=== PATIENT | male | born 1970 | race Caucasian/White ===

== ENCOUNTER 2023-02-18 14:20 | Emergency (ER) | payer BC ==
--- OUTSIDE RECORDS SUMMARY | 2023-02-18 14:25 | XMS REPORT | Clinical Summary ---
:1970 Author Organization [facility] MD [facility] Center Address [address] [place] [address] Care Team Providers Name Role Phone Edward Méndze MD Unavailable Katiana Felton MD Primary Care Provider Allergies No known active allergies Medications Medication Sig Dispensed Refills Start End Date Status Date HYDROcodone-acetamino Take 1 tablet 30 tablet 0 Active phen ([place]) 5 mg-325 by mouth 3 mg per every 8 tabletIndications: (eight) hours Neoplasm related pain as needed for (acute) (chronic) moderate pain. omeprazole (PriLOSEC) Take 1 0 Active 20 mg capsule (20 capsuleIndications: mg) by mouth. gastroesophageal reflux disease HYDROcodone-acetamino Take 1 tablet 40 tablet 0 Active phen ([place]) 10 by mouth 3 mg-325 mg per every 6 (six) tabletIndications: hours as Neoplasm related pain needed for (acute) (chronic) moderate pain. HYDROcodone-acetamino Take 1 tablet 40 tablet 0 Active phen ([place]) 10 by mouth 3 mg-325 mg per every 6 (six) tabletIndications: hours as Neoplasm related pain needed for (acute) (chronic) moderate pain. oxyBUTYnin (Ditropan Take 1 tablet 30 tablet 0 Active XL) 5 mg 24 hr (5 mg) by 3 tabletIndications: mouth daily. Frequency of micturition HYDROcodone-acetamino Take 1 tablet 40 tablet 0 Active phen ([place]) 10 by mouth 3 mg-325 mg per every 6 (six) tabletIndications: hours as Neoplasm related pain needed for (acute) (chronic) moderate pain. HYDROcodone-acetamino Take 1 tablet 40 tablet 0 02/03 Discontinued phen ([place]) 10 by mouth 3 23 (Reo rder) mg-325 mg per every 6 (six) tabletIndications: hours as Neoplasm related pain needed for (acute) (chronic) moderate pain. Active Problems Not on file Encounters Date Type Specialty Care Team Description 02/18/2023 Refill Internal Nicol Hodges Neoplasm re latepatricio pain Medicine SUREKHA Velazquez (acute) (chroni c) 02/15/2023 Orders Only Internal IliesKatiana nuñez, Frequency o f Medicine MD micturition (Pr imary Dx) 02/11/2023 Telephone Internal Suki Cruz L, SOFTWARE TEST SPECIALIST 02/06/2023 Ancillary Procedure Radiology Katiana Felton MD 02/06/2023 Ancillary Procedure Radiology Katiana Felton, Kidn ey, NOS cancer MD <Unspecified> 02/05/2023 Orders Only Internal Iliescu, Katiana, Neoplasm re lated pain Medicine (acute) (chroni c) (Primary Dx) 02/05/2023 Refill Internal Nicol Hodges Neoplasm re latepatricio pain Medicine SUREKHA Velazquez (acute) (chroni c) 02/04/2023 Orders Only Internal Iliescu, Katiana, Neoplasm re lated pain Medicine (acute) (chroni c) (Primary Dx) 02/04/2023 Refill Internal Nicol Hodges Neoplasm re lated pain Medicine SUREKHA Velazquez (acute) (chroni c) 02/01/2023 Telephone Internal Katiana Felton, Medicine 02/01/2023 Orders Only Internal IliescuElaineKatiana, Kidney, NOS cancer Medicine <Unspecified> (Primary Dx) 2023 Hospital Encounter Radiology 2023 Travel 01/30/2023 Hospital Encounter Radiology Pneumotho rax 01/30/2023 Hospital Encounter Radiology 01/30/2023 Hospital Encounter Radiology 01/30/2023 Hospital Encounter Radiology IliesElaine nuñezria, Multi ple nodules of lung; MD Abnormal finding on diagnostic imaging o f other abdominal region including retroperitoneum Matthieu Lawrence MD 01/30/2023 Travel 01/29/2023 Hospital Encounter Radiology IliescuElaineKatiana, Lung nodule (Primary MD Dx) Maia Vieira PA 01/29/2023 Hospital Encounter Lab Jovan Nava Multip le nodules of lung; C, PA Abnormal findin g on diagnostic imaging of other abdominal region including retroperitoneum 01/29/2023 Travel 01/23/2023 Documentation Flora Jean 01/21/2023 Ancillary Procedure Radiology Iliescu, Katiana, Mult iple nodules of lung; Abnormal findin g on diagnostic imaging of other abdominal region including retroperitoneum 01/21/2023 Education Radiology Allyssa Nesbitt MA 01/21/2023 Travel 01/18/2023 Telemedicine Internal Iliescu, Katiana, Multiple no dules of lung (Primary Dx); Medicine MD Abnormal findin g on diagnostic imaging of other abdominal region including retroperitoneum; Smoker; Neoplasm relate d pain (acute) (chronic) 01/18/2023 Orders Only Radiology Jovan Nava PA 01/15/2023 Ancillary Procedure Radiology Iliesjoaquin, Katiana, Canc er 01/15/2023 NPR Patient Access Services 01/15/2023 Travel 01/15/2023 Telephone Patient Access [facility] S, RN 01/15/2023 Telephone Patient Access Gilson Canales S, RN after 02/18/2022 Medical History Medical History Date Comments Tooth disorder 2022 Need deep, scaling, and extraction Asbestosis 2010 At [employer] [facility] in [facility] Genital warts 2014 Genital herpes simplex 1993 not treated per p t. Alcohol abuse 1985 Used drugs since 6, including smoking marijuana, s moking, crystal meth, LSD, and ecsta sy and synthetic cannabinoids, I have had long periods of sobriety, I don t think I was addict ed because every time I wanted to tanika t I did quit Gastro-esophageal reflux disease 11/2022 without esophagitis Family History Medical History Relation Name Comments Stomach cancer Maternal Grandmother Teresa Breast cancer Mother Reema Breast cancer, m etastasized to her spine, brain ans bones Relation Name Status Comments Maternal Grandmother Teresa Mother Reema Social History Tobacco Use Types Packs/Day Years Used Date Smoking Tobacco: Every Day Cigarettes 1 37 S tarted: 01/04/1986 Smokeless Tobacco: Former Snuff Qu it: 04/19/2017 Tobacco Cessation: Ready to Quit: Not As ked; Counseling Given: Not Answered Comments: Started decreasing use 3 weeks ago, down to 1/4 pack per day Alcohol Use Standard Drinks/Week Comments Not Currently 0 (1 standard drink = 0.6 oz pure I drin k less than six alcoholic alcohol) beverages a year Sex Assigned at Date Recorded Not on file Job Start Date Occupation Industry Not on file Not on file Not on file Obstetrics History Last Filed Vital Signs Vital Sign Reading Time Taken Comments Blood Pressure 142/82 01/30/2023 2:07 PM CDT Pulse 91 01/30/2023 2:07 PM CDT Temperature 36.6 C (97.9 F) 01/30/2023 2:07 PM CDT Respiratory Rate 16 01/30/2023 2:07 PM CDT Oxygen Saturation 93% 01/30/2023 2:07 PM CDT Inhaled Oxygen Concentration - - Weight 97.6 kg (215 lb 3.2 oz) 01/29/2023 9:32 AM CDT Height 191 cm (6' 3.2") 01/21/2023 1:16 PM CDT Body Mass Index 26.76 01/21/2023 1:16 PM CDT Plan of Treatment Date Type Specialty Care Team Description 03/21/2023 Consult Genitourinary Oncology Glenis Bedoya MD [address], [place] [address] (Wo rk) Health Maintenance Due Date Last Done Comments COVID-19 Vaccination (#1) 1970 Procedures Procedure Name Priority Date/Time Associated Diagnosis Comme nts NM BONE SCAN WHOLE BODY Routine 02/06/2023 11:53 Kidney, NOS c ancer Results for AM CDT <Unspecified> this procedure are in the results section. IR CHEST XRAY 1 VIEW 30 Routine 2023 8:58 R esults for AM CDT this procedure are in the results section. IR CHEST XRAY 1 VIEW 30 STAT 01/30/2023 2:02 Pneumothorax R esults for PM CDT this procedure are in the results section. IR CHEST XRAY 1 VIEW 30 Routine 01/30/2023 1:00 R esults for PM CDT this procedure are in the results section. IR CHEST XRAY 1 VIEW 30 STAT 01/30/2023 9:53 R esults for AM CDT this procedure are in the results section. IR CT GUIDED BIOPSY Routine 01/30/2023 9:43 Multiple nodules o f Results for LUNG/MEDIASTINAL 60 AM CDT lung this procedure Abnormal finding on are in t he diagnostic imaging of result s other abdominal region secti on. including retroperitoneum CYTOLOGY IMAGE-GUIDED Routine 01/30/2023 9:21 Multiple nodules of Results for FNA INTERPRETATION AM CDT lung this procedure Abnormal finding on are in t he diagnostic imaging of result s other abdominal region secti on. including retroperitoneum PATHOLOGY BIOPSY Routine 01/30/2023 9:21 Multiple nodules of R esults for INTERPRETATION AM CDT lung this procedure Abnormal finding on are in t he diagnostic imaging of result s other abdominal region secti on. including retroperitoneum MANUAL DIFFERENTIAL Routine 01/29/2023 9:26 Multiple nodules o f Results for AM CDT lung this procedure Abnormal finding on are in t he diagnostic imaging of result s other abdominal region secti on. including retroperitoneum Results CBC Routine 01/29/2023 9:26 Multiple nodules of Resul ts for AM CDT lung this procedure Abnormal finding on are in t he diagnostic imaging of result s other abdominal region secti on. including retroperitoneum FRACTIONATED BILIRUBIN Routine 01/29/2023 9:26 Multiple nodule s of Results for AM CDT lung this procedure Abnormal finding on are in t he diagnostic imaging of result s other abdominal region secti on. including retroperitoneum TOTAL PROTEIN Routine 01/29/2023 9:26 Multiple nodules of Resu lts for AM CDT lung this procedure Abnormal finding on are in t he diagnostic imaging of result s other abdominal region secti on. including retroperitoneum ASPARTATE Routine 01/29/2023 9:26 Multiple nodules of Resul ts for AMINOTRANSFERASE AM CDT lung this procedure Abnormal finding on are in t he diagnostic imaging of result s other abdominal region secti on. including retroperitoneum ALANINE Routine 01/29/2023 9:26 Multiple nodules of Resul ts for AMINOTRANSFERASE AM CDT lung this procedure Abnormal finding on are in t he diagnostic imaging of result s other abdominal region secti on. including retroperitoneum ALKALINE PHOSPHATASE Routine 01/29/2023 9:26 Multiple nodules of Results for AM CDT lung this procedure Abnormal finding on are in t he diagnostic imaging of result s other abdominal region secti on. including retroperitoneum ALBUMIN LEVEL Routine 01/29/2023 9:26 Multiple nodules of Resu lts for AM CDT lung this procedure Abnormal finding on are in t he diagnostic imaging of result s other abdominal region secti on. including retroperitoneum CALCIUM LEVEL TOTAL Routine 01/29/2023 9:26 Multiple nodules o f Results for AM CDT lung this procedure Abnormal finding on are in t he diagnostic imaging of result s other abdominal region secti on. including retroperitoneum .GLOMERULAR FILTRATION Routine 01/29/2023 9:26 Multiple nodule s of Results for RATE AM CDT lung this procedure Abnormal finding on are in t he diagnostic imaging of result s other abdominal region secti on. including retroperitoneum SERUM CREATININE Routine 01/29/2023 9:26 Multiple nodules of R esults for AM CDT lung this procedure Abnormal finding on are in t he diagnostic imaging of result s other abdominal region secti on. including retroperitoneum ELECTROLYTE PANEL Routine 01/29/2023 9:26 Multiple nodules of Results for AM CDT lung this procedure Abnormal finding on are in t he diagnostic imaging of result s other abdominal region secti on. including retroperitoneum BLOOD UREA NITROGEN Routine 01/29/2023 9:26 Multiple nodules o f Results for AM CDT lung this procedure Abnormal finding on are in t he diagnostic imaging of result s other abdominal region secti on. including retroperitoneum GLUCOSE LEVEL Routine 01/29/2023 9:26 Multiple nodules of Resu lts for AM CDT lung this procedure Abnormal finding on are in t he diagnostic imaging of result s other abdominal region secti on. including retroperitoneum ALPHA FETOPROTEIN TUMOR Routine 01/29/2023 9:26 Multiple nodul es of Results for MARKER AM CDT lung this procedure Abnormal finding on are in t he diagnostic imaging of result s other abdominal region secti on. including retroperitoneum LACTATE DEHYDROGENASE Routine 01/29/2023 9:26 Multiple nodules of Results for AM CDT lung this procedure Abnormal finding on are in t he diagnostic imaging of result s other abdominal region secti on. including retroperitoneum CARCINOEMBRYONIC Routine 01/29/2023 9:26 Multiple nodules of R esults for ANTIGEN AM CDT lung this procedure Abnormal finding on are in t he diagnostic imaging of result s other abdominal region secti on. including retroperitoneum CANCER ANTIGEN 19-9 Routine 01/29/2023 9:26 Multiple nodules o f Results for AM CDT lung this procedure Abnormal finding on are in t he diagnostic imaging of result s other abdominal region secti on. including retroperitoneum APTT Routine 01/29/2023 9:26 Multiple nodules of Resul ts for AM CDT lung this procedure Abnormal finding on are in t he diagnostic imaging of result s other abdominal region secti on. including retroperitoneum PROTHROMBIN TIME Routine 01/29/2023 9:26 Multiple nodules of R esults for AM CDT lung this procedure Abnormal finding on are in t he diagnostic imaging of result s other abdominal region secti on. including retroperitoneum COMPLETE BLOOD COUNT W/ Routine 01/29/2023 9:26 Multiple nodul es of DIFFERENTIAL AM CDT lung Abnormal finding on diagnostic imaging of other abdominal region including retroperitoneum COMPREHENSIVE METABOLIC Routine 01/29/2023 9:26 Multiple nodul es of PANEL AM CDT lung Abnormal finding on diagnostic imaging of other abdominal region including retroperitoneum CT CHEST ABDOMEN PELVIS Routine 01/21/2023 2:49 Multiple nodul es of Results for W WO CONTRAST PM CDT lung this procedure Abnormal finding on are in t he diagnostic imaging of result s other abdominal region secti on. including retroperitoneum POC CREATININE Routine 01/21/2023 1:45 Results fo r PM CDT this procedure are in the results section. OSI CT CHEST Routine 01/01/2023 3:49 Cancer Results for PM CDT this procedure are in the results section. after 02/18/2022 Results NM Bone Scan Whole Body (02/06/2023 11:53 AM CDT) Anatomical Region Laterality Modality Whole Body Nuclear Medicine Specimen (Source) Anatomical Collection Method Collection Time Re ceived Time Location / / Volume Laterality 02/06/2023 1:44 PM CDT Impressions 02/06/2023 1:46 PM CDT No scintigraphic evidence of active osseous metastases ACTIONABLE ITEMS/RECOMMENDATIONS: None. Narrative 02/06/2023 1:46 PM CDT FULL RESULT: Examination: Whole-Body Bone Scan, 2022 11:53 AM Clinical History: 53-year-old male with recently diagnosed metastatic renal cell carcinoma Indication: Staging/evaluation for osseo us metastases Comparison: No prior bone scans are avai lable for comparison at time dictation Technique: Following the intravenous adm inistration of 20.3 mCi of technetium- 99m MDP, anterior and posterior delayed whole body planar images were acquired. Additional views of the upper head were obta ined in anterior posterior planes with a alex raised above Findings: No focal suspicious sites of a ctivity within osseous structures. Bilateral kidneys are visualized with activity in the bladder; there appears to be subtle disruption of normal right renal morp hology, compatible with mass seen on Jan CT. Procedure Note Brian Graham MD - 02/06/2023Format ting of this note might be different from the original. FULL RESULT: Examination: Whole-Body Bone Scan, 2022 11:53 AM Clinical History: 53-year-old male with recently diagnosed metastatic renal cell carcinoma Indication: Staging/evaluation for osseo us metastases Comparison: No prior bone scans are avai lable for comparison at time dictation Technique: Following the intravenous adm inistration of 20.3 mCi of technetium- 99m MDP, anterior and posterior delayed whole body planar images were acquired. Additional views of the upper head were obtained in anterior posterior planes with arms rais ed above Findings: No focal suspicious sites of a ctivity within osseous structures. Bilateral kidneys are visualized with activity in the bladder; there appears to be subtle disruption of normal right renal morphology, compatible with mass seen on January [address] IMPRESSION: No scintigraphic evidence of active osse ous metastases ACTIONABLE ITEMS/RECOMMENDATIONS: None. Katiana Felton MD IMG NM ORDERABLES IR CHEST XRAY 1 VIEW (2023 8:58 AM CDT)Only the most recent of4 results within the time period is included. Anatomical Region Laterality Modality Chest Digital Radiography Specimen (Source) Anatomical Location Collection Method / Collectio n Time Received Time / Laterality Volume Narrative 02/04/2023 1:32 PM CDT Date of Procedure: 01/31/23 Attending Physician: Donnell Us MD Supervisor Coal Handling: None Pre Procedure Diagnosis: Post Procedure Diagnosis: Unchanged Indication: Evaluate stability of post -biopsy pneumothorax. Title of Procedure: Follow-up Chest X-Ray. A single inspiratory chest radiograph wa s obtained and compared to the prior exam. It demonstrated decrease o f the previously noted right pneumothorax. The remainder of the sam st is stable. Disposition: Home Plan: No further follow-up with IR required. The patient was discharged home in stable condition. Impression: Marked improvement in right pneumothorax . Barbie MARIA IMG IR ORDERABLES IR CT GUIDED BIOPSY LUNG/MEDIASTINAL (01/30/2023 9:43 AM CDT) Anatomical Region Laterality Modality Chest Computed Tomography Specimen (Source) Anatomical Location Collection Method / Collectio n Time Received Time / Laterality Volume Narrative 2023 7:50 AM CDT Table formatting from the original result was not included. Date of Procedure: 01/30/23 Attending Physician: Meir Ramos Supervisor Coal Handling: None Pre Procedure Diagnosis: Multiple nodu les of lung; Abnormal finding on diagnostic imaging of other abdominal re gion including retroperitoneum Post Procedure Diagnosis: Unchanged Indication: Evaluate for metastasis Protocol Number: N/A Title of Procedure: Percutaneous CT-Guided Biopsy Operative Findings: 1. Percutaneous image-guided biopsy of 2 .6 cm right upper lobe lung lesion. 2. Pneumothorax noted on follow-up chest x-rays: Conservative management Consent: The procedure, risks, indicat ions and alternatives were explained. All questions were answered a nd informed consent was obtained. I have reviewed the history and physical dictated by the mid-level practitioner/fellow. Sedation/Anesthesia: Moderate sedation for pain control and anxiety was administered by a dedicated nurse under my supervision. There was continuous monitoring of oxygen saturati on, heart rate and intermittent monitoring of blood pressure during the procedure. Medication given was midazolam and fentanyl. I was present for the administration of the medications indicated above. Procedure Events Event Event Time Sedation Start 01/30/2023 9:07 AM Sedation End 01/30/2023 9:37 AM Procedure in Detail: A time out was performed prior to the st art of the procedure and the correct patient, procedure, presence of consent, site, and side were confirmed with all members of the team. With the patient in the supine position, the skin overlying the area of interest was prepped and draped in the u sual sterile fashion. Lidocaine 1% was used for local anesthesia. Using an anterior approach under CT imag e-guidance, a 19 gauge needle was advanced down to the lesion in the right lung. An image was obtained and placed into the medical record. Samples were obtained for evaluation. Sampling: Cytology: A 22 gauge needle was used t o obtain sample(s) for cytologic assessment. Total number of samples: 2 Core Biopsy: A 20 gauge needle used to obtain samples for surgical pathology evaluation. Total number of samples: 4 Biosentry: N/A Post-biopsy radiographs: The initial follow-up chest radiograph d emonstrates: No pneumothorax. A subsequent follow-up chest radiograph was obtained 3 hours after the initial and demonstrates: Small pneumo thorax which was stable on a repeat xray in 1 hour. Specimens Disposition: Diagnostic Biopsy: The biopsy samples were submitted to pathology. Additional Comments: None Estimated Blood Loss: Minimal Immediate Complications: Pneumothorax Disposition: PACU Plan: No follow-up with Interventional Radiolo gy required. Katiana Felton MD IMG IR ORDERABLES (ABNORMAL) Cytology Image-Guided FNA Interpretation (01/30/2023 9:21 AM CDT) Component Value Ref Test Analysis Performed Pathologis t Range Method Time At Signature Gross Specimens procured: 02/04/2023 [facility] Description 2 Diff Quik; 3 Pap Stain Slides 8:47 A M 10 ml, slightly cloudy bloody fluid in RPMI CDT 1 Cytospin Size: 2.6 cm Major MALIGNANT (A) 02/04/2023 [facility] Adrienne ctronically Classification 8:47 AM benita d by Katiana Solano MD on 02/04/2023 at 8:47 AM Diagnosis Lung, right upper lobe, fine needle aspiration: 02/04/2023 [facility] Electronically 8:47 AM signed by Katiana METASTATIC CARCINOMA, MORPHO LOGICALLY CONSISTENT WITH RENAL CELL CARCINOMA (see comment) CDT Mari Solano MD on 02/04/2023 at 8:47 AM Comment Aspirate smears 02/04/2023 [facility] and cytospin 8:47 AM preparation CDT demonstrate cohesive groups of tumor cells with high [id number] asmic ratios, occasional prominent nuclear inclusions, and vacuolated cytoplasm. Tumor cells are arranged along a prominent network of vasculature. Please see this patient's concurrently acquired core needle biopsy ([id number]) for further evaluation. Retained/Biomark SR: 6 S 02/04/2023 [facility] er Testing Biomarker Testin:47 AM [facility] Cell Block: N/A CDT MDL Pap: 1 S MDL DQ: 0 S FISH DQ: 0 S Informational Some tests 02/04/2023 [facility] Points reported here may 8:47 AM have been CDT developed and performance characteristics determined by [facility] Pathology and Laboratory Medicine. These tests have not been specifically cleared or approved by the U.S. Food and Drug Administration. Specimen Anatomical Collection Method Collection Time Receive d Time (Source) Location / / Volume Laterality Fine Needle Asp 01/30/2023 9:21 AM 2022 9:30 (Lung, Right CDT AM CDT Upper Lobe) Katiana Felton MD LAB CYTOLOGY ORDERABLES Performing Organization Address City/State/ZIP Code Phon e Number [facility] [place], [place] [id number] [address] [facility] Pathology Biopsy Interpretation (01/30/2023 9:21 AM CDT) Component Value Ref Test Analysis Performed Pathologis t Range Method Time At Signature Submitted Multiple nodules of lung [R91.8] 023 [facility] Clinical Abnormal finding on diagnost ic imaging of other abdominal region including retroperitoneum [R93.5] 9:36 AM History CDT Diagnosis 02/01/2023 [facility] Electro nically Lung, right upper lobe, biopsy: 9:36 AM signed by Carlos Calvo MD on METASTATIC RENAL CELL CARCINOMA, CLEAR CELL TYPE 02/01/2023 at See comment. 9:36 A M Comment Immunohistochemical 02/01/2023 [facility] stains show tumor 9:36 AM cells positive for CDT keratin and PAX8, while negative for S-100, HMB45, CD34, and chromogranin. Gross A: 02/01/2023 [facility] Description Lung, right upper lobe, : 5 cores of soft rosales tissue (0.1 x 0.1 cm to 0.6 x 0.1 cm), entirely submitted in A1. YS 9:36 AM CDT Biomarker A 02/01/2023 [facility] Block(s) 9:36 AM CDT Disclaimer "Some tests reported 02/01/2023 [facility] here may have been 9:36 AM developed and CDT performance characteristics determined by [facility] Pathology and Laboratory Medicine. These tests have not been specifically cleared or approved by the U.S. Food and Drug Administration. If applicable, controls were reviewed and showed appropriate reactivity." Specimen Anatomical Collection Method Collection Time Receive d Time (Source) Location / / Volume Laterality Tissue (Lung, 01/30/2023 9:21 AM 01/31/20 23 Right Upper CDT 11:11 AM CDT Lobe) Katiana Felton MD LAB PATHOLOGY ORDERABLES Performing Organization Address City/[facility]/ZIP Code Phon e Number [facility] [place] [address] [address] [place] .Serum Creatinine (01/29/2023 9:26 AM CDT) athologist Signature Creatinine 0.93 0.67 - 1.17 [facility] mg/dL Comment: Testing Performed at [facility], [address], [address], [place] [address] Specimen Anatomical Collection Method Collection Time Receive d Time (Source) Location / / Volume Laterality Blood 01/29/2023 9:26 AM 3 9:32 CDT AM CDT Katiana Felton MD LAB BLOOD ORDERABLES Performing Organization Address City/[facility]/ZIP Code Phon e Number [facility] [facility] [address] [facility] [place] [address] [address] (ABNORMAL) .CBC (01/29/2023 9:26 AM CDT) athologist Signature WBC 9.3 4.1 - 10.5 [facility] K/uL RBC 8.35 (H) 4.30 - 6.04 [facility] M/uL Hgb 20.7 (H) 13.3 - 17.4 [facility] gm/dL Comment: As part of CBC or as an individ ual orderable testing performed at [facility] [employer] [facility], [address] [facility] , [address], [place] [address] Hct 64.0 (H) 39.5 - 51.8 % [facility] Comment: As part of CBC or as an individ ual orderable testing performed at [facility] [employer] [facility], [address] [facility] , [address], [place] [address] MCV 77 (L) 82 - 99 fL [facility] MCH 24.8 (L) 26.6 - 33.2 pg [facility] MCHC 32.3 31.1 - 35.2 gm/dL [facility] RDW-SD 51.5 (H) 37.5 - 49.7 fL [facility] RDW-CV 18.5 (H) 11.6 - 15.5 % [facility] Platelet count 248 160 - 397 K/uL [facility] Comment: As part of CBC or as an individ ual orderable testing performed at [facility], [address] [place] [address] , [address], [place] [address] MPV 9.7 9.1 - 12.6 fL [facility] INRBC 0.0 0.0 - 0.1 /100 WBC [facility] Comment: The INRBC (instrument NRBC) value reflec ts the enumeration of nucleated red blood cells contained i n a 200uL sample of whole blood analyzed by the instrumen t. This value may differ from the NRBC value reported in a manual differential, which is based on a 100 cell differentia l. As part of CBC testing performed at [address], [address], [place] [address] Specimen Anatomical Collection Method Collection Time Receive d Time (Source) Location / / Volume Laterality Blood 01/29/2023 9:26 AM 9:28 CDT AM CDT Katiana Felton MD LAB BLOOD ORDERABLES Performing Organization Address City/State/ZIP Code Phon e Number [address] [place] [address] [address] Glomerular Filtration Rate (01/29/2023 9:26 AM CDT) athologist Signature eGFR 99 >=60 [facility] mL/min/1.73 sq. m Comment: The eGFRcr is calculated with the 2020 KD-EPI creatinine equation using creatinine, patient's age, and sex for adults 18 years of age and older. Other factors, especially muscle mass, may affect accuracy and need to be considered. According to the Kidney Disease: Improvi ng Global Outcomes (KDIGO) CKD Work Group 2012 Clinical Practice Guideline, chronic kidney disease (CKD) is defined as the abnormalities of kidney structure or function, present for more than 3 months, with implications for health. CKD should be c lassified by cause, GFR category, and albuminuria category. KDIGO guidelines provide the following GFR categories Stage Description GFR mL/min/1.73 m2 G1* Normal or high >= 90 G2* Mildly decreased 60-89 G3a Mildly to moderately decreased 45-59 G3b Moderately to severely decreased 30- 44 G4 Severely decreased 15-29 G5 Kidney failure <15 *In the absence of evidence of kidney da mage, neither G1 nor G2 fulfill criteria for CKD. Testing Performed at [facility] [employer] Bldg, [facility] [facility], [address], [place] [address] Specimen Anatomical Collection Method Collection Time Receive d Time (Source) Location / / Volume Laterality Blood 01/29/2023 9:26 AM 9:32 CDT AM CDT Katiana Felton MD LAB BLOOD ORDERABLES Performing Organization Address City/State/ZIP Code Phon e Number [address] [place] [address] [address] Fractionated Bilirubin (01/29/2023 9:26 AM CDT) athologist Signature Bili Total 0.5 <=1.2 mg/dL [facility] Comment: Indocyanine Green (ICG) may cause falsel y elevated bilirubin results. Total and direct bilirubin must not be measured from samples containing indocyanine green. False elevation of total bilirubin can b e seen in patients with IgG concentrations above 28 g/L. Testing Performed at [facility], [address] [place] [address], [address], [place] [address] Bili Direct <0.2 <=0.3 mg/dL [facility] Comment: Indocyanine Green (ICG) may cause falsel y elevated bilirubin results. Total and direct bilirubin must not be measured from samples containing indocyanine green. Testing Performed at [facility], [facility] [facility], [address], [place] [address] Bili Indirect See Note 0.0 - 0.9 mg/dL [facility] Comment: Unable to calculate Indirect Bilirubin r esult due to some parameters are outside reportable range Testing Performed at [facility], [facility] [facility], [address], [place] [address] Specimen Anatomical Collection Method Collection Time Receive d Time (Source) Location / / Volume Laterality Blood 01/29/2023 9:26 AM 3 9:32 CDT AM CDT Katiana Felton MD LAB BLOOD ORDERABLES Performing Organization Address [facility] [place] Number [address] [place] [address] [address] (ABNORMAL) aPTT (01/29/2023 9:26 AM CDT) athologist [facility] aPTT 40.3 (H) 24.1 - 35.5 [facility] second(s) Comment: Testing Performed at [facility] [employer] [address], [address] [place] [address] Specimen Anatomical Collection Method Collection Time Receive d Time (Source) Location / / Volume Laterality Blood 01/29/2023 9:26 AM 3 9:28 CDT AM CDT Narrative [facility] - 01/29/2023 10:15 AM CDT This lab cannot be scheduled at the [facility] locations due to collection/proccessing restrictions: [facility] and [facility]. Katiana Felton MD LAB BLOOD ORDERABLES Performing Organization Address [facility]/[address] [place] [address] [address] AFP (01/29/2023 9:26 AM CDT) [facility] AFP <2.7 <=8.3 ng/mL [facility] Comment: Results greater than 45,875.00 ng/mL may not be reliable due to matrix effect with extended dilution as it exceeds the food safety coordinator's recommended limit. Caution should be exercised when interpreting such values and done in conjunction with clinical context. This test is measured by electrochemilum inescence immunoassay on Joao Everardo immunoassay analyzers. Results obtained in different methods are not interchangeable. Testing Performed at [facility] [employer] [facility], [address] [place] [address], [address], [place] [address] Specimen Anatomical Collection Method Collection Time Receive d Time (Source) Location / / Volume Laterality Blood 01/29/2023 9:26 AM 3 9:32 CDT AM CDT Katiana Felton MD LAB BLOOD ORDERABLES Performing Organization Address [facility] e Number [facility] [address] [place] [address] [address] CA 19-9 (01/29/2023 9:26 AM CDT) athologist Signature CA 19-9 4.3 <=35.0 U/mL [facility] Comment: Results greater than 9500 U/mL may not b e reliable due to matrix effect with extended dilution as it exceeds the food safety coordinator's recommended limit. Caution should be exercised when interpreting such valu es and done in conjunction with clinical context. This test is measured by electrochemilum inescence immunoassay on Joao Everardo immunoassay analyzers. Results obtained in different methods are not interchangeable. Testing Performed at [facility], [address] [place] [address], [address], [place] [address] Specimen Anatomical Collection Method Collection Time Receive d Time (Source) Location / / Volume Laterality Blood 01/29/2023 9:26 AM 9:32 CDT AM CDT Katiana Felton MD LAB BLOOD ORDERABLES Performing Organization Address [facility] e Number [address] [place] [address] [address] (ABNORMAL) Differential (01/29/2023 9:26 AM CDT) athologist Signature Neutrophil % 60.8 43.2 - 72.7 [facility] % Comment: As part of Differential perform ed at [facility], [address] [place] [address], [address], [place] [address] Lymphocyte % 23.9 16.8 - 46.2 % [facility] Monocyte % 12.0 5.1 - 12.5 % [facility] Eosinophil % 1.7 0.4 - 6.3 % [facility] Basophil % 1.2 0.2 - 1.4 % [facility] IGRE % 0.4 0.1 - 1.5 % [facility] Comment: IGRE % count includes Metamyelocytes, My elocytes, and Promyelocytes. As part of Differential performed at [facility], [address] [place] [address], [address], [place] [address] Neutrophil Abs 5.68 1.95 - 7.25 K/uL [facility] Lymphocyte Abs 2.23 1.01 - 3.24 K/uL [facility] Monocyte Abs 1.12 (H) 0.24 - 0.85 K/uL [facility] Eosinophil Abs 0.16 0.02 - 0.50 K/uL [facility] Basophil Abs 0.11 (H) 0.02 - 0.09 K/uL [facility] IG Abs 0.04 0.01 - 0.12 K/uL [facility] Specimen Anatomical Collection Method Collection Time Receive d Time (Source) Location / / Volume Laterality Blood 01/29/2023 9:26 AM 3 9:28 CDT AM CDT Katiana Felton MD LAB BLOOD ORDERABLES Performing Organization Address City/[facility]/[address] [place] [address] [address] Prothrombin Time with INR (01/29/2023 9:26 AM CDT) athologist Signature PT 13.7 11.9 - 14.5 [facility] second(s) Comment: Testing Performed at [facility] Lab [employer] [facility] [address] [facility], [address] [place] [address] INR 1.09 0.87 - 1.12 [facility] Comment: Testing Performed at [facility] Lab [employer] [facility] [address] [facility], [address] [place] [address] Specimen Anatomical Collection Method Collection Time Receive d Time (Source) Location / / Volume Laterality Blood 01/29/2023 9:26 AM 3 9:28 CDT AM CDT Narrative [facility] - 01/29/2023 10:15 AM CDT This lab cannot be scheduled at the [facility] locations due to collection/proccessing restrictions: [facility] and [facility]. Katiana Felton MD LAB BLOOD ORDERABLES Performing Organization Address City/[facility]/[address] [place] [address] [address] BUN (01/29/2023 9:26 AM CDT) athologist Signature BUN 18 6 - 23 mg/dL [facility] Comment: Testing Performed at [facility], [address] [facility], [address], [place] [address] Specimen Anatomical Collection Method Collection Time Receive d Time (Source) Location / / Volume Laterality Blood 01/29/2023 9:26 AM 3 9:32 CDT AM CDT Katiana Felton MD LAB BLOOD ORDERABLES Performing Organization Address City/[facility]/ZIP [facility] Phon e Number [facility] [address] [facility] [place] [address] [address] ALT (01/29/2023 9:26 AM CDT) athologist Signature ALT 31 <=41 U/L [facility] Comment: Testing Performed at B Lab [facility], [address] [facility], [address], [place] [address] Specimen Anatomical Collection Method Collection Time Receive d Time (Source) Location / / Volume Laterality Blood 01/29/2023 9:26 AM 3 9:32 CDT AM CDT Katiana Felton MD LAB BLOOD ORDERABLES Performing Organization Address [facility] Phon e Number [facility] [address] [facility] [place] [address] [address] Aspartate Aminotransferase (01/29/2023 9:26 AM CDT) athologist Signature AST 22 <=40 U/L [facility] Comment: Testing Performed at [facility] Lab [facility], [address] [facility], [address], [place] [address] Specimen Anatomical Collection Method Collection Time Receive d Time (Source) Location / / Volume Laterality Blood 01/29/2023 9:26 AM 3 9:32 CDT AM CDT Katiana Felton MD LAB BLOOD ORDERABLES Performing Organization Address [facility] Phon e Number [facility] [address] [facility] [place] [address] [address] (ABNORMAL) Total Protein (01/29/2023 9:26 AM CDT) athologist Signature Total Protein 8.5 (H) 6.4 - 8.3 [facility] g/dL Comment: Testing Performed at B Lab [facility], [address] [facility], [address], [place] [address] Specimen Anatomical Collection Method Collection Time Receive d Time (Source) Location / / Volume Laterality Blood 01/29/2023 9:26 AM 3 9:32 CDT AM CDT Katiana Felton MD LAB BLOOD ORDERABLES Performing Organization Address City/State/ZIP Code Phon e Number [facility] [address] [facility] [place] [address] [address] (ABNORMAL) Alkaline Phosphatase (01/29/2023 9:26 AM CDT) P athologist Signature Alk Phos 219 (H) 40 - 129 [facility] U/L Comment: Testing Performed at [facility] Lab Am [facility], [address] [facility], [address], [place] [address] Specimen Anatomical Collection Method Collection Time Receive d Time (Source) Location / / Volume Laterality Blood 01/29/2023 9:26 AM 3 9:32 CDT AM CDT Katiana Felton MD LAB BLOOD ORDERABLES Performing Organization Address City/[facility]/ZIP Code Phon e Number [facility] [address] [facility] [place] [address] [address] LDH (01/29/2023 9:26 AM CDT) P athologist Signature LDH 199 135 - 225 [facility] U/L Comment: Results greater than 1651 U/L may not be reliable due to matrix effect with extended dilution as it exceeds the food safety coordinator s recommended limit. Caution should be exercised when interpreting such ronna ues and done in conjunction with clinica l context. Testing Performed at [facility] Lab [employer] [facility], [address] [facility], [address], [place] [address] Specimen Anatomical Collection Method Collection Time Receive d Time (Source) Location / / Volume Laterality Blood 01/29/2023 9:26 AM 3 9:34 CDT AM CDT Katiana Felton MD LAB BLOOD ORDERABLES Performing Organization Address City/[facility]/ZIP Code Phon e Number [facility] [address] [facility] [place] [address] [address] Glucose Level (01/29/2023 9:26 AM CDT) athologist Signature Glucose Level 90 70 - 99 [facility] mg/dL Comment: Effective 11/30/15, the glucose reference intervals have been updated based on [place] [employer] guidelines (Standards of Medical Care in Diabetes 2016. Diabetes Care 2016; 39: S13-S22). Fasting blood glucose: Normal: 70-99 mg/dL Impaired fasting glucose (increased risk for diabetes or pre-diabetes): 100- 125 mg/dL Diabetes mellitus: >/=126 mg/dL Random blood glucose: Normal: 70-199 mg/dL Note: Random glucose >100 mg/dL is assoc iated with increased risk for diabetes Testing Performed at [facility], [address] [place] [address], [address], [place] [address] Specimen Anatomical Collection Method Collection Time Receive d Time (Source) Location / / Volume Laterality Blood 01/29/2023 9:26 AM 3 9:32 CDT AM CDT Katiana Felton MD LAB BLOOD ORDERABLES Performing Organization Address City/[facility]/ZIP [facility] Phon e Number [address] [place] [address] [address] CEA (01/29/2023 9:26 AM CDT) athologist [facility] CEA 3.0 <=3.8 ng/mL [facility] Comment: Reference Ranges: Smoker: 0.0 - 5.5 Non-Smoker: 0.0 - 3.8 This test is measured by electrochemilum inescence immunoassay on Joao Everardo immunoassay analyzers. Results obtained in different methods are not interchangeable. Testing Performed at [facility], [address] [place] [address], [address], [place] [address] Specimen Anatomical Collection Method Collection Time Receive d Time (Source) Location / / Volume Laterality Blood 01/29/2023 9:26 AM 3 9:32 CDT AM CDT Katiana Felton MD LAB BLOOD ORDERABLES Performing Organization Address [facility]/ZIP [facility] Phon e Number [address] [place] [address] [address] (ABNORMAL) Calcium Level (01/29/2023 9:26 AM CDT) athologist Signature Calcium Lvl 10.5 (H) 8.4 - 10.2 [facility] mg/dL Comment: Testing Performed at [facility] Lab [facility], [address], [address], [place] [address] Specimen Anatomical Collection Method Collection Time Receive d Time (Source) Location / / Volume Laterality Blood 01/29/2023 9:26 AM 3 9:32 CDT AM CDT Katiana Felton MD LAB BLOOD ORDERABLES Performing Organization Address City/[facility]/ZIP [facility] Phon e Number [facility] [address] [facility] [place] [address] [address] Albumin Level (01/29/2023 9:26 AM CDT) athologist Signature Albumin Lvl 3.8 3.5 - 5.2 [facility] gm/dL Comment: Testing Performed at [facility] Lab [facility], [address], [address], [place] [address] Specimen Anatomical Collection Method Collection Time Receive d Time (Source) Location / / Volume Laterality Blood 01/29/2023 9:26 AM 3 9:32 CDT AM CDT Katiana Felton MD LAB BLOOD ORDERABLES Performing Organization Address [facility] e Number [facility] [address] [facility] [place] [address] [address] (ABNORMAL) Electrolyte Panel (01/29/2023 9:26 AM CDT) athologist Signature Sodium Lvl 138 136 - 145 [facility] mEq/L Comment: Testing Performed at [facility] Lab [facility], [address], [address], [place] [address] Potassium Lvl 5.3 (H) 3.5 - 5.1 mEq/L [facility] Comment: Testing Performed at [facility] Lab [facility], [address], [address], [place] [address] Chloride 100 98 - 107 mEq/L [facility] Comment: Testing Performed at [facility] Lab Am [facility] Care Bld[facility], [address], [address], [place] [address] CO2 31 (H) 22 - 29 mEq/L [facility] Comment: Testing Performed at [facility] dg, [address], [address], [place] [address] Anion Gap 7 4 - 14 mEq/L [facility] Comment: Testing Performed at [facility], [address], [address], [place] [address] Specimen Anatomical Collection Method Collection Time Receive d Time (Source) Location / / Volume Laterality Blood 01/29/2023 9:26 AM 9:32 CDT AM CDT Katiana Felton MD LAB BLOOD ORDERABLES Performing Organization Address City/State/ZIP Code Phon e Number [facility] [address] [place] [address] [address] Chest Abdomen Pelvis with and without Contrast (01/21/2023 2:49 PM CDT) Anatomical Region Laterality Modality Abdomen, Pelvis, Chest Computed Tomograp hy Specimen (Source) Anatomical Collection Method Collection Time Re ceived Time Location / / Volume Laterality 01/21/2023 3:10 PM CDT Impressions 01/22/2023 6:43 AM CDT 1. Right upper quadrant mass, presumably arising from the upper pole the right kidney, most suspicious for renal cell carcinoma. The mass abuts the liver and the right hemidiaphragm and invasion of thes e structures cannot be excluded. 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 2. Nonspecific minimally prominent enhan cing retroperitoneal nodes. There are also some nonspecific mediastinal and left supraclavicular nodes. 3. Numerous bilateral pulmonary nodules, most suspicious for metastasis. ACTIONABLE ITEMS/RECOMMENDATIONS: None. Narrative 01/22/2023 6:43 AM CDT Examination: CT CHEST ABDOMEN PELVIS W WO CONTRAST on 01/21/2023 2:49 PM. Clinical History: Multiple nodules of yuliet ng Abnormal finding on diagnostic imaging o f other abdominal region including retroperitoneum. Indication: RUQ mass, renal or hepatic o rigin per outside radiologist, bilateral lung nodules. Comparison: Outside chest CT dated 01/01 Technique: CT of the chest, abdomen and pelvis was performed without oral or intravenous contrast followed by scanning with both oral and intravenous contrast. CHEST FINDINGS: Lines and Tubes: None. Lungs and Pleura: No consolidations. How ever, there are numerous bilateral pulmonary nodules/metastasis. For example, in the right lower lobe (image 140, series 19), there is a 2.9 x 1.8 cm nodule. In t he right middle lobe (image 115, series 19), there is a 1.5 x 1.3 cm nodule/metastasis. In the right lower lobe (image 70, series 19), there is a 3.0 x 2.2 cm mass/metastasis. In the left upper lobe (im age 36, series 19), there is a 1.9 x 1.7 cm nodule/metastasis. Numerous additional pulmonary nodule/metastasis are seen bilaterally. No pleural effusion. Cardiomediastinum: The heart is normal i n size. No pericardial effusion. Lymph nodes: No axillary lymphadenopathy . There is a nonspecific right sided paratracheal node (image 49, series 18), measuring up to 0.9 cm in short axis diameter. There are some nonspecific prevascula r nodes including a 0.6 cm in short axis diameter prevascular node (image 31, series 18). There is a nonspecific 0.8 cm in short axis diameter left supraclavicular node (image 10, series 18). ABDOMEN AND PELVIS FINDINGS: Hepatobiliary: No suspicious hepatic les ions. No biliary dilatation. No cholecystitis. Spleen: No splenomegaly. Pancreas: No mass or ductal dilatation. Adrenal Glands: The left adrenal gland i s grossly unremarkable. The right adrenal gland is not visualized, possibly invaded/involved by the right renal mass. Kidneys, Ureters, Bladder: There is a la rge right upper quadrant mass, most likely arising from the right kidney (image 289, series 18), measuring up to 9.0 x 12.9 cm. This mass abuts the liver as well as the right hemidiaphragm and invasion of these structures cannot be excluded. The right adrenal gland is not visualized, likely involved by the right renal mass. There is also some suspected right gibran al vein tumor thrombus (image 73, series 13), measuring up to 4.2 cm. There is also an additional area of some likely tumor thrombus in the right renal vein (image 61, series 13), with extension into th e inferior vena cava (image 70, series 1 3 and image 70, series 25) There is a significant degree of neovascularity identified around the right renal mass/right kidney. There are some left renal subcenti meter too small to characterize hypodens ities. No renal masses. No bladder mass. Gastrointestinal Tract: Stomach and smal l bowel are unremarkable. Colonic diverticulosis. Appendix is unremarkable. Pelvic Organs: Prostate gland is enlarge d and heterogeneous. Seminal vesicles are unremarkable. Peritoneum/Retroperitoneum: No ascites. Lymph Nodes: No pelvic or abdominal lymp hadenopathy. There are some nonspecific enhancing small volume retroperitoneal nodes. This includes a 0.7 cm in short axis diameter aortocaval lymph node (image 3 31, series 18). An additional aortocaval node (image 309, series 18), measures up to 0.9 cm in short axis diameter. There is a nonspecific 1.2 cm in short axis diameter portacaval node (image 299, series 18). Lines and Tubes: None MUSCULOSKELETAL FINDINGS: No suspicious skeletal lesions. There is a gynecomastia. In the left paraspinal musculature (image 43, series 18), there is a 3.4 x 1.3 cm lipoma. Procedure Note Donn Dodson MD - 01/22/2023 Examination: CT CHEST ABDOMEN PELVIS W W O CONTRAST on 01/21/2023 2:49 PM. Clinical History: Multiple nodules of yuliet ng Abnormal finding on diagnostic imaging o f other abdominal region including retroperitoneum. Indication: RUQ mass, renal or hepatic o rigin per outside radiologist, bilateral lung nodules. Comparison: Outside chest CT dated 01/01 Technique: CT of the chest, abdomen and pelvis was performed without oral or intravenous contrast followed by scanning with both oral and intravenous contrast. CHEST FINDINGS: Lines and Tubes: None. Lungs and Pleura: No consolidations. How ever, there are numerous bilateral pulmonary nodules/metastasis. For example, in the right lower lobe (image 140, series 19), there is a 2.9 x 1.8 cm nodule. In the right middle lobe (image 115, series 19), there is a 1.5 x 1.3 cm nodule/metastasis. In the right lower lobe (image 70, series 19), there is a 3.0 x 2.2 cm mass/metastasis. In the left upper lobe (image 35, series 19), there is a 1.9 x 1.7 cm nodule/metastasis. Numerous additional pulmonary nodule/metastasis are seen bilaterally. No pleural effusion. Cardiomediastinum: The heart is normal i n size. No pericardial effusion. Lymph nodes: No axillary lymphadenopathy . There is a nonspecific right sided paratracheal node (image 49, series 18), measuring up to 0.9 cm in short axis diameter. There are some nonspecific prevascular nodes including a 0.6 cm in short axis diamete r prevascular node (image 31, series 18). There is a nonspecific 0.8 cm in short axis diameter left supraclavicular node (image 10, series 18). ABDOMEN AND PELVIS FINDINGS: Hepatobiliary: No suspicious hepatic les ions. No biliary dilatation. No cholecystitis. Spleen: No splenomegaly. Pancreas: No mass or ductal dilatation. Adrenal Glands: The left adrenal gland i s grossly unremarkable. The right adrenal gland is not visualized, possibly invaded/involved by the right renal mass. Kidneys, Ureters, Bladder: There is a la rge right upper quadrant mass, most likely arising from the right kidney (image 289, series 18), measuring up to 9.0 x 12.9 cm. This mass abuts the liver as well as the right hemidiaphragm and invasion of thes e structures cannot be excluded. The right adrenal gland is not visualized, likely involved by the right renal mass. 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 There is also an additional area of some likely tumor thrombus in the right renal vein (image 61, series 13), with extension into the inferior vena cava (image 70, series 13 and image 70, series 25) There is a s ignificant degree of neovascularity identified around the right renal mass/right kidney. There are some left renal subcentimeter too small to characterize hypodensities. No renal masses. No bladder mass. Gastrointestinal Tract: Stomach and smal l bowel are unremarkable. Colonic diverticulosis. Appendix is unremarkable. Pelvic Organs: Prostate gland is enlarge d and heterogeneous. Seminal vesicles are unremarkable. Peritoneum/Retroperitoneum: No ascites. Lymph Nodes: No pelvic or abdominal lymp hadenopathy. There are some nonspecific enhancing small volume retroperitoneal nodes. This includes a 0.7 cm in short axis diameter aortocaval lymph node (image 331, series 18). An additional aortocaval node (imag e 309, series 18), measures up to 0.9 cm in short axis diameter. There is a nonspecific 1.2 cm in short axis diameter portacaval node (image 299, series 18). Lines and Tubes: None MUSCULOSKELETAL FINDINGS: No suspicious skeletal lesions. There is a gynecomastia. In the left paraspinal musculature (image 43, series 18), there is a 3.4 x 1.3 cm lipoma. IMPRESSION: 1. Right upper quadrant mass, presumably arising from the upper pole the right kidney, most suspicious for renal cell carcinoma. The mass abuts the liver and the right hemidiaphragm and invasion of these structures cannot be excluded. 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 2. Nonspecific minimally prominent enhan cing retroperitoneal nodes. There are also some nonspecific mediastinal and left supraclavicular nodes. 3. Numerous bilateral pulmonary nodules, most suspicious for metastasis. ACTIONABLE ITEMS/RECOMMENDATIONS: None. Katiana Felton MD IMG CT ORDERABLES POC Creatinine (01/21/2023 1:45 PM CDT) P athologist Signature POC Crea 1.1 0.6 - 1.3 POC [facility] mg/dL Comment: Medications, especially hydroxyurea or s upplements, such as ascorbate, can interfere with test results causing a falsely and significantly higher result than expected. If a problem is suspected with a patient's result, a sample should be sent to the laboratory for confirmatory testing. Method description: The i-STAT is an radha lyzer used for in vitro quantification of various analytes in whole blood. The device uses a single disposable cartridge which contains microfabricated sensors, a calibration solution, fluidics system, and a waste chamber. Each test cartridge contains ch emically sensitive biosensors on a silicon chip that are configured to perform specific tests. The microfabricated sensors measure analyte concentration by an electrochemical assay. POC EGFR 81 >=60 mL/min/1.73 sq. m POC TEL [facility] Comment: The eGFRcr is calculated with the 2020 KD-EPI creatinine equation using creatinine, patient's age, and sex for adults 18 years of age and older. Other factors, especially muscle mass, may affect accuracy and need to be considered. According to the Kidney Disease: Improvi ng Global Outcomes (KDIGO) CKD Work Group 2012 Clinical Practice Guideline, chronic kidney disease (CKD) is defined as the abnormalities of kidney structure or function, present for more than 3 months, with implications for health. CKD should be c lassified by cause, GFR category, and albuminuria category. KDIGO guidelines provide the following GFR categories Stage Description GFR mL/min/1.73 m2 G1* Normal or high >= 90 G2* Mildly decreased 60-89 G3a Mildly to moderately decreased 45-59 G3b Moderately to severely decreased 30- 44 G4 Severely decreased 15-29 G5 Kidney failure <15 *In the absence of evidence of kidney da mage, neither G1 nor G2 fulfill criteria for CKD. POC Clean Dev Yes POC [facility] Performing Lab [facility] POC TELCO R Comment: [facility] loreto MD [facility] ,[address] [place] [id number], Traffic Survey Technician: Marcella Dias MD Specimen Anatomical Collection Method Collection Time Receive d Time (Source) Location / / Volume Laterality Blood 01/21/2023 1:45 PM 3 1:45 CDT PM CDT Katiana Felton MD POCT ORDERABLES - DEVICE Performing Organization Address City/State/ZIP Code Phon e Number POC TEL[facility] Unless otherwise noted, [place] [address] lab tests performed by: Division of Pathology and Laboratory Medicine [facility] OS CT Chest (01/01/2023 3:49 PM CDT) Specimen (Source) Anatomical Location Collection Method / Collectio n Time Received Time / Laterality Volume Narrative Systemgenerated, Documentation - 023 3:49 PM CDT Study acquired at another institution. For comparison only. No MD Gutierrez originated interpretation requested or a vailable. Katiana Felton MD IMG OUTSIDE IMAGE ORDERABLES after 02/18/2022 Insurance Payer Benefit Plan / Subscriber ID Effective Dates Phone Addre ss Type Group [employer] PPO POS [id number] 2021-Present [id number] [place] [address] Jamir Somers Personal/Family Self 1970 [address] [facility] (Home) [place] [address] Care Teams Paper Coater Relationship Specialty Start Date End Date Edward Méndez MD PCP - External Primary Family Practice 01/15/[address] [place] [address] Care Provider [place], [place] [phone] Katiana Felton MD PCP - General Internal Medicine 01/15/[address] [place] [id number]
--- OUTSIDE RECORDS SUMMARY | 2023-02-18 14:26 | XMS REPORT | Continuity of Care Document ---
:1970 Author Organization [facility] t Address [address] [place] [address] [place] [id number] Care Team Providers Name Role Phone [phone] Primary Care Physician Unavailable Nicol Hodges RN Attending Clinician Unavailable Katiana Coello MD Attending Clinician Suki Cruz APRN Attending Clinician KATIANA COELLO Attending Clinician Unavailable Howard KIM, Matthieu Nguyen Attending Clinician Maia Trujillo Attending Clinician JOVAN HILL Attending Clinician Unavailable Jovan Elliott Attending Clinician Flora Jean Attending Clinician Unavailable Allyssa Nesbitt MA Attending Clinician Gilson Canales RN Attending Clinician Unavailable RADIOLOGY Attending Clinician Unavailable Radiology Attending Clinician Unavailable Doctor Unassigned, [place] Attending Clinician Unavailable PATHOLOGY Attending Clinician Unavailable Pcp-Lab Attending Clinician Unavailable Edward Powell MD Attending Clinician EDWARD POWELL Attending Clinician Unavailable Haresh Jim MD Attending Clinician Rancho Garner DO Attending Clinician SHAWN, RANCHO Attending Clinician Unavailable Shyann Yeager MD Attending Clinician LAZARUS TRINH Admitting Clinician Unavailable Payers Payer Name Policy Type Policy Number Effective Date Expiration Date Cheyanne gongora [facility] [id number] 2021 00:00:00 Problems Condition Condition Condition Status Onset Resolution Last Treating Co mments Source Name Details Category Date Date Treatment Clinician Date Elevated Elevated Disease Active Unive rs hemoglobin hemoglobin 7-26 it y of 00:00: [address] Allergies, Adverse Reactions, Alerts Allergy Allergy Status Severity Reaction(s) Onset Inactive Treating Comm ents Source Name Type Date Date Clinician NO KNOWN Drug Active Univers ALLERGIE Class ity of [facility] Family History Family Member Diagnosis Comments Start Date Stop Date Source Maternal grandmother Stomach cancer [facility] Natural mother Breast cancer [facility] Social History Social Habit Start Date Stop Date Quantity Comments Source History of tobacco 1986-01-04 Smokes tobacco Un iversity of use 00:00:00 daily Eun blackwell [facility] Gender identity Universit y [facility] Sexual orientation [facility] Alcohol intake 2023-01-30 2023-01-30 Ex-drinker University of 00:00:00 00:00:00 (finding) Eun blackwell [facility] Cigarettes smoked 2023-01-18 2023-01-18 Univers ity of current (pack per 00:00:00 00:00:00 [place] Mally Ramos ) - Reported Cancer Ce nter Cigarette 2023-01-18 2023-01-18 University of pack-years 00:00:00 00:00:00 Eun blackwell [facility] Tobacco use and 2023-01-18 2023-01-18 Former smokeless Uni versity of exposure 00:00:00 00:00:00 tobacco user Eun Shipley [facility] Tobacco Comment 2023-01-18 2023-01-18 Started Universit y of 00:00:00 00:00:00 decreasing use 3 Eun Gutierrez weeks ago, down Cancer Ce nter to 1/4 pack per day Alcohol Comment 2023-01-18 2023-01-18 I drink less than Un iversity of 00:00:00 00:00:00 six alcoholic Eun Fuchs derson beverages a year Cancer C enter History of Social 2022-11-07 2022-11-07 Univers ity of function 00:00:00 00:00:00 [facility] Sex Ass[birth year] At [birth year] Universit y of 00:00:00 00:00:00 Eun KIM [facility] Smoking Status Start Date Stop Date Source Smokes tobacco daily 2023-01-18 00:00:00 Univers ity of [place] [facility] Medications Ordered Filled Start Stop Current Ordering Indication Dosage Frequency Signature Comments Components Source Medication Medication Date Date Medication? Clinician (SIG) Name Name HYDROcodone 2022-05 Yes Neoplasm 1{tbl} Take 1 Univers -acetaminop 0-16 related tablet by ity of hen ([place]) 00:00: pain mouth [place] 10 mg-325 00 (acute) every 6 MD mg per (chronic) (six) Anderso tablet hours as n needed for Cancer moderate Center pain. oxyBUTYnin 2022-05 Yes Frequency 5mg Take 1 Univers (Ditropan 0-13 of tablet (5 ity o f XL) 5 mg 24 00:00: micturition mg) by [place] hr tablet 00 mouth MD daily. [facility] HYDROcodone 2022-05 No Neoplasm 1{tbl} Take 1 Univers -acetaminop 0-03 10-16 related tablet by ity of hen ([place] 00:00[place] 00:[place]-325 [place] :00 (acute) every 6 MD mg per (chronic) (six) [place] tablet hours as n needed for [facility] pain. HYDROcodone 2022-05 Yes Neoplasm 1{tbl} Take 1 Univers -acetaminop 0-02 related tablet by ity of hen ([place]) 00:00: pain mouth [place] 10 mg-325 00 (acute) every 6 MD mg per (chronic) (six) Anderso tablet hours as n needed for [facility] pain. HYDROcodone Yes Neoplasm 1{tbl} Take 1 Univers -acetaminop 9-29 related tablet by ity of hen ([place]) 00:00: pain mouth [place] 10 mg-325 00 (acute) every 6 MD mg per (chronic) (six) Anderso tablet hours as n needed for [facility] pain. omeprazole 3-0 Yes gastroesoph 20mg Take 1 Univers (PriLOSEC) 9-27 ageal capsule ity o f 20 mg 11:39: reflux (20 mg) [place] capsule 21 disease mouth. MD [facility] HYDROcodone 3-0 Yes Neoplasm 1{tbl} Take 1 Univers -acetaminop 9-15 related tablet by ity of hen ([place]) 00:00: pain mouth [place] 5 mg-325 mg 00 (acute) every 8 MD per tablet (chronic) (eight) A nderso hours as n needed for [facility] moderate Center pain. tamsulosin 2023-0 Yes .4mg Take 1 Unive rs 0.4 mg 24 7-17 capsule by ity of hr capsule 00:00: mouth in [place] 00 the Medical morning. Branch tamsulosin 2023-0 Yes .4mg Take 1 Unive rs 0.4 mg 24 7-17 capsule by ity of hr capsule 00:00: mouth in [place] 00 the Medical morning. Branch tamsulosin 2023-0 Yes .4mg Take 1 Unive rs 0.4 mg 24 7-17 capsule by ity of hr capsule 00:00: mouth in [place] 00 the Medical morning. Branch tamsulosin 2023-0 Yes .4mg Take 1 Unive rs 0.4 mg 24 7-17 capsule by ity of hr capsule 00:00: mouth in [place] 00 the Medical morning. Branch tamsulosin 2023-0 Yes .4mg Take 1 Unive rs 0.4 mg 24 7-17 capsule by ity of hr capsule 00:00: mouth in [place] 00 the Medical morning. Branch tamsulosin 2023-0 Yes .4mg Take 1 Unive rs 0.4 mg 24 7-17 capsule by ity of hr capsule 00:00: mouth in [place] 00 the Medical morning. Branch tamsulosin 2023-0 Yes .4mg Take 1 Unive rs 0.4 mg 24 7-17 capsule by ity of hr capsule 00:00: mouth in [place] 00 the Medical morning. Branch tamsulosin 2023-0 Yes [id number] .4mg Take 1 U nivers (FLOMAX) 7-05 capsule by ity o f 0.4 mg 24 00:00: [place] capsule 00 the Medical morning. Branch tamsulosin 2023-0 Yes [id number] .4mg Take 1 U nivers (FLOMAX) 7-05 capsule by ity o f 0.4 mg 24 00:00: [place] capsule 00 the Medical morning. Branch tamsulosin 2023-0 Yes [id number] .4mg Take 1 U nivers (FLOMAX) 7-05 capsule by ity o f 0.4 mg 24 00:00: [place] capsule 00 the Medical morning. Branch tamsulosin 2023-0 Yes [id number] .4mg Take 1 U nivers (FLOMAX) 7-05 capsule by ity o f 0.4 mg 24 00:00: [place] capsule 00 the Medical morning. Branch tamsulosin 2023-0 Yes [id number] .4mg Take 1 U nivers (FLOMAX) 7-05 capsule by ity o f 0.4 mg 24 00:00: mouth [place] capsule 00 the Medical morning. Branch tamsulosin 2023-0 Yes [id number] .4mg Take 1 U nivers (FLOMAX) 7-05 capsule by ity o f 0.4 mg 24 00:00: mouth [place] capsule 00 the Medical morning. Branch tamsulosin 2023-0 Yes [id number] .4mg Take 1 U nivers (FLOMAX) 7-05 capsule by ity o f 0.4 mg 24 00:00: mouth [place] capsule 00 the Medical morning. Branch tamsulosin 2023-0 Yes [id number] .4mg Take 1 U nivers (FLOMAX) 7-05 capsule by ity o f 0.4 mg 24 00:00: mouth [place] capsule 00 the Medical morning. Branch tamsulosin 2023-0 Yes [id number] .4mg Take 1 U nivers (FLOMAX) 7-05 capsule by ity o f 0.4 mg 24 00:00: mouth [place] capsule 00 the Medical morning. Branch tamsulosin 2023-0 Yes [id number] .4mg Take 1 U nivers (FLOMAX) 7-05 capsule by ity o f 0.4 mg 24 00:00: mouth [place] capsule 00 the Medical morning. Branch tamsulosin 2023-0 Yes [id number] .4mg Take 1 U nivers (FLOMAX) 7-05 capsule by ity o f 0.4 mg 24 00:00: mouth [place] capsule 00 the Medical morning. Branch tamsulosin 2023-0 Yes [id number] .4mg Take 1 U nivers (FLOMAX) 7-05 capsule by ity o f 0.4 mg 24 00:00: mouth [place] capsule 00 the Medical morning. Branch tamsulosin 2023-0 Yes [id number] .4mg Take 1 U nivers (FLOMAX) 7-05 capsule by ity o f 0.4 mg 24 00:00: mouth [place] capsule 00 the Medical morning. Branch tamsulosin 2023-0 Yes [id number] .4mg Take 1 U nivers (FLOMAX) 7-05 capsule by ity o f 0.4 mg 24 00:00: mouth [place] capsule 00 the Medical morning. Branch tamsulosin 2023-0 Yes [id number] .4mg Take 1 U nivers (FLOMAX) 7-05 capsule by ity o f 0.4 mg 24 00:00: mouth [place] capsule 00 the Medical morning. Branch tamsulosin 2023-0 Yes [id number] .4mg Take 1 U nivers (FLOMAX) 7-05 capsule by ity o f 0.4 mg 24 00:00: mouth [place] capsule 00 the Medical morning. Branch tamsulosin 2023-0 Yes [id number] .4mg Take 1 U nivers (FLOMAX) 7-05 capsule by ity o f 0.4 mg 24 00:00: mouth [place] capsule 00 the Medical morning. Branch tamsulosin 2023-0 Yes [id number] .4mg Take 1 U nivers (FLOMAX) 7-05 capsule by ity o f 0.4 mg 24 00:00: mouth [place] capsule 00 the Medical morning. Branch tamsulosin 2023-0 Yes [id number] .4mg Take 1 U nivers (FLOMAX) 7-05 capsule by ity o f 0.4 mg 24 00:00: mouth [place] capsule 00 the Medical morning. Branch tamsulosin 2023-0 Yes [id number] .4mg Take 1 U nivers (FLOMAX) 7-05 capsule by ity o f 0.4 mg 24 00:00: mouth [place] capsule 00 the Medical morning. Branch tamsulosin 2023-0 Yes [id number] .4mg Take 1 U nivers (FLOMAX) 7-05 capsule by ity o f 0.4 mg 24 00:00: mouth [place] capsule 00 the Medical morning. Branch tamsulosin 2023-0 Yes [id number] .4mg Take 1 U nivers (FLOMAX) 7-05 capsule by ity o f 0.4 mg 24 00:00: mouth [place] capsule 00 the Medical morning. Branch tamsulosin 2023-0 Yes [id number] .4mg Take 1 U nivers (FLOMAX) 7-05 capsule by ity o f 0.4 mg 24 00:00: mouth [place] hr capsule 00 the Medical morning. Branch tamsulosin 2023-0 Yes [id number] .4mg Take 1 U nivers (FLOMAX) 7-05 capsule by ity o f 0.4 mg 24 00:00: mouth [place] hr capsule 00 the Medical morning. Branch tamsulosin 2023-0 Yes [id number] .4mg Take 1 U nivers (FLOMAX) 7-05 capsule by ity o f 0.4 mg 24 00:00: mouth [place] capsule 00 the Medical morning. Branch tamsulosin 2023-0 Yes [id number] .4mg Take 1 U nivers (FLOMAX) 7-05 capsule by ity o f 0.4 mg 24 00:00: mouth [place] hr capsule 00 the Medical morning. Branch nicotine 2015-0 Yes 4mg Take 1 Univers polacrilex 8-25 Each by ity of ([place] 00:[place]: mouth [place] 4 mg gum 00 needed for Medic al Smoking Branch cessation. nicotine 2015-0 Yes 4mg Take 1 Univers polacrilex 8-25 Each by ity of ([place] 00:[place]: mouth [place] 4 mg gum 00 needed for Medic al Smoking Branch cessation. nicotine 2015-0 Yes 4mg Take 1 Univers polacrilex 8-25 Each by ity of ([place] 00:00: mouth [place] 4 mg gum 00 needed for Medic al Smoking Branch cessation. nicotine 2015-0 Yes 4mg Take 1 Univers polacrilex 8-25 Each by ity of ([place] 00:00: mouth [place] 4 mg gum 00 needed for Medic al Smoking Branch cessation. nicotine 2015-0 Yes 4mg Take 1 Univers polacrilex 8-25 Each by ity of ([place] 00:00: mouth [place] 4 mg gum 00 needed for Medic al Smoking Branch cessation. nicotine 2015-0 Yes 4mg Take 1 Univers polacrilex 8-25 Each by ity of ([place] 00:00: mouth [place] 4 mg gum 00 needed for Medic al Smoking Branch cessation. nicotine 2015-0 Yes 4mg Take 1 Univers polacrilex 8-25 Each by ity of ([place] 00:00: mouth [place] 4 mg gum 00 needed for Medic al Smoking Branch cessation. nicotine 2015-0 Yes 4mg Take 1 Univers polacrilex 8-25 Each by ity of ([place] 00:00: mouth [place] 4 mg gum 00 needed for Medic al Smoking Branch cessation. nicotine 2015-0 Yes 4mg Take 1 Univers polacrilex 8-25 Each by ity of ([place]) 00:00: mouth [place] 4 mg gum 00 needed for Medic al Smoking Branch cessation. nicotine 2015-0 Yes 4mg Take 1 Univers polacrilex 8-25 Each by ity of ([place] 00:00: mouth [place] 4 mg gum 00 needed for Medic al Smoking Branch cessation. nicotine 2015-0 Yes 4mg Take 1 Univers polacrilex 8-25 Each by ity of ([place] 00:00: mouth [place] 4 mg gum 00 needed for Medic al Smoking Branch cessation. nicotine 2015-0 Yes 4mg Take 1 Univers polacrilex 8-25 Each by ity of ([place]) 00:00: mouth [place] 4 mg gum 00 needed for Medic al Smoking Branch cessation. nicotine 2015-0 Yes 4mg Take 1 Univers polacrilex 8-25 Each by ity of ([place] 00:00: mouth as [place] 4 mg gum 00 needed for Medic al Smoking Branch cessation. Vital Signs Vital Name Observation Time Observation Value Comments Source Systolic blood 2022-11-28 20:09:00 127 mm[Hg] Univer sity of pressure [place] [facility] Diastolic blood 2022-11-28 20:09:00 78 mm[Hg] Unive rsity of pressure [place] [facility] Heart rate 2022-11-28 20:09:00 80 /min Universi ty of [place] [facility] Body temperature 2022-11-28 20:09:00 36.61 Vera Univ ersity of [place] [facility] Respiratory rate 2022-11-28 20:09:00 18 /min Univ ersity of [place] [facility] Body height 2022-11-28 20:09:00 193 cm Universi ty of [place] [facility] Body weight 2022-11-28 20:09:00 100.835 kg Universi ty of [place] [facility] BMI 2022-11-28 20:09:00 27.06 kg/m2 Universi ty of [place] [facility] Oxygen saturation in 2022-11-28 20:09:00 95 /min University of Arterial blood by [place] [facility] massiel Pulse oximetry Branch Systolic blood 2022-11-07 13:11:00 118 mm[Hg] Univer sity of pressure [place] [facility] Diastolic blood 2022-11-07 13:11:00 84 mm[Hg] Unive rsity of pressure [place] [facility] Heart rate 2022-11-07 13:11:00 79 /min Universi ty of [place] [facility] Body temperature 2022-11-07 13:11:00 36.72 Vera Univ ersity of [place] [facility] Respiratory rate 2022-11-07 13:11:00 18 /min Univ ersity of [place] [facility] Body height 2022-11-07 13:11:00 193 cm Universi ty of [place] [facility] Body weight 2022-11-07 13:11:00 102.513 kg Universi ty [facility] [place] [facility] BMI 2022-11-07 13:11:00 27.51 kg/m2 Universi ty of [place] [facility] Oxygen saturation in 2022-11-07 13:11:00 94 /min University of Arterial blood by [place] [facility] massiel Pulse oximetry Branch Systolic blood 2023-01-30 19:07:00 142 mm[Hg] Univer sitcaroline of pressure [facility]un [facility] Diastolic blood 2023-01-30 19:07:00 82 mm[Hg] Unive rsity of pressure [facility] Heart rate 2023-01-30 19:07:00 91 [facility] Body temperature 2023-01-30 19:07:00 36.61 Vera [facility] [place] [facility] Respiratory rate 2023-01-30 19:07:00 16 /min [facility] MD [facility] Oxygen saturation in 2023-01-30 19:07:00 93 /min [facility] blood by Eun nieves Pulse oximetry Cancer Center Body weight 2023-01-29 14:32:00 97.614 kg [facility] MD [facility] BMI 2023-01-29 14:32:00 26.76 kg/m2 [facility] MD [facility] Body height 2023-01-21 18:16:00 191 cm [facility] MD [facility] Procedures Procedure Date / Time Performing Clinician Source Performed NM BONE SCAN WHOLE BODY 2023-02-06 16:53:00 Katiana Coello [facility] IR CHEST XRAY 1 VIEW 30 2023 13:58:00 [facility]ST [facility] 1 VIEW 30 2023-01-30 19:02:16 Gurusamy, Varshana [facility] IR CHEST XRAY 1 VIEW 30 2023-01-30 18:00:55 Gurusamy, Varshana U niversity of [facility] IR CHEST XRAY 1 VIEW 30 2023-01-30 14:53:00 Gurusamy, Varshana U niversity of [facility] IR CT GUIDED BIOPSY 2023-01-30 14:43:00 Katiana Coello [facility] LUNG/MEDIASTINAL 60 [facility] PATHOLOGY BIOPSY 2023-01-30 14:21:00 Katiana Coello [facility] INTERPRETATION [facility] CYTOLOGY IMAGE-GUIDED FNA 2023-01-30 14:21:00 Katiana Coello [facility] INTERPRETATION [facility] ALBUMIN LEVEL 2023-01-29 14:26:00 Katiana Coello o f [facility] ALKALINE PHOSPHATASE 2023-01-29 14:26:00 Katiana Coello [facility] ALANINE AMINOTRANSFERASE 2023-01-29 14:26:00 Katiana Coello [facility] ASPARTATE AMINOTRANSFERASE 2023-01-29 14:26:00 [facility] T[facility] PROTEIN 2023-01-29 14:26:00 Katinaa Coello [place] [facility] FRACTIONATED BILIRUBIN 2023-01-29 14:26:00 Katiana Coello [facility] Results CBC 2023-01-29 14:26:00 Katiana Coello [facility] MANUAL DIFFERENTIAL 2023-01-29 14:26:00 Katiana Coello [facility] COMPREHENSIVE METABOLIC 2023-01-29 14:26:00 Katiana Coello [facility] PANEL [facility] COMPLETE BLOOD COUNT W/ 2023-01-29 14:26:[address] [facility] DIFFERENTIAL [facility] PROTHROMBIN TIME 2023-01-29 14:26:00 Katiana Coello [facility] APTT 2023-01-29 14:26:00 Katiana Coello [facility] CANCER ANTIGEN 19-9 2023-01-29 14:26:00 Katiana Coello [facility] CARCINOEMBRYONIC ANTIGEN 2023-01-29 14:26:00 Katiana Coello [facility] LACTATE DEHYDROGENASE 2023-01-29 14:26:00 [facility] FETOPROTEIN TUMOR 2023-01-29 14:26:[address] [facility] MARKER [facility] GLUCOSE LEVEL 2023-01-29 14:26:00 Jose Francisco Katiana [facility] BLOOD UREA NITROGEN 2023-01-29 14:26:00 Katiana Coello [facility] ELECTROLYTE PANEL 2023-01-29 14:26:00 Jose Francisco [facility] SERUM CREATININE 2023-01-29 14:26:00 Jose Francisco [facility] .GLOMERULAR FILTRATION 2023-01-29 14:26:00 Jose Francisco Katiana [facility] RATE [facility] CALCIUM LEVEL TOTAL 2023-01-29 14:26:00 Kaitana Coello [facility] CT CHEST ABDOMEN PELVIS W 2023-01-21 19:49:00 Katiana Coello [facility] WO CONTRAST [facility] POC CREATININE 2023-01-21 18:45:00 Jose Francisco [facility] OSI CT CHEST 2023-01-01 20:49:[facility] CONTRAST 2023-01-01 15:04:56 Requisition, Paper [facility] REFERRAL- REQUEST/RESPONSE 2022-12-19 05:01:00 Doctor Unassigned , [facility] CBC WITH DIFF 2022-11-07 14:41:00 Shyann Yeager [facility] PATIENT QUESTIONNAIRE 2022-11-07 05:01:00 Doctor Unassigned, [facility] Plan of Care Planned Activity Planned Date Details Comments Source Future Scheduled 2023-02-18 COVID-19 Vaccination Uni [facility] Test 08:29:15 (#1) [code = COVID-19 Cancer Vaccination (#1)] Center Encounters Start End Encounter Admission Attending Care Care Encounter Source Date/Time Date/Time Type Type Clinicians Facility Department ID 2023-02-18 2023-02-18 Refill Hodges, 1.2.840.1 [id number] Univers 00:00:00 00:00:00 Nicol Velazquez [id number] i ty of 3.412.2.7 [place] .3.230709 MD Peralta8 [facility] 2023-02-15 2023-02-15 Orders Iliescu, 1.2.840.1 [id number] Univers 00:00:00 00:00:00 Only Katiana [id number] ity of 3.412.2.7 [place] .3.799492 MD Peralta8 [facility] 2023-02-11 2023-02-11 Telephone Cruz, 1.2.840.1 [id number] Univers 00:00:00 00:00:00 Suki Rivera [id number] ity of 3.412.2.7 [place] .3.988324 MD Peralta8 [facility] 2023-02-06 2023-02-06 Ancillary Iliescu, 1.2.840.1 [id number] [facility] 10:30:00 11:00:00 Procedure Katiana [id number] it y of 3.412.2.7 [place] .3.011349 MD Peralta8 [facility] 2023-02-06 2023-02-06 Outpatient EL ILIESTOM, MDA [employer] [id number] 09:52:36 09:52:36 KATIANA Truong o n 2023-02-06 2023-02-06 Ancillary Iliescu, 1.2.840.1 [id number] Univers 08:00:00 08:30:00 Procedure Katiana [id number] it y of 3.412.2.7 [place] .3.583737 MD Peralta8 [facility] 2023-02-06 2023-02-06 Outpatient EL ILIESCU, MDA [employer] [id number] 07:36:42 07:36:42 KATIANA Truong o n 2023-02-05 2023-02-05 Orders Iliescu, 1.2.840.1 [id number] Univers 00:00:00 00:00:00 Only Katiana [id number] ity of 3.412.2.7 [place] .3.841889 MD Carrillo [facility] 2023-02-05 2023-02-05 Brielle Hodges, 1.2.840.1 [id number] Univers 00:00:00 00:00:00 Nicol A 22664.1.1 i ty of 3.412.2.7 [place] .3.569244 MD Carrillo [facility] 2023-02-04 2023-02-04 Brielle Hodges, 1.2.840.1 [id number] Univers 00:00:00 00:00:00 Nicol A 80115.1.1 i ty of 3.412.2.7 [place] .3.103210 MD Carrillo [facility] 2023-02-04 2023-02-04 Orders Jose Francisco, 1.2.840.1 [id number] Univers 00:00:00 00:00:00 Only Katiana [id number] ity of 3.412.2.7 [place] .3.992192 MD Carrillo [facility] 2023-02-01 2023-02-01 Telephone Jose Francisco, 1.2.840.1 [id number] Univers 00:00:00 00:00:00 Katiana 89519.1.1 ity of 3.412.2.7 [place] .3.487867 MD Carrillo [facility] 2023-02-01 2023-02-01 Orders Iliestom, 1.2.840.1 [id number] Univers 00:00:00 00:00:00 Only Katiana 32721.1.1 ity of 3.412.2.7 [place] .3.282060 MD Carrillo [facility] 2023 2023 [facility] 1.2.840.1 [id number] Univers 07:33:47 23:59:00 Encounter 67869.1.1 it y of 3.412.2.7 [place] .3.056558 .8 [facility] 2023 2023 Outpatient EL MDA MDA [id number] 07:33:47 23:59:00 [facility] [address] [facility] 1.2.840.1 [id number] [facility] 00:00:00 00:00:00 [id number] 350.1.13.41 ity of 3.412.2.[place] 2[place].3.698 [place] .3.065122 084.8 .8 [facility] 2023-01-30 2023-01-30 [facility] 1.2.840.1 [id number] [facility] 13:28:05 23:59:00 Encounter [id number] it y of 3.412.2.7 [place] .3.536958 MD Peralta8 [facility] 2023-01-30 2023-01-30 Outpatient EL MDA MDA [id number] MD 13:28:05 23:59:00 [facility] 2023-01-30 2023-01-30 [facility] 1.2.840.1 [id number] [facility] 12:17:37 13:27:00 Encounter 93444.1.1 it y of 3.412.2.7 [place] .3.492461 MD Peralta8 [facility] 2023-01-30 2023-01-30 Outpatient EL MDA MDA [id number] MD 12:17:37 13:27:00 [facility] 2023-01-30 2023-01-30 [facility] 1.2.840.1 [id number] [facility] 09:45:04 12:16:00 Encounter [id number] it y of 3.412.2.7 [place] .3.906796 MD Peralta8 [facility] 2023-01-30 2023-01-30 Outpatient EL MDA MDA [id number] MD 09:45:04 12:16:00 [facility] 2023-01-30 2023-01-30 [facility] Katiana Coello 1.2.840.1 [id number] [facility] 07:25:07 09:44:00 Encounter Matthieu Lawrence 60338.1.1 ity of 3.412.2.7 [place] .3.327857 MD Peralta8 [facility] 2023-01-30 2023-01-30 Outpatient [facility] MDA [id number] [place] 07:25:07 09:44:00 KATIANA fernandez 2023-01-30 2023-01-30 Travel 1.2.840.1 1.2.208.286 [id number] [facility] 00:00:00 00:00:00 54970.1.1 350.1.13.41 ity of 3.412.2.[place].698 [place]3.397[place] 084.8 MD Peralta8 [facility] 2023-01-29 2023-01-29 [facility]1 [id number] [facility] 09:30:00 23:59:00 Encounter Maia Vieira 58440.1.1 ity of 3.412.2.7 [place] .3.525221 MD Peralta8 [facility] 2023-01-29 2023-01-29 Outpatient [facility] MDA [id number] 1906 09:30:00 23:59:00 KATIANA Davisers o rebecca 2023-01-29 2023-01-[address] [facility] [id number] 5-20 MD 09:30:00 09:30:00 KATIANA [id number] Truong o rebecca 2023-01-29 2023-01-29 [facility] [id number] 09:00:00 09:29:00 JOVAN fernandez 2023-01-29 2023-01-29 [facility] Liz 1.2.840.1 [id number] [facility] 09:00:00 09:29:00 Encounter Jovan De Los Santos 86574.1.1 i ty of 3.412.2.7 [place] .3.477164 MD Peralta8 [facility] 2023-01-29 2023-01-29 Travel 1.2.840.1 1.2.932.307 [id number] [facility] 00:00:00 00:00:00 09844.1.1 350.1.13.41 ity of 3.412.2.[place].698 [place]3.345547 084.8 MD Carrillo [facility] 2023-01-23 2023-01-23 Documentat Flora Jean 1.2.840.1 [id number] [facility] 00:00:00 00:00:00 ion 15027.1.1 ity of 3.412.2.7 [place] .3.509306 MD Carrillo [facility] 2023-01-21 2023-01-21 Ancillary Jose Francisco, 1.2.840.1 [id number] [facility] 13:20:00 15:45:00 Procedure Katiana 61527.1.1 it y of 3.412.2.7 [place] .3.457176 MD Carrillo [facility] 2023-01-21 2023-01-21 Outpatient [facility] [id number] 6424 12:53:56 12:53:56 KATIANA Truong [facility] 2023-01-21 2023-01-21 Education Nesbitt, 1.2.840.1 [id number] [facility] 00:00:00 00:00:00 Allyssa C 51302.1.1 i ty of 3.412.2.7 [place] .3.045090 MD Carrillo [facility] 2023-01-21 2023-01-21 Travel 1.2.840.1 1.2.420.744 [id number] [facility] 00:00:00 00:00:00 53574.1.1 350.1.13.41 ity of 3.412.2.[place]3.698 [place]3.425917 084.8 MD Carrillo [facility] 2023-01-18 2023-01-18 Telemedici Iliescu, 1.2.840.1 [id number] [facility] 10:00:00 10:49:06 ne Katiana 30547.1.1 ity of 3.412.2.7 [place] .3.821915 MD Peralta8 [facility] 2023-01-18 2023-01-18 [facility] [id number] [place] 09:32:25 10:49:06 KATIANAFLORENCIO fernandez 2023-01-18 2023-01-18 Orders Liz, 1.2.840.1 [id number] [facility] 00:00:00 00:00:00 Only Jovan C 22520.1.1 ity of 3.412.2.7 [place] .3.003930 MD Peralta8 [facility] 2023-01-15 2023-01-15 [facility] Jose Francisco, 1.2.840.1 [id number] [facility] 20:00:00 20:05:00 Procedure Katiana 25353.1.1 it y of 3.412.2.7 [place] .3.003385 MD Peralta8 [facility] 2023-01-15 2023-01-[address] [facility] [id number] 15:47:30 15:47:30 KATIANA fernandez 2023-01-15 2023-01-15 Outpatient [facility] [id number] [place] 15:20:46 15:20:53 Truong rebecca 2023-01-15 2023-01-15 NPR 1.2.840.1 [id number] [facility] 15:00:00 15:20:53 16437.1.1 ity of 3.412.2.7 [place] .3.555446 .8 [facility] 2023-01-15 2023-01-15 Travel 1.2.840.1 1.2.412.897 [id number] [facility] 00:00:00 00:00:00 23189.1.1 350.1.13.41 ity of 3.412.2.[place].3.698 [place]3.941545 084.8 .8 [facility] 2023-01-15 2023-01-15 Telephone Parker 1.2.840.1 [id number] [facility] 00:00:00 00:00:00 Celaysheia 49224.1.1 i ty of S 3.412.2.7 Eun .3Fabian381753 MD Peralta8 [facility] 2023-01-15 2023-01-15 Telephone Parker 1.2.840.1 [id number] [facility] 00:00:00 00:00:00 Celaysheia 92851.1.1 i ty of S 3.412.2.7 Eun .3Fabian747422 MD Peralta8 [facility] 2023-01-01 2023-01-01 Outpatient R RADIOLOGY [facility] [id number] Univers 09:20:35 23:59:00 ity of [facility] 2023-01-01 2023-01-01 Hospital Radiology UNIVERSIT 1.2.840.114 1 [id number] Univers 08:45:00 23:59:00 Encounter Y HEALTH 350.1.13.10 it[place] [id number] [facility] [address] 2022-12-31 2022-12-31 Patient Doctor LITZY Villalobos.2.840.114 [id number] Univers 00:00:00 00:00:00 Secure Msg Unassigned, JING 350.1.13.10 ity of [facility] 4.2.7.2.686 Jad as [id number] [facility] [address] 2022-12-28 2022-12-28 Outpatient R PATHOLOGY [facility] [id number] Univers 11:00:00 11:00:00 ity [facility] 2022-12-19 2022-12-19 Orders Doctor LITZY Villalobos.2.840.114 [id number] Univers 00:00:00 00:00:00 Only Unassigned, JING 350.1.13.10 ity of [place] [facility] 4.2.7.2.686 Jad as [id number] [facility] [address] 2022-11-28 2022-11-28 Air Quality Manager Pcp-Lab [facility] 1.2.840.114 [id number] Univers 16:15:00 16:30:00 Visit Victor Manuel Powelll PRIMARY 350.1.13.10 [place] [id number] Ms dical [address] 2022-11-28 2022-11-28 Outpatient R ANDRE [facility] [id number] Univers 15:30:00 16:00:37 EDWARD ity of [facility] 2022-11-28 2022-11-28 Office Hernán Haresh Toro [facility] 1.2.840.114 [id number] Univers 15:30:00 16:00:37 Visit Bahai Edward PRIMARY 350.1.13.10 [place] [id number] Ms dical [address] 2022-11-07 2022-11-07 Air Quality Manager Pcp-Lab [facility] 1.2.840.114 [id number] Univers 09:45:00 10:00:00 Visit Shawn Rancho PRIMARY 350.1.13.10 [place] [id number] Ms dical [address] 2022-11-07 2022-11-07 Outpatient R SHAWNRANCHO [facility] 1046 [id number] Univers 08:00:00 09:18:43 SHAWNRAMSEYY ity [facility] 2022-11-07 2022-11-07 Office Shyann Yeager [facility] 1.2. 840.114 [id number] Univers 08:00:00 09:18:43 Visit Shawn Rancho PRIMARY 350.1.13.10 [place] [id number] Ms dical [address] 2022-11-07 2022-11-07 Orders Doctor MCGHEE 1.2.840.114 [id number] Univers 00:00:00 00:00:00 Only Unassigned, JING 350.1.13.10 ity of [place] [facility] 4.2.7.2.686 Jad as [id number] [place] [address] Branch Results Test Description Test Time Test Comments Results Result Comments Source Cytology Image-Guided FNA Interpretation 2023-02-04 13:47:56 Test Item Value Reference Range Interpretation Comme nts Gross q3itgXFsRNKjhKZnNOKlY8gudrJxMTOssMBjR0ZzalktAYmhTA5vPA2ljMvwnXWojONxBVHjUxAol3pg w566yFBqo9chRVNFiowkyRf0zUaoX09nv0V6UugqU2ebPATaWIvwOSJzPFtsqUKvMIy6JGQokWQtpzJr QvZiYZSofNVwkKG9SPIkVY0wuhvlFVfsKHecKUOtyvV Description 5EMBkjGMpC1CdTZYoJM0vnjosJTF8IGjtHGOqWUL8TjCjNZGyr4Jxjks2AxA4MOpoERUeT3SxJ4KpSUq dOMR3BGRmPXOzACVuGY5MYjZrOEH4SET8XVxeVTRABYNbVLk9RZc4CMZOAIYuKDCfVDo3TeF0IHIoGPF SIDEyMzAwMDAwMjQgXFxuaCBcXHQgMSBcXGZsIFxcbm (test code = T5h6gmSARecMIpISR3FKxpoHLhACOmXPKlJZbyXlKGPgMbKpFiLEAtAVu1VzL2BRz0BVYNYaSgIbWiSB H9ZkU0SDdgCLo5OTq2STcELoLxMKOvURR5DnB5FFK2Rgl5TJelnqirZDu6LZQlBHoukgSuTYubMvrkQH fnS52juXLiKVprIaZtASKfvGFTp6IsMRqjsWWrynbzt [id number]) bJwWYMvJZPLcVMcqR3xvnSuzEToB6EuEGZ2ANMfltciYGUkGHDfCPngCfFYkZxlSfEkTBQbjOILnHEtj ySFqYnmIVJndGTbXGEgBG9cDGPjaTYbfNInaIrrHeofmGU3OTrvZfbltB8smZMUSMIGAyrXIpxnnhYlH Z7BXCUPHwJXRY99ZoY3AkX8HVidvHmzPanxdlPgmVZs AxQzdI7ecHtqmXIvsEJxtK22KUseXNDyq4CeV2Xzy3dwyEEyERexOzhtmDCkncK3ITvMBRVRVHlQQlOn ZW0yONbOLWVOYYoKLgfahOmhOqtopwYmtCDtMjZhqT5qxK2wZYw5FIVjGWbqt6vrFDYuWUkku5ZrNSlR KUBRJG9OJC0zxNE5M1fVYTUDFHipdXziDmfqtcZxpIA zFpLveH9bpHlarP0xlJOjvUUgwJoclhAnKNNvUOFgVni0oYH2YWHlFErhv1auCTVbXXlkn6QaEKvPGGN HZC3FIJ4qqZQ9LZsSGSZKXMjlQVC7FIjjjNH1x3kkhIZnk0o7RKegGXN0rJonvYJjznqbzgCgANYpMVR yiB0lXtDMHTjsWLBtIWHKbELyg0TaslphCVEco0KfBN viqYdsVJKmKhPfZ7f7IQhyOe87DDAbq7ldzUapl4SkrFIqBF61LZFllRQiTUM1KD4ceMauEEPibvZEIV HZBUhWR1EiTNIXXJNODPPuIjBVLQ7uSzR6BlQ5CD70MibrLNRYQMUOWEkSFK9KZWKTANCZRK6SGoOhX8 qXYRTLExJlIHUNFRFPFVIzKqWHID8nXap5Tksfc8O6Z 7eTYMWYBqBtTTOZMHEYWZOmIK8JLDIZOXQRCU9GXQSLX92LHLLVGZUNT0SXO3bZBMWjp3MqsVrjIiX0F bIuIR0iJOvCF3KUW7qDMBLoKUEJBPSFAZLcDX2UDZuPSR2YZCXfRQJRLYDEPWGmBwITNX6fTFzQFI8OK MBwIAVQSZBAWKQmJE2ZHLYHHV4KWVVAFWBIC04TEQRX DJENE7JCE3dYJGSLIUVZMyBNQjZRJL9NIXZOTGBXCX9FVyJ3 Major MALIGNANT A Classificati on (test code = 9839) Diagnosis x8xwoYIiJFLzwLQeQEEfCAvgghVxWHDkoASlO3XoewlpRFncRQ0bWD7ahGmyeJHpeSLeZNEoFcVrz8kz k154iOKxj9hiKPIPzunysPi1pQecX14wy0A7FnsdB5nhEOOmNPsvYHQxTSlwgXGzFMj3JQDsiGMmjzBg KsEyKMYnsNGnmVO1WLYyHI1bsaukSNxqWMvqAXCsotS (test code = 0PFXzcVMeR1KlDFDjUW1zfmdeFSR7HKdrPXXuKUZ2DcOqUDNbs8Mqtgk9RgZmqDj2b7zoWFJlDDTxvCv ij7svBHU1ZKSqaWEhG4pjqS2mUIHxRA3agkivn4uhXFyjNNvdHOLhsKF3bwN2SQWzoVJxU4RxxQ6qPQY oVKYnzxNqdEzwvF2sDwXqXNosFqCiNIUgRrnqjdlihR 34) ZtwJMnWCPthP3gCYwsCfuxJJZbSIDvpTKlULLeaBUzeDjxzjsdrKPoJIQdTxitMVOmqLn3HbJgrDhtKj NxMV5PGHYZBFEDMSLsU2VBL6qAY64IDZKQV8KSVD8RX2qBH4YBEDmmI11BG7yRXMOKNHNUNYNAILAVYx PJXPKPQKuxZ3EUM0yZP53MHZllFSBlX56iyRHciIvsj GFyfQ== Comment h1nxgAOsCPCeoZGdPNFuCQkullIzSAMshURqR8UujccmAQpzMV8kTE4xtDnydPArwHIvIHTyKrKdv0mm i039hEWog7kxNJUFedvhrTn4jLbuC87kt5G3IxvhZ01dnYWzDBY4FCZoIYWjzFZqYWKjYGJ8RWWpuOVl R8igWIArOX5gfjdiCSevFPcwGSCymBU6PRIfqGQzS7G (test code = yZMVfYCgrOSCempj8SdFeHc4jlVFmlTziDObaQLKbYWJoKGsnSURhLnJkAVNzhBQlbLOfs03tGZDjQWN gJUNoyONtr5CyalZapmZgIVDbzZhenrPfRB0zumG8fbT8HFHvh3jvx3g2PFKfea70aRXfw7VurMDvt2Y gY0HyqZQzw9q1cRXbmAdkDO40E8vtWWHffA8uZ5y8f0 9835) CpPESgsNYmyvB2wO7aOFDnH6Qcx3qbdkZwELVwl44hybAyrZDyiBVoLTDpTAltZ1f0p9upjoZuPUZvAL Q2IGV4b5viiEKaUNI2zP8zvSOjqE8bVJLci2SnO9UynIJcBPMmHNPxekNkH7WaPTLvy76kPAIxuQVzxC etUA72HX8vnOiruixiz0MpllEiW6EuDCN5eaGmWMKSd KKzq1Wiw5FuEQQzrLAwzLL1jFCpsJofUIVunbF2qfGkewGcdGAaP2I8lMXhNVYoz8IuVS1eFDCgEZAvs A5tq3oxSTLnJq3aLql8ZRWeLRJxqoPguUB9rCOwSFE5XAm5OMVxh53iZLBhvm4= Retained/Bio g9ljbDRfSLKanHTaBBMlLGmdskMkADQlrBRjL2WhzgveYKesXO5iTJ8bkGfefVKpcRNcVNKgUmJak1hg t450mTBsp6rrURIHwejcqCt1eFfzA49as2I9NdzeN19fiSLgDEX6XWNvFDBkoAWrOBCnDHP6MGTszZYs N7vjVJZgFV6dlhupCIihFWxbCXFitBX2EBOxaDUlG2I marker pGJIzZSfhCECkbny6DlZkCe3hgRZksFpyVMjbHURnWHSjYHdwUYWrJtLmL9E9PBYxW9wjFYIwxVgpLur kmLIck9NnHAUld4RpntvhrTdcVDuuzBPcPQ2HFMQZLMhjDSUbo5YxOxScgFEwaGRovTkhHoeirHE7KHn rKoqerS6zpLHILRFRIbqHYwjjqgCsMI4WHCWMGzZCAY Testing 30VtK0HTv1TYnnbScgShapqpFwgYFkQwBqgA1RH3K7UXChQGilw3wpBXHyTZxbq9YaKPdLLYDAUH4PEO 9zdNH6COxIXXVIZGpgRDL9EUpwjQT1q1eneQCsm1d6KHeqHDV7rUbukYIpxjxrujRfFXIiwiTWMVqeLK XcDnXbUIFikBCcOC7SLDHGHGuxTWXEEJPxzqVOQCPLF (test code = YUSOcUuHYDzqAKaOFUjX78YXnFZLVVUA24NCNMAGLTLN6PBO2oDULV4EyO3jGE4FNEVCLGYBIfME4PiN EUWDEFHMWLkTJ6TZAaEJZUUCLHXE98PFAIPIPKYX2CZQ9vSKXyNBZGUQNWTP53LZBOQVCPSR0XCEQQHT AXDJXyYFIKVGa8RUSAJBLJDJR0VASrWGeXaJYvOYBgg 9838) V5SuiMUBpA3boazsRNN4IAz3ZcNqnBCEHFXTRBiJRGCEVi2RVJCFJHMFIV0NOuIiU4QAFN2EYu5LINPP FFMGVS1IOUeFTuNjY1ZFPP8QPf9JHMXUDFOVZF5RIjUwRKSZW4MJItLJW3kfALWWRIUJRRCfTtIVWA1y TKYTKA8ZBMJTQMMRU48GRDMGQYDQT3RXIM6= Informationa g8bviUCzQURyvAOuGxRsXAQcKSTsh4qlYRSgcDRwQdKpMoPvTkGoTadosHDtSQTbAmAtw4ugl002uVVg n7rhBAHtTwX2hJItVMUlpCHbB773VTMoJVjnk2dby7NyUHKgsIGhu7Q6PVGXOMowMTYZRJi2g5nsKtCi OaK2iIYdIZnwX4fxbsCfxZEfFOLpZYl8rC04VXSeoF9 l Points oiLMcFUyidbZpGgC4PZowSJOvGxB9LKRgoVPvBFJxL3liGLQjEWuxPAUsFZdiePIgWDY9pXlmp5P1pDS ojUBcbLicQqQhWdCkVtPPj1ApDRi2eXzjW3MuATJhZwP3sOAwQTFxNJltTVFrAXBybyH2uI90EClwwkN 6oQXoc8Aqv47zv003bF5quIYsKYY5TSHuFHXepFFpXJ (test code = QwZBN2TETpwGTaB5llBODjNU7pefhtULbaTNpcHFAroNU2BSLzcOIjU8PbABNwQYcyNAQjipx0UsDoCp 9wtRVnnFzgYFpvu4fei0zvzTDwYrf6CZXuKpUcCbmdLXfsl5Zku4erUYFxlh0pPKD1lXFdwGwnv6R1xA MhBNIncWBfyoFmXOHzLiB5MPyfRC8cgb15CXRaFEE8i 9836) l7adOYyrHbtfmWoxURzOXmyJ2SlQHHtj177CVMpS9LmJZMoj5D9jkPcElHaHWAqiVB0bkS7SCBwDHo1j ZYbhoP1enXpxSEiA7emqZ8yMCHrWU6iinbvv5gfRBqwJKzvFLDlqWE6xuW8NVSxpKPdD7UwxM7bOFEhJ OkuWLFzjym7RsAqIy0xpGJnyOlnZGuzMagvMLxwHRLw awIntpDgfYkrVZMdWMVzDWkfFXRpECxjERHhIIPjVmIwqOpiuYwkvD2jWqYyEuXaTXqoRE4yAEDwN0wx bRKyJXAdWASjG2swOaKbkD4auEujDNkboaB4PQrvD41aPND4EFL9llUoQYHcfaNgZBQrXNPqZJ2vbRCs NOHaQTJdRZ3cBUB0DHxvtVAnASSgUPSgXXWfs5VyYW8 tKQKrmDGvSFQ4RWHpg0BjW6UqOCV3WSYpgG3fXQQlkVEOCAAHJSPOndMptaZuylBSORRwa6ykQ2bzRX3 cSCzfQy4kAPIglbykQUBfvKBdrzJgMMMvRRHsEVSoi4PlWRpkdlHgbh43RKAxPH6us7VoA1cnyCNatIa 6BGBxOJDuGBWvs3BhVYAlff80NDBrHdxgjCtyUDHzLb 4iLu8fSKTmxhNlIDX6OhJYBI7scvojmZHiiGaefo2yNLCrVRyoDRSaUEZzKfXnyZQyMiDuXgUmbUtvwF luWretIpOqSCRfVXnwK9ysEwPnJmByCdjkVHK9 Lab Abnormal Interpretati on (test code = 30820-8) [facility] Biopsy Interpretation 2023-02-01 14:36:16 Test Item Value Reference Range Interpretation Comments Submitted Clinical History i8ayvYCoSGIzj1nhMUL (test code = 56591) mbGFuZzEwMzNcZnRuYm pcdWMxIHtccnRmMVxzc 6MiF2RaRmYtIBqyfgEw XGRlZmxhbmcxMDMzXGZ 0bmJqXHVjMVxkZWZmMH mqWi4qoJKfwGbqUrQeS CLyd2uvonXWgruotKo8 i1wjSXXmPyV7eFIwVTi iZ8ltzhYzmPLyZFCzAI b5kC08CHNesY0vqEHiO VukjyIhEeX5SMcgQHSb WnC0ZTThxWArDBDuW8o yZWQwXGdyZWVuMFxibH NtILI6zTihm5X9mBXmo GVldHtcZjBcZnMyMiBO f5MaLFr4kHlhM1TxXKV fJoJ3oQUtIGFvJBqfJR NhEFJghmH2mB60DIylo tF3fXAjo5Pby66co321 fY5iwONlWFW5MJYwVXM aeYNqQEQyXFM5UODdxW YwB3rfILPkRS3idhdcY TdbPOybZNGcrIE7YACw vWZzK2IzGWLmTYfcVQQ ullt2YzXbBf7euEGpfX haAZaln1wpb0gnqICoG ns6THGjKsCiRjdnKQxe w4Gsi0idTSYcjf1eEOS 0nHBgrZral0N0kQMlYA NifWFjpbCxWUYbFnG6V CmpTF6kzl91RGIuTMZ9 sz4mrDPucEvgmfWswAB dULzcJ0PoDDEvr808XD AmU9MnEDGgq6P4zeKeM gEeSHOlpYY8gsO7HHJu NVq3bXVkwhX5rzPbiIN kJ4uipH8gOMWuJQ4fns zhb4ewYYlkGRsoBXDou YH7zpD3TYOduVBdT0Bp oC7bQUHqAZjcBHRglyq 0CwRwVk8itYLfkNvjTL xzYmtwYWdlXHBnbmNvb nRccGduZGVjXHBsYWlu XHBsYWluXGYwXGZzMjR plCbkzTlgjA6pZgTiVl JzTMnaNA4xPFPnU1gtn EUtSTDpZELyN2vuPvNu uP0ndEpyRRhdtpDpNF0 9bOYnuQiySG3pJBOyKN Ywy7LqpQBuVwJdFzxqX zrhDPRaexUTOu6sim2m wXEflP0btI3oPD6yVSW mRMfkk5F9dDVmeS4xM2 luZyBvZiBvdGhlciBhY gOkhMcqICelixEffR4q LKikM5p4HSckVyTjNBW aa8Dzjww4d07wgE9zI5 V2Oo27TIncvAQsoioeQ VxmczIyXGxhbmcxMDMz OJsyC4duOgVrDVXvcSs nMAsej7OhDOUwHVUwFj JccGFyfX0= Diagnosis (test code = 34) n3dvdLDeMTGptFHuYVZ wOFxhbnNpXHNwbHRwZ3 WiajuoTKnoDQ9eMB7oz GxhdHRveWVuXGRlZmYw f7tff901cUUyl6cpLNG NrocntCo3rMgmT84qi2 J4WayzE4taHVWiTQopL FVaPZkjuOXfYDg1GWZa cGVydzEyMjQwXHBhcGV tuGJ3YXFdQC4joyseDJ cwKYwbXTMdobC9JDEcx OKjV3AfZZCyML2dcgwl LOO7EFgvNTOeVIC2FiJ qBIDiw1Mrgmj8JyRebT FyZFxwbGFpblxiXGZzM fBxtTZbFHOvQNRQoV8y FPKghLkotYL4oGTlpgJ cw6GjLCWdnZ8zd4x3FY BhclxwYXJcdGFiXGIwI W4UADHKAJRGBOPaScRI AYlkI1JOQRWJCNMRGQ7 PTUEsIENMRUFSIENFTE wgVFlQRVxwYXJcdGFiI DGvJFKkq64wEJ83Veip YXJ9 Comment (test code = 9835) f3xtxPWcYRQpjWNnUGD wOFxhbnNpXHNwbHRwZ3 LezptlBOdsYX7fAC3qf GxhdHRveWVuXGRlZmYw p6jww495fQTgp0viDWV GbljlpRc7fCmdZ77wa3 Y4YfdfB09etNIvUSD1B TIyNDBccGFwZXJoMTU4 PKZxzUYlC8ilRTHwZD8 hcmdyMTgwMFxtYXJndD E7YVHczYIbP0AtBCYaO NgjFWLxmuu0WrOuXx2o dGVyeTcyMFxwYXJkXHB hDMpiOTAuWwRuLJ0ynI 1cvFwbqR5akVBnbMBwx HPkuCSabqWae2ansqJ5 jH1yavGoIGslmtLfa4H iyYr1SXPwz9Vrv4FyDF RpbiBhbmQgUEFYOCwgd 2hpbGUgbmVnYXRpdmUg Un0yKROpFWNvXXFCXBW 9JZukE4GrBAhyXU1jRN Otdi9kg7ycKO4fko0mv GFyfQ== Gross Description (test s7ylbRBoAKJitSXpWZM code = [id number]) wOFxhbnNpXHNwbHRwZ3 FoaxjaUYrrLM9eFF8qf GxhdHRveWVuXGRlZmYw a9gua427dEOqy3caXWN GubscbNq6rIxjU51qt7 M1JmhwL5zfLAAnPGhhT YYeFNgmrJOhYIo1OBXc cGVydzEyMjQwXHBhcGV ehUC0FRIbXD7ydbsoHG deULjbLJQneiQ9POLac RSsJ2BaPWTxXZ5bjmze FMO8YAddZXRxLZK1CiG tFYTqi6Agwgu9FrC4NS hrGZGwU0GbV8YwIVskD MO3KRBcFXVcBLRwRZ1C ZnIcXPA9XEXrFnlrGRU OKQHgTSk7HvH4KWTJFY UrWCYmPMl4RxI6EKQlD FJSIDEyMzAwMDAwMjEg XFxuaCBcXHQgMSBcXGZ rJHvkyzL4g0icWJOtdK GvLTN4FKzsgIPkUZOqY DIgXFxkYiBPVlIgIiAx FMCgZJm5VxL9LBl4IFX TPsKqYjLrJBF5McE5PP aaBWp8GAi0IOdXKtZdH VNxNzv1XwG3RWU1Kja6 NUajlOCzGFqdp6TbJyU fRURmNJiqxrY7RFDzdy CniHfvwV5qZneixaCkR SY6IGMtwktvHJVmSRRc BnJxVLEtT0yxTzVnCRF qStTrQTIqQ4hhHNPmLP BsYWluXGJcZnMyMFxjZ jEgTHVuZywgcmlnaHQg rPReCNHveY8uOExgUbi eBLuuKqNsCAEjO12oKN Maa3Uyw90caNI7CW0vw Vmxo1VcQNylKzBwtPEh KlPuP87dhY3aIY26OEh jAH5dKWAkJGjxKZ23lD UzmPtia3DftAm4vVRwV GgqXYHjExNdOCHzl5Zs O8V9JFYcRFxsz9fnTEE xZXgvu3AhTOnMXFDCJK 4UMG2ztDM2LCmYX2JTP 4oNfMVaVTU4kVD0ZANZ JzgtqWH3mGD6wJ77MHP fBWLzfJNbAEjhG254VN J7BSPqULkgq5mbUSVmO Efiq9BnHSaBVUZRJR5L WT6guUJ7ZQyPG3UKBYt eOZSgMivpiQVNGVK9QE ieoVqhjLi1h4iecVRiq 3k1VAqbSQE9wYnoxHJe zshxunKbm0dzsQasd5Y lwNLaDM59MMKreHFcIB I1VG8xiDvdLRX3 Biomarker Block(s) (test t9hjvQTcVDRhmHDtAKC code = 9841) wOFxhbnNpXHNwbHRwZ3 CmhphgRHpyXC0sJK1vx GxhdHRveWVuXGRlZmYw b0nxw909fKQtr1iqHXK SmhnawVi1mRrmK34dz0 Q8HebnF90siMIcGKK4N TIyNDBccGFwZXJoMTU4 CEXruLAmH6oxTCYcKF8 hcmdyMTgwMFxtYXJndD I3ZLCvqTHuE8KhIMUzZ YtcNCZfiaj0XoRzZb8s dGVyeTcyMFxwYXJkXHB sYWluXGZzMjAgQVxwYX J9 Disclaimer (test code = r7dznLVtENLkzGSgPdQ 9844) wHBIkRBGtb6qzVQNkqH FuZzEwMzNcZnRuYmpcd OSfFSPkUvIui8zfr457 mPCjq4sfVMUqYaD5zYI iOWHsjHCsO448NUQoLA vjv5mxq5ZdRSOztJRfm 6H2JHBVxjkcaFe6iFgx Z55sc0F9NfnfG9bqEPF kTHLsY1QkWJ1yHVYiTh r9GKR3FCE0NBCvKXCjF 1ThWV6bVJFhqCJwRQe4 a1jhcZkkYNDbNGA6w6m nTQfluyDiKT2cyz2obW j2y3oonlZrMRMoLVAbx LKNFMJtR6VogApgCk7g cWb5mDvqYaxfASP4Epe 8JC3ent68kvv0jVweCU FscjllBcK8UCnyPCBtw xowVNo9NEytFMBvfRC5 HNNhfVOhV3WuMJVuDL6 klye8ISX3CGyoVSWjQq O5UFGdaDOoLFZbfQqlA Znkm419AVA9XwMaPC2i D8Cdr2T5rZ9ijDJyRUB htIZoXaYeCJXojm2nbL AnDBbrt5MpASH0uqX8m LAugUYkRAMaQT07Klih c6QdDqeqHDY6OLSkvtV je8Fqz8ukAeSukvGxP8 izV3IyZDRvYCYlSVRiQ rSxgnFmm7Fbo0HlfDBb wZy7u6hfTQAvZMTofHb tt1fvNKC5FSClT3B9bF Txt3vtYSqbNMLxrQP8r iE3DADykZEvP6CewH0f XBZvFG6djme1y3agKXM 2LMggYNLyAzX8qbW7JK BcaGVhZGVyeTcyMFxmb 093DQO2LaRrEAYck7Fw C5NbpOfrH21dkXgnM38 yINWbdHjjoV1uwVzqlC 5cZjBcZnMyNFxxbFxwb CMiklwjTDczvuR0TNwz pdrcBRQkNBllW4ugGvE hICSpoLzaBBapq7WdCO FfUCOkEnrhknH0SMDJl 77lWDLdw6BrMQYeiD6b aXEvJQdvmtCyrHH2JBo hdmUgYmVlbiBkZXZlbG 2vWVRmBY4xMFUbmyHid f5achDgHXVvJVHeB9Nf cmlzdGljcyBkZXRlcm1 duzObAGZ2EGMSUA8VAZ PgRBYej90eBDJjyUvjw P2tzLKzysRnZQKtl1Gw vC7mvJYRCTPkV5gvJM9 bOJves4NwtQGikWDcgB M6PPEkc3VwOgBtjkAlg VNcaQUhB1UlgYexV4um RZJcYEIgpxTycEOlj4S pFKUtnTZ5rKAcYA1HEz FJr41lAAKhVMFTlvJpM ENmdJccwJM5xbN2mM1j LiBJZiBhcHBsaWNhYmx cDSDdy011xw1gxgO3ET WfGIKmxijuk2YwNYFyL EIzpX40SYBvKGAxug1l ibwswIBzebRaX4Hddil 3mD9dDXUcFJqbBBWcHG ZzMjJcbGFuZzEwMzNca GljaFxmMVxkYmNoXGYx JDxoQ6gyRyQuUeTpDym wYXJ9 [facility] [id number] 15:43:28 Test Item Value Reference Range Interpretation Comments CA 19-9 (test 4.3 U/mL <=35.0 Results greate r than 9500 U/mL code = 5171) may not be reli able due to matrix effect w ith extended dilution as it exceeds the train examiner's recommended limit. Caution should be exercised when interpreting such values and done in conjunction with clinical c ontext. This test is measured by electrochemilum inescence immunoassay on Joao Everardo immunoassay radha lyzers. Results obtained in dif ferent methods are not interch angeable.Testing Performed at [facility] Accounting System [employer] [facility], [address], [address], [place] [address] [facility]27 Test Item Value Reference Range Interpretation Comments CEA (test 3.0 ng/mL <=3.8 Reference Range s:Smoker: 0.0 - code = 5.5Non-Smoker: 0.0 - 3.8 This 2038-10) test is measure d by electrochemilum inescence immunoassay on Joao Everardo immunoassay radha lyzers. Results obtained in dif ferent methods are not interch angeable.Testing Performed at [facility], [address], [address], [place] [address] [facility] 15:43:26 AFP<2.7<=8.3 ng/mLMAYS [facility] [id number] 15:15:34 Test Item Value Reference Range Interpretation Comments aPTT (test code = 40.3 See_Comment H Testing Pe rformed 84303-3) [facility] [id number] [address] [Automate d message] The system which generated this result transmitted reference range : 24.1 - 35.5 second(s). The reference range was not used to interpret this result as normal/abnormal . LOGAN (test code = LOGAN) This lab cannot be scheduled at the following locations due to collection/procc essing restrictions: [facility] and [facility]. Lab Interpretation Abnormal (test code = 04360-9) [facility] with [id number] 15:15:33 Test Item Value Reference Range Interpretation Comments PT (test code 13.7 See_Comment Testing Perfor med = 5902-2) [facility] [id number] [address] [Automated mess age] The system [facility] generated this result transmitted ref erence range: 11.9 - 1 4.5 second(s). The reference range was not used to int erpret this result as normal/abnormal . INR (test code 1.09 0.87-1.12 Testing Perfo rmed = 6301-6) [facility], [address] [address] LOGAN (test code This lab cannot be = LOGAN) scheduled at the following locations due to collection/proccess ing restrictions: [facility] and [facility]. [facility] MwxxoyHdkzudlgplqv4661-25-56 15:09:23 Test Item Value Reference Range Interpretation Comments Neutrophil % (test code 60.8 % 43.2-72.7 As p art of = 770-8) Differential performed at [facility], [address], [address], [place] [address] Lymphocyte % (test code 23.9 % 16.8-46.2 = 736-9) Monocyte % (test code = 12.0 % 5.1-12.5 5905-5) Eosinophil % (test code 1.7 % 0.4-6.3 = 713-8) Basophil % (test code = 1.2 % 0.2-1.4 706-2) IGRE % (test code = 0.4 % 0.1-1.5 IGRE % c ount includes 39459-2) Metamyelocytes, Myelocytes, and Promyelocytes. As part of Differe ntial performed at [facility], [address], [address], [place] [address] Neutrophil Abs (test 5.68 K/uL 1.95-7.25 code = 751-8) Lymphocyte Abs (test 2.23 K/uL 1.01-3.24 code = 731-0) Monocyte Abs (test code 1.12 K/uL 0.24-0.85 H = 742-7) Eosinophil Abs (test 0.16 K/uL 0.02-0.50 code = 711-2) Basophil Abs (test code 0.11 K/uL 0.02-0.09 H = 704-7) IG Abs (test code = 0.04 K/uL 0.01-0.12 99664-6) Lab Interpretation Abnormal (test code = 96733-7) [facility].[id number] 15:09:08 Test Item Value Reference Range Interpretation Comments WBC (test code = 9.3 K/uL 4.1-10.5 6690-2) RBC (test code = 789-8) 8.35 See_Comment H [Au tomated message] The system [employer]AD[employer] generated this result transmitted ref erence range: 4.30 - 6 .04 M/uL. The refer ence range was not u sed to interpret this result as normal/abnor mal. Hgb (test code = 718-7) 20.7 See_Comment H As p art of CBC or as an individual orderable testi ng performed at [facility], [address], [place] [address] [Automate d message] The sy stem which generated this result transmit tasneem reference range : 13.3 - 17.4 gm/dL. T he reference range was not used to int erpret this result as normal/abnormal . Hct (test code = 64.0 % 39.5-51.8 H As part of CBC or as 4544-3) an individual orderable testi ng performed at [facility], [address], [place] [address] MCV (test code = 787-2) 77 fL 82-99 L MCH (test code = 785-6) 24.8 pg 26.6-33.2 L MCHC (test code = 32.3 See_Comment [Automate d message] 786-4) The system SHADOW generated this result transmitted ref erence range: 31.1 - 3 5.2 gm/dL. The refe rence range was not u sed to interpret this result as normal/abnor mal. RDW-SD (test code = 51.5 fL 37.5-49.7 H 63744-0) RDW-CV (test code = 18.5 % 11.6-15.5 H 788-0) Platelet count (test 248 K/uL 160-397 As part of CBC or as code = 777-3) an individual orderable testi ng performed at [facility], [address] [place] [address] [address]vd, [address], [facility] [place] [address] MPV (test code = 9.7 fL 9.1-12.6 95282-4) INRBC (test code = 0.0 See_Comment The INRBC (instrument 45709-0) NRBC) value ref lects the enumeration of nucleated red b lood cells contained in a 200uL sampleof whole blood analyzed by the instrument. Thi s value maydiffer from the NRBC value repo rted in a manual differential,wh ich is based on a 100 cell differential. A s part of CBC testing performed at [facility], [address], [facility] [place] [facility] [address] [Automated mess age] The system SHADOW generated this result transmitted ref erence range: 0.0 - 0. 1 /100 WBC. The refere nce range was not u sed to interpret this result as normal/abnor mal. Lab Interpretation Abnormal (test code = 02155-9) [facility]:03:25 Test Item Value Reference Range Interpretation Comments LDH (test code = 199 U/L 135-225 Results gre ater than 1651 59568-1) U/L may not be reliable due to matrix effec t with extended diluti on as it exceeds the man ufacturer s recommended l imit. Caution should be exercised when interpreti ng such values and done in conjunction wit h clinical context. Testin g Performed at [facility], [address] [place] [address], [address], [place] [address] [facility] HospitalFractionated [id number] 15:00:57 Test Item Value Reference Range Interpretation Comments Bili Total (test 0.5 mg/dL <=1.2 Indocyanine Green (ICG) code = 1975-2) may cause fal sely elevated biliru bin results. Total and direct bilirubin must not be measured from s amples containing indo cyanine green. False el evation of total bilirubin can be seen in patient s with IgG concentrations above 28 g/L.Testing Per formed at [facility], [address], [address], [place] [address] Bili Direct (test <=0.3 Indocyanin e Green (ICG) code = 1967-7) may cause fal sely elevated biliru bin results. Total and direct bilirubin must not be measured from s amples containing indo cyanine green. Testing Performed at [facility] Lab Ambu latory Care [facility], [address], [address], [place] [address] Bili Indirect (test See Note 0.0-0.9 Unable t o calculate code = 1970-) Indirect Bili waterman result due to some par ameters are outside rep ortable rangeTesting Pe rformed at [facility] Lab Ambulat ory Care [facility], [address], [place] [address] [facility] HospitalGlomerular Filtration Rate 2023-01-29 15:00:55 Test Item Value Reference Range Interpretation Comments eGFR (test code = 99 See_Comment The [place]GFRcr [place] 73[address]-6) the 2020 CKD-EP I creatinine equation using creatinine, patient's age, and sex for adults 18 years of age and older. Other fa ctors, especially musc le mass, may affect accuracy and need to be considered.A ccording to the Kidney Dise ase: Improving Global Outcomes (KDIGO) CKD Work Group 2012 Clinical Practice Guidel ine, chronic kidney disease (CKD) is defined as the abnormalities of kidney struc ture or function, prese nt for more than 3 months, with implications fo r health. CKD should be class ified by cause, GFR tasha gory, and albuminuria cat egory. KDIGO guidelines prov kennedy the following GFR c ategoriesStage Description GFR mL/min/1.73 m2G1* Normal or high >= 90G2* Mildly decrease d 60-89G3a Mildly to moder ately decreased 45-59 G3b Moderately to severely dec reased 30-44G4 Severely decrea sed 15-29G5 Kidney failure <15*In the absence of evid ence of kidney damage, neither G1 nor G2 fulfill criteri a for CKD. Testing Perform ed at [facility] Lab Account[employer] System [employer] [facility], [address], [address], [place], [place] [address] [Automated message] The Xiam stem which generated this result transmitted ref erence range: >=60 mL/min/1.7 3 sq. m. The reference range was not used to interpret th is result as normal/abnormal . [facility] HospitalTotal [id number] 15:00:54 Test Item Value Reference Range Interpretation Comments Total Protein (test code 8.5 g/dL 6.4-8.3 H China ting Performed at = 2885-2) [facility] Lab Ambulat ory Care [facility], [address], [address], [place] [address] Lab Interpretation (test Abnormal code = 90723-1) [facility] HospitalCalcium [id number] 15:00:53 Test Item Value Reference Range Interpretation Comments Calcium Lvl (test code = 10.5 mg/dL 8.4-10.2 H China ting Performed 49235-8) at [facility] Lab Accounting System Expert [facility], [address], [address], [place], [place] [address] Lab Interpretation (test Abnormal code = 04220-6) [facility] HospitalAlkaline [id number] 15:00:52 Test Item Value Reference Range Interpretation Comments Alk Phos (test code = 219 U/L 40-129 H Testin g Performed at 6768-6) [facility] Lab Ambulat ory [facility], [address], [place] [address] Lab Interpretation (test Abnormal code = 68434-0) [facility] HospitalAlbumin [id number] 15:00:51 Test Item Value Reference Range Interpretation Comments Albumin Lvl (test code 3.8 See_Comment Testi ng Performed at [facility] = 1751-7) Lab Accounting System Expert [facility], [address], [address], [place] [address] [Automated mess age] The system which ge nerated this result tra nsmitted reference range : 3.5 - 5.2 gm/dL. The refe rence range was not used to interpret this result as normal/abnormal . [facility] HospitalAspartate Aminotransferase 2023-01-29 15:00:50 Test Item Value Reference Range Interpretation Comments AST (test code = 22 U/L <=40 Testing Per formed at [facility] 1920-8) Lab Accounting System Expert [facility], [address], [place] [address] [facility] HospitalALT2023-09-26 15:00:49 Test Item Value Reference Range Interpretation Comments ALT (test code = 31 U/L <=41 Testing Per formed at [facility] 1742-6) Lab Accounting System Expert [facility], [address], [place] [address] [facility] HospitalElectrolyte [id number] 15:00:48 Test Item Value Reference Range Interpretation Comments Sodium Lvl (test code = 138 See_Comment Test ing Performed at 2951-2) [facility] Lab Ambulat [facility], [address], [address], [place] [address] [Automate d message] The sy stem which generated this result transmit tasneem reference range : 136 - 145 mEq/L. Th e reference range was not used to int erpret this result as normal/abnormal . Potassium Lvl (test code 5.3 See_Comment H China ting Performed at = 2823-3) [facility] Lab Ambulat [facility], [address], [address], [place] [address] [Automate d message] The sy stem which generated this result transmit tasneem reference range : 3.5 - 5.1 mEq/L. Th e reference range was not used to int erpret this result as normal/abnormal . Chloride (test code = 100 See_Comment Testin g Performed at 2075-0) [facility] Lab [facility], [address], [place] [address] [Automate d message] The sy stem which generated this result transmit tasneem reference range : 98 - 107 mEq/L. The reference range was not used to int erpret this result as normal/abnormal . CO2 (test code = 2027-9) 31 See_Comment H China ting Performed at [facility], [address], [address], [place] [address] [Automate d message] The sy stem which generated this result transmit tasneem reference range : 22 - 29 mEq/L. The reference range was not used to int erpret this result as normal/abnormal . Anion Gap (test code = 7 See_[place] [address]-7) [facility] Lab Ambulat nmy [facility], [address], [place] [address] [Automate d message] The sy stem which generated this result transmit tsaneem reference range : 4 - 14 mEq/L. The reference range was not used to int erpret this result as normal/abnormal . Lab Interpretation (test Abnormal code = 36221-5) [facility].Serum [id number] 15:00:47 Test Item Value Reference Range Interpretation Comments Creatinine (test code 0.93 mg/dL 0.67-1.17 Testin g Performed at = 2160-0) [facility] Lab Ambulat [facility], [address], [address], [place] [address] [facility] HospitalBUN2023-09-26 15:00:46 Test Item Value Reference Range Interpretation Comments BUN (test code = 18 mg/dL 6-23 Testing Per formed at [facility] 3094-0) Lab Accounting System Expert [facility], [address], [place] [address] [facility] HospitalGlucose [id number] 15:00:45 Test Item Value Reference Range Interpretation Comments Glucose Level (test 90 mg/dL 70-99 Effectiv e 11/30/15, the code = 2345-7) glucose refer ence intervals have been updated based o n [place] [employer] shun delines (Standards of M edical Care in Diabete s 2016. Diabetes Care 2 016; 39: S13-S22).Fastin g blood glucose:Normal: 70-99 mg/dLImpaired f asting glucose (increa sed risk for diabetes or pre-diabetes): 100-125 mg/dLDiabetes m ellitus: >/=126 mg/dL Ra ndom blood glucose:N ormal: 70-199 mg/dLNot e: Random glucose >100 mg /dL is associated with increased risk for diabetes Testin g Performed at [facility] Lab Accounting System Expert [facility], [address], [place] [address] [facility] [id number] 18:47:06 Test Item Value Reference Range Interpretation Comments POC Crea (test 1.1 mg/dL 0.6-1.3 Medications, code = 85299-4) especially h ydroxyurea or supplements, such as ascorbate, c an interfere with test results causing a falsely and significantly h igher result than exp ected. If a problem is suspected with a patient's resul t, a sample [facility] b e [facility]. Method descript ion: The i-STAT is a n analyzer used f or in vitro quantific ation of various anal ytes in whole blood. Th e device uses a s luis armando disposable cart ridge which contains microfabricated sensors, a gemini bration solution, fluid ics system, and a w aste chamber. Each t est cartridge conta ins chemically sens itive biosensors on a silicon chip th at are configured to p erform specific tests. The microfabricated sensors measure analyte concent ration by an electroch emical assay. POC EGFR (test 81 See_Comment The eGFRcr is code = 47936) calculated wit h the 2020 CKD-EPI creatinine equa tion using creatinin e, patient's age, and sex for adults 18 y ears of age and older. Other factors, especi ally muscle mass, ma y affect accuracy and need to be considered.Acco rding to the Kidney D isease: Improving Globa l Outcomes (KDIGO ) CKD Work Group 2012 Clinical Practi ce Guideline, development administrator luz elena kidney disease (CKD) is defined as t he abnormalities o f kidney structur e or function, prese nt for more than 3 mon ths, with implicatio ns for health. CKD meño uld be classified by c char, GFR category, a nd albuminuria cat egory. KDIGO guideline s provide the fol lowing GFR categoriesS tage Description GFR mL/min/1.73 m2G 1* Normal or high >= 90G2* Mildly de creased 60-89G3a Mildly to moderately decr eased 45-59G3b Modera tely to severely decrea sed 30-44G4 Severel y decreased 15-29 G5 Kidney failure <15*In the absence of evidence of kid yesika damage, neither G1 nor G2 fulfill crit eria for CKD. [Autom ated message] The sy stem which generated this result transmit tasneem reference range : >=60 mL/min/1.73 sq. m. The reference range was not used to int erpret this result as normal/abnormal . POC Clean Dev Yes (test code = 6672) Performing Lab [facility] LEAGUE CI TY (test code = [facility] bettye KIM [address]) [facility] [place] ,[address] [facility], [place] [address], Lab Dire ctor: Marcella Dias MD [facility] WITH [id number] 18:25:15 Test Item Value Reference Range Interpretation Comments WBC (test code = 8.60 See_Comment [Automated 6690-2) message] The sy stem which generated this result transmitted reference range : 4.20 - 10.70 10*3/?L. The reference range was not used to interpret this result as normal/abnormal . RBC (test code = See_Comment H Confirmed b y 1:5 789-8) dilution [Autom ated message] The sy stem which generated this result transmitted reference range : 4.26 - 5.52 10*6/?L. The reference range was not used to interpret this result as normal/abnormal . HGB (test code = 20.8 g/dL 12.2-16.4 H 718-7) HCT (test code = 67.5 % 38.4-49.3 H 4544-3) MCV (test code = 81.3 fL 81.7-95.6 L 787-2) MCH (test code = 25.1 pg 26.1-32.7 L 785-6) MCHC (test code = 30.8 g/dL 31.2-35.0 L 786-4) RDW-SD (test code = 54.9 fL 38.5-51.6 H 07909-2) RDW-CV (test code = 21.1 % 12.1-15.4 H 788-0) PLT (test code = 269 See_Comment [Automated 777-3) message] The sy stem which generated this result transmitted reference range : 150 - 328 10*3/ ?L. The reference r luz elena was not used to interpret this result as normal/abnormal . MPV (test code = 9.9 fL 9.8-13.0 16880-4) NRBC/100 WBC (test 0.0 See_Comment [Automat ed code = 1762715555) message] The system which generated this result transmitted reference range : 0.0 - 10.0 /100 WBCs. The refer ence range was not u sed to interpret th is result as normal/abnormal . NRBC x10^3 (test code See_Comment [Auto mated = 6421553387) message] The s ystem which generated this result transmitted reference range : 10*3/?L. The reference range was not used to interpret this result as normal/abnormal . GRAN MAT (NEUT) % 63.6 % (test code = 770-8) IMM GRAN % (test code 0.20 % = 4493470161) LYMPH % (test code = 22.0 % 736-9) MONO % (test code = 11.2 % 5905-5) EOS % (test code = 1.4 % 713-8) BASO % (test code = 1.6 % 706-2) GRAN MAT x10^3(ANC) 5.47 10*3/uL 1.99-6.95 (test code = 0091963875) IMM GRAN x10^3 (test 0.00-0.06 code = 1453206190) LYMPH x10^3 (test code 1.89 10*3/uL 1.09-3.23 = 731-0) MONO x10^3 (test code 0.96 10*3/uL 0.36-1.02 = 742-7) EOS x10^3 (test code = 0.12 10*3/uL 0.06-0.53 711-2) BASO x10^3 (test code 0.14 10*3/uL 0.01-0.09 H = 704-7) Lab Interpretation Abnormal (test code = 09529-1) [facility] WITH [id number] 18:25:15 Test Item Value Reference Range Interpretation Comments WBC (test code = 8.60 See_Comment [Automated 6690-2) message] The sy stem which generated this result transmitted reference range : 4.20 - 10.70 10*3/?L. The reference range was not used to interpret this result as normal/abnormal . RBC (test code = See_Comment H Confirmed b y 1:5 789-8) dilution [Autom ated message] The sy stem which generated this result transmitted reference range : 4.26 - 5.52 10*6/?L. The reference range was not used to interpret this result as normal/abnormal . HGB (test code = 20.8 g/dL 12.2-16.4 H 718-7) HCT (test code = 67.5 % 38.4-49.3 H 4544-3) MCV (test code = 81.3 fL 81.7-95.6 L 787-2) MCH (test code = 25.1 pg 26.1-32.7 L 785-6) MCHC (test code = 30.8 g/dL 31.2-35.0 L 786-4) RDW-SD (test code = 54.9 fL 38.5-51.6 H 83247-0) RDW-CV (test code = 21.1 % 12.1-15.4 H 788-0) PLT (test code = 269 See_Comment [Automated 777-3) message] The sy stem which generated this result transmitted reference range : 150 - 328 10*3/ ?L. The reference r luz elena was not used to interpret this result as normal/abnormal . MPV (test code = 9.9 fL 9.8-13.0 05381-4) NRBC/100 WBC (test 0.0 See_Comment [Automat ed code = 8533005299) message] The system which generated this result transmitted reference range : 0.0 - 10.0 /100 WBCs. The refer ence range was not u sed to interpret th is result as normal/abnormal . NRBC x10^3 (test code See_Comment [Auto mated = 1431440641) message] The s ystem which generated this result transmitted reference range : 10*3/?L. The reference range was not used to interpret this result as normal/abnormal . GRAN MAT (NEUT) % 63.6 % (test code = 770-8) IMM GRAN % (test code 0.20 % = 2480321593) LYMPH % (test code = 22.0 % 736-9) MONO % (test code = 11.2 % 5905-5) EOS % (test code = 1.4 % 713-8) BASO % (test code = 1.6 % 706-2) GRAN MAT x10^3(ANC) 5.47 10*3/uL 1.99-6.95 (test code = 6930404532) IMM GRAN x10^3 (test 0.00-0.06 code = 9032557526) LYMPH x10^3 (test code 1.89 10*3/uL 1.09-3.23 = 731-0) MONO x10^3 (test code 0.96 10*3/uL 0.36-1.02 = 742-7) EOS x10^3 (test code = 0.12 10*3/uL 0.06-0.53 711-2) BASO x10^3 (test code 0.14 10*3/uL 0.01-0.09 H = 704-7) Lab Interpretation Abnormal (test code = 98159-8) [facility] WITH [id number] 18:25:15 Test Item Value Reference Range Interpretation Comments WBC (test code = 8.60 See_Comment [Automated 6690-2) message] The sy stem which generated this result transmitted reference range : 4.20 - 10.70 10*3/?L. The reference range was not used to interpret this result as normal/abnormal . RBC (test code = See_Comment H Confirmed b y 1:5 789-8) dilution [Autom ated message] The sy stem which generated this result transmitted reference range : 4.26 - 5.52 10*6/?L. The reference range was not used to interpret this result as normal/abnormal . HGB (test code = 20.8 g/dL 12.2-16.4 H 718-7) HCT (test code = 67.5 % 38.4-49.3 H 4544-3) MCV (test code = 81.3 fL 81.7-95.6 L 787-2) MCH (test code = 25.1 pg 26.1-32.7 L 785-6) MCHC (test code = 30.8 g/dL 31.2-35.0 L 786-4) RDW-SD (test code = 54.9 fL 38.5-51.6 H 76987-3) RDW-CV (test code = 21.1 % 12.1-15.4 H 788-0) PLT (test code = 269 See_Comment [Automated 777-3) message] The sy stem which generated this result transmitted reference range : 150 - 328 10*3/ ?L. The reference r luz elena was not used to interpret this result as normal/abnormal . MPV (test code = 9.9 fL 9.8-13.0 25088-4) NRBC/100 WBC (test 0.0 See_Comment [Automat ed code = 6023692670) message] The system which generated this result transmitted reference range : 0.0 - 10.0 /100 WBCs. The refer ence range was not u sed to interpret th is result as normal/abnormal . NRBC x10^3 (test code See_Comment [Auto mated = 9977429343) message] The s ystem which generated this result transmitted reference range : 10*3/?L. The reference range was not used to interpret this result as normal/abnormal . GRAN MAT (NEUT) % 63.6 % (test code = 770-8) IMM GRAN % (test code 0.20 % = 4702803987) LYMPH % (test code = 22.0 % 736-9) MONO % (test code = 11.2 % 5905-5) EOS % (test code = 1.4 % 713-8) BASO % (test code = 1.6 % 706-2) GRAN MAT x10^3(ANC) 5.47 10*3/uL 1.99-6.95 (test code = 3501880495) IMM GRAN x10^3 (test 0.00-0.06 code = 3079445772) LYMPH x10^3 (test code 1.89 10*3/uL 1.09-3.23 = 731-0) MONO x10^3 (test code 0.96 10*3/uL 0.36-1.02 = 742-7) EOS x10^3 (test code = 0.12 10*3/uL 0.06-0.53 711-2) BASO x10^3 (test code 0.14 10*3/uL 0.01-0.09 H = 704-7) Lab Interpretation Abnormal (test code = 62320-7) [facility] WITH [id number] 18:25:15 Test Item Value Reference Range Interpretation Comments WBC (test code = 8.60 See_Comment [Automated 6690-2) message] The sy stem which generated this result transmitted reference range : 4.20 - 10.70 10*3/?L. The reference range was not used to interpret this result as normal/abnormal . RBC (test code = See_Comment H Confirmed b y 1:5 789-8) dilution [Autom ated message] The sy stem which generated this result transmitted reference range : 4.26 - 5.52 10*6/?L. The reference range was not used to interpret this result as normal/abnormal . HGB (test code = 20.8 g/dL 12.2-16.4 H 718-7) HCT (test code = 67.5 % 38.4-49.3 H 4544-3) MCV (test code = 81.3 fL 81.7-95.6 L 787-2) MCH (test code = 25.1 pg 26.1-32.7 L 785-6) MCHC (test code = 30.8 g/dL 31.2-35.0 L 786-4) RDW-SD (test code = 54.9 fL 38.5-51.6 H 85825-4) RDW-CV (test code = 21.1 % 12.1-15.4 H 788-0) PLT (test code = 269 See_Comment [Automated 777-3) message] The sy stem which generated this result transmitted reference range : 150 - 328 10*3/ ?L. The reference r luz elena was not used to interpret this result as normal/abnormal . MPV (test code = 9.9 fL 9.8-13.0 37147-4) NRBC/100 WBC (test 0.0 See_Comment [Automat ed code = 8650805426) message] The system which generated this result transmitted reference range : 0.0 - 10.0 /100 WBCs. The refer ence range was not u sed to interpret th is result as normal/abnormal . NRBC x10^3 (test code See_Comment [Auto mated = 7513389433) message] The s ystem which generated this result transmitted reference range : 10*3/?L. The reference range was not used to interpret this result as normal/abnormal . GRAN MAT (NEUT) % 63.6 % (test code = 770-8) IMM GRAN % (test code 0.20 % = 8342868856) LYMPH % (test code = 22.0 % 736-9) MONO % (test code = 11.2 % 5905-5) EOS % (test code = 1.4 % 713-8) BASO % (test code = 1.6 % 706-2) GRAN MAT x10^3(ANC) 5.47 10*3/uL 1.99-6.95 (test code = 3158380874) IMM GRAN x10^3 (test 0.00-0.06 code = 5846986552) LYMPH x10^3 (test code 1.89 10*3/uL 1.09-3.23 = 731-0) MONO x10^3 (test code 0.96 10*3/uL 0.36-1.02 = 742-7) EOS x10^3 (test code = 0.12 10*3/uL 0.06-0.53 711-2) BASO x10^3 (test code 0.14 10*3/uL 0.01-0.09 H = 704-7) Lab Interpretation Abnormal (test code = 10155-8) [facility]
[2023-02-18] MEDS ORDERED: MORPHINE 4 MG/ML SYR ONE (15:20)
--- NOTE | 2023-02-18 15:30 | RAD REPORT ---
EXAM DESCRIPTION: RAD - Chest Single View - 02/18/2023 3:23 pm CLINICAL HISTORY: Chest keegan Chest pain. COMPARISON: No comparisons FINDINGS: Portable technique limits examination quality. Interstitial markings are mildly prominent. 2 cm rounded nodule is seen right mid lung. Heart is uppe r limit normal in size. No displaced fractures.Recommend CT chest followup.
[2023-02-18 15:38] LABS: Absolute Lymphocytes (CBC) 1.9 K/uL (0.7-4.9); Hematocrit 61.2 % (39.6-49.0); Lymphocytes % 14.1 % (15.3-44.8); MCV 75.8 fL (80-100); MPV 8.5 fL (7.6-11.3); Platelets 215 thou/uL (152-406); RBC Red Blood Cell Count 8.07 M/uL (4.33-5.43)
[2023-02-18 16:00] LABS: Bilirubin Direct 0.2 mg/dL (0-0.2); Bilirubin Indirect, Calculated 0.6 mg/dL (0.2-0.8); Bilirubin Total 0.8 mg/dL (0.2-1.0); Potassium 3.9 mEq/L (3.5-5.1); Protein, Total 8.5 g/dL (6.4-8.2); Troponin High Sensitivity 3.5 pg/mL (<58.9)
--- NOTE | 2023-02-18 16:29 | RAD REPORT ---
EXAM DESCRIPTION: CT - Chest For Pe Angio - 02/18/2023 4:17 pm CLINICAL HISTORY: Chest pain. CHEST PAIN COMPARISON: No comparisons TECHNIQUE: CT angiogram of the pulmonary arteries was performed with MIP. All CT scans are performed using dose optimization technique as appropriate and may include automated exposure control or mA/KV adjustment according to patient size. FINDINGS: No evidence of pulmonary thromboembolism. No acute aortic finding demonstrated. There are multiple bilateral pulmonary nodules present compatible metastatic disease. The largest on the right measures 2.9 cm in the superior segment right lower lobe. On the left the largest measures 18 mm in the left apex. There is an large nodule anterior right upper lobe measuring 2.5 cm. Mild bilateral gynecomastia. There are multiple mildly enlarged lymph nodes in the mediastinum No significant pericardial or pleural fluid. Very large right upper quadrant mass lesion partially visualized measuring 15 cm. This is presumably the patient's known renal cell neoplasm. No aggressive bone lesion seen. IMPRESSION: No evidence of pulmonary thromboembolism. Multiple varying sized both large nodules in both lungs compatible with metastatic disease.
[2023-02-18 17:01] LABS: Specific Gravity > 1.030 (1.005-1.030); Urine Bacteria None Seen /HPF (<20); Urine Bilirubin NEGATIVE (Negative); Urine Blood 1+ (Negative); Urine Clarity Clear (Clear); Urine Color Yellow (Yellow); Urine Crystals Unidentified Few /HPF (None Seen); Urine Glucose NEGATIVE (Negative); Urine Mucus Slight /HPF (None Seen); Urine Protein NEGATIVE (Negative); Urine Urobilinogen Normal (Normal)
--- NOTE | 2023-02-18 17:10 | ER ---
Nurse's Notes [facility] Name: Jamir Somers Age: 53 yrs Sex: Male : 1970 Arrival Date: 02/18/2023 Time: 14:20 Bed 13 Private MD: Diagnosis: Chest pain, unspecified;Polycythemia vera;Essential (primary) hypertension;Hematuria, unspecified Presentation: 02/18 14:42 Chief complaint: Patient states: Chest pain along with back pain since yesterday, has nj1 gotten worse. Coronavirus screen: Vaccine status: Patient reports being unvaccinated. Ebola Screen: Patient denies travel to an Ebola-affected area in the 21 days before illness onset. Initial Sepsis Screen: Does the patient meet any 2 criteria? HR > 90 bpm. No. Patient's initial sepsis screen is negative. Does the patient have a suspected source of infection? No. Patient's initial sepsis screen is negative. Risk Assessment: Do you want to hurt yourself or someone else? Patient reports no desire to harm self or others. Onset of symptoms was February 17, 2023. 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 - Social history:: Smoking status: Patient/guardian denies using tobacco, Stopped _ months ago 1. Screenin:00 [facility] ED Fall Risk Assessment (Adult) History of falling in the last 3 months, kc6 including since admission No falls in past 3 months (0 pts) Confusion or Disorientation No (0 pts) Intoxicated or Sedated No (0 pts) Impaired Gait No (0 pts) Mobility Assist Device Used No (0 pt) Altered Elimination No (0 pt) Score/Fall Risk Level 0 - 2 = Low Risk. Abuse screen: Denies threats or abuse. Denies injuries from another. Nutritional screening: No deficits noted. Tuberculosis screening: No symptoms or risk factors identified. Assessment: 15:00 General: Appears in no apparent distress. uncomfortable, Behavior is cooperative, kc6 appropriate for age, restless. Pain: Complains of pain in chest and abdomen. Neuro: Level of Consciousness is awake, alert, obeys commands, Oriented to person, place, time, situation, Appropriate for age. Cardiovascular: Reports chest pain, Heart tones S1 S2 present Capillary refill < 3 seconds Rhythm is sinus rhythm. Respiratory: Airway is patent Trachea midline Respiratory effort is even, unlabored, Respiratory pattern is regular, symmetrical. GI: No signs and/or symptoms were reported involving the gastrointestinal system. : No signs and/or symptoms were reported regarding the genitourinary system. EENT: No signs and/or symptoms were reported regarding the EENT system. Derm: No signs and/or symptoms reported regarding the dermatologic system. Skin is intact, is healthy with good turgor, Skin is pink, warm \T\ dry. Musculoskeletal: No signs and/or symptoms reported regarding the musculoskeletal system. Circulation, motion, and sensation intact. Capillary refill < 3 seconds, Range of motion: intact in all extremities. 16:00 Reassessment: Patient appears in no apparent distress at this time. No changes from kc6 previously documented assessment. Patient and/or family updated on plan of care and expected duration. Pain level reassessed. Patient is alert, oriented x 3, equal unlabored respirations, skin warm/dry/pink. 17:00 Reassessment: Patient appears in no apparent distress at this time. No changes from kc6 previously documented assessment. Patient and/or family updated on plan of care and expected duration. Pain level reassessed. Patient is alert, oriented x 3, equal unlabored respirations, skin warm/dry/pink. Vital Signs: 14:42 BP 135 / 83; Pulse 93; Resp 18; Temp 97.9(O); Pulse Ox 97% on R/A; Weight 95.25 kg; nj1 Height 6 ft. 4 in. ; Pain 8/10; 17:07 BP 142 / 86; Pulse 93; Resp 16 S; Pulse Ox 96% on R/A; kc6 14:42 Body Mass Index 25.56 (95.25 kg, 193.04 cm) nj1 14:42 Pain Scale: Adult co1 ED Course: 14:24 Patient arrived in ED. mr 14:25 Mayur Montgomery DO is Attending Physician. ms3 14:44 Triage completed. nj1 14:46 Arm band placed on. nj1 14:51 Marie Corona, RN is Primary Nurse. kc6 15:00 Patient has correct armband on for positive identification. Bed in low position. Call kc6 light in reach. Side rails up X 1. Adult w/ patient. Client placed on continuous cardiac and pulse oximetry monitoring. NIBP monitoring applied. systems qa analyst on. 15:06 Inserted saline lock: 20 gauge in right antecubital area, using aseptic technique. kc6 Blood collected. Patient maintains SpO2 saturation greater than 95% on room air. 15:25 XRAY Chest (1 view) In Process Unspecified. EDMS 16:18 CT Chest For PE Angio In Process Unspecified. EDMS 17:27 No provider procedures requiring assistance completed. IV discontinued, intact, kc6 bleeding controlled, No redness/swelling at site. Pressure dressing applied. Administered Medications: 15:11 Drug: morphine IVP or IV 4 mg IVP once over 4 mins Route: IVP; Infused Over: 4 mins; kc6 Site: right antecubital; 16:16 Follow up: Response: No adverse reaction; Pain is decreased kc6 17:21 Drug: [place] PO 10 mg-325 mg 1 tabs PO once Route: PO; kc6 17:27 Follow up: Response: No adverse reaction kc6 Medication: 17:27 VIS not applicable for this client. kc6 Outcome: 17:10 Discharge ordered by . ms3 17:27 Discharged to home ambulatory, with significant other, kc6 17:27 Condition: stable 17:27 Discharge instructions given to patient, Instructed on discharge instructions, follow up and referral plans. Demonstrated understanding of instructions, follow-up care, 17:27 Patient left the ED. kc6 Signatures: Dispatcher [employer] EDOR MckeeJannette kern, Reg Reg Mayur Arredondo, DO DO ms3 Marie Corona, RN RN kc6 Dorothy Singh RN RN nj1
--- NOTE | 2023-02-18 17:11 | EDPHYS ---
Physician Documentation [facility] Name: Jamir Somers Age: 53 yrs Sex: Male : 1970 Arrival Date: 02/18/2023 Time: 14:20 Bed 13 Private MD: ED Physician Mayur Montgomery HPI: 02/18 15:41 This 53 yrs old Male presents to ER via Ambulatory with complaints of Chest Pain, Back ms3 Pain. 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 Patient rates his pain a 10/10. Patient denies any alleviating or inciting factors.. 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 - Social history:: Smoking status: Patient/guardian denies using tobacco, Stopped _ months ago 1. ROS: 15:41 Constitutional: Negative for fever, and chills. Neck: Negative for injury, pain, and ms3 swelling, 15:41 Abdomen/GI: Negative for abdominal pain, nausea, vomiting, diarrhea, and constipation, MS/Extremity: Negative for injury and deformity, Skin: Negative for injury, rash, and discoloration, 15:41 Cardiovascular: Positive for chest pain, 15:41 All other systems are negative, Exam: 15:41 Constitutional: This is a well developed, well nourished patient who is awake, alert, ms3 and in no acute distress. Head/Face: Normocephalic, atraumatic. Chest/axilla: Normal chest wall appearance and motion. Nontender with no deformity. Cardiovascular: Regular rate and rhythm with a normal S1 and S2. No gallops, murmurs, or rubs. Normal PMI, no JVD. No pulse deficits. Respiratory: Lungs have equal breath sounds bilaterally, clear to auscultation and percussion. No rales, rhonchi or wheezes noted. No increased work of breathing, no retractions or nasal flaring. Abdomen/GI: Soft, non-tender, with normal bowel sounds. No distension or tympany. No guarding or rebound. No evidence of tenderness throughout. Skin: Warm, dry with normal turgor. Normal color with no rashes, no lesions, and no evidence of cellulitis. MS/ Extremity: Pulses equal, no cyanosis. Neurovascular intact. Full, normal range of motion. 15:43 ECG was reviewed by the Attending Physician. ms3 Vital Signs: 14:42 BP 135 / 83; Pulse 93; Resp 18; Temp 97.9(O); Pulse Ox 97% on R/A; Weight 95.25 kg; nj1 Height 6 ft. 4 in. ; Pain 8/10; 17:07 BP 142 / 86; Pulse 93; Resp 16 S; Pulse Ox 96% on R/A; kc6 14:42 Body Mass Index 25.56 (95.25 kg, 193.04 cm) nj1 14:42 Pain Scale: Adult nj1 MDM: 14:50 Patient medically screened. ms3 15:41 Differential diagnosis: abnormal EKG, acute myocardial infarction, coronary artery ms3 disease chest wall pain, pneumothorax, pulmonary embolus. 16:43 ED course: Discussed labs, chest x-ray, CT PE with patient. Patient requesting ms3 urinalysis to be sent as she is waking up frequently at night to urinate. Will order urinalysis. 17:10 HEART Score: History: Slightly Suspicious (0), ECG: Normal (0), Age: > 45 and < 65 ms3 years (1), Risk Factors: No Risk Factors Known (0), Troponin: < or = 1 x Normal Limit (0), Total Score = 1. Data reviewed: vital signs, nurses notes, lab test result(s), EKG, radiologic studies, and as a result, I will discharge patient. Consideration of Admission/Observation Escalation of care including admission/observation considered. HEART score 1; Troponin negative. I considered the following discharge prescriptions or medication management in the emergency department Medications were administered in the Emergency Department. See MAR. Independent interpretation of the following test(s) in the Emergency Department EKG: See my EKG interpretation above. 02/18 14:37 Order name: Basic Metabolic Panel; Complete Time: 16:01 ms3 02/18 14:37 Order name: CBC with Diff; Complete Time: 16:01 ms3 02/18 14:37 Order name: LFT's; Complete Time: 16:01 ms3 02/18 14:37 Order name: Magnesium; Complete Time: 16:01 ms3 02/18 14:37 Order name: Troponin HS; Complete Time: 16:01 ms3 02/18 16:42 Order name: Urinalysis w/ reflexes; Complete Time: 17:06 ms3 02/18 14:37 Order name: XRAY Chest (1 view); Complete Time: 16:01 ms3 02/18 14:37 Order name: CT Chest For PE Angio; Complete Time: 16:32 ms3 02/18 14:37 Order name: EKG; Complete Time: 14:38 ms3 02/18 14:37 Order name: Cardiac monitoring; Complete Time: 15:25 ms3 02/18 14:37 Order name: EKG - Nurse/Tech; Complete Time: 15:25 ms3 02/18 14:37 Order name: IV Saline Lock; Complete Time: 15:05 ms3 02/18 14:37 Order name: Labs collected and sent; Complete Time: 15:05 ms3 02/18 14:37 Order name: O2 Per Protocol; Complete Time: 15:05 ms3 02/18 14:37 Order name: O2 Sat Monitoring; Complete Time: 15:05 ms3 EC:43 Rate is 89 beats/min. Rhythm is regular. QRS [place] is Normal. MI interval is normal. QRS ms3 interval is normal. Clinical impression: NSR w/ Non-specific ST/T Changes. Interpreted by me. Reviewed by me. Administered Medications: 15:11 Drug: morphine IVP or IV 4 mg IVP once over 4 mins Route: IVP; Infused Over: 4 mins; kc6 Site: right antecubital; 16:16 Follow up: Response: No adverse reaction; Pain is decreased kc6 17:21 Drug: [place] PO 10 mg-325 mg 1 tabs PO once Route: PO; kc6 17:27 Follow up: Response: No adverse reaction kc6 Disposition Summary: 02/18/23 17:10 Discharge Ordered Notes: Location: Home ms3 Condition: Stable ms3 Diagnosis - Chest pain, unspecified ms3 - Polycythemia vera ms3 - Essential (primary) hypertension ms3 - Hematuria, unspecified ms3 Followup: ms3 - With: Private Physician - When: 2 - 3 days - Reason: Recheck today's complaints Discharge Instructions: - Discharge Summary Sheet ms3 - Nonspecific Chest Pain, Adult ms3 Forms: - Medication Reconciliation Form ms3 - Thank You Letter ms3 - Antibiotic Education ms3 - Prescription Opioid Use ms3 - Patient Portal Instructions ms3 - Leadership Thank You Letter ms3 Signatures: Dispatcher [employer] EDMayur Christy DO DO ms3 Marie Corona RN RN kc6 Dorothy Singh RN RN nj1
[2023-02-18 17:57] VITALS: TEMP 97.9
[2023-02-18 18:03] VITALS: BP 142/86; O2SAT 96
--- NOTE | 2023-02-19 11:21 | EKG ---
Test Date: 2023-02-18 Test Time: 15:18:44 [place]ole Or Probation Officer: ZAY MEASUREMENT RESULTS: Intervals: Rate: 89 [place]: 170 QRSD: 90 QT: 334 QTc: 406 [place]: P: 65 [place]: 170 QRS: -64 T: 42 INTERPRETIVE STATEMENTS: Normal sinus rhythm Left anterior fascicular block Abnormal ECG No previous ECG available for comparison Electronically Signed On 02-19-23 11:18:40 CDT by Jose Rasmussen
== END 2023-02-18 17:27 | disposition home or self-care (01) ==
LOC: ER 14:20
DX: R07.9 Chest pain, unspecified (principal); D45 Polycythemia vera; R31.9 Hematuria, unspecified; I10 Essential (primary) hypertension; C64.9 Malignant neoplasm of unspecified kidney, except renal pelvis; C78.00 Secondary malignant neoplasm of unspecified lung
CPT/HCPCS: 93005; 85025; 81001; 80048; 36415; 83735; 80076; 84484; 71275; 71045; 96374; 99285; Q9967

== ENCOUNTER 2023-03-01 13:48 | Emergency (ER) | payer BC ==
--- OUTSIDE RECORDS SUMMARY | 2023-03-01 13:52 | XMS REPORT | Clinical Summary ---
:1970 Author Organization [facility] MD Junior [facility] Center Address [address] [place] [address] Care Team Providers Name Role Phone Edward Méndez MD Unavailable Katiana Felton MD Primary Care Provider Allergies No known active allergies Medications Medication Sig Dispensed Refills Start End Date Status Date HYDROcodone-acetamino Take 1 tablet 30 tablet 0 Active phen ([place]) 5 mg-325 by mouth 3 mg per every 8 tabletIndications: (eight) hours Neoplasm related pain as needed for (acute) (chronic) moderate pain. omeprazole (PriLOSEC) Take 1 0 Active 20 mg capsule (20 capsuleIndications: mg) by mouth. gastroesophageal reflux disease HYDROcodone-acetamino Take 1 tablet 40 tablet 0 Active phen ([place]) 10 by mouth 3 mg-325 mg per every 6 (six) tabletIndications: hours as Neoplasm related pain needed for (acute) (chronic) moderate pain. HYDROcodone-acetamino Take 1 tablet 40 tablet 0 Active phen ([place]) 10 by mouth 3 mg-325 mg per every 6 (six) tabletIndications: hours as Neoplasm related pain needed for (acute) (chronic) moderate pain. oxyBUTYnin (Ditropan Take 1 tablet 30 tablet 0 Active XL) 5 mg 24 hr (5 mg) by 3 tabletIndications: mouth daily. Frequency of micturition HYDROcodone-acetamino Take 1 tablet 40 tablet 0 Active phen ([place]) 10 by mouth 3 mg-325 mg per every 6 (six) tabletIndications: hours as Neoplasm related pain needed for (acute) (chronic) moderate pain. morphine (MS Contin) Take 1 tablet 30 tablet 0 Active 15 mg ER (15 mg) by 3 tabletIndications: mouth every Neoplasm related pain 12 (twelve) (acute) (chronic) hours. morphine (MSIR) 15 mg Take 1 tablet 50 tablet 0 Active IR tabletIndications: (15 mg) by 3 Neoplasm related pain mouth every 6 (acute) (chronic) (six) hours as needed for severe pain. HYDROcodone-acetamino Take 1 tablet 40 tablet 0 02/03 Discontinued phen ([place]) 10 by mouth 3 23 (Reo rder) mg-325 mg per every 6 (six) tabletIndications: hours as Neoplasm related pain needed for (acute) (chronic) moderate pain. Active Problems Not on file Encounters Date Type Department Care Team Description 02/21/2023 Orders Only Internal Medicine Katiana Felton [facility] related [facility] pain (acute) [address] (chronic) (Primary Main Bldg, 9th Floor Dx) [place] [address] 02/20/2023 Refill Internal Medicine Nicol Hodges RN [address] Main Bldg, 9th [place] [address] 02/18/2023 Refill Internal Medicine Nicol Hodges related Mitesh Velazquez RN pain (acute) [address] (chronic) Main Bldg, 9th [place] [address] 02/15/2023 Orders Only Internal Medicine Katiana Felton Freque ncy of Center micturition (Primary [address] Dx) Main Bldg, 9th [place] [address] 02/11/2023 Telephone Internal Medicine Suki Cruz Center L, RECRUITMENT [employer]ANT [address] Main Bldg, 9th [place] [address] 02/06/2023 Ancillary Procedure Nuclear Medicine Katiana Felton, 10:30 AM [address] MD CDT [facility], 6th Floor, [place] [address] 02/06/2023 Ancillary Procedure Nuclear Medicine Katiana Felton, Kidney, NOS cancer 8:00 AM [address] Mor[address]o MD <Unspecified> CDT [facility], 6th Floor, Elevator T [place] [id number] 02/05/2023 Orders Only Internal Medicine Katiana Felton, [facility] sm related Center pain (acute) [address] (chronic) (Primary Main Bldg, 9th Floor Dx) Elevator A [place] [id number] 02/05/2023 Refill Internal Medicine Nicol Hodgespla sm related Center Caroline RN pain (acute) [address] (chronic) Main Bldg, 9th Floor Elevator A [place] [id number] 02/04/2023 Orders Only Internal Medicine Katiana Felton, [facility] related Center pain (acute) [address] (chronic) (Primary Main Bldg, 9th Floor Dx) Elevator A [place] [id number] 02/04/2023 Refill Internal Medicine Nicol Hodgespla sm related Center Caroline RN pain (acute) [address] (chronic) Main Bldg, 9th [place] [address] 02/01/2023 Telephone Internal Medicine Katiana Felton, Center [address] Main Bldg, 9th [place] [address] 02/01/2023 Orders Only Internal Medicine Katiana Felton, Kidney , NOS cancer Center <Unspecified> [address] (Primary Dx) Main Bldg, 9th [place] [address] 2023 Hospital Encounter Interventional Dischar ge 7:33 AM Radiology Disposition: Home CDT - [address] 2023 [facility], 4th 11:59 [place] [address] 2023 Travel 01/30/2023 Hospital Encounter Interventional Pneumot horax 1:28 PM Radiology Discharge Disposition: Home CDT - [address] 01/30/2023 [facility], 4th 11:59 [place] [address] 01/30/2023 Hospital Encounter Interventional Dischar ge 12:17 PM Radiology Disposition: Home CDT - [address] 01/30/2023 [facility], 4th 1:27 [place] [address] 01/30/2023 Hospital Encounter Interventional Dischar ge 9:45 AM Radiology Disposition: Home CDT - [address] 01/30/2023 [facility], 4th 12:16 [place] [address] 01/30/2023 Hospital Encounter Interventional Iliescu, Katiana, Mul tiple nodules of lung; 7:25 AM Radiology Abnormal finding on diagnostic imaging o f other abdominal region including retroperitoneum CDT - [address] Matthieu Lawrence Discharge Disposition: Home 01/30/2023 [facility], 4th MD Patrick 9:44 [place] [address] 01/30/2023 Travel 01/29/2023 Hospital Encounter Interventional IliescuViktoriaa, Sherine g nodule (Primary Dx) 9:30 AM Radiology Discharge Disposition: Home CDT - [address] Maia Vieira, 01/29/2023 [facility], 4th CANDACE 11:59 [place] [address] 01/29/2023 Hospital Encounter Diagnostic Jovan Nava le nodules of lung; 9:00 AM Laboratory Center CANDACE De Los Santos Abnormal finding on diagnost ic imaging of other abdominal region including retroperitoneum CDT - [address] Discharge Disposition: Home 01/29/2023 [facility] 9:29 [place] [address] CDT 01/29/2023 Travel 01/23/2023 Documentation MDA TRANSL MOLEC Ted Hayliepatricio Guerra PATH 01/21/2023 Ancillary Procedure Katiana Moran , Multiple nodules of lung; 1:20 PM Isrrael KIM Abnormal finding on diagnost ic imaging of other abdominal region including retroperitoneum CDT [address] [facility] 2nd [place] [address] 01/21/2023 Education Interventional Allyssa Nesbitt Radiology C, [place] [address] [facility], 4th [place] [address] 01/21/2023 Travel 01/18/2023 Telemedicine Internal Medicine Katiana Felton, Multip le nodules of lung (Primary Dx); 10:00 AM [place] Abnormal finding on diagnost ic imaging of other abdominal region including retroperitoneum; CDT [address] [facility] Smoker; Main Bldg, 9th Floor Neoplasm related pain (acute ) (chronic) [place] [address] 01/18/2023 Orders Only Main Interventional Jovan Nava Radiology C, [place] [address] [facility], 3rd [place] [address] 01/15/2023 Ancillary Procedure Image Library Katiana Felton, Cancer 8:00 PM 151Mao Jamison [place] [address] 01/15/2023 NPR MDA PATIENT ACCESS 3:00 PM CDT 01/15/2023 Travel 01/15/2023 Telephone CHANDU PATIENT ACCESS Gilson Canales RN 01/15/2023 Telephone CHANDU PATIENT ACCESS Gilson Canales RN after 03/01/2022 Medical History Medical History Date Comments Tooth disorder 2022 Need deep, scaling, and extraction Asbestosis 2010 At [employer] plan t B in [facility] Genital warts 2015 Genital herpes simplex 1993 not treated per p t. Alcohol abuse 1985 Used drugs since 198 5, including smoking marijuana, s moking, crystal [...] six alcoholic alcohol) beverages a year Sex and Gender Information Value Date Recorded Sex Assigned at Not on file Gender Identity Not on file Sexual Orientation Not on file Job Start Date Occupation [...] PM CDT Plan of Treatment Date Type Department Care Team Description 03/21/2023 2:00 PM Consult Genitourinary Cancer Anthony Bedoya MD [facility] Center - Oncology [address] [facility] [address] [place] [address] [facility], [address] [place] [address] [place] [address] Health Maintenance Due Date Last Done Comments [...] other abdominal region secti on. including retroperitoneum DIFFERENTIAL Routine 01/29/2023 9:26 Multiple nodules of Resul ts for AM CDT lung this procedure Abnormal finding on are in t he diagnostic imaging of result s other abdominal region secti on. including retroperitoneum .CBC Routine 01/29/2023 9:26 Multiple nodules of Resul [...] region secti on. including retroperitoneum CALCIUM LEVEL Routine 01/29/2023 9:26 Multiple nodules of [...] other abdominal region secti on. including retroperitoneum CARBOHYDRATE ANTIGEN Routine 01/29/2023 9:26 Multiple nodules of Results for 19-9 AM CDT lung this procedure Abnormal finding [...] procedure are in the results section. after 03/01/2022 Results NM Bone Scan Whole Body (02/06/2023 [...] Procedure: 01/31/23 Attending Physician: Donnell Us MD Obiee Obia Solution Architect: None Pre Procedure Diagnosis: Post Procedure Diagnosis: [...] of Procedure: 01/30/23 Attending Physician: Meir Ramos Obiee Obia Solution Architect: None Pre Procedure Diagnosis: Multiple nodu les [...] Time At Signature Gross Specimens procured: 02/04/2023 CHANDU LEMUS LA BS Description 2 Diff Quik; 3 Pap Stain Slides 8:47 A M 10 ml, slightly cloudy bloody fluid in RPMI CDT 1 Cytospin Size: 2.6 cm Major MALIGNANT (A) 02/04/2023 [facility] Adrienne ctronically Classification 8:47 AM benita d by Katiana Solano MD on 02/04/2023 at 8:47 AM Diagnosis Lung, right upper lobe, fine needle aspiration: 02/04/2023 [facility] Electronically 8:47 AM signed by Katiana METASTATIC CARCINOMA, 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 Tumor cells are arranged along a prominent network of vasculature. Please see this patient's concurrently acquired core needle biopsy ([id number]) for further evaluation. Retained/Biomark SR: 6 S 02/04/2023 [facility] er Testing Biomarker Testin:47 AM MDL Cell Block: N/A CDT MDL Pap: 1 S MDL DQ: 0 S FISH DQ: 0 S Informational Some tests 02/04/2023 [facility] Points reported here may 8:47 AM have been CDT developed and performance characteristics determined by [facility] Pathology and Laboratory Medicine. These tests have not been specifically cleared or approved by the U.S. Food and Drug Administration. Specimen (Source) Anatomical Collection Method Collection Time Re ceived Time Location / / Volume Laterality Specimen obtained 01/30/2023 9:21 023 9:30 by fine needle AM CDT AM CDT aspiration procedure (specimen) (Lung, Right Upper Lobe) Katiana Felton MD LAB CYTOLOGY ORDERABLES Performing Organization Address City/State/ZIP Code Phon e Number [facility] [place] [address], [address] [facility] Pathology Biopsy Interpretation (01/30/2023 9:21 AM CDT) Component Value Ref Test Analysis Performed Pathologis t Range Method Time At Signature Submitted Multiple nodules of lung [R91.8] 023 [facility] Clinical Abnormal finding on diagnost ic imaging of other abdominal region including retroperitoneum [R93.5] 9:36 AM History CDT Diagnosis 02/01/2023 [facility] Electro nically Lung, right upper lobe, biopsy: 9:36 AM signed by Carlos Calvo MD on METASTATIC RENAL CELL CARCINOMA, CLEAR CELL TYPE 02/01/2023 at See comment. 9:36 A M Comment Immunohistochemical 02/01/2023 [facility] BS stains show tumor 9:36 AM cells positive for CDT keratin and PAX8, while negative for S-100, HMB45, CD34, and chromogranin. Gross A: 02/01/2023 [facility] Description Lung, right upper lobe, : 5 cores of soft rosales tissue (0.1 x 0.1 cm to 0.6 x 0.1 cm), entirely submitted in A1. YS 9:36 AM CDT Biomarker A 02/01/2023 [facility] Block(s) 9:36 AM CDT Disclaimer "Some tests reported 02/01/2023 [facility] here may have been 9:36 AM developed and CDT performance characteristics determined by [facility] Pathology and Laboratory Medicine. These tests have not been specifically cleared or approved by the U.S. Food and Drug Administration. If applicable, controls were reviewed and showed appropriate reactivity." Specimen Anatomical Collection Method Collection Time Receive d Time (Source) Location / / Volume Laterality Tissue specimen 01/30/2023 9:21 AM 2022 (specimen) CDT 11:11 AM CDT (Lung, Right Upper Lobe) Katiana Felton MD LAB PATHOLOGY ORDERABLES Performing Organization Address City/State/ZIP Code Phon e Number [facility] [place] [address], [address] [facility] .Serum Creatinine (01/29/2023 9:26 AM CDT) athologist Signature Creatinine 0.93 0.67 - 1.17 [facility] mg/dL Comment: Testing Performed at [facility], [address] [facility], [address], [place] [address] Specimen Anatomical Collection Method Collection Time Receive d Time (Source) Location / / Volume Laterality Blood 01/29/2023 9:26 AM 9:32 CDT AM CDT Katiana Felton MD LAB BLOOD ORDERABLES Performing Organization Address City/State/ZIP Code Phon e Number [facility] [address] [place] [address]. [place] [address] [address] (ABNORMAL) .CBC (01/29/2023 9:26 AM CDT) athologist Signature WBC 9.3 4.1 - 10.5 [facility] K/uL RBC 8.35 (H) 4.30 - 6.04 [facility] M/uL Hgb 20.7 (H) 13.3 - 17.4 [facility] gm/dL Comment: As part of CBC or as an individ ual orderable testing performed at [facility], [address] [facility] , [address], [place] [address] Hct 64.0 (H) 39.5 - 51.8 % [facility] Comment: As part of CBC or as an individ ual orderable testing performed at [facility], [address] [place] [address] , [address], [place] [address] MCV 77 (L) 82 - 99 fL [facility] MCH 24.8 (L) 26.6 - 33.2 pg [facility] MCHC 32.3 31.1 - 35.2 gm/dL [facility] RDW-SD 51.5 (H) 37.5 - 49.7 fL [facility] RDW-CV 18.5 (H) 11.6 - 15.5 % [facility] Platelet count 248 160 - 397 K/uL [facility] Comment: As part of CBC or as an individ ual orderable testing performed at [facility], [address] [facility] , [address], [place] [address] MPV 9.7 9.1 - 12.6 fL [facility] INRBC 0.0 0.0 - 0.1 /100 WBC [facility] Comment: The INRBC (instrument NRBC) value reflec ts the enumeration of nucleated red blood cells contained i n a 200uL sample of whole blood analyzed by the instrumen t. This value may differ from the NRBC value reported in a manual differential, which is based on a 100 cell differentia l. As part of CBC testing performed at [place] [address] [facility], [address], [place] [address] Specimen Anatomical Collection Method Collection Time Receive d Time (Source) Location / / Volume Laterality Blood 01/29/2023 9:26 AM 9:28 CDT AM CDT Katiana Felton MD LAB BLOOD ORDERABLES Performing Organization Address City/State/ZIP Code Phon e Number [address] [place] [address] [address] Glomerular Filtration Rate (01/29/2023 9:26 AM CDT) athologist Signature eGFR 99 >=60 [facility] mL/min/1.73 sq. m Comment: The eGFRcr is [...] fulfill criteria for CKD. Testing Performed at [facility] [employer] [facility], [address] [place] [address], [address], [place] [address] Specimen Anatomical Collection Method Collection Time Receive d Time (Source) Location / / Volume Laterality Blood 01/29/2023 9:26 AM 9:32 CDT AM CDT Katiana Felton MD LAB BLOOD ORDERABLES Performing Organization Address City/State/ZIP Code Phon e Number [place] [address] [facility] [place] [address] [address] Fractionated Bilirubin (01/29/2023 9:26 AM CDT) athologist Signature Bili Total 0.5 <=1.2 mg/dL [facility] Comment: Indocyanine Green (ICG) may cause falsel y elevated bilirubin results. Total and direct bilirubin must not be measured from samples containing indocyanine green. False elevation of total bilirubin can b e seen in patients with IgG concentrations above 28 g/L. Testing Performed at [facility] [employer] [facility], [facility], [address], [place] [address] Bili Direct <0.2 <=0.3 mg/dL [facility] Comment: Indocyanine Green (ICG) may cause falsel y elevated bilirubin results. Total and direct bilirubin must not be measured from samples containing indocyanine green. Testing Performed at [facility], [address] [place] [address], [address], [place] [address] Bili Indirect See Note 0.0 - 0.9 mg/dL [facility] Comment: Unable to calculate Indirect Bilirubin r esult due to some parameters are outside reportable range Testing Performed at [facility], [address] [place] [address], [address], [place] [address] Specimen Anatomical Collection Method Collection Time Receive d Time (Source) Location / / Volume Laterality Blood 01/29/2023 9:26 AM 3 9:32 CDT AM CDT Katiana Felton MD LAB BLOOD ORDERABLES Performing Organization Address [facility] e Number [address] [place] [address] [address] (ABNORMAL) aPTT (01/29/2023 9:26 AM CDT) athologist Signature aPTT 40.3 (H) 24.1 - 35.5 [facility] second(s) Comment: Testing Performed at [address], [address] [place] [address] Specimen Anatomical Collection Method Collection Time Receive d Time (Source) Location / / Volume Laterality Blood 01/29/2023 9:26 AM 3 9:28 CDT AM CDT Narrative [facility] - 01/29/2023 10:15 AM CDT This lab cannot be scheduled at the community health due to collection/proccessing restrictions: [facility] and [facility]. Katiana Felton MD LAB BLOOD ORDERABLES Performing Organization Address [facility] Phon e Number [address] [place] [address] [address] AFP (01/29/2023 9:26 AM CDT) athologist Signature AFP <2.7 <=8.3 ng/mL [facility] Comment: Results greater than 45,875.00 ng/mL may not be reliable due to matrix effect with extended dilution as it exceeds the internet security specialist's recommended limit. Caution should be exercised when interpreting such values and done in conjunction with clinical context. This test is measured by electrochemilum inescence immunoassay on Joao Everardo immunoassay analyzers. Results obtained in different methods are not interchangeable. Testing Performed at [facility], [address] [place] [address], [address], [place] [address] Specimen Anatomical Collection Method Collection Time Receive d Time (Source) Location / / Volume Laterality Blood 01/29/2023 9:26 AM 9:32 CDT AM CDT Katiana Felton MD LAB BLOOD ORDERABLES Performing Organization Address City/[facility] e Number [address] [place] [address] [address] CA 19-9 (01/29/2023 9:26 AM CDT) athologist Signature CA 19-9 4.3 <=35.0 U/mL [facility] Comment: Results greater than 9500 U/mL may not b e reliable due to matrix effect with extended dilution as it exceeds the internet security specialist's recommended limit. Caution should be exercised when interpreting such valu es and done in conjunction with clinical context. This test is measured by electrochemilum inescence immunoassay on Joao Everardo immunoassay analyzers. Results obtained in different methods are not interchangeable. Testing Performed at [facility], [address] [place] [address], [address], [place] [address] Specimen Anatomical Collection Method Collection Time Receive d Time (Source) Location / / Volume Laterality Blood 01/29/2023 9:26 AM 9:32 CDT AM CDT Katiana Felton MD LAB BLOOD ORDERABLES Performing Organization Address City/[facility] Phon e Number [address] [place] [address] [address] (ABNORMAL) Differential (01/29/2023 9:26 AM CDT) athologist Signature Neutrophil % 60.8 43.2 - 72.7 [facility] % Comment: As part of Differential perform ed at [facility], [address] [facility], [address], [place] [address] Lymphocyte % 23.9 16.8 - 46.2 % [facility] Monocyte % 12.0 5.1 - 12.5 % [facility] Eosinophil % 1.7 0.4 - 6.3 % [facility] Basophil % 1.2 0.2 - 1.4 % [facility] IGRE % 0.4 0.1 - 1.5 % [facility] Comment: IGRE % count includes Metamyelocytes, My elocytes, and Promyelocytes. As part of Differential performed at [facility], [address] [facility], [address], [place] [address] Neutrophil Abs 5.68 1.95 - 7.25 K/uL [facility] Lymphocyte Abs 2.23 1.01 - 3.24 K/uL [facility] Monocyte Abs 1.12 (H) 0.24 - 0.85 K/uL [facility] Eosinophil Abs 0.16 0.02 - 0.50 K/uL [facility] Basophil Abs 0.11 (H) 0.02 - 0.09 K/uL [facility] IG Abs 0.04 0.01 - 0.12 K/uL [facility] Specimen Anatomical Collection Method Collection Time Receive d Time (Source) Location / / Volume Laterality Blood 01/29/2023 9:26 AM 9:28 CDT AM CDT Katiana Felton MD LAB BLOOD ORDERABLES Performing Organization Address City/State/ZIP Code Phon e Number [address] [place] [id number] Prothrombin Time with INR (01/29/2023 9:26 AM CDT) P athologist Signature PT 13.7 11.9 - 14.5 [facility] second(s) Comment: Testing Performed at [facility] [employer] [facility] [address] [facility], [address] [place] [address] INR 1.09 0.87 - 1.12 [facility] Comment: Testing Performed at [facility] [employer] [facility] [address] [facility], [address] [place] [address] Specimen Anatomical Collection Method Collection Time Receive d Time (Source) Location / / Volume Laterality Blood 01/29/2023 9:26 AM 3 9:28 CDT AM CDT Narrative [facility] - 01/29/2023 10:15 AM CDT This lab cannot be scheduled at the [facility] locations due to collection/proccessing restrictions: [facility] and [facility]. Katiana Felton MD LAB BLOOD ORDERABLES Performing Organization Address City/[facility]/ZIP Code Phon e Number [facility] [address] [facility] [place] [address] [address] BUN (01/29/2023 9:26 AM CDT) athologist Signature BUN 18 6 - 23 mg/dL [facility] Comment: Testing Performed at [facility], [address] [place] [address], [address], [place] [address] Specimen Anatomical Collection Method Collection Time Receive d Time (Source) Location / / Volume Laterality Blood 01/29/2023 9:26 AM 3 9:32 CDT AM CDT Katiana Felton MD LAB BLOOD ORDERABLES Performing Organization Address City/[facility]/ZIP Code Phon e Number [facility] [address] [place] [address] [address] ALT (01/29/2023 9:26 AM CDT) P athologist Signature ALT 31 <=41 U/L [facility] Comment: Testing Performed at [facility] Am [facility], [address] [place] [address], [address], [place] [address] Specimen Anatomical Collection Method Collection Time Receive d Time (Source) Location / / Volume Laterality Blood 01/29/2023 9:26 AM 3 9:32 CDT AM CDT Katiana Felton MD LAB BLOOD ORDERABLES Performing Organization Address City/[facility]/ZIP Code Phon e Number [facility] [address] [place] [address] [address] Aspartate Aminotransferase (01/29/2023 9:26 AM CDT) P athologist Signature AST 22 <=40 U/L [facility] Comment: Testing Performed at [facility] Am [facility], [address], [address], [place] [address] Specimen Anatomical Collection Method Collection Time Receive d Time (Source) Location / / Volume Laterality Blood 01/29/2023 9:26 AM 3 9:32 CDT AM CDT Katiana Felton MD LAB BLOOD ORDERABLES Performing Organization Address City/[facility]/ZIP Code Phon e Number [facility] [address] [facility] [place] [address] [address] (ABNORMAL) Total Protein (01/29/2023 9:26 AM CDT) P athologist Signature Total Protein 8.5 (H) 6.4 - 8.3 [facility] g/dL Comment: Testing Performed at [facility] Lab Am [facility], [address], [address], [place] [address] Specimen Anatomical Collection Method Collection Time Receive d Time (Source) Location / / Volume Laterality Blood 01/29/2023 9:26 AM 3 9:32 CDT AM CDT Katiana Felton MD LAB BLOOD ORDERABLES Performing Organization Address [facility]/ZIP Code Phon e Number [facility] [address] [place] [address] [address] (ABNORMAL) Alkaline Phosphatase (01/29/2023 9:26 AM CDT) P athologist Signature Alk Phos 219 (H) 40 - 129 [facility] U/L Comment: Testing Performed at [facility] Am [facility] Care [facility], [address], [address], [place] [address] Specimen Anatomical Collection Method Collection Time Receive d Time (Source) Location / / Volume Laterality Blood 01/29/2023 9:26 AM 3 9:32 CDT AM CDT Katiana Felton MD LAB BLOOD ORDERABLES Performing Organization Address City/[facility]/ZIP Code Phon e Number [facility] [address] [place] [address] [address] LDH (01/29/2023 9:26 AM CDT) P athologist Signature LDH 199 135 - 225 [facility] U/L Comment: Results greater than 1651 U/L may not be reliable due to matrix effect with extended dilution as it exceeds the internet security specialist s recommended limit. Caution should be exercised when interpreting such ronna ues and done in conjunction with clinica l context. Testing Performed at [facility] [employer] [facility], [address] [place] [address], [address], [place] [address] Specimen Anatomical Collection Method Collection Time Receive d Time (Source) Location / / Volume Laterality Blood 01/29/2023 9:26 AM 9:34 CDT AM CDT Katiana Felton MD LAB BLOOD ORDERABLES Performing Organization Address City/[facility]/[place]IP [facility] [place] [address] [place] [address] [address] Glucose Level (01/29/2023 9:26 AM CDT) athologist Signature Glucose Level 90 70 - 99 [facility] mg/dL Comment: Effective 11/30/15, the glucose reference intervals have been updated based on [place] [employer] guidelines (Standards of Medical Care in Diabetes 2016. Diabetes Care 2016; 39: S13-S22). Fasting blood glucose: Normal: 70-99 mg/dL Impaired fasting glucose (increased risk for diabetes or pre-diabetes): 100- 125 mg/dL Diabetes mellitus: >/=126 mg/dL Random blood glucose: Normal: 70-199 mg/dL Note: Random glucose >100 mg/dL is assoc iated with increased risk for diabetes Testing Performed at [facility], [address] [place] [address], [address], [place] [address] Specimen Anatomical Collection Method Collection Time Receive d Time (Source) Location / / Volume Laterality Blood 01/29/2023 9:26 AM 3 9:32 CDT AM CDT Katiana Felton MD LAB BLOOD ORDERABLES Performing Organization Address City/[facility] Phon e Number [address] [place] [address] [address] CEA (01/29/2023 9:26 AM CDT) athologist Signature CEA 3.0 <=3.8 ng/mL [facility] Comment: Reference Ranges: Smoker: 0.0 - 5.5 Non-Smoker: 0.0 - 3.8 This test is measured by electrochemilum inescence immunoassay on Joao Everardo immunoassay analyzers. Results obtained in different methods are not interchangeable. Testing Performed at [facility] [employer] [facility], [address], [address], [place] [address] Specimen Anatomical Collection Method Collection Time Receive d Time (Source) Location / / Volume Laterality Blood 01/29/2023 9:26 AM 3 9:32 CDT AM CDT Katiana Felton MD LAB BLOOD ORDERABLES Performing Organization Address City/[facility]/[place] [facility] [place] Number [facility] [address] [facility] [place] [address] [address] (ABNORMAL) Calcium Level (01/29/2023 9:26 AM CDT) P athologist Signature Calcium Lvl 10.5 (H) 8.4 - 10.2 [facility] mg/dL Comment: Testing Performed at [facility] Lab Am [facility] Care [facility], [address], [address], [place] [address] Specimen Anatomical Collection Method Collection Time Receive d Time (Source) Location / / Volume Laterality Blood 01/29/2023 9:26 AM 3 9:32 CDT AM CDT Katiana Felton MD LAB BLOOD ORDERABLES Performing Organization Address [facility] Code Phon e Number [facility] [address] [facility] [place] [address] [address] Albumin Level (01/29/2023 9:26 AM CDT) P athologist Signature Albumin Lvl 3.8 3.5 - 5.2 [facility] gm/dL Comment: Testing Performed at [facility] Am [facility], [address], [address], [place] [address] Specimen Anatomical Collection Method Collection Time Receive d Time (Source) Location / / Volume Laterality Blood 01/29/2023 9:26 AM 3 9:32 CDT AM CDT Katiana Felton MD LAB BLOOD ORDERABLES Performing Organization Address City/[facility]/[place] [facility] [place] Number [facility] [address] [place] [address] [address] (ABNORMAL) Electrolyte Panel (01/29/2023 9:26 AM CDT) P athologist Signature Sodium Lvl 138 136 - 145 [facility] mEq/L Comment: Testing Performed at [facility] Am [facility], [address], [address], [place] [address] Potassium Lvl 5.3 (H) 3.5 - 5.1 mEq/L [facility] Comment: Testing Performed at [facility] Am [facility] Care [facility], [address], [address], [place] [address] Chloride 100 98 - 107 mEq/L [facility] Comment: Testing Performed at [facility] Am [facility] Care [facility], [address], [address], [place] [address] CO2 31 (H) 22 - 29 mEq/L [facility] Comment: Testing Performed at [facility] Am [facility] Care [facility], [address], [address], [place] [address] Anion Gap 7 4 - 14 mEq/L [facility] Comment: Testing Performed at [facility], [address], [address], [place] [address] Specimen Anatomical Collection Method Collection Time Receive d Time (Source) Location / / Volume Laterality Blood 01/29/2023 9:26 AM 9:32 CDT AM CDT Katiana Felton MD LAB BLOOD ORDERABLES Performing Organization Address City/State/ZIP Code Phon e Number [facility] [address] [place] [address] [address] Chest Abdomen Pelvis with [...] Clean Dev Yes POC T[facility] Performing Lab [facility] POC TELCO R Comment: [facility] bettye KIM Matt-Clinical Care [facility] ,[address] [place] [id number], Extrusion Press Adjuster: Marcella Dias MD Specimen Anatomical Collection Method Collection Time Receive d Time (Source) Location / / Volume Laterality Blood 01/21/2023 1:45 PM 3 1:45 CDT PM CDT Katiana Felton MD POCT ORDERABLES - DEVICE Performing Organization Address City/State/ZIP Code Phon e Number POC [facility] Unless otherwise noted, [place] [address] lab tests performed by: Division of Pathology and Laboratory Medicine [address] [place] [address] Chest (01/01/2023 3:49 PM CDT) Specimen (Source) Anatomical Location Collection Method / Collectio n Time Received Time / Laterality Volume Narrative Systemgenerated, Documentation - 023 3:49 PM CDT Study acquired at another institution. For comparison only. No MD Gutierrez originated interpretation requested or a vailable. Katiana Felton MD IMG OUTSIDE IMAGE ORDERABLES after 03/01/2022 Insurance Payer Benefit Plan / Subscriber ID Effective Dates Phone Addre ss Type Group [place] POS [id number] 2021-Present [id number] [place] [address] Care Teams Online Communications Manager Relationship Specialty Start Date End Date Edward Méndez MD PCP - External Primary Family Practice 01/15/23 Care Provider [address] [place] [address] [id number] Katiana Felton MD PCP - General Internal Medicine 01/15/23 [address] [place] [address]
--- OUTSIDE RECORDS SUMMARY | 2023-03-01 13:55 | XMS REPORT | Continuity of Care Document ---
:1970 Author Organization [facility] t Address [address] [place] [address] [address] [place] [address] Care Team Providers Name Role Phone Shyann Yeager MD Primary Care Physician [phone] Shyann Yeager MD Attending Clinician Nicol Hodges RN Attending Clinician Unavailable Katiana Coello MD Attending Clinician Suki Cruz APRN Attending Clinician Matthieu Lawrence MD Attending Clinician Maia Trujillo Attending Clinician KATIANA COELLO Attending Clinician Unavailable Jovan Elliott Attending Clinician Flora Jean Attending Clinician Unavailable Allyssa Nesbitt MA Attending Clinician Gilson Canales RN Attending Clinician Unavailable RADIOLOGY Attending Clinician Unavailable Radiology Attending Clinician Unavailable Doctor Unassigned, Wright Attending Clinician Unavailable PATHOLOGY Attending Clinician Unavailable Pcp-Lab Attending Clinician Unavailable Edward Powell MD Attending Clinician EDWARD POWELL Attending Clinician Unavailable Haresh Jim MD Attending Clinician [place] Escobar DO Attending Clinician RANCHO ESCOBAR Attending Clinician Unavailable LAZARUS TRINH Admitting Clinician Unavailable Payers Payer Name Policy Type Policy Number Effective Date Expiration Date S ource Problems Condition Condition Condition Status Onset Resolution Last Treating Co mments Source Name Details Category Date Date Treatment Clinician Date Elevated Elevated Disease Active Unive rs hemoglobin hemoglobin 7-26 it y of 00:00: [address] Allergies, Adverse Reactions, Alerts Allergy Allergy Status Severity Reaction(s) Onset Inactive Treating Comm ents Source Name Type Date Date Clinician NO KNOWN Drug Active Univers ALLERGIE Class ity of S [facility] Family History Family Member Diagnosis Comments Start Date Stop Date Source Maternal grandmother Stomach cancer [facility] Natural mother Breast [facility] Social History Social Habit Start Date Stop Date Quantity Comments Source [facility] Sexual orientation [facility] Alcohol intake 2023-01-30 2023-01-30 Ex-drinker University of 00:00:00 00:00:00 (finding) Eun Junior [facility] Cigarettes smoked 2023-01-18 2023-01-18 Univers ity of current (pack per 00:00:00 00:00:00 [place] Mally Ramos ) - Reported Cancer Ce nter Cigarette 2023-01-18 2023-01-18 University of pack-years 00:00:00 00:00:00 Eun blackwell [facility] Tobacco use and 2023-01-18 2023-01-18 Former smokeless Uni versity of exposure 00:00:00 00:00:00 tobacco user Eun Shipley [facility] Tobacco Comment 2023-01-18 2023-01-18 Started Universit y of 00:00:00 00:00:00 decreasing use 3 Eun Gutierrez weeks ago, down Cancer Ce nter to 1/4 pack per day Alcohol Comment 2023-01-18 2023-01-18 I drink less than Un iversity of 00:00:00 00:00:00 six alcoholic Eun rojas beverages a year Cancer C enter History of Social 2022-11-07 2022-11-07 Univers ity of function 00:00:00 00:00:00 [facility] History of tobacco 1986-01-04 2017-04-19 Snuff User Univer sity of use 00:00:00 00:00:00 [place] MD [facility] Sex Assigned At [birth year] Universit y of 00:00:00 00:00:00 Eun blackwell [facility] Smoking Status Start Date Stop Date Source Smokes tobacco daily 2023-01-18 00:00:00 Univers ity of [place] [facility] Medications Ordered Filled Start Stop Current Ordering Indication Dosage Frequency Signature Comments Components Source Medication Medication Date Date Medication? Clinician (SIG) Name Name tamsulosin 2022-05 Yes [id number] .4mg Take 1 U nivers (FLOMAX) 0-27 capsule by ity o f 0.4 mg 24 00:[place] 00 the morning. Branch HYDROcodone 2022-05 Yes Neoplasm 1{tbl} Take 1 Univers -acetaminop 0-16 related tablet by ity of hen ([place]) 00:00: pain mouth [place] 10 mg-325 00 (acute) every 6 MD mg per (chronic) (six) Anderso tablet hours as n needed for [facility] pain. oxyBUTYnin 2022-05 Yes Frequency 5mg Take 1 Univers (Ditropan 0-13 of tablet (5 ity o f XL) 5 mg 24 00:00: micturition mg) by [place] hr tablet 00 mouth MD daily. [facility] HYDROcodone 2022-05- No Neoplasm 1{tbl} Take 1 Univers -acetaminop 0-03 10-16 related tablet by ity of hen ([place]) 00:00: 00:[place]-325 [place] :00 (acute) every 6 MD mg per (chronic) (six) Anderso tablet hours as n needed for [facility] pain. HYDROcodone 2022-05 Yes Neoplasm 1{tbl} Take 1 Univers -acetaminop 0-02 related tablet by ity of hen ([place]) 00:00: pain mouth [place] 10 mg-325 00 (acute) every 6 MD mg per (chronic) (six) Anderso tablet hours as n needed for [facility] pain. HYDROcodone Yes Neoplasm 1{tbl} Take 1 Univers -acetaminop 9-29 related tablet by ity of hen ([place]) 00:00: pain mouth [place] 10 mg-325 00 (acute) every 6 MD mg per (chronic) (six) Anderso tablet hours as n needed for [facility] pain. omeprazole 3-0 Yes gastroesoph 20mg Take 1 Univers (PriLOSEC) 9-27 ageal capsule ity o f 20 mg 11:39: reflux (20 mg[place] capsule 21 disease mouth. [facility] HYDROcodone 3-0 Yes Neoplasm 1{tbl} Take 1 Univers -acetaminop 9-15 related tablet by ity of hen ([place]) 00:00: pain mouth [place] 5 mg-325 mg [...] the Medical morning. Branch tamsulosin 2023-0 Yes [id number] .4mg Take 1 U nivers (FLOMAX) 7-05 capsule by ity o f 0.4 mg 24 00:00: [place] capsule 00 the Medical morning. Branch tamsulosin 2023-0 Yes [id number] .4mg Take 1 U nivers (FLOMAX) 7-05 capsule by ity o f 0.4 mg 24 00:00: [place] capsule 00 the Medical morning. Branch tamsulosin 2023-0 Yes [id number] .4mg Take 1 U nivers (FLOMAX) 7-05 capsule by ity o f 0.4 mg 24 00:00: [place] capsule 00 the Medical morning. Branch tamsulosin 2023-0 Yes [id number] .4mg Take 1 U nivers (FLOMAX) 7-05 capsule by ity o f 0.4 mg 24 00:00: [place] capsule 00 the Medical morning. Branch tamsulosin 2023-0 Yes [id number] .4mg Take 1 U nivers (FLOMAX) 7-05 capsule by ity o f 0.4 mg 24 00:00: [place] capsule 00 the Medical morning. Branch tamsulosin 2023-0 Yes [id number] .4mg Take 1 U nivers (FLOMAX) 7-05 capsule by ity o f 0.4 mg 24 00:00: [place] capsule 00 the Medical morning. Branch tamsulosin 2023-0 Yes [id number] .4mg Take 1 U nivers (FLOMAX) 7-05 capsule by ity o f 0.4 mg 24 00:00: [place] capsule 00 the Medical morning. Branch tamsulosin 2023-0 Yes [id number] .4mg Take 1 U nivers (FLOMAX) 7-05 capsule by ity o f 0.4 mg 24 00:00: [place] capsule 00 the Medical morning. Branch tamsulosin 2023-0 Yes [id number] .4mg Take 1 U nivers (FLOMAX) 7-05 capsule by ity o f 0.4 mg 24 00:00: [place] capsule 00 the Medical morning. Branch tamsulosin 2023-0 Yes [id number] .4mg Take 1 U nivers (FLOMAX) 7-05 capsule by ity o f 0.4 mg 24 00:00: [place] 00 the Medical morning. Branch tamsulosin 2023-0 Yes [id number] .4mg Take 1 U nivers (FLOMAX) 7-05 capsule by ity o f 0.4 mg 24 00:00: [place] capsule 00 the Medical morning. Branch tamsulosin 2023-0 Yes [id number] .4mg Take 1 U nivers (FLOMAX) 7-05 capsule by ity o f 0.4 mg 24 00:00: [place] capsule 00 the Medical morning. Branch tamsulosin 2023-0 Yes [id number] .4mg Take 1 U nivers (FLOMAX) 7-05 capsule by ity o f 0.4 mg 24 00:00: [place] capsule 00 the Medical morning. Branch tamsulosin 2023-0 Yes [id number] .4mg Take 1 U nivers (FLOMAX) 7-05 capsule by ity o f 0.4 mg 24 00:00: [place] capsule 00 the Medical morning. Branch tamsulosin 2023-0 Yes [id number] .4mg Take 1 U nivers (FLOMAX) 7-05 capsule by ity o f 0.4 mg 24 00:00: [place] capsule 00 the Medical morning. Branch tamsulosin 2023-0 Yes [id number] .4mg Take 1 U nivers (FLOMAX) 7-05 capsule by ity o f 0.4 mg 24 00:00: [place] capsule 00 the Medical morning. Branch tamsulosin 2023-0 Yes [id number] .4mg Take 1 U nivers (FLOMAX) 7-05 capsule by ity o f 0.4 mg 24 00:00: [place] capsule 00 the Medical morning. Branch tamsulosin 2023-0 Yes [id number] .4mg Take 1 U nivers (FLOMAX) 7-05 capsule by ity o f 0.4 mg 24 00:00: [place] capsule 00 the Medical morning. Branch tamsulosin 2023-0 Yes [id number] .4mg Take 1 U nivers (FLOMAX) 7-05 capsule by ity o f 0.4 mg 24 00:00: [place] capsule 00 the Medical morning. Branch tamsulosin 2023-0 Yes [id number] .4mg Take 1 U nivers (FLOMAX) 7-05 capsule by ity o f 0.4 mg 24 00:00: [place] capsule 00 the Medical morning. Branch tamsulosin 2023-0 Yes [id number] .4mg Take 1 U nivers (FLOMAX) 7-05 capsule by ity o f 0.4 mg 24 00:00: [place] capsule 00 the Medical morning. Branch tamsulosin 2023-0 Yes [id number] .4mg Take 1 U nivers (FLOMAX) 7-05 capsule by ity o f 0.4 mg 24 00:00: [place] capsule 00 the Medical morning. Branch tamsulosin 2023-0 Yes [id number] .4mg Take 1 U nivers (FLOMAX) 7-05 capsule by ity o f 0.4 mg 24 00:00: [place] capsule 00 the Medical morning. Branch tamsulosin 2023-0 Yes [id number] .4mg Take 1 U nivers (FLOMAX) 7-05 capsule by ity o f 0.4 mg 24 00:00: [place] capsule 00 the Medical morning. Branch tamsulosin 2023-0 Yes [id number] .4mg Take 1 U nivers (FLOMAX) 7-05 capsule by ity o f 0.4 mg 24 00:00: [place] capsule 00 the Medical morning. Branch tamsulosin 2023-0 Yes [id number] .4mg Take 1 U nivers (FLOMAX) 7-05 capsule by ity o f 0.4 mg 24 00:00: [place] capsule 00 the Medical morning. Branch tamsulosin 2023-0 Yes [id number] .4mg Take 1 U nivers (FLOMAX) 7-05 capsule by ity o f 0.4 mg 24 00:00: [place] capsule 00 the Medical morning. Branch tamsulosin 2022-0 3- No [id number] .4mg Take 1 Univers (FLOMAX) 7-05 10-27 capsule by ity of 0.4 mg 24 00:00: 00:00 mouth in [place] hr capsule 00 :00 the Medical morning. Branch nicotine 2014-0 Yes 4mg Take 1 Univers polacrilex 8-25 [...] for Medic al Smoking Branch cessation. nicotine 2014-0 Yes 4mg Take 1 Univers polacrilex 8-25 Each by ity of ([place] 4 [place] gum 00 needed for Medic al Smoking Branch cessation. Vital Signs Vital Name Observation Time Observation Value Comments Source Systolic blood 2022-11-28 20:09:00 127 mm[Hg] [facility] Diastolic blood 2022-11-28 20:09:00 78 mm[Hg] [facility] Heart rate 2022-11-28 20:09:00 80 /min [facility] Body temperature 2022-11-28 20:09:00 36.61 [facility] Respiratory rate 2022-11-28 20:09:00 [facility] Body height 2022-11-28 20:09:00 193 cm [facility] Body weight 2022-11-28 20:09:00 100.835 kg [facility] BMI 2022-11-28 20:09:00 27.06 kg/m2 [facility] Oxygen saturation in 2022-11-28 20:09:00 95 /min [facility] Arterial blood by [facility] Pulse oximetry Branch Systolic blood 2022-11-07 13:11:00 118 mm[Hg] [facility] Diastolic blood 2022-11-07 13:11:00 84 mm[Hg] Unive rsity of pressure [facility] Heart rate 2022-11-07 13:11:00 79 /min Universi ty of [facility] Body temperature 2022-11-07 13:11:00 36.72 Vera Univ ersity of [facility] Respiratory rate 2022-11-07 13:11:00 18 /min Univ ersity of [facility] Body height 2022-11-07 13:11:00 193 cm Universi ty of [facility] Body weight 2022-11-07 13:11:00 102.513 kg Universi ty of [facility] BMI 2022-11-07 13:11:00 27.51 kg/m2 Universi ty of [facility] Oxygen saturation in 2022-11-07 13:11:00 94 /min University of Arterial blood by [place] [facility] Pulse oximetry Branch Systolic blood 2023-01-30 19:07:00 142 mm[Hg] Univer sity of pressure [facility] Diastolic blood 2023-01-30 19:07:00 82 mm[Hg] Unive rsity of pressure [facility] Heart rate 2023-01-30 19:07:00 91 /min Universi ty of [facility] Body temperature 2023-01-30 19:07:00 36.61 [facility] Respiratory rate 2023-01-30 19:07:00 16 /min Univ ersity of [facility] Oxygen saturation in 2023-01-30 19:07:00 93 /min University of Arterial blood by Eun nieves Pulse oximetry [facility] Body weight 2023-01-29 14:32:00 97.614 kg Universi ty of [facility] BMI 2023-01-29 14:32:00 26.76 kg/m2 Universi ty of [facility] Body height 2023-01-21 18:16:00 191 cm Universi ty of [facility] Procedures Procedure Date / Time Performing Clinician Source Performed NM BONE SCAN WHOLE BODY 2023-02-06 16:53:00 Iliescu, [facility] IR CHEST XRAY 1 VIEW 30 2023 13:58:00 Barbie Mitchell [facility] Center IR CHEST XRAY 1 VIEW 30 2023-01-30 19:02:16 Meir London U niversity of [facility] Center IR CHEST XRAY 1 VIEW 30 2023-01-30 18:00:55 GucaridadsaJason bergerana U niversity of [facility] Center IR CHEST XRAY 1 VIEW 30 2023-01-30 14:53:00 Jason Londonana [facility] IR CT GUIDED BIOPSY 2023-01-30 14:43:00 Katiana Coello [facility] LUNG/MEDIASTINAL 60 [facility] PATHOLOGY BIOPSY 2023-01-30 14:21:00 Katiana Coello [facility] INTERPRETATION [facility] CYTOLOGY IMAGE-GUIDED FNA 2023-01-30 14:21:00 Katiana Coello [facility] INTERPRETATION [facility] PROTHROMBIN TIME 2023-01-29 14:26:00 Katiana Coello [facility] APTT 2023-01-29 14:26:00 Katiana Coello [facility] CANCER ANTIGEN 19-9 2023-01-29 14:26:00 Katiana Coello [facility] CARCINOEMBRYONIC ANTIGEN 2023-01-29 14:26:00 Katiana Coello [facility] LACTATE DEHYDROGENASE 2023-01-29 14:26:00 Katiana Coelloer sity of [facility] ALPHA FETOPROTEIN TUMOR 2023-01-29 14:26:00 Katiana Coello [facility] MARKER [facility] GLUCOSE LEVEL 2023-01-29 14:26:00 Katiana Coello [facility] BLOOD UREA NITROGEN 2023-01-29 14:26:00 Katiana Coello [facility] ELECTROLYTE PANEL 2023-01-29 14:26:00 Katiana Coello [facility] SERUM CREATININE 2023-01-29 14:26:00 Katiana Coello [facility] .GLOMERULAR FILTRATION 2023-01-29 14:26:00 Katiana Coello [facility] RATE [facility] CALCIUM LEVEL TOTAL 2023-01-29 14:26:00 Katiana Coello [facility] ALBUMIN LEVEL 2023-01-29 14:26:00 IliKatiana longo [place] [facility] ALKALINE PHOSPHATASE 2023-01-29 14:26:00 Katiana Coello [facility] ALANINE AMINOTRANSFERASE 2023-01-29 14:26:00 Katiana Coello [facility] ASPARTATE AMINOTRANSFERASE 2023-01-29 14:26:00 [facility] TOTAL PROTEIN 2023-01-29 14:26:00 Jose Francisco Katiana [facility] FRACTIONATED BILIRUBIN 2023-01-29 14:26:00 Katiana Coello [facility] Results CBC 2023-01-29 14:26:00 Katiana Coello [place] [facility] MANUAL DIFFERENTIAL 2023-01-29 14:26:00 Katiana Coello [facility] COMPREHENSIVE METABOLIC 2023-01-29 14:26:00 Katiana Coello [facility] PANEL [facility] COMPLETE BLOOD COUNT W/ 2023-01-29 14:26:00 Katiana Coello [facility] DIFFERENTIAL [facility] CT CHEST ABDOMEN PELVIS W 2023-01-21 19:49:00 [facility] POC CREATININE 2023-01-21 18:45:00 IliKatiana longo [facility] OSI CT CHEST 2023-01-01 20:49:00 Jose Francisco [facility] CT THORAX WO CONTRAST 2023-01-01 15:04:56 Requisition, Paper [facility] REFERRAL- REQUEST/RESPONSE 2022-12-19 05:01:00 Doctor Unassigned , [facility] Name [facility] CBC WITH DIFF 2022-11-07 14:41:00 [facility] PATIENT QUESTIONNAIRE 2022-11-07 05:01:00 Doctor Unassigned, Uni [facility] Plan of Care Planned Activity Planned Date Details Comments Source Future Scheduled 2023-02-18 COVID-19 Vaccination [facility] Test 08:29:15 (#1) [code = COVID-19 MD [facility] Vaccination (#1)] Center Encounters Start End Encounter Admission Attending Care Care Encounter Source Date/Time Date/Time Type Type Clinicians Facility Department ID 2023-03-01 2023-03-01 Refsarah Yeager [facility] [id number] Univers 00:00:00 00:00:00 Ihab Bear PRIMARY 350.1.13.10 ity of CARE 4.2.7.2.686 Elida MAHAJAN [id number] Oh dical 044 Branch 2023-02-18 2023-02-18 Refill Tracie, 1.2.840.1 [id number] Univers 00:00:00 00:00:00 Nicol Velazquez 99855.1.1 i ty of 3.412.2.7 [place] .3.703826 MD [facility] 2023-02-15 2023-02-15 Orders Jose Francisco, 1.2.840.1 [id number] Univers 00:00:00 00:00:00 Only Katiana 44142.1.1 ity of 3.412.2.7 [place] .3.539282 MD [facility] 2023-02-11 2023-02-11 Telephone Cruz, 1.2.840.1 [id number] Univers 00:00:00 00:00:00 Suki L 38281.1.1 ity of 3.412.2.7 [place] .3.778201 MD [facility] 2023-02-06 2023-02-06 Ancillary EL Iliescu, 1.2.840.1 [id number] Univers 10:30:00 11:00:00 Procedure Katiana 84206.1.1 it y of 3.412.2.7 [place] .3.270079 MD Peralta8 [facility] 2023-02-06 2023-02-06 Ancillary EL Iliescu, 1.2.840.1 [id number] Univers 08:00:00 08:30:00 Procedure Katiana 24832.1.1 it y of 3.412.2.7 [place] .3.412573 MD [facility] 2023-02-05 2023-02-05 Orders Iliescu, 1.2.840.1 [id number] Univers 00:00:00 00:00:00 Only Katiana 64911.1.1 ity of 3.412.2.7 [place] .3.844990 MD [facility] 2023-02-05 2023-02-05 Brielle Hodges, 1.2.840.1 [id number] Univers 00:00:00 00:00:00 Nicol Velazquez 82245.1.1 i ty of 3.412.2.7 [place] .3.487720 MD [facility] 2023-02-04 2023-02-04 Orders Iliescu, 1.2.840.1 [id number] Univers 00:00:00 00:00:00 Only Katiana 89795.1.1 ity of 3.412.2.7 [place] .3.814492 MD [facility] 2023-02-04 2023-02-04 Brielle Hodges, 1.2.840.1 [id number] Univers 00:00:00 00:00:00 Nicol Velazquez 05345.1.1 i ty of 3.412.2.7 [place] .3.390752 MD [facility] 2023-02-01 2023-02-01 Telephone Siobhankittyjoaquin, 1.2.840.1 [id number] Univers 00:00:00 00:00:00 Katiana 84319.1.1 ity of 3.412.2.7 [place] .3.861841 MD [facility] 2023-02-01 2023-02-01 Orders Ilikittyjoaquin, 1.2.840.1 [id number] Univers 00:00:00 00:00:00 Only Katiana 29014.1.1 ity of 3.412.2.7 [place] .3.923884 MD [facility] 2023 2023 Hospital EL 1.2.840.1 [id number] Univers 07:33:47 23:59:00 Encounter 55964.1.1 it y of 3.412.2.7 [place] .3.298204 MD [facility] 2023 2023 Travel 1.2.840.1 1.2.558.883 [id number] Univers 00:00:00 00:00:00 99392.1.1 350.1.13.41 ity of 3.412.2.7 2.[place].7.3.698 [place] .3.322097 084.8 MD [facility] 2023-01-30 2023-01-30 Hospital EL 1.2.840.1 [id number] Univers 13:28:05 23:59:00 Encounter 14805.1.1 it y of 3.412.2.7 [place] .3.219753 MD [facility] 2023-01-30 2023-01-30 Hospital EL 1.2.840.1 [id number] Univers 12:17:37 13:27:00 Encounter 48595.1.1 it y of 3.412.2.7 [place] .3.936679 MD Peralta8 [facility] Cancer Pateros 2023-01-30 2023-01-30 [facility] 1.2.840.1 [id number] [facility] 09:45:04 12:16:00 Encounter 57654.1.1 it y of 3.412.2.7 [place] .3.278879 MD Peralta8 [facility] Cancer [facility] 2023-01-30 2023-01-30 [facility] Elaine Coelloria 1.2.840.1 [id number] Univers 07:25:07 09:44:00 Encounter Matthieu Lawrence 68946.1.1 ity of 3.412.2.7 [place] .3.236842 MD Peralta8 [facility] 2023-01-30 2023-01-30 Travel 1.2.840.1 1.2.286.545 [id number] Univers 00:00:00 00:00:00 17673.1.1 350.1.13.41 ity of 3.412.2.7 2.2.7.3.698 [place] .3.593683 084.8 MD Peralta8 [facility] Cancer [facility] 2023-01-29 2023-01-29 [facility] Elaine Coelloria 1.2.840.1 [id number] [facility] 09:30:00 23:59:00 Encounter Maia Vieira 60148.1.1 ity of 3.412.2.7 [place] .3.470979 MD Peralta8 [facility] Cancer [facility] 2023-01-29 2023-01-29 Outpatient [facility] MDA [id number] MD 09:30:00 09:30:00 KATIANA [id number] [facility] 2023-01-29 2023-01-29 [facility] 1.2.840.1 [id number] [facility] 09:00:00 09:29:00 Encounter Jovan De Los Santos 33930.1.1 i ty of 3.412.2.7 [place] .3.172800 MD Peralta8 [facility] 2023-01-29 2023-01-29 Travel 1.2.840.1 1.2.980.762 [id number] Univers 00:00:00 00:00:00 75110.1.1 350.1.13.41 ity of 3.412.2.7 2.[place].7.3.698 [place] .3.536866 084.8 MD [facility] 2023-01-23 2023-01-23 Documentat Flora Jean 1.2.840.1 [id number] Univers 00:00:00 00:00:00 ion 41256.1.1 ity of 3.412.2.7 [place] .3.130118 MD [facility] 2023-01-21 2023-01-21 Ancillary EL Jose Francisco, 1.2.840.1 [id number] Univers 13:20:00 15:45:00 Procedure Katiana 36197.1.1 it y of 3.412.2.7 [place] .3.258253 MD [facility] 2023-01-21 2023-01-21 Education Nesbitt, 1.2.840.1 [id number] Univers 00:00:00 00:00:00 Allyssa De Los Santos 52381.1.1 i ty of 3.412.2.7 [place] .3.577014 MD [facility] 2023-01-21 2023-01-21 Travel 1.2.840.1 1.2.009.445 [id number] Univers 00:00:00 00:00:00 09839.1.1 350.1.13.41 ity of 3.412.2.7 2.2.7.3.698 [place] .3.357687 084.8 MD [facility] 2023-01-18 2023-01-18 Telemedici EL Ilikittyjoaquin, 1.2.840.1 [id number] Univers 10:00:00 10:49:06 ne Katiana 34633.1.1 ity of 3.412.2.7 [place] .3.490002 MD [facility] 2023-01-18 2023-01-18 Orders Elijah, 1.2.840.1 [id number] Univers 00:00:00 00:00:00 Only Jovan De Los Santos 83524.1.1 ity of 3.412.2.7 [place] .3.515251 MD [facility] 2023-01-15 2023-01-15 Ancillary EL Jose Francisco, 1.2.840.1 [id number] Univers 20:00:00 20:05:00 Procedure Katiana 97506.1.1 it y of 3.412.2.7 [place] .3.920731 MD [facility] 2023-01-15 2023-01-15 NPR EL 1.2.840.1 [id number] Univers 15:00:00 15:20:53 81773.1.1 ity of 3.412.2.7 [place] .3.800028 MD [facility] 2023-01-15 2023-01-15 Travel 1.2.840.1 1.2.258.163 [id number] Univers 00:00:00 00:00:00 88705.1.1 350.1.13.41 ity of 3.412.2.7 2.2.7.3.698 [place] .3.925201 08Myriam.Michael [facility] 2023-01-15 2023-01-15 Jose De Jesus Canales 1.2.840.1 [id number] Univers 00:00:00 00:00:00 Celaysheia 45091.1.1 i ty of S 3.412.2.7 [place] .3.013716 MD [facility] 2023-01-15 2023-01-15 Jose De Jesus Canales 1.2.840.1 [id number] Univers 00:00:00 00:00:00 [place] 65589.1.1 i ty of S 3.412.2.7 [place] .[id number] MD [facility] 2023-01-01 2023-01-01 Outpatient R RADIOLOGY [facility] [id number] Univers 09:20:35 23:59:00 ity of [facility] 2023-01-01 2023-01-01 Hospital Radiology UNIVERSIT 1.2.840.114 1 [id number] Univers 08:45:00 23:59:00 Encounter Y HEALTH 350.1.13.10 [place] [id number] [facility] [address] 2022-12-31 2022-12-31 Patient Doctor LITZY 1.2.840.114 [id number] Univers 00:00:00 00:00:00 Secure Msg Unassigned, JING 350.1.13.10 ity of [place] [facility] 4.2.7.2.686 Jad as [id number] [facility] [address] 2022-12-28 2022-12-28 Outpatient R PATHOLOGY [facility] [id number] Univers 11:00:00 11:00:00 ity of [facility] 2022-12-19 2022-12-19 Orders Doctor LITZY 1.2.840.114 [id number] Univers 00:00:00 00:00:00 Only Unassigned, JING 350.1.13.10 ity of [place] [facility] 4.2.7.2.686 Jad as [id number] [facility] [address] 2022-11-28 2022-11-28 Picker Tender Helper Pcp-Lab [facility] 1.2.840.114 [id number] Univers 16:15:00 16:30:00 Visit Edward Powell PRIMARY 350.1.13.10 [place] [id number] Oh dical [address] 2022-11-28 2022-11-28 Outpatient R ANDRE [facility] [id number] Univers 15:30:00 16:00:37 EDWARD ity [facility] 2022-11-28 2022-11-28 Office Haresh Jim [facility] 1.2.840.114 [id number] Univers 15:30:00 16:00:37 Visit Edward Powell PRIMARY 350.1.13.10 [place] [id number] Oh dical [address] 2022-11-07 2022-11-07 Picker Tender Helper Pcp-Lab [facility] 1.2.840.114 [id number] Univers 09:45:00 10:00:00 Visit [place] PRIMARY 350.1.13.10 [place] [id number] Oh dical [address] 2022-11-07 2022-11-07 Outpatient R [place] [facility] [id number] Univers 08:00:00 09:18:43 [place] itcaroline [facility] 2022-11-07 2022-11-07 Office CarlosjoellenShyann vargaserlin [facility] 1.2. 840.114 [id number] [facility] 08:00:00 09:18:43 Visit [place] PRIMARY 350.1.13.10 [place] [id number] [place] dical [address] 2022-11-07 2022-11-07 Orders Doctor LITZY 1.2.840.114 [id number] Univers 00:00:00 00:00:00 Only Unassigned, JING 350.1.13.10 [place]y of [place] [facility] 4.2.7.2.686 [place] [id number] [address] Results Test Description Test Time Test Comments Results Result Comments Source Cytology Image-Guided FNA Interpretation 2023-02-04 13:47:56 Test Item Value Reference Range Interpretation Comme nts Gross o5xhtGUoDAEzxOVxFOIuB0dpqgYmHFZzgELoF2SdppftETfkMJ9xUB8ksHxusCLulKHpXSOfLrKah3io r355eWJih7mmRZZArtaecGc1eRupL59no1N1IrfgU4poIHOrMVpeAHRgEOxmyPBeVYt4STMfsXFesiQy EtZjEUHtzCJgnNF9IOUgHG5plxmyPWnaXZjxJKFnfnL Description 7FYJssOTtL7MwVPBkLG2oarbrUOJ7CNymROOeIDZ1ZvMiTEHpz3Pfqlx4RdU5NYssBIEkM6FjC4MzRUe aSFZ3OQOxDVWmBGOgQN0UUfCnPWS0RUZ1MVomPGZSIMAjBFj5BEz7NDNPIAKpOGJlRSl4XsO7FPOqFOJ SIDEyMzAwMDAwMjQgXFxuaCBcXHQgMSBcXGZsIFxcbm (test code = V9e4nhMICfpIEfTDX0NDslcHNkANCrMGUcWDykUwKPZdUcXzUfVIJiMHv3UhH8QKw8SMRPRvMrTaBrMB G6NoR7WHayEZh0AQq3NBlRKkEpKFNbCKG5UrS0KDJ4Fcg3WMshammiSJr4VJCoKKpvxdCoZRtzTfqjJC qoA46nkMYxNByxWkQeOYAtbMJXg1KcTPxqqSAjxqwlb [id number]) dOtDTDaGMVGaEJsjR6fmlLdmRPhX6ArQYU5MQPwicuiBYGbQOCjTTccIcHRuGymQsOwUBWlaWQNySCvz yZXxHmuIOKxdTFxHTMhDM1eVBPzcLBguLSrsThcQbctaXE5NPyvJbvycV4mlXLQKDXHNpaZCswjtsQqZ F7JNBSDLlOJHJ51RjD7TnP7TTrumNxzKllheuGsxEFc AlIyaO4bmDysxGBypTJhsV75GDzqIUZue4HgP5Sec2gvsWArUUcvEnmuhXUfboN1MJrAFZQDYEcPOfPz OI7jDWuCETIVOHdDThjhwVgmLjildnYphQRuLsMzfN9ajJ9aWHy5FTQlKXkpo5ofDPJyTVkrv8FrLJiA ZAPJKC2FQE8bsBP1U8dEQJHCYUwlzSlkQcvlxdTqrCF gChRyfQ2zjEkseX4vrSAqvMEamNujbzFtIVViUVCjZcn9kWQ2YWIcMLqrl9wkAWQeKTaaq7QmVIgLXCO FVA3HFR0noZZ8BDiEADFOKPswZVM0BFzkxLE3j4qbkWNne1m8RFinDQN8xMisxYRyoedqmhIoWVEkZVZ knM8zHaCRBQugMSAcMCFPhLWno6KhojwuSKHcf7YpIY ufiBeeGSCnHzUpN0b0CMpeAc99WRRyi5bdyKubs8BicSLtMX45KLWhdZHhNTW9YH6vrLjkDVUzzwZEGW XCXEyRR4BeAWVQOHPIMRAfDsSGQP4aJmW6ViY9ZM16IniiAQDMUZENGZkCEB0WXNTCQZMRQC3KWjTpQ2 tMVVTKMjQoQFFTFCLEXKMzEiCSPA5wXdh2Pbvjo5E7P 7rWUUKBTnPmLNWVWEDAHZWaVX8WQPBFOOPCQK6HKRDJL29JIERYJJMBM3ETO1cQWILdw5XofAbvRiA1G rZrIJ3oSOaHI0YJO6pUJVMrXZHZLTDAGSNgHP7XTZmEYN2SRSEtSZSRYZISEEFoBiMHVJ9tFLbNXU8HZ OHjWHDIVDVFGTFuQV1WAUIKHQ5AGVHGAIFSZ80GLKHH GHMRC5KUT1kIPHOBYHOXCyJUFtBGRS0YPLYWARPQGU6JNkQ1 Major MALIGNANT A Classificati on (test code = 9839) Diagnosis h5dboZGbANTilQTmLCClLTzywzNxEHYubAEoT3YmerzuYCzsET5iOC4daUyynKShjHZsZILsKuGdf2ku t375sPFyx6uvDNILmouobGj9cPnjD38fd6Z1HilmT1kqHAMtHPliVUBbIZiujOLuUAt0LNCegTJfajYz IlJbJBOuwEMimRE5IWWsCN5zqvalIWxaIXhkRHObffD (test code = 8LHWtwFTaK5VhVJWvCE6ngpihZSS3TVzeVULaQDL9LsDbZCUeq1Bvpak2PlHqeRs5k3arWJCzOTYxvLa wu7fmJTV0PEXadQWhB9tycS4rCEStJP1yxpawv6wfYSbwDCjlELIqnHL7bpW4VZWpyHHxS1BkoP4iIUD uJDHswsMypBemqG5jJrWcWBzyYoVpZGKjNaiwouiykY 34) MneMPkPYUekJ3wSJitXydnTSJyIZKqpGKkFOEirNOwzLqipdmyuSEhWRYcJxskQYIydLv7GnDxzXirFw RuAN4TNUJMGHQUYWIaM5MGT6xNI52WUJTVP0PCXL6MP7cUQ0EDEBvdH98ST0pKJKLPHDCKVSYZXLYFDz ZIRLZJYDbrU2RUW4xPH45SMEexAGIpF28gsIKslVrud GFyfQ== Comment m9synFKiQMUtdXNsXSGlFIblecToEFDapQQwY3WzjqmjJMhnOM8iJD2imQjdcGTqpYSrWOJnJcLqv3qx j466oTPlg5eyMDJEacvaiOt2yOfjI58dr1N1ZqnbX02ymUMxOAU7EDDnBNSgcWBgEGWmUTH6BNTtaBUz D6xwYKFjDS8xhkhkDMueXGyxZYIuhGQ2RLKasRHhE1N (test code = yRKNmNXhsWEEittp2SwBxGf2tjHUtjMheYStnHJUzMJRlAWkoPNScCnVjIMUhdDJyqNOog39sXORmRNW sRCGutMQlc5QkesJbxeYsNGUydZcemtRuYV5camK2mmX6ZNThg9ufh7x3WXIctz46zIVis9FayGFpr0E vQ1FgvJQok8i6fPSorEjhOJ07H3kpFSMvmJ0zX5y1z2 9835) XgBVLvzNEbxdS0zO0cUZElR2Eup7asyjJyKEGgq22khzSeyVGctKTzNVNvEKxfO3v3z5omeyDsBBVfBK G3LRO3r7oetLWuNTU0eT4wgGSzfR1zACGnr8ZhA2GwpPGuQMHmOXPaogJhG6RcYOMcg71uBANseVRrpF veGL89RI2ijVvhsqkwy0VdabIeI8UmDSE2cbSkURXNk VUxf4Qmg0UtFOLqcHAzdYM5tAJbdNydPHHfstT5pgOpihVooYPoW1A8xQCmXURcl4BtDR1tUCUgDBZcf C4rq7qdZMPyIe3mGwe6CZGjPUBeqySjdNS0yGKdVCL0RYb2VFBlk69bJSRlrh2= Retained/Bio w6rpvFDuENOayHOiNKOfZTlphjEcVZDhpPRcW6VaggizRBslJF8eVT8yqGouaDXrlCJuUHCfCuOuv0uq i660gTKim9jpXVLGjecajIy4gPnfB38rp9Q5CjpnU22abNGzNPK5CKFwXEHgpBZsZTZqGOU0IJUvcIUk I4inNNSmHD5gynvoKPmyQVdbCPXlmBM9MBFcqGOfX4N marker eGFEyFYydWXIvdqh1WdBcHt8mqJQouSsbHVjbJARnNARmYIzoITBaRkMzC3T6JWXqF9mjVNZwhEpgNhw oqBSta1CiLTSus7BvydokkTjnPNdupSThYD1PQKWWYUptOLUwe6ZwJuKebMBxoSPbsVirKiixuXI4PCi pUnypbP9juAOFZXBZKijISnypygRyFN9QBDJVMkMGAR Testing 87LpB6KBk8YYgfeYvcMvffmxZomBQcQtVfmY9PX5W4PTMlWQbff3hcIAPlEKgwl1QmVGeMYADKHL7EXW 5foDI1LGqFXCUKSDkxOQD9FZlpjXJ6r4afwWUka5o5KFumQDB1bVgsxZSkxiuwgaDlUAIfrbBVWXzpDA MvYtIfYTOmuWRdJG3HNJSIXLfcSQORQUZfevQQEKOKY (test code = BAXHnBuPSEbqJMaPHRfK50ZOuBOHUSYE17RYOJQINKTJ1WUB2oFNAF8RrD6tYC8YJQLJNLDFOgEP3FxR QZEKSLUJFUqCZ4CLLrKIDPZZXMUH59YSSTFMWORW7KVX0lJWHhUSDVYYMOSC34FFHKHFWDSM8DPGGPAF QRTDPwHROJYVz4FCIZXDJKYXI1QSLjPUbHzWMyAKIot 9838) V4RxcTITjA2ytxfzLBO9UTt9RyClsGTQWRFVBPfUNRMGAc1JBLNHXHQBXE9EUxVpH5ZYKW3YHc7DCQQV BVWSDM3TNXmIGoPrR2JEYE7NLn4FSFZEDTZESW0DBsNkDJLKA7NXNuCBJ8wvRBCUFBCAVYScVlNOAV1z FCCAWR4IPGLJYBRBH01AMMBEMJTRD2TLDL4= Informationa q2epgZQqVQWljZAsWhBhHRFgJBThi0gaLYSjfZXvCbAhXrBdTpCkEmrfaVTdUJArXcKvh4uvw229nDTo w9zqGTUcYvH3qXWpQEIsrHLuG102JKBzDEljr9xda4VuCKFioJVfx8D0FCOWCRxgDXQIODq4n3bxKzFt CaY3aUTlYRgmB2rnyrEpuYRrYUDnUMp4jO53SSKfsH2 l Points ksIAbDHexspAzKrV6BQudXZQzUgB2VOWlnNVqLOHhJ2mvBJGjOPouRLCqANayuAPuKFK7wHpug1E6uTE xtMOmhGcnZbJaVyZeLuAGe8SqNSo5yTwtA0YqJPMvLhN4cIQfGQRmCEdcJSIqJTIxkaR6dW78XFsqmtJ 1jSBgz8Hzf96ec998lA6kdSKfJZT1PGTbMLEtgGHkPN (test code = YmWTF9FYAfvDZfO8lxNMYeSV5lfmyjFYlaWMwmBHIlkRG5BIKcaUMiO4JcCFBqRWqrKQDfawp5InAaUd 6dgMJrwMknEZeds5jju1jjhCAfKxx7QYTyVrEjPvjaKJpyh4Jvz9rzYLArit2qQOY4iJJhaCsei0A5bA HhKGUzdFEahnNrFJSxOjN5OLorMT3evc13JDCyUXP1g 9836) a7obZObrCtbzmBdpEMyIEecH7VbPDAut687KNPiH4KsKSTeo0H2neIcHxRiPHKuqLV3jkO2DLHaDVx2y ROfmnD5ukRscSIuX3kpzL2yHEGfBU5pyebjd9uwMUklOUgyCSNsuSN1gjF1UGSygAMaD6YtfN1oUWHnT OhdDSQbgct3FcEfFq1wrWYtfXmmZPloVbbuYGqcUVGp wlZfbgPzdUjeINAcJCVePSlsBNKxTYxjQMCmARVlGeFirCrwlIbgyW8aJeHmUoPuQEqvZZ7xPLZbK0ks cTCeCUPvVMJsD4csEdFzjX0cmGhmJWrdqkP3VHzoG90dWUP1XRC6lsMpZVElypJtMJKuERXqQB3feQZz GCRkKROoVZ6xQBD2WDaxdMGzFKAuNYLuMOGux4ZgAF0 bBNXjzAJhUEL0BKQda3MeE6GrLIL0ERDteP7jKALnfIJFLJSOQFMPqmOfckAynhVSFYYcj6bkI0quWS2 sUTrnVy5kUORvfladTUYoePNuleGdJWHbFMDzFGQiv5XgPOjtrrCral33HMNbIK3qs3EmP6witPVqdMz 5LAFvCDBgBVKpr2LpRELqlj34HYEiLogexSfvNMFzLr 0oQk0sJTVqbqQmRPZ1UhRUBE8fymobgRSfmXcafk2pAEHcUNbyNJYbSDPkCfNaiLYcDyWqDlCaxVdhcS rvStrfXzPbZNCmSQebE7asRoNqCeMiKsdlZVX5 Lab Abnormal Interpretati on (test code = 12163-0) [facility] Cancer PaterosPathology Biopsy Interpretation 2023-02-01 14:36:16 Test Item Value Reference Range Interpretation Comments Submitted Clinical History v5tysQEdHOPer1woIYF (test code = 92058) mbGFuZzEwMzNcZnRuYm pcdWMxIHtccnRmMVxzc 2TvZ8TpUyPeTLbindSs XGRlZmxhbmcxMDMzXGZ 0bmJqXHVjMVxkZWZmMH iiOx9epYWchYdmBpYfA AMei6xygcPGpyrbpDn9 y9fuKSLyHnI4bSGfKTw kF3fdxbDelJZmBZMrTW s7vW98SAIsjA5hfNUoY SopqzInTgX8FCezUNZz EsA9XBTycDJjSHHfH5c yZWQwXGdyZWVuMFxibH CxADH9tOopy5H3mRRui GVldHtcZjBcZnMyMiBO n2CiUQn1yKquR5XtIAR zVoR2lSVrASYhVHsbPV PdTHHzztA9sT45RSohp mI0iXDek1Tfu68xj464 lI3mgSPiJZG6YSQwIFU gyTMrPPSsQRG3BGVsrV ZzM1rwCTGkQS9pvsxkS HehVZpgBNVjxQI0QKAx hMJeF5VdALApUCtzUWB hlsd0JhZlZg5vaKIatR hpXMyid7jnq0vvlZBsA uk3CKTzLaDfNureINla d0Kwv6fmYKVylb7sMBE 2tXDuyVkpo7T6kNWuVZ YdvAHurwOdDSIkJyO8M RmlTP8tht06ITNoXPW3 wi4cqDAirCvtjqIroIP oARbnY2ZkIKBil068NM ZrP5WjZIRfn4N9wgNxO aBbKRNpxZE5duS5WBQj DUw1iTAdleP5diQrxDU vS4mwjD5tBWUlTL3hkc gfg9qxGPpvDSmfVEJlc MQ1jhD1JJVtqEDcG3Le aR0kADSqKSvqVKXaznh 8BbKnAn2aeBYdiNooQV xzYmtwYWdlXHBnbmNvb nRccGduZGVjXHBsYWlu XHBsYWluXGYwXGZzMjR fgWhwvUfrgO0uOsXsWv VhGKnnBP7lXQJiO1bon XXxVSKaQLPdZ7mgXxNs pW7mfHcjSDqsegHiEI8 6tNLytJuyTW9gWZHaQV Pyw2GboYCmMtIdSgpvV iukFAWtagTWYs4rcw2u qWGqfG9hrH3fQZ4pUZZ eHQuhm1Y1dBKciK6bP3 luZyBvZiBvdGhlciBhY yUafDhrHPidvkLfzC1v PQafD6a9GDtnWoHkYVP rj4Nnokf7z12ynI9tY9 R3Jc91OPvvrOEypiecU VxmczIyXGxhbmcxMDMz IBpdC1jnOoFgWSGxiMx fGCcps5ByUDEoLMUxRa JccGFyfX0= Diagnosis (test code = 34) n5nroLXoEBQdcNKxSWV wOFxhbnNpXHNwbHRwZ3 QoovizWFwmVV4tNN4nn GxhdHRveWVuXGRlZmYw x4fxc713oNXld2yxAHJ NwpiwoBv3jHlgX52vm7 N6GaslB5zuMLYsCCkgQ SVdNIyguTHjSNh8IDKi cGVydzEyMjQwXHBhcGV qwVR8ICDqLD6lvtwyEZ rhOHvbVWAjydS8AZXsi SFhX2IlPMXnGJ6hogjh MEL1LZxmWJYlXXS8NjD oIOMwj2Wpoht3UjMybR FyZFxwbGFpblxiXGZzM iGrrVUnLEIjUCCQoJ0k VGXyiCspcHT0cKXsdiN ly7RfNHMnrI4wm6q1NG BhclxwYXJcdGFiXGIwI K4KFVAWZPZJBEItEfCG UJpmP8ZDJABUJQUWPI5 PTUEsIENMRUFSIENFTE wgVFlQRVxwYXJcdGFiI ATuDSOni47xAH09Eqnl YXJ9 Comment (test code = 9835) i0xmvNXeDJPokXBlGDC wOFxhbnNpXHNwbHRwZ3 RwgghoAImsZI6tAW1sv GxhdHRveWVuXGRlZmYw q2qay707kBDbb5biKEL FzuacuPx6wCzpO89dm1 T1FkkhR57xmJXdMFV3S TIyNDBccGFwZXJoMTU4 SLNzlTXbP4faGPYxPV8 hcmdyMTgwMFxtYXJndD K3ULAgeEKlT8UrXKVoA VoiPBZyxpj5RtIqWn5v dGVyeTcyMFxwYXJkXHB eWFrnESMmPnMyFV8rlJ 9xuQoskF3ldHQwzFEjw DRvrHRehfKtl9enuoH6 bR5cqnXkKUjgteSvw5U pcGc6JUWqf9Utl2HfJB RpbiBhbmQgUEFYOCwgd 2hpbGUgbmVnYXRpdmUg Ns5gJHFcPFDjIHPPUBF 7YZnmU5DpAGzjSS2jNI Dhiz5gf2ebFC1ncg4fm GFyfQ== Gross Description (test d8yvhOAyPSBabUUnPFS code = [id number]) wOFxhbnNpXHNwbHRwZ3 WclwazNRgjEE7uRA1pk GxhdHRveWVuXGRlZmYw a3yoj973tWBgl6vjQKR FodyqtEc1sPieO83wf8 J1IypzV3ilJZGyOYjmE ZZpAHpjlQCpPHo4BCVg cGVydzEyMjQwXHBhcGV mdAH9QJHaEX2dnhptQB svINhnVQElvhI0KSAii KUwH1MjMBIlYL3qnbls SKC6MXseRLLtMMF0CqC hMWGqb5Qcbyd6YcK0SS lpUWGbR8VzN1LxBSauI VP9SBPpCUUiLDHaKU3B DkLaTBJ9OSKnYsmiMYL ONETiVIg9NhO2UKIDMW FvWZUxMYf8LoT2FYDvT FJSIDEyMzAwMDAwMjEg XFxuaCBcXHQgMSBcXGZ kGHwzozP2k2wiWXVhcF BuBWO0AFigtUWvETEgY DIgXFxkYiBPVlIgIiAx FVTaJTf0SqS3DWn7DAB NGpJtEzHdZZP3PzL7RE mxCRo3UZt4NWiPSfScT GXaRcb3ZvD6PWT7Rnt7 QWxbkPWzAYbtl9FwTdL zZVDgNAqzciI9JYBrcm SktLzqkD9sEufenyVdE VZ0TYMsdlnxRJXkBOYq SsIcYIBcO1onHzTdQFT kKzHbLGBvO0yzGRVhSK BsYWluXGJcZnMyMFxjZ jEgTHVuZywgcmlnaHQg hMLyJXPhwS5iKMhjTad hSZjcWeKcWERbT16aRZ Mmw6Plh13dhQF4HA7fp Ckng2IaGRtsUoHvlXEa SzIcA25rqY7xHA82MAp zKM7lOCMpWXiwSQ83zQ WhiWsjg9UnuXv8gDKeR NpsSMNmMnPgJAYxr7Mv L8O7ONTsZAlct5idVDT xQZilk6WxNLjFOENSYX 3JIV6btEO8NFqZM2VQB 6uXbMAyRDG1fKS3RUVB XoltfXW4sEW6jM83QUW vDWEneUMdVAnrL843SD C3TVAbLAddt9zfXNSrP Mzpa0OnXIzUXMXWCR9W LQ3ceIY1OBwRD4BVQLt gKKPsYqybhBRNLNR0VB oqzYffuTs9q1aquHMgq 5g9VSbaSWG8xWrpdDBi tibnphTiq1vutNgde1P msHQeTV52XOMvwLSeYC T8LW0lnBasFLD7 Biomarker Block(s) (test b5tjgTOiHKKymTHgMIY code = 9841) wOFxhbnNpXHNwbHRwZ3 AvgmixARbpCW8gNM7pi GxhdHRveWVuXGRlZmYw e9fjp987zVFqn3hoCWC XeyqcrBw1wVskA94uo8 T5LxbyG99nyOFiUGY3B TIyNDBccGFwZXJoMTU4 ENWspNJkX5xtCGEeOA9 hcmdyMTgwMFxtYXJndD H2FKNxoCZbG6MrSEHhQ JrjEADahta6HzOlWg0n dGVyeTcyMFxwYXJkXHB sYWluXGZzMjAgQVxwYX J9 Disclaimer (test code = w4aaiVBcQBBcfXIwNaP 9844) uHQUeUZNbc3wxLESwwV FuZzEwMzNcZnRuYmpcd JUoLQJjYcGbw5knk232 gWJwv6ssNUOoJhH9yLS eDEGhuYFtZ849XVZzUT xwg2ioz6CpNPYsoNRlj 6M8YLSZuhyvpMt3rVdx A80wb7Q7PnxaJ9dgAEF jZIGiY1QbBZ0wYZFmCl q8IOR4GJX8LGXhZGQdJ 9BmNQ5aAWUhyQRqZKt6 y0otxNkdBXJmJXJ7n3x yWAtmcaVpEE9uvv9ptP r5z6yqsbDxVUMcOZZpc KGUFWQjN0MvnBveIy3n sBs7cZgyLtltTYC0Ctj 7EH0fgi75rjv9wZldKD TornngSxE6HAuvIPRvr jrdWIo4LArfUMXyvTF6 XJUnzKZiR6RnTPGcPU0 mfms1QUN0EFdyYLUxEy D0YKEwxNPeDFCbmTovO Bjcq070KSY9QfWbJU6h P5Qyq5R0pL4tdWVrHLH lxXCvTqNkUUUjia3anJ UvOQsyk8GhDDI4jrH8p ZNfkXEaTGZnAK22Vfnf l7JkRxhnXNK7LFAzzpO tl9Oki5vkUfJzqiNxA3 zwD6LhIANsOPKhAHWuT cNukbItt1Upo6TnzPJy sGv7p5vxAWViLTAljQo ag0nrNHX5VXRnR7P9cX Lhg0snCIabNUUbwUA3g pJ9SCLtzAIuB6XozC2c XHPlRV2fhtl9l3coVPI 4VNtiZIHrRuI0edL4PG BcaGVhZGVyeTcyMFxmb 279XIA1AjItJEWkd4Jw X5TmtPdqZ32tgIxmV55 sGPZtiYlzgL0okRcheD 5cZjBcZnMyNFxxbFxwb SIwhqotVTfyuwR8SOai yquyKPIbIAelI5heDzF lXVLqkAoyAYhma9MgAP FpYFOdHcupgyW8DCIBd 21cTODey8UeSBUuzL0r uPQcEEyyaoDtyTC8HPl hdmUgYmVlbiBkZXZlbG 4lCXSeWJ8xHFYkfgIfl g4rwiAvWIVsTDVhP4Oy cmlzdGljcyBkZXRlcm1 lpxIgBKD1SCBNBM9PSC GfYDDft41jFHXgkYstj H6gmMAyraBsEFFii4Qi cY6hsLUREXJmM5esWZ4 aFTjsw8EebAJuaFRthD M2MNPwq9VuZmUxyaDqq VSznMSfO1JxaRqtO0cf ZMEbOAKohvXqsUHlk2G rNHZcyCE7lQIdIF6WVm CZi45pPIHsSNSBpmWqC NKawFqadAV5weE7qB1t LiBJZiBhcHBsaWNhYmx aRAPqp458cy1dyoT2QU YqEQUvnldhv8LbHXXeK XXtvT98JXAvXMIwtn7x rfpgmXGeluXtI4Vfprb 6gM4eHHCwSKfpBQMfJK ZzMjJcbGFuZzEwMzNca GljaFxmMVxkYmNoXGYx QVlkW0gfBeUiCaXmZue wYXJ9 [facility] CenterCA [id number] 15:43:28 Test Item Value Reference Range Interpretation Comments CA 19-9 (test 4.3 U/mL <=35.0 Results greate r than 9500 U/mL code = 5171) may not be reli able due to matrix effect w ith extended dilution as it exceeds the tracing lathe set up operator's recommended limit. Caution should be exercised when interpreting such values and done in conjunction with clinical c ontext. This test is measured by electrochemilum inescence immunoassay on Joao Everardo immunoassay radha lyzers. Results obtained in dif ferent methods are not interch angeable.Testing Performed at [facility], [address] [place] [address], [address], [place] [address] [facility] CenterCEA20[facility]-09-26 15:43:27 Test Item Value Reference Range Interpretation Comments CEA (test 3.0 ng/mL <=3.8 Reference Range s:Smoker: 0.0 - code = 5.5Non-Smoker: 0.0 - 3.8 This 2038-10) test is measure d by electrochemilum inescence immunoassay on Joao Everardo immunoassay radha lyzers. Results obtained in dif ferent methods are not interch angeable.Testing Performed at [facility], [address] [place] [address], [address], [place] [address] [facility] CenterAFP2023-09-26 15:43:26 AFP<2.7<=8.3 ng/mLMAYS [facility] [id number] 15:15:34 Test Item Value Reference Range Interpretation Comments aPTT (test code = 40.3 See_Comment H Testing Pe rformed 52285-8) [facility] Senior Java Architect [address], [address] [address] [Automate d message] The system which generated this result transmitted reference range : 24.1 - 35.5 second(s). The reference range was not used to interpret this result as normal/abnormal . LOGAN (test code = LOGAN) This lab cannot be scheduled at the following locations due to collection/procc essing restrictions: [facility] and [facility]. Lab Interpretation Abnormal (test code = 81610-5) [facility] CenterProthrombin Time with [id number] 15:15:33 Test Item Value Reference Range Interpretation Comments PT (test code 13.7 See_Comment Testing Perfor med = 5902-2) [facility] [place] [address], [address] [address] [Automated mess age] The system whic h generated this result transmitted ref erence range: 11.9 - 1 4.5 second(s). The reference range was not used to int erpret this result as normal/abnormal . INR (test code 1.09 0.87-1.12 Testing Perfo rmed = 6301-6) [facility] [place] [address], [address] [address] LOGAN (test code This lab cannot be = LOGAN) scheduled at the following locations due to collection/proccess ing restrictions: [facility] and [facility]. [facility] CenterDifferential2023-09-26 15:09:23 Test Item Value Reference Range Interpretation Comments Neutrophil % (test code 60.8 % 43.2-72.7 As p art of = 770-8) Differential performed at [facility] Senior Java Architect [facility], [address], [address], [place] [address] Lymphocyte % (test code 23.9 % 16.8-46.2 = 736-9) Monocyte % (test code = 12.0 % 5.1-12.5 5905-5) Eosinophil % (test code 1.7 % 0.4-6.3 = 713-8) Basophil % (test code = 1.2 % 0.2-1.4 706-2) IGRE % (test code = 0.4 % 0.1-1.5 IGRE % c ount includes 12593-0) Metamyelocytes, Myelocytes, and Promyelocytes. As part of Differe ntial performed at [facility] Senior Java Architect [facility], [address], [place] [address] Neutrophil Abs (test 5.68 K/uL 1.95-7.25 code = 751-8) Lymphocyte Abs (test 2.23 K/uL 1.01-3.24 code = 731-0) Monocyte Abs (test code 1.12 K/uL 0.24-0.85 H = 742-7) Eosinophil Abs (test 0.16 K/uL 0.02-0.50 code = 711-2) Basophil Abs (test code 0.11 K/uL 0.02-0.09 H = 704-7) IG Abs (test code = 0.04 K/uL 0.01-0.12 20691-0) Lab Interpretation Abnormal (test code = 93159-9) [facility] Pateros.[id number] 15:09:08 Test Item Value Reference Range Interpretation Comments WBC (test code = 9.3 K/uL 4.1-10.5 6690-2) RBC (test code = 789-8) 8.35 See_Comment H [Au tomated message] The system [employer] generated this result transmitted ref erence range: 4.30 - 6 .04 M/uL. The refer ence range was not u sed to interpret this result as normal/abnor mal. Hgb (test code = 718-7) 20.7 See_Comment H As p art of CBC or as an individual orderable testi ng performed at [facility], [address], [address], [place] [address] [Automate d message] The sy stem which generated this result transmit tasneem reference range : 13.3 - 17.4 gm/dL. T he reference range was not used to int erpret this result as normal/abnormal . Hct (test code = 64.0 % 39.5-51.8 H As part of CBC or as 4544-3) an individual orderable testi ng performed at [facility], [address], [place] [address] MCV (test code = 787-2) 77 fL 82-99 L MCH (test code = 785-6) 24.8 pg 26.6-33.2 L MCHC (test code = 32.3 See_Comment [Automate d message] 786-4) The system whic h generated this result transmitted ref erence range: 31.1 - 3 5.2 gm/dL. The refe rence range was not u sed to interpret this result as normal/abnor mal. RDW-SD (test code = 51.5 fL 37.5-49.7 H 05172-6) RDW-CV (test code = 18.5 % 11.6-15.5 H 788-0) Platelet count (test 248 K/uL 160-397 As part of CBC or as code = 777-3) an individual orderable testi ng performed at [facility], [address], [place] [address] MPV (test code = 9.7 fL 9.1-12.6 40408-3) INRBC (test code = 0.0 See_Comment The INRBC (instrument 30448-0) NRBC) value ref lects the enumeration of nucleated red b lood cells contained in a 200uL sampleof whole blood analyzed by the instrument. Thi s value maydiffer from the NRBC value repo rted in a manual differential,wh ich is based on a 100 cell differential. A s part of CBC testing performed at [facility], [address], [place] [address] [Automated mess age] The system [employer] generated this result transmitted ref erence range: 0.0 - 0. 1 /100 WBC. The refere nce range was not u sed to interpret this result as normal/abnor mal. Lab Interpretation Abnormal (test code = 06151-8) [facility] CenterLDH2023-09-26 15:03:25 Test Item Value Reference Range Interpretation Comments LDH (test code = 199 U/L 135-225 Results gre ater than 1651 02709-3) U/L may not be reliable due to matrix effec t with extended diluti on as it exceeds the man ufacturer s recommended l imit. Caution should be exercised when interpreti ng such values and done in conjunction wit h clinical context. Testin g Performed at [facility], [address] [place] [address], [address], [facility] [place] [address] [facility] CenterFractionated [id number] 15:00:57 Test Item Value Reference Range Interpretation Comments Bili Total (test 0.5 mg/dL <=1.2 Indocyanine Green (ICG) code = 1974-) may cause fal sely elevated biliru bin results. Total and direct bilirubin must not be measured from s amples containing indo cyanine green. False el evation of total bilirubin can be seen in patient s with IgG concentrations above 28 g/L.Testing Per formed at [facility], [address], [address], [place] [address] Bili Direct (test <=0.3 Indocyanin e Green (ICG) code = 1967-) may cause fal sely elevated biliru bin results. Total and direct bilirubin must not be measured from s amples containing indo cyanine green. Testing Performed at [facility], [address] [place] [address], [address], [place] [address] Bili Indirect (test See Note 0.0-0.9 Unable t o calculate code = 1970-05) Indirect Bili waterman result due to some par ameters are outside rep ortable rangeTesting Pe rformed at [facility], [address] [place] [address], [address], [place] [address] [facility] CenterGlomerular Filtration Rate 2023-01-29 15:00:55 Test Item Value Reference Range Interpretation Comments eGFR (test code = 99 See_Comment [place]cr [place] [address]-9) the 2020 CKD-EP I creatinine equation using [...] a for CKD. Testing Perform ed at [facility] Senior Java Architect [facility], [address] [place] [address], [address], [place], [place] [address] [Automated message] The sy stem which generated this result transmitted ref erence range: >=60 mL/min/1.7 3 sq. m. The reference range was not used to interpret th is result as normal/abnormal . [facility] CenterTotal [id number] 15:00:54 Test Item Value Reference Range Interpretation Comments Total Protein (test code 8.5 g/dL 6.4-8.3 H [place] ting Performed at = 2885-2) [facility], [address] [place] [address], [address], [place] [address] Lab Interpretation (test Abnormal code = 97239-2) [facility] CenterCalcium [id number] 15:00:53 Test Item Value Reference Range Interpretation Comments Calcium Lvl (test code = 10.5 mg/dL 8.4-10.2 H [place] ting Performed 45575-7) at [facility] Senior Java Architect [facility], [address], [place], [place] [address] Lab Interpretation (test Abnormal code = 54228-4) [facility] CenterAlkaline Czqruzlbllw2505-49-03 15:00:52 Test Item Value Reference Range Interpretation Comments Alk Phos (test code = 219 U/L 40-129 H Testin g Performed at 6768-6) [facility] Lab Ambulat ory Care [facility], [address], [place] [address] Lab Interpretation (test Abnormal code = 48527-7) [facility] [id number] 15:00:51 Test Item Value Reference Range Interpretation Comments Albumin Lvl (test code 3.8 See_Comment Testi ng Performed at [facility] = 1751-7) Lab [facility], [address], [address], [place] [address] [Automated mess age] The system which ge nerated this result tra nsmitted reference range : 3.5 - 5.2 gm/dL. The refe rence range was not used to interpret this result as normal/abnormal . [facility] CenterAspartate Aminotransferase 2023-01-29 15:00:50 Test Item Value Reference Range Interpretation Comments AST (test code = 22 U/L <=40 Testing Per formed at [facility] 1920-8) Lab Senior Java Architect [facility], [address], [place] [address] [facility]ALT2023-09-26 15:00:49 Test Item Value Reference Range Interpretation Comments ALT (test code = 31 U/L <=41 Testing Per formed at [facility] 1742-6) Lab Senior Java Architect [facility], [address], [place] [address] [facility] CenterElectrolyte Ikvdv2028-36-83 15:00:48 Test Item Value Reference Range Interpretation Comments Sodium Lvl (test code = 138 See_Comment Test ing Performed at 2951-2) [facility] Lab Ambulat ory Care Bldg, [address], [place] [address] [Automate d message] The sy stem which generated this result transmit tasneem reference range : 136 - 145 mEq/L. Th e reference range was not used to int erpret this result as normal/abnormal . Potassium Lvl (test code 5.3 See_Comment H China ting Performed at = 2823-3) [facility], [address], [place] [address] [Automate d message] The sy stem which generated this result transmit tasneem reference range : 3.5 - 5.1 mEq/L. Th e reference range was not used to int erpret this result as normal/abnormal . Chloride (test code = 100 See_Comment Testin g Performed at 2075-0) [facility] Lab [facility], [address], [place] [address] [Automate d message] The sy stem which generated this result transmit tasneem reference range : 98 - 107 mEq/L. The reference range was not used to int erpret this result as normal/abnormal . CO2 (test code = 2028-01) 31 See_Comment H China ting Performed at [facility], [address], [place] [address] [Automate d message] The sy stem which generated this result transmit tasneem reference range : 22 - 29 mEq/L. The reference range was not used to int erpret this result as normal/abnormal . Anion Gap (test code = 7 See_[place] [address]-2) [facility] Lab [facility], [address], [place] [address] [Automate d message] The sy stem which generated this result transmit tasneem reference range : 4 - 14 mEq/L. The reference range was not used to int erpret this result as normal/abnormal . Lab Interpretation (test Abnormal code = 90818-3) [facility] Cancer Pateros.Serum Hhpaturcpm2541-00-85 15:00:47 Test Item Value Reference Range Interpretation Comments Creatinine (test code 0.93 mg/dL 0.67-1.17 Testin g Performed at = 2160-0) [facility] Lab [facility], [address], [place] [address] [facility] CenterBUN2023-09-26 15:00:46 Test Item Value Reference Range Interpretation Comments BUN (test code = 18 mg/dL 6-23 Testing Per formed at [facility] 3094-0) Lab Senior Java Architect [facility], [address], [place] [address] [facility] CenterGlucose [id number] 15:00:45 Test Item Value Reference Range Interpretation Comments Glucose Level (test 90 mg/dL 70-99 Effectiv e 11/30/15, the code = 2345-7) glucose refer ence intervals have been updated based o n [employer] shun delines (Standards of [...] Testin g Performed at [facility] Lab Senior Java Architect [facility], [address], [place] [address] [facility] CenterPOC [id number] 18:47:06 Test Item Value Reference Range Interpretation Comments POC Crea (test 1.1 mg/dL 0.6-1.3 Medications, code = 65701-8) especially h ydroxyurea or supplements, such as ascorbate, c an interfere with test results causing a falsely and significantly h igher result than exp ected. If a problem is suspected with a patient's resul t, a sample should b e sent to the laborato ry for confirmatory te sting. Method descript ion: [...] 81 See_Comment The eGFRcr is code = 49135) calculated wit h the 2020 CKD-EPI creatinine equa tion using creatinin e, patient's age, and sex for adults 18 y ears of age and older. Other factors, especi ally muscle mass, ma y affect accuracy and need to be considered.Acco rding to the Kidney D isease: Improving Globa l Outcomes (KDIGO ) CKD Work Group 2012 Clinical Practi ce Guideline, drier belt conveyor luz elena kidney disease (CKD) is defined as t he abnormalities o f kidney structur e or function, prese nt for more than 3 mon ths, with implicatio ns for health. CKD meño uld be classified by c ause, GFR category, a nd albuminuria cat egory. [...] RCC LEAGUE CI TY (test code = [facility] bettye KIM [address]) [facility] [place] ,[address], [place] [address], Lab Dire ctor: Marcella Dias MD [facility] WITH [id number] 18:25:15 Test Item Value Reference Range Interpretation [...] (test code = 54.9 fL 38.5-51.6 H 93498-5) RDW-CV (test code = 21.1 % 12.1-15.4 H 788-0) PLT (test code = 269 See_Comment [Automated 777-3) message] The sy stem which generated this result transmitted reference range : 150 - 328 10*3/ ?L. The reference r luz elena was not used to interpret this result as normal/abnormal . MPV (test code = 9.9 fL 9.8-13.0 41829-6) NRBC/100 WBC (test 0.0 See_Comment [Automat ed code = [id number]) message] The system which generated this result transmitted reference range : 0.0 - 10.0 /100 WBCs. The refer ence range was not u sed to interpret th is result as normal/abnormal . NRBC x10^3 (test code See_Comment [Auto mated = [id number]) message] The s ystem which generated this result transmitted reference range : 10*3/?L. The reference range was not used to interpret this result as normal/abnormal . GRAN MAT (NEUT) % 63.6 % (test code = 770-8) IMM GRAN % (test code 0.20 % = 9303473461) LYMPH % (test code = 22.0 % 736-9) MONO % (test code = 11.2 % 5905-5) EOS % (test code = 1.4 % 713-8) BASO % (test code = 1.6 % 706-2) GRAN MAT x10^3(ANC) 5.47 10*3/uL 1.99-6.95 (test code = 3447684201) IMM GRAN x10^3 (test 0.00-0.06 code = 7682339747) LYMPH x10^3 (test code 1.89 10*3/uL 1.09-3.23 = 731-0) MONO x10^3 (test code 0.96 10*3/uL 0.36-1.02 = 742-7) EOS x10^3 (test code = 0.12 10*3/uL 0.06-0.53 711-2) BASO x10^3 (test code 0.14 10*3/uL 0.01-0.09 H = 704-7) Lab Interpretation Abnormal (test code = 57527-5) [facility] WITH [id number] 18:25:15 Test Item Value Reference Range Interpretation [...] (test code = 54.9 fL 38.5-51.6 H 11292-1) RDW-CV (test code = 21.1 % 12.1-15.4 H 788-0) PLT (test code = 269 See_Comment [Automated 777-3) message] The sy stem which generated this result transmitted reference range : 150 - 328 10*3/ ?L. The reference r luz elena was not used to interpret this result as normal/abnormal . MPV (test code = 9.9 fL 9.8-13.0 67719-8) NRBC/100 WBC (test 0.0 See_Comment [Automat ed code = 9022804300) message] The system which generated this result transmitted reference range : 0.0 - 10.0 /100 WBCs. The refer ence range was not u sed to interpret th is result as normal/abnormal . NRBC x10^3 (test code See_Comment [Auto mated = 7150830846) message] The s ystem which generated this result transmitted reference range : 10*3/?L. The reference range was not used to interpret this result as normal/abnormal . GRAN MAT (NEUT) % 63.6 % (test code = 770-8) IMM GRAN % (test code 0.20 % = 0272376327) LYMPH % (test code = 22.0 % 736-9) MONO % (test code = 11.2 % 5905-5) EOS % (test code = 1.4 % 713-8) BASO % (test code = 1.6 % 706-2) GRAN MAT x10^3(ANC) 5.47 10*3/uL 1.99-6.95 (test code = 3285401694) IMM GRAN x10^3 (test 0.00-0.06 code = 8546143782) LYMPH x10^3 (test code 1.89 10*3/uL 1.09-3.23 = 731-0) MONO x10^3 (test code 0.96 10*3/uL 0.36-1.02 = 742-7) EOS x10^3 (test code = 0.12 10*3/uL 0.06-0.53 711-2) BASO x10^3 (test code 0.14 10*3/uL 0.01-0.09 H = 704-7) Lab Interpretation Abnormal (test code = 47090-7) [facility] WITH [id number] 18:25:15 Test Item Value Reference Range Interpretation [...] (test code = 54.9 fL 38.5-51.6 H 67044-8) RDW-CV (test code = 21.1 % 12.1-15.4 H 788-0) PLT (test code = 269 See_Comment [Automated 777-3) message] The sy stem which generated this result transmitted reference range : 150 - 328 10*3/ ?L. The reference r luz elena was not used to interpret this result as normal/abnormal . MPV (test code = 9.9 fL 9.8-13.0 42349-8) NRBC/100 WBC (test 0.0 See_Comment [Automat ed code = 5016466541) message] The system which generated this result transmitted reference range : 0.0 - 10.0 /100 WBCs. The refer ence range was not u sed to interpret th is result as normal/abnormal . NRBC x10^3 (test code See_Comment [Auto mated = 0322306740) message] The s ystem which generated this result transmitted reference range : 10*3/?L. The reference range was not used to interpret this result as normal/abnormal . GRAN MAT (NEUT) % 63.6 % (test code = 770-8) IMM GRAN % (test code 0.20 % = 9134004606) LYMPH % (test code = 22.0 % 736-9) MONO % (test code = 11.2 % 5905-5) EOS % (test code = 1.4 % 713-8) BASO % (test code = 1.6 % 706-2) GRAN MAT x10^3(ANC) 5.47 10*3/uL 1.99-6.95 (test code = 2649859759) IMM GRAN x10^3 (test 0.00-0.06 code = 3395311225) LYMPH x10^3 (test code 1.89 10*3/uL 1.09-3.23 = 731-0) MONO x10^3 (test code 0.96 10*3/uL 0.36-1.02 = 742-7) EOS x10^3 (test code = 0.12 10*3/uL 0.06-0.53 711-2) BASO x10^3 (test code 0.14 10*3/uL 0.01-0.09 H = 704-7) Lab Interpretation Abnormal (test code = 24138-3) [facility] WITH [id number] 18:25:15 Test Item Value Reference Range Interpretation [...] (test code = 54.9 fL 38.5-51.6 H 78074-6) RDW-CV (test code = 21.1 % 12.1-15.4 H 788-0) PLT (test code = 269 See_Comment [Automated 777-3) message] The sy stem which generated this result transmitted reference range : 150 - 328 10*3/ ?L. The reference r luz elena was not used to interpret this result as normal/abnormal . MPV (test code = 9.9 fL 9.8-13.0 76773-7) NRBC/100 WBC (test 0.0 See_Comment [Automat ed code = 3254379308) message] The system which generated this result transmitted reference range : 0.0 - 10.0 /100 WBCs. The refer ence range was not u sed to interpret th is result as normal/abnormal . NRBC x10^3 (test code See_Comment [Auto mated = 4663029176) message] The s ystem which generated this result transmitted reference range : 10*3/?L. The reference range was not used to interpret this result as normal/abnormal . GRAN MAT (NEUT) % 63.6 % (test code = 770-8) IMM GRAN % (test code 0.20 % = 8707492730) LYMPH % (test code = 22.0 % 736-9) MONO % (test code = 11.2 % 5905-5) EOS % (test code = 1.4 % 713-8) BASO % (test code = 1.6 % 706-2) GRAN MAT x10^3(ANC) 5.47 10*3/uL 1.99-6.95 (test code = 7528072833) IMM GRAN x10^3 (test 0.00-0.06 code = 7144008309) LYMPH x10^3 (test code 1.89 10*3/uL 1.09-3.23 = 731-0) MONO x10^3 (test code 0.96 10*3/uL 0.36-1.02 = 742-7) EOS x10^3 (test code = 0.12 10*3/uL 0.06-0.53 711-2) BASO x10^3 (test code 0.14 10*3/uL 0.01-0.09 H = 704-7) Lab Interpretation Abnormal (test code = 97335-0) [facility]
--- NOTE | 2023-03-01 14:56 | RAD REPORT ---
EXAM DESCRIPTION: CT - Chest Abd Pelvis Wo Con - 03/01/2023 2:27 pm CLINICAL HISTORY: Renal cell carcinoma. Hematuria COMPARISON: CT chest February TECHNIQUE: Computed axial tomography of the chest, abdomen and pelvis was obtained. Oral contrast wa s given. IV contrast was not requested. All CT scans are performed using dose optimization technique as appropriate and may include automated exposure control or mA/KV adjustment according to patient size. FINDINGS: The evaluation of mediastinum, mark, vessels and solid organs is limited secondary to the lack of IV contrast administration Multiple, bilateral pulmonary nodules without significant change Sub centimeter mediastinal and hilar lymph nodes A pleural effusion is not present. A pericardial effusion is not seen. The liver, spleen, pancreas, adrenals and left kidney appear grossly normal 14 centimeter partially necrotic right renal mass with adjacent lymph nodes. No hydronephrosis is see n. No evidence of diverticulitis. No ascites. Bony lesions not visualized Small lipoma musculature posterior back IMPRESSION: Multiple, bilateral pulmonary nodules without significant change from February 18, 2023 c ompatible with metastases 14 centimeter right renal neoplasm
--- NOTE | 2023-03-01 14:58 | RAD REPORT ---
[facility] DES[facility] 2:28 pm CLINICAL HISTORY: cough COMPARISON: February 18 1023 FINDINGS: Multiple, bilateral pulmonary nodules without significant change The heart is normal size IMPRESSION: Multiple, bilateral pulmonary nodules compatible with metastases
[2023-03-01] MEDS ORDERED: Meropenem 1000 MG/VIAL IV ONE (15:06)
[2023-03-01] MEDS ORDERED: NA CHLORIDE 0.9% 1,000 ML ONE (15:07)
[2023-03-01] MEDS ORDERED: FAMOTIDINE 20 MG/2 ML VIAL IV ONE (15:07)
[2023-03-01] MEDS ORDERED: NA CHLORIDE 0.9% 100 ML ONE (15:08)
[2023-03-01 15:10] LABS: Absolute Lymphocytes (CBC) 1.7 K/uL (0.7-4.9); Hematocrit 60.4 % (39.6-49.0); Lymphocytes % 20.5 % (15.3-44.8); MCV 75.9 fL (80-100); MPV 8.1 fL (7.6-11.3); Platelets 242 thou/uL (152-406); RBC Red Blood Cell Count 7.96 M/uL (4.33-5.43)
[2023-03-01 15:14] LABS: Urine Bacteria None Seen /HPF (<20); Urine Bilirubin NEGATIVE (Negative); Urine Blood 2+ (Negative); Urine Clarity Clear (Clear); Urine Color Light-Yellow (Yellow); Urine Glucose NEGATIVE (Negative); Urine Mucus Slight /HPF (None Seen); Urine Protein NEGATIVE (Negative); Urine Urobilinogen Normal (Normal)
[2023-03-01 15:15] LABS: Protime INR 1.18
[2023-03-01 15:51] LABS: AST/SGOT 15 U/L (15-37); Alkaline Phosphatase 162 U/L (45-117); BUN Blood Urea Nitrogen 13 mg/dL (7-18); Bicarbonate 29 mEq/L (21-32); Bilirubin Direct 0.2 mg/dL (0-0.2); Bilirubin Indirect, Calculated 0.5 mg/dL (0.2-0.8); Bilirubin Total 0.7 mg/dL (0.2-1.0); Glomerular Filtration Rate 98 ml/min (=/>90); Glucose Level 124 mg/dL (74-106); Lipase 8 U/L (13-75); Magnesium 2.2 mg/dL (1.6-2.4); NT PRO-BNP 71 pg/mL (<125); Potassium 3.7 mEq/L (3.5-5.1); Protein, Total 8.3 g/dL (6.4-8.2); Sodium Level 134 mEq/L (136-145)
[2023-03-01 15:57] LABS: Troponin High Sensitivity < 3.0 pg/mL (<58.9)
[2023-03-01 16:02] LABS: ALT/SGPT 19 U/L (16-61)
--- NOTE | 2023-03-01 16:52 | EDPHYS ---
Physician Documentation [facility] Name: Jamir Somers Age: 53 yrs Sex: Male : 1970 Arrival Date: 03/01/2023 Time: 13:48 Bed 20 Private MD: ED Physician Ortiz Gutierrez HPI: 03/01 16:42 This 53 yrs old Male presents to ER via Ambulatory with complaints of Urinary piedad Problem - blood. 16:42 The patient complains of pain in the right mid back and right low back. The pain does piedad not radiate. Onset: The symptoms/episode began/occurred 5 day(s) ago. Modifying factors: The symptoms are alleviated by nothing. the symptoms are aggravated by nothing. The patient presents with urinary symptoms, HEMATURIA. Modifying factors: The symptoms are alleviated by nothing, the symptoms are aggravated by nothing. Associated signs and symptoms: Pertinent positives: dizziness, hematuria, nausea. Severity of pain: At its worst the pain was mild in the emergency department the pain is unchanged. Historical: - Allergies: 13:58 No Known Allergies; hb - PMHx: 13:58 Renal cell carcinoa; Renal cell carcinoa; hb - Immunization history:: Adult Immunizations up to date. - Social history:: Smoking status: . - Family history:: not pertinent. ROS: 16:42 Constitutional: Negative for fever, chills, and weight loss, Eyes: Negative for injury, piedad pain, redness, and discharge, ENT: Negative for injury, pain, and discharge, Neck: Negative for injury, pain, and swelling, Cardiovascular: Negative for chest pain, palpitations, and edema, Respiratory: Negative for shortness of breath, cough, wheezing, and pleuritic chest pain, Abdomen/GI: Negative for abdominal pain, nausea, vomiting, diarrhea, and constipation, Back: Negative for injury and pain, MS/Extremity: Negative for injury and deformity, Skin: Negative for injury, rash, and discoloration, Neuro: Negative for headache, weakness, numbness, tingling, and seizure, Psych: Negative for depression, anxiety, suicide ideation, homicidal ideation, and hallucinations, Allergy/Immunology: Negative for hives, rash, and allergies, Endocrine: Negative for neck swelling, polydipsia, polyuria, polyphagia, and marked weight changes, Hematologic/Lymphatic: Negative for swollen nodes, abnormal bleeding, and unusual bruising, 16:42 : Positive for flank pain, hematuria, Exam: 16:42 Constitutional: This is a well developed, well nourished patient who is awake, alert, piedad and in no acute distress. Head/Face: Normocephalic, atraumatic. Eyes: Pupils equal round and reactive to light, extra-ocular motions intact. Lids and lashes normal. Conjunctiva and sclera are non-icteric and not injected. Cornea within normal limits. Periorbital areas with no swelling, redness, or edema. ENT: Nares patent. No nasal discharge, no septal abnormalities noted. Tympanic membranes are normal and external auditory canals are clear. Oropharynx with no redness, swelling, or masses, exudates, or evidence of obstruction, uvula midline. Mucous membranes moist. Neck: Trachea midline, no thyromegaly or masses palpated, and no cervical lymphadenopathy. Supple, full range of motion without nuchal rigidity, or vertebral point tenderness. No Meningismus. Chest/axilla: Normal chest wall appearance and motion. Nontender with no deformity. No lesions are appreciated. Cardiovascular: Regular rate and rhythm with a normal S1 and S2. No gallops, murmurs, or rubs. Normal PMI, no JVD. No pulse deficits. Respiratory: Lungs have equal breath sounds bilaterally, clear to auscultation and percussion. No rales, rhonchi or wheezes noted. No increased work of breathing, no retractions or nasal flaring. Abdomen/GI: Soft, non-tender, with normal bowel sounds. No distension or tympany. No guarding or rebound. No evidence of tenderness throughout. Skin: Warm, dry with normal turgor. Normal color with no rashes, no lesions, and no evidence of cellulitis. MS/ Extremity: Pulses equal, no cyanosis. Neurovascular intact. Full, normal range of motion. Neuro: Awake and alert, GCS 15, oriented to person, place, time, and situation. Cranial nerves II-XII grossly intact. Motor strength 5/5 in all extremities. Sensory grossly intact. Cerebellar exam normal. Normal gait. Psych: Awake, alert, with orientation to person, place and time. Behavior, mood, and affect are within normal limits. 16:42 Back: pain, that is mild, of the lumbar area, right mid back and right low back, ROM is normal, CVA tenderness, that is mild, that is moderate, is noted on the right, 16:42 : CVA tenderness, on the right, Male external genitalia: normal, no abrasion, no discharge, no erythema, no injury, no swelling, no tenderness, no evidence of ulceration, Bladder: tenderness, that is mild, Sexual behavior: the patient is sexually active, and reports a single partner, 17:00 ECG was reviewed by the Attending Physician. piedad Vital Signs: 13:55 BP 111 / 89; Pulse 87; Resp 16; Temp 97.5; Pulse Ox 100% on R/A; Weight 97.52 kg; hb Height 6 ft. 4 in. ; Pain 0/10; 15:05 BP 150 / 104; Pulse 81; Resp 18; Pulse Ox 95% ; nj1 16:00 BP 138 / 85; Pulse 79; Resp 16; Pulse Ox 95% ; nj1 17:00 BP 149 / 101; Pulse 89; Resp 20; Pulse Ox 97% ; nj1 18:00 BP 146 / 99; Pulse 84; Resp 18; Pulse Ox 95% ; nj1 13:55 Body Mass Index 26.17 (97.52 kg, 193.04 cm) hb 13:55 Pain Scale: Adult hb MDM: 14:12 Patient medically screened. piedad 16:49 Differential diagnosis: UTI, nonspecific abdominal pain, UTI, prostatitis. Data [facility] reviewed: vital signs, nurses notes, lab test result(s), EKG, radiologic studies, CT scan, plain films. Consideration of Admission/Observation Escalation of care including admission/observation considered. I considered the following discharge prescriptions or medication management in the emergency department Medications were administered in the Emergency Department. See MAR. Test considered but Not performed: Ultrasound NO RENAL USG. 03/01 14:02 Order name: Basic Metabolic Panel; Complete Time: 16:41 [facility] 03/01 14:02 Order name: CBC with Diff; Complete Time: 15:54 [facility] 03/01 14:02 Order name: LFT's; Complete Time: 16:41 [facility] 03/01 14:02 Order name: Magnesium; Complete Time: 16:41 [facility] 03/01 14:02 Order name: NT PRO-BNP; Complete Time: 16:41 [facility] 03/01 14:02 Order name: PT-INR; Complete Time: 15:54 [facility] 03/01 14:02 Order name: Troponin HS; Complete Time: 16:41 [facility] 03/01 14:02 Order name: Lipase; Complete Time: 16:41 [facility] 03/01 14:02 Order name: Urinalysis w/ reflexes; Complete Time: 15:54 piedad 03/01 14:02 Order name: Type And Screen; Complete Time: 16:41 piedad 03/01 14:02 Order name: Flu; Complete Time: 15:54 piedad 03/01 15:48 Order name: ABO/RH no charge; Complete Time: 15:54 EDMS 03/01 16:02 Order name: SARS-COV-2 RT PCR; Complete Time: 16:41 eb 03/01 14:02 Order name: XRAY Chest (1 view); Complete Time: 15:54 [facility] 03/01 14:02 Order name: CT Chest Abdomen Pelvis W/O Contrast; Complete Time: 15:54 [facility] 03/01 14:02 Order name: EKG; Complete Time: 14:03 [facility] 03/01 14:02 Order name: Cardiac monitoring; Complete Time: 14:47 [facility] 03/01 14:02 Order name: EKG - Nurse/Tech; Complete Time: 16:08 [facility] 03/01 14:02 Order name: IV Saline Lock; Complete Time: 14:47 [facility] 03/01 14:02 Order name: Labs collected and sent; Complete Time: 14:47 [facility] 03/01 14:02 Order name: O2 Per Protocol; Complete Time: 14:47 [facility] 03/01 14:02 Order name: O2 Sat Monitoring; Complete Time: 14:47 [facility] EC:00 Rate is 75 beats/min. QRS [place] is Normal. IA interval is normal. QRS interval is piedad normal. QT interval is normal. No Q waves. T waves are Normal. No ST changes noted. Clinical impression: NSR w/ Non-specific ST/T Changes and No evidence of ischemia. Interpreted by me. Reviewed by me. Administered Medications: 15:05 Drug: NS 0.9% IV 1000 ml IV at 1 bolus Per protocol; 1000 mL bolus Route: IV; Rate: 1 nj1 bolus; Site: left antecubital; 16:10 Follow up: IV Status: Completed infusion; IV Intake: 1000ml nj1 15:05 Drug: Famotidine IVP 20 mg IVP once; dilute with 10 mL 0.9% NaCl; give over 2 minutes nj1 Route: IVP; Site: left antecubital; 16:08 Follow up: Response: No adverse reaction nj1 15:07 Drug: Meropenem IV 1 grams IV at per protocol once; (mix in NS 100 mL) Route: IV; Rate: nj1 per protocol; Site: left antecubital; 15:40 Follow up: Response: No adverse reaction; IV Status: Completed infusion; IV Intake: nj1 100ml 17:58 Drug: Ativan IVP 1 mg IVP once Route: IVP; Site: left antecubital; nj1 18:10 Follow up: Response: No adverse reaction nj1 Disposition Summary: 03/01/23 17:38 Discharge Ordered Notes: Location: Home piedad Problem: an ongoing problem(03/01/23 17:38) piedad Symptoms: are unchanged(03/01/23 17:38) piedad Condition: Fair(03/01/23 17:38) piedad Diagnosis - Hematuria, unspecified(03/01/23 17:38) piedad - Malignant neoplasm of right kidney, except renal pelvis - 14 CM , METASTATIC, LUNG piedad INVOLVMENT(03/01/23 17:38) - Adjustment disorder with mixed anxiety and depressed mood piedad Followup: piedad - With: Private Physician - When: 2 - 3 days - Reason: Recheck today's complaints, Continuance of care, Re-evaluation by your physician Followup: piedad - With: Isidro Odonnell MD - When: 2 - 3 days - Reason: Recheck today's complaints, Re-evaluation by your physician Discharge Instructions: - Discharge Summary Sheet piedad - Hematuria, Adult piedad - Renal Mass piedad - Kidney Cancer [facility] - Managing Anxiety, Adult [facility] Forms: - Medication Reconciliation Form [facility] - Thank You Letter [facility] - Antibiotic Education [facility] - Prescription Opioid Use [facility] - Patient Portal Instructions [facility] - Leadership Thank You Letter [facility] Prescriptions: - Xanax 0.5 mg Oral Tablet - take 1 tablet ORAL route every 8 hours As needed; 20 tablet; Refills: 0, [facility] Product Selection Permitted - Bactrim DS 800-160 mg Oral Tablet - take 1 tablet ORAL route every 12 hours for 7 days; 14 tablet; Refills: 0, piedad Product Selection Permitted Signatures: Dispatcher [employer] Ortiz Barriga MD MD cha Baxter, Heather, RN RN Francisco, Dorothy, RN RN nj1 Corrections: (The following items were deleted from the chart) 16:35 14:03 SARS-COV-2 Antigen Rapid+I.LAB.BRZ ordered. EDMS EDMS 16:56 16:52 TO CONFUCIANISM piedad piedad 17:35 16:52 [employer] [facility] piedad piedad 17:35 16:52 Higher level of care piedad piedad 17:35 16:52 Fair piedad piedad 17:35 16:52 new piedad piedad 17:35 16:52 have improved piedad piedad 17:35 16:52 Hematuria, unspecified piedad piedad 17:35 16:56 TO CONFUCIANISM piedad piedad 17:35 16:56 Malignant neoplasm of right kidney, except renal pelvis - 14 CM RENAL CELL piedad CARCINOMA, METASTATIC, WITH BILATERAL PULNONARY INVOLVMENT piedad
--- NOTE | 2023-03-01 16:52 | ER ---
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 Recently diagnosed hb with Stage 4 Renal Cell CA. Coronavirus screen: At this time, the client does not indicate any symptoms associated with coronavirus-19. Ebola Screen: No symptoms or risks identified at this time. Initial Sepsis Screen: Does the patient meet any 2 criteria? No. Patient's initial sepsis screen is negative. Does the patient have a suspected source of infection? No. Patient's initial sepsis screen is negative. Risk Assessment: Do you want to hurt yourself or someone else? Patient reports no desire to harm self or others. Onset of symptoms was March 01, 2023. 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 - Social history:: Smoking status: . - Family history:: not pertinent. Screenin:12 [facility] [place] ED Fall Risk Assessment (Adult) Score/Fall Risk Level 0 - 2 = Low Risk nj1 Oriented to surroundings, Maintained a safe environment, Hourly rounding (assess needs \T\ fall precautionary measures) done. Abuse screen: Denies threats or abuse. Denies injuries from another. Nutritional screening: No deficits noted. Tuberculosis screening: No symptoms or risk factors identified. Assessment: 15:00 General: Appears in no apparent distress. comfortable, Behavior is calm, cooperative, nj1 appropriate for age. 15:00 Pain: Denies pain. Neuro: Level of Consciousness is awake, alert, obeys commands, nj1 Oriented to person, place, time, situation. Cardiovascular: Patient's skin is warm and dry. Respiratory: Airway is patent Respiratory effort is even, unlabored. : Reports Hematuria. 16:00 Reassessment: Patient appears in no apparent distress at this time. No changes from [facility] previously documented assessment. Patient and/or family updated on plan of care and expected duration. Pain level reassessed. Patient is alert, oriented x 3, equal unlabored respirations, skin warm/dry/pink. 17:00 Reassessment: Patient appears in no apparent distress at this time. Patient and/or nj1 family updated on plan of care and expected duration. Pain level reassessed. Patient is alert, oriented x 3, equal unlabored respirations, skin warm/dry/pink. 18:00 Reassessment: Patient appears in no apparent distress at this time. No changes from [facility] previously documented assessment. Patient and/or family updated on plan of care and expected duration. Pain level reassessed. Patient is alert, oriented x 3, equal unlabored respirations, skin warm/dry/pink. Vital Signs: 13:55 BP 111 / 89; Pulse 87; Resp 16; Temp 97.5; Pulse Ox 100% on R/A; Weight 97.52 kg; hb Height 6 ft. 4 in. ; Pain 0/10; 15:05 BP 150 / 104; Pulse 81; Resp 18; Pulse Ox 95% ; nj1 16:00 BP 138 / 85; Pulse 79; Resp 16; Pulse Ox 95% ; nj1 17:00 BP 149 / 101; Pulse 89; Resp 20; Pulse Ox 97% ; nj1 18:00 BP 146 / 99; Pulse 84; Resp 18; Pulse Ox 95% ; nj1 13:55 Body Mass Index 26.17 (97.52 kg, 193.04 cm) hb 13:55 Pain Scale: Adult hb ED Course: 13:51 Patient arrived in ED. im 13:58 Triage completed. hb 13:58 Arm band placed on. hb 14:01 Ortiz Gutierrez MD is Attending Physician. piedad 14:05 Dorothy Singh, SUREKHA is Primary Nurse. nj1 14:28 CT Chest Abdomen Pelvis W/O Contrast In Process Unspecified. EDMS 14:30 XRAY Chest (1 view) In Process Unspecified. EDMS 15:00 Provided Education on: call light, fall precautions. nj1 15:00 Patient has correct armband on for positive identification. Bed in low position. Call [facility] light in reach. 17:05 initiated a transfer with Maame from the [facility] transfer [facility] at the request of the eb provider. 17:16 per Maame from the transfer center they will have to decline the patient in transfer due eb to being at capacity/. 17:36 Isidro Odonnell MD is Referral Physician. piedad 17:39 Inserted saline lock: 20 gauge in left antecubital area, using aseptic technique. Blood sm8 collected. 18:10 No provider procedures requiring assistance completed. IV discontinued, intact, nj1 bleeding controlled. Administered Medications: 15:05 Drug: NS 0.9% IV 1000 ml IV at 1 bolus Per protocol; 1000 mL bolus Route: IV; Rate: 1 nj1 bolus; Site: left antecubital; 16:10 Follow up: IV Status: Completed infusion; IV Intake: 1000ml nj1 15:05 Drug: Famotidine IVP 20 mg IVP once; dilute with 10 mL 0.9% NaCl; give over 2 minutes nj1 Route: IVP; Site: left antecubital; 16:08 Follow up: Response: No adverse reaction nj1 15:07 Drug: Meropenem IV 1 grams IV at per protocol once; (mix in NS 100 mL) Route: IV; Rate: nj1 per protocol; Site: left antecubital; 15:40 Follow up: Response: No adverse reaction; IV Status: Completed infusion; IV Intake: nj1 100ml 17:58 Drug: Ativan IVP 1 mg IVP once Route: IVP; Site: left antecubital; nj1 18:10 Follow up: Response: No adverse reaction nj1 Medication: 18:10 VIS not applicable for this client. nj1 Intake: 15:40 IV: 100ml; Total: 100ml. nj1 16:10 IV: 1000ml; Total: 1100ml. nj1 Outcome: 16:52 ER care complete, transfer ordered by . piedad 17:38 Discharge ordered by . piedad 18:10 Discharged to home ambulatory, with significant other, nj1 18:10 Condition: stable 18:10 Discharge instructions given to patient, significant other, Instructed on discharge instructions, follow up and referral plans. medication usage, Demonstrated understanding of instructions, follow-up care, medications, Prescriptions given X 2, 18:20 Patient left the ED. nj1 Signatures: Dispatcher [employer] EDWV Ortiz Gutierrez MD MD cha Baxter, Heather, RN Monet Mackey Norma, RN RN nj1 Priscilla Laws Scarlett [id number] Corrections: (The following items were deleted from the chart) 17:26 17:05 initiated a transfer with Maame from the [facility] transfer [facility]/ bianca valenzuela
[2023-03-01] MEDS ORDERED: LORazepam 2 MG/ML VIAL ONE (18:07)
[2023-03-01 18:31] VITALS: TEMP 97.5
[2023-03-01 18:36] VITALS: BP 146/99; O2SAT 95
--- NOTE | 2023-03-05 08:02 | EKG ---
Test Date: 2023-03-01 Test Time: 16:02:23 Laceworker: ELLEN MEASUREMENT RESULTS: Intervals: Rate: 75 DE: 184 QRSD: 96 QT: 370 QTc: 413 [place]: P: 52 DE: 184 QRS: -34 T: 7 INTERPRETIVE STATEMENTS: Normal sinus rhythm Left axis deviation Abnormal ECG Compared to ECG 02/18/2023 15:18:44 Left-axis deviation now present Left anterior fascicular block no longer present Electronically Signed On 03-05-23 07:54:40 CDT by Jose Rasmussen
== END 2023-03-01 18:20 | disposition home or self-care (01) ==
LOC: ER 13:48
DX: R31.9 Hematuria, unspecified (principal); C64.1 Malignant neoplasm of right kidney, except renal pelvis; C78.00 Secondary malignant neoplasm of unspecified lung; Z20.822 Contact with and (suspected) exposure to COVID-19
CPT/HCPCS: 96365; 96361; 85025; 81001; 80048; 36415; 86900; 83735; 86850; 85610; 86901; 80076; 84484; 83690; 83880; 87635; 87804 ×2; 71250; 74176; 71045; 96375; 99284; J2185; J7030; 93005

== ENCOUNTER 2023-04-14 09:26 | Emergency (ER) | payer BC ==
--- OUTSIDE RECORDS SUMMARY | 2023-04-14 09:33 | XMS REPORT | Clinical Summary ---
Author Name Unknown Organization [facility] Address [address] [place] [address] Care Team Providers Care Unit Reactor Operator Name Role Phone Edward Méndez MD Unavailable Katiana Felton MD Primary Care Provider [phone] Anthony Bedoya MD Unavailable Allergies No known active allergies Medications Medication Sig Dispensed Refills Start Date End Date Status HYDROcodone-acetam inophen ([place]) 5 mg-325 mg per tabletIndications: Neoplasm related pain (acute) (chronic) Take 1 tablet by mouth every 8 (eight) hours as needed for moderate pain. 30 tablet 0 01/18/2023 Active omeprazole (PriLOSEC) 20 mg capsuleIndications :gastroesophageal reflux disease Take 1 capsule (20 mg) by mouth. 0 Active HYDROcodone-acetam inophen ([place]) 10 mg-325 mg per tabletIndications: Neoplasm related pain (acute) (chronic) Take 1 tablet by mouth every 6 (six) hours as needed for moderate pain. 40 tablet 0 02/01/2023 Active HYDROcodone-acetam inophen ([place]) 10 mg-325 mg per tabletIndications: Neoplasm related pain (acute) (chronic) Take 1 tablet by mouth every 6 (six) hours as needed for moderate pain. 40 tablet 0 02/04/2023 Active oxyBUTYnin (Ditropan XL) 5 mg 24 hr tabletIndications: Frequency of micturition Take 1 tablet (5 mg) by mouth daily. 30 tablet 0 02/15/2023 Active HYDROcodone-acetam inophen ([place]) 10 mg-325 mg per tabletIndications: Neoplasm related pain (acute) (chronic) Take 1 tablet by mouth every 6 (six) hours as needed for moderate pain. 40 tablet 0 02/18/2023 Active morphine (MSIR) 15 mg IR tabletIndications: Neoplasm related pain (acute) (chronic) Take 1 tablet (15 mg) by mouth every 6 (six) hours as needed for moderate pain. 60 tablet 0 03/06/2023 Active morphine (MS Contin) 15 mg ER tabletIndications: Neoplasm related pain (acute) (chronic) Take 1 tablet (15 mg) by mouth every 12 (twelve) hours. 30 tablet 0 03/06/2023 Active morphine (MSIR) 15 mg IR tabletIndications: Neoplasm related pain (acute) (chronic) Take 1 tablet (15 mg) by mouth every 6 (six) hours as needed for moderate pain. 60 tablet 0 03/15/2023 Active morphine (MS Contin) 15 mg ER tabletIndications: Neoplasm related pain (acute) (chronic) Take 1 tablet (15 mg) by mouth every 12 (twelve) hours. 30 tablet 0 03/15/2023 Active escitalopram (Lexapro) 10 mg tabletIndications: Clear cell carcinoma of right kidney,Secondary malignant neoplasm of bilateral lungs,Cancer associated pain,Anxiety, not otherwise specified Take 1 tablet (10 mg) by mouth every morning. 30 tablet 1 03/21/2023 Active aspirin (Bryce Low Dose Aspirin) 81 mg EC tabletIndications: Clear cell carcinoma of right kidney Take 1 tablet (81 mg) by mouth daily. 90 tablet 0 03/21/2023 Active morphine (MS Contin) 15 mg ER tabletIndications: Neoplasm related pain (acute) (chronic) Take 1 tablet (15 mg) by mouth every 12 (twelve) hours. 30 tablet 0 04/02/2023 Active morphine (MSIR) 15 mg IR tabletIndications: Neoplasm related pain (acute) (chronic) Take 1 tablet (15 mg) by mouth every 6 (six) hours as needed for severe pain. 50 tablet 0 04/02/2023 Active HYDROcodone-acetam inophen ([place]) 10 mg-325 mg per tabletIndications: Neoplasm related pain (acute) (chronic) Take 1 tablet by mouth every 6 (six) hours as needed for moderate pain. 40 tablet 0 02/05/2023 02/18/2023 Discontinued (Reorder) morphine (MS Contin) 15 mg ER tabletIndications: Neoplasm related pain (acute) (chronic) Take 1 tablet (15 mg) by mouth every 12 (twelve) hours. 30 tablet 0 02/21/2023 04/02/2023 Discontinued (Reorder) morphine (MSIR) 15 mg IR tabletIndications: Neoplasm related pain (acute) (chronic) Take 1 tablet (15 mg) by mouth every 6 (six) hours as needed for severe pain. 50 tablet 0 02/21/2023 04/02/2023 Discontinued (Reorder) Active Problems Problem Noted Date Diagnosed Date Secondary malignant neoplasm of bilateral lungs 03/21/2023 Erythrocytosis 03/21/2023 Clear cell carcinoma of right kidney 03/20/2023 Encounters Date Type Department Care Team Description 04/11/2023 12:45 PM CLINICAL PRODUCT SPECIALIST Ancillary Procedure MD Gutierrez [address] [address] Anthony Bedoya MD Clear cell carcinoma of right kidney 04/11/2023 Travel 04/02/2023 Orders Only [facility] [address] [place] [address], 7th [place] [address] Anthony Bedoya MD Neoplasm related pain (acute) (chronic) 04/02/2023 Orders Only [facility] [address] [place] [address], 7th [place] [address] Chary Frias PA Cancer associated pain (Primary Dx); Clear cell carcinoma of right kidney 03/26/2023 Orders Only [facility] [address] [place] [address], 7th [place] [address] Chary Frias PA Erythrocytosis (Primary Dx); Clear cell carcinoma of right kidney 03/25/2023 1:10 PM CLINICAL PRODUCT SPECIALIST Ancillary Procedure MD Matt Cooper [address] [address] Anthony Bedoya MD Clear cell carcinoma of right kidney 03/25/2023 Orders Only [facility] Oncology [address] [place] [address], 7th [place] [address] Kaylen Abebe, PharmRachel 03/25/2023 Travel 03/23/2023 9:30 AM CLINICAL PRODUCT SPECIALIST - 03/23/2023 11:59 PM CLINICAL PRODUCT SPECIALIST Hospital Encounter [facility] - Main Building [address] [facility], 2nd [place] [address] Anthony Bedoya MD Nelson, Teresa, RN Clear cell carcinoma of right kidney (Primary Dx) Discharge Disposition: Home 03/23/2023 Travel 03/22/2023 Documentation [facility], 9th [place] [address] Radha Kennedy 03/22/2023 Documentation [facility] [place] - Medical Oncology [facility], 9th [place] [address] Radha Kennedy 03/22/2023 Orders Only [facility] [address] [place] [address], 7th [place] [address] Kaylen Abebe, PharmRachel 03/21/2023 2:00 PM CLINICAL PRODUCT SPECIALIST Consult [facility] [address] [place] [address], 7th [place] [address] Anthony Bedoya MD Clear cell carcinoma of right kidney (Primary Dx); Kidney, NOS cancer <Unspecified>; Erythrocytosis; Secondary malignant neoplasm of bilateral lungs; Cancer associated pain; Anxiety, not otherwise specified 03/21/2023 12:00 PM CLINICAL PRODUCT SPECIALIST - 03/21/2023 11:59 PM CLINICAL PRODUCT SPECIALIST Hospital Encounter [facility] [address] [place] [address] Chary Frias PA Clear cell carcinoma of right kidney; Erythrocytosis Discharge Disposition: Home 03/21/2023 Orders Only [facility] On[facility] [address] [place] [address], 7th [place] [address] Anthony Bedoya MD 03/21/2023 Travel 03/20/2023 Orders Only [facility] - Oncology [address] [facility], 7th [place] [address] Chary Frias PA Clear cell carcinoma of right kidney (Primary Dx); Erythrocytosis 03/15/2023 Orders Only [facility] [address] [place] [address], 9th [place] [address] Katiana Felton MD Neoplasm related pain (acute) (chronic) (Primary Dx) 03/06/2023 Orders Only [facility] [address] [place] [address], 9th [place] [address] Katiana Felton MD Neoplasm related pain (acute) (chronic) (Primary Dx) 02/21/2023 Orders Only [facility] [address] [place] [address], 9th [place] [address] Katiana Felton MD Neoplasm related pain (acute) (chronic) (Primary Dx) 02/20/2023 Refill [facility] [address] [place] [address], 9th [place] [address] Nicol Hodges, RN 02/18/2023 Refill [facility] [address] [place] [address], 9th [place] [address] Nicol Hodges, RN Neoplasm related pain (acute) (chronic) 02/15/2023 Orders Only [facility] [address] [place] [address], [facility] [place] [address] Katiana Felton MD Frequency of micturition (Primary Dx) 02/11/2023 Telephone [facility] [address] [place] [address], 9 [place] [address] Suki Cruz, DEBBIE 02/06/2023 10:30 AM CDT Ancillary Procedure Nuclear Medicine [address] [facility], 6th Floor, [place] [address] Katiana Felton MD 02/06/2023 8:00 AM CDT Ancillary Procedure Nuclear Medicine [address] [facility], 6th Floor, [place] [address] Katiana Felton MD Kidney, NOS cancer <Unspecified> 02/05/2023 Orders Only Internal Medicine Center [facility] Main [facility], 9th [place] [address] Katiana Felton MD Neoplasm related pain (acute) (chronic) (Primary Dx) 02/05/2023 Refill [facility] [address] [place] [address], 9th [place] [address] Nicol Hodges RN Neoplasm related pain (acute) (chronic) 02/04/2023 Orders Only Internal Medicine Center [facility], 9th [place] [address] Katiana Felton MD Neoplasm related pain (acute) (chronic) (Primary Dx) 02/04/2023 Refill [facility] [address] [place] [address], 9th [place] [address] Nicol Hodges, RN Neoplasm related pain (acute) (chronic) 02/01/2023 Telephone Internal [facility] [address] [place] [address] Main [facility], 9th [place] [address] Katiana Felton MD 02/01/2023 Orders Only [facility] [address] [place] [address], 9th [place] [address] Katiana Felton MD Kidney, NOS cancer <Unspecified> (Primary Dx) 2023 7:33 AM CDT - 2023 11:59 PM CDT Hospital Encounter Interventional Radiology [address] [place] [address], 4th [place] [address] Discharge Disposition: Home 2023 Travel 01/30/2023 1:28 PM CDT - 01/30/2023 11:59 PM CDT Hospital Encounter Interventional Radiology [address] [place] [address], 4th [place] [address] Pneumothorax Discharge Disposition: Home 01/30/2023 12:17 PM CDT - 01/30/2023 1:27 PM CDT Hospital Encounter Interventional Radiology [address] [place] [address], 4th [place] [address] Discharge Disposition: Home 01/30/2023 9:45 AM CDT - 01/30/2023 12:16 PM CDT Hospital Encounter Interventional Radiology [address] [place] [address], [facility] [place] [address] Discharge Disposition: Home 01/30/2023 7:25 AM CDT - 01/30/2023 9:44 AM CDT Hospital Encounter Interventional Radiology [address] [place] [address], [facility] [place] [address] Katiana Felton MD Shah, Ketan Yogesh, MD Multiple nodules of lung; Abnormal finding on diagnostic imaging of other abdominal region including retroperitoneum Discharge Disposition: Home 01/30/2023 Travel 01/29/2023 9:30 AM CDT - 01/29/2023 11:59 PM CDT Hospital Encounter Interventional Radiology [address] [place] [address], 4th [place] [address] Katiana Felton MD Patel, Rakhi J, PA Lung nodule (Primary Dx) Discharge Disposition: Home 01/29/2023 9:00 AM CDT - 01/29/2023 9:29 AM CDT Hospital Encounter [facility] [address] [place] [address] Jovan Nava PA Multiple nodules of lung; Abnormal finding on diagnostic imaging of other abdominal region including retroperitoneum Discharge Disposition: Home 01/29/2023 Travel 01/23/2023 Documentation MDA TRANSL [facility]LE[facility] PATH Flora Jean H 01/21/2023 1:20 PM CDT Ancillary Procedure [facility] [address] [facility] [address] [place] [address] Katiana Felton MD Multiple nodules of lung; Abnormal finding on diagnostic imaging of other abdominal region including retroperitoneum 01/21/2023 Education Interventional Radiology [address] [facility], 4th [place] [address] Allyssa Nesbitt MA 01/21/2023 Travel 01/18/2023 10:00 AM CDT Telemedicine Internal Medicine Center [address] [facility], 9th [place] [address] Katiana Felton MD Multiple nodules of lung (Primary Dx); Abnormal finding on diagnostic imaging of other abdominal region including retroperitoneum; Smoker; Neoplasm related pain (acute) (chronic) 01/18/2023 Orders Only Main Interventional Radiology [address] [facility], 3rd [place] [address] Jovan Nava PA 01/15/2023 8:00 PM CDT Ancillary Procedure [facility] [address] [place] [address] Katiana Felton MD Cancer 01/15/2023 3:00 PM CDT NPR MDA PATIENT ACCESS 01/15/2023 Travel 01/15/2023 Telephone MDA PATIENT ACCESS Gilson Canales RN 01/15/2023 Telephone MDA PATIENT ACCESS Gilson Canales RN after 04/14/2022 Medical History Medical History Date Comments Tooth disorder 2022 Need deep, scali ng, and extraction Asbestosis 2010 At [employer] [facility] in [facility] Genital warts 2015 Genital herpes simplex 1994 not treat ed per pt. Alcohol abuse 1985 Used drugs since 1984, including smoking marijuana, smoking, crystal meth, LSD, and ecstasy and synthetic cannabinoids, I have had long periods of sobriety, I don t think I was addicted because every time I wanted to quit I did quit Gastro-esophageal reflux dis ease without esophagitis 11/2022 Clear cell carcinoma of right kidney 03/20/2023 Family History Medical History Relation Name Comments Stomach cancer Maternal Grandmother Teresa Breast cancer Mother Reema Breast cancer, metastasized to her spine, brain ans bones Relation Name Status Comments Maternal Grandmother Teresa Mother Reema Social History Tobacco Use Types Packs/Day Years Used Date Smoking Tobacco: Every Day Cigarettes 1 37 Started: 01/04/1986 Smokeless Tobacco: Former Snuff Quit: 04/19/2017 Tobacco Cessation:Ready to Q uit: Not Asked; Counseling Given: Not Answered Comments:Started decreasing use 3 weeks ago, down to 1/4 pack per day Alcohol Use Standard Drinks/Week Comments Not Currently 0 (1 standard drink = 0.6 oz pure alcohol) I drink less than six alcoholic beverages a year Sex and Gender Information Value Date Recorded Sex Assigned at Not on file Gender Identity Not on file Sexual Orientation Not on file Job Start Date Occupation Industry Not on file Not on file Not on file Obstetrics History Last Filed Vital Signs Vital Sign Reading Time Taken Comments Blood Pressure 146/89 03/25/2023 2:51 PM CLINICAL PRODUCT SPECIALIST Pulse 85 03/25/2023 2:51 PM CLINICAL PRODUCT SPECIALIST Temperature 36.6 C (97.9 F) 03/23/2023 1 2:20 PM CLINICAL PRODUCT SPECIALIST Respiratory Rate 16 03/25/2023 2:51 PM CLINICAL PRODUCT SPECIALIST Oxygen Saturation 94% 03/25/2023 2:51 PM CLINICAL PRODUCT SPECIALIST Inhaled Oxygen Concentration - - Weight 99.2 kg (218 lb 11.1 oz) 023 12:50 PM CLINICAL PRODUCT SPECIALIST Height 192 cm (6' 3.59") 03/21/2023 2:01 PM CLINICAL PRODUCT SPECIALIST Body Mass Index 26.91 03/21/2023 2:01 PM CLINICAL PRODUCT SPECIALIST Plan of Treatment Upcoming Encounters Date Type Department Care Team Description 04/16/2023 8:00 AM CLINICAL PRODUCT SPECIALIST Appointment [facility] [address] [place] [address], [place] [address] Chary Frias PA [address] [place] [phone] 04/16/2023 8:40 AM CLINICAL PRODUCT SPECIALIST Appointment [facility] [address] [place] [address], 4th Floor Elevator [address] [place], [place] [id number] Flaco Sauceda MD [address] [place] [phone] 04/16/2023 9:30 AM CLINICAL PRODUCT SPECIALIST Office Visit [facility] - Oncology [address] [place] [address], 7th [place] [address] Anthony Bedoya MD [address] [place] [phone] 04/16/2023 11:45 AM CLINICAL PRODUCT SPECIALIST Infusion [facility] [address] [place] [address], 8th [place] [address] Chary Frias PA [address] [place] [phone] 04/19/2023 3:00 PM CLINICAL PRODUCT SPECIALIST Appointment Cardiopulmonary Center [address] [place] [address] Main [facility], 6th [place] [address] Anthony eBdoya MD [address] [place] [phone] 04/19/2023 4:30 PM CLINICAL PRODUCT SPECIALIST Appointment Diagnostic Center [address] [place] [address], 2nd [place] [address] Anthony Bedoya MD [address] [place] [phone] Health Maintenance Due Date Last Done Comments COVID-19 Vaccination (#1) 02/01/1976 Procedures Procedure Name Priority Date/Time Associated Diagnosis Comments MRI BRAIN W WO CONTRAST Routine 04/11/20 2:47 PM CLINICAL PRODUCT SPECIALIST Clear cell carcinoma of right kidney CT CHEST ABDOMEN PELVIS W WO CONTRAST Routine 03/25/2023 2:53 PM CLINICAL PRODUCT SPECIALIST Clear cell carcinoma of right kidney POC CREATININE Routine 03/25/2023 1:28 PM CLINICAL PRODUCT SPECIALIST URINALYSIS MICROSCOPIC EXAM Routine 03/21/2023 4:58 PM CLINICAL PRODUCT SPECIALIST Clear cell carcinoma of right kidney Erythrocytosis URINALYSIS WITH MICROSCOPIC IF INDICATED Routine 03/21/2023 4:58 PM CLINICAL PRODUCT SPECIALIST Clear cell carcinoma of right kidney Erythrocytosis .CBC Routine 03/21/2023 1:52 PM CLINICAL PRODUCT SPECIALIST Clear cell carcinoma of right kidney Erythrocytosis LACTATE DEHYDROGENASE Routine 03/21/2023 1:52 PM CLINICAL PRODUCT SPECIALIST Clear cell carcinoma of right kidney Erythrocytosis PROTHROMBIN TIME Routine 03/21/2023 1:52 PM CLINICAL PRODUCT SPECIALIST Clear cell carcinoma of right kidney Erythrocytosis THYROID STIMULATING HORMONE Routine 03/21/2023 1:52 PM CLINICAL PRODUCT SPECIALIST Clear cell carcinoma of right kidney Erythrocytosis LIPASE LEVEL Routine 03/21/2023 1:52 PM CLINICAL PRODUCT SPECIALIST Clear cell carcinoma of right kidney Erythrocytosis CORTISOL, TOTAL Routine 03/21/2023 1:52 PM CLINICAL PRODUCT SPECIALIST Clear cell carcinoma of right kidney Erythrocytosis FREE THYROXINE Routine 03/21/2023 1:52 PM CLINICAL PRODUCT SPECIALIST Clear cell carcinoma of right kidney Erythrocytosis PHOSPHORUS LEVEL Routine 03/21/2023 1:52 PM CLINICAL PRODUCT SPECIALIST Clear cell carcinoma of right kidney Erythrocytosis MAGNESIUM LEVEL Routine 03/21/2023 1:52 PM CLINICAL PRODUCT SPECIALIST Clear cell carcinoma of right kidney Erythrocytosis COMPREHENSIVE METABOLIC PANEL Routine 03/21/2023 1:52 PM CLINICAL PRODUCT SPECIALIST Clear cell carcinoma of right kidney Erythrocytosis COMPLETE BLOOD COUNT W/ DIFFERENTIAL Routine 03/21/2023 1:52 PM CLINICAL PRODUCT SPECIALIST Clear cell carcinoma of right kidney Erythrocytosis APTT Routine 03/21/2023 1:52 PM CLINICAL PRODUCT SPECIALIST Clear cell carcinoma of right kidney Erythrocytosis AMYLASE LEVEL Routine 03/21/2023 1:52 PM CLINICAL PRODUCT SPECIALIST Clear cell carcinoma of right kidney Erythrocytosis NM BONE SCAN WHOLE BODY Routine 02/07/20 11:53 AM CDT Kidney, NOS cancer <Unspecified> IR CHEST XRAY 1 VIEW 30 Routine 02/01/20 8:58 AM CDT IR CHEST XRAY 1 VIEW 30 STAT 01/31/20 2:02 PM CDT Pneumothorax IR CHEST XRAY 1 VIEW 30 Routine 01/31/20 1:00 PM CDT IR CHEST XRAY 1 VIEW 30 STAT 01/31/20 9:[address] GUIDED BIOPSY LUNG/MEDIASTINAL 60 Routine 01/30/2023 9:43 AM CDT Multiple nodules of lung Abnormal finding on diagnostic imaging of other abdominal region including retroperitoneum CYTOLOGY IMAGE-GUIDED FNA INTERPRETATION Routine 01/30/2023 9:21 AM CDT Multiple nodules of lung Abnormal finding on diagnostic imaging of other abdominal region including retroperitoneum PATHOLOGY BIOPSY INTERPRETATION Routine 01/30/2023 9:21 AM CDT Multiple nodules of lung Abnormal finding on diagnostic imaging of other abdominal region including retroperitoneum DIFFERENTIAL Routine 01/29/2023 9:26 AM CDT Multiple nodules of lung Abnormal finding on diagnostic imaging of other abdominal region including retroperitoneum .CBC Routine 01/29/2023 9:26 AM CDT Multiple nodules of lung Abnormal finding on diagnostic imaging of other abdominal region including retroperitoneum FRACTIONATED BILIRUBIN Routine 9:26 AM CDT Multiple nodules of lung Abnormal finding on diagnostic imaging of other abdominal region including retroperitoneum TOTAL PROTEIN Routine 01/29/2023 9:26 AM CDT Multiple nodules of lung Abnormal finding on diagnostic imaging of other abdominal region including retroperitoneum ASPARTATE AMINOTRANSFERASE Routine 01/29/2023 9:26 AM CDT Multiple nodules of lung Abnormal finding on diagnostic imaging of other abdominal region including retroperitoneum ALANINE AMINOTRANSFERASE Routine 01/29/2023 9:26 AM CDT Multiple nodules of lung Abnormal finding on diagnostic imaging of other abdominal region including retroperitoneum ALKALINE PHOSPHATASE Routine 01/29/2023 9:26 AM CDT Multiple nodules of lung Abnormal finding on diagnostic imaging of other abdominal region including retroperitoneum ALBUMIN LEVEL Routine 01/29/2023 9:26 AM CDT Multiple nodules of lung Abnormal finding on diagnostic imaging of other abdominal region including retroperitoneum CALCIUM LEVEL Routine 01/29/2023 9:26 AM CDT Multiple nodules of lung Abnormal finding on diagnostic imaging of other abdominal region including retroperitoneum .GLOMERULAR FILTRATION RATE Routine 01/29/2023 9:26 AM CDT Multiple nodules of lung Abnormal finding on diagnostic imaging of other abdominal region including retroperitoneum SERUM CREATININE Routine 01/29/2023 9:26 AM CDT Multiple nodules of lung Abnormal finding on diagnostic imaging of other abdominal region including retroperitoneum ELECTROLYTE PANEL Routine 01/29/2023 9:2 6 AM CDT Multiple nodules of lung Abnormal finding on diagnostic imaging of other abdominal region including retroperitoneum BLOOD UREA NITROGEN Routine 01/29/2023 9 :26 AM CDT Multiple nodules of lung Abnormal finding on diagnostic imaging of other abdominal region including retroperitoneum GLUCOSE LEVEL Routine 01/29/2023 9:26 AM CDT Multiple nodules of lung Abnormal finding on diagnostic imaging of other abdominal region including retroperitoneum ALPHA FETOPROTEIN TUMOR MARKER Routine 01/29/2023 9:26 AM CDT Multiple nodules of lung Abnormal finding on diagnostic imaging of other abdominal region including retroperitoneum LACTATE DEHYDROGENASE Routine 01/29/2023 9:26 AM CDT Multiple nodules of lung Abnormal finding on diagnostic imaging of other abdominal region including retroperitoneum CARCINOEMBRYONIC ANTIGEN Routine 01/29/2023 9:26 AM CDT Multiple nodules of lung Abnormal finding on diagnostic imaging of other abdominal region including retroperitoneum CARBOHYDRATE ANTIGEN 19-9 Routine 01/29/2023 9:26 AM CDT Multiple nodules of lung Abnormal finding on diagnostic imaging of other abdominal region including retroperitoneum APTT Routine 01/29/2023 9:26 AM CDT Multiple nodules of lung Abnormal finding on diagnostic imaging of other abdominal region including retroperitoneum PROTHROMBIN TIME Routine 01/29/2023 9:26 AM CDT Multiple nodules of lung Abnormal finding on diagnostic imaging of other abdominal region including retroperitoneum COMPLETE BLOOD COUNT W/ DIFFERENTIAL Routine 01/29/2023 9:26 AM CDT Multiple nodules of lung Abnormal finding on diagnostic imaging of other abdominal region including retroperitoneum COMPREHENSIVE METABOLIC PANEL Routine 01/29/2023 9:26 AM CDT Multiple nodules of lung Abnormal finding on diagnostic imaging of other abdominal region including retroperitoneum CT CHEST ABDOMEN PELVIS W WO CONTRAST Routine 01/21/2023 2:49 PM CDT Multiple nodules of lung Abnormal finding on diagnostic imaging of other abdominal region including retroperitoneum POC CREATININE Routine 01/21/2023 1:[address] CHEST Routine 01/01/2023 3:49 PM CDT Cancer after 04/14/2022 Results * MRI Brain with and without Contrast (04/11/2023 2:47 PM CLINICAL PRODUCT SPECIALIST) Anatomical Region Laterality Modality Head Magnetic Resonan ce 04/12/2023 10:1 9 AM CLINICAL PRODUCT SPECIALIST Impressions 04/12/2023 12:13 PM CLINICAL PRODUCT SPECIALIST No acute intracranial abnormality. No intracranial metastasis. ACTIONABLE ITEMS/RECOMMENDATIONS: None. I personally reviewed these image(s) along with the resident's/fellow's interpretations, certify that if a procedure was performed I was physically present, and agree with the final report. Narrative 04/12/2023 12:13 PM CLINICAL PRODUCT SPECIALIST FULL RESULT: Examination: MRI BRAIN W WO CONTRAST on 04/11/2023 2:47 PM. CLINICAL HISTORY: Clear cell carcinoma of right kidney INDICATION: Cancer staging or restaging, newly diagnosed metastatic RCC COMPARISON: None. TECHNIQUE: MRI of the brain without and with IV contrast was performed. FINDINGS: Intracranial: There is no worrisome parenchymal or leptomeningeal enhancement. There is no acute hemorrhage or acute infarct. There is no mass effect or midline shift. The ventricles and extra-axial spaces are appropriate for age. There is no sellar or suprasellar abnormality. Bone: There are no suspicious calvarial or skull base lesions. The mastoid air cells are clear. Extracranial: The orbits are unremarkable. The visualized paranasal sinuses are predominantly clear. Procedure Note Omar Lyn MD - 04/12/2023 FULL RESULT: Examination: MRI BRAIN W WO CONTRAST on 04/11/2023 2:47 PM. CLINICAL HISTORY: Clear cell carcinoma of right kidney INDICATION: Cancer staging or restaging, newly diagnosed metastatic RCC COMPARISON: None. TECHNIQUE: MRI of the brain without and with IV contrast was performed. FINDINGS: Intracranial: There is no worrisome parenchymal or leptomeningeal enhancement. There is no acute hemorrhage or acute infarct. There is no mass effect or midline shift. The ventricles and extra-axial spaces are appropriate for age. There is no sellar or suprasellar abnormality. Bone: There are no suspicious calvarial or skull base lesions. The mastoid air cells are clear. Extracranial: The orbits are unremarkable. The visualized paranasal sinuses are predominantly clear. IMPRESSION: No acute intracranial abnormality. No intracranial metastasis. ACTIONABLE ITEMS/RECOMMENDATIONS: None. I personally reviewed these image(s) along with the resident's/fellow'sinterpretations, certify that if a procedure was performed I wasphysically present, and agree with the final report. Anthony Bedoya MD IMG MRI ORDERABLES * CT Chest Abdomen Pelvis with and without Contrast (03/25/2023 2:53 PM CLINICAL PRODUCT SPECIALIST) Only the most recent of2 resultswithin the time period is included. Anatomical Region Laterality Modality Abdomen, Pelvis, Chest Computed Tomography 03/25/2023 3:14 PM CLINICAL PRODUCT SPECIALIST Impressions 03/25/2023 7:19 PM CLINICAL PRODUCT SPECIALIST Mild interval enlargement of the bilateral pulmonary metastases from prior CT 01/21/2023. Mild interval enlargement of several small volume mediastinal, pulmonary hilar, left supraclavicular, retroperitoneal and right internal mammary nodes compared to prior CT 01/21/2023, concerning for bertha metastases. The exophytic right renal upper pole malignancy is similar or slightly enlarged from prior CT 01/21/2023 with redemonstrated tumor thrombi involving the main and accessory right renal veins and extending to the adjacent juxtarenal and retrohepatic inferior vena cava. ACTIONABLE ITEMS/RECOMMENDATIONS: Please see the impression. Narrative 03/25/2023 7:19 PM CLINICAL PRODUCT SPECIALIST FULL RESULT: Examination: CT CHEST ABDOMEN PELVIS W WO CONTRAST on 03/25/2023 2:53 PM. 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 Technique: CT CHEST ABDOMEN PELVIS W WO CONTRAST. Findings: CHEST: Lungs and Pleura: Mild interval enlargement of the bilateral lung metastases. For example, 3 x 2.2 cm right upper lobe metastasis (16/54) compared to 2.4 x 2 cm, inventory representative 2.1 x 1.9 cm left upper lobe metastasis (16/32) compared to 1.9 x 1.7 cm on 01/21/2023. No pleural effusion. Cardiomediastinum: The heart is normal in size. No pericardial effusion. Lymph nodes: Mild interval enlargement of the several small volume mediastinal, left supraclavicular, pulmonary hilar and a tiny right internal mammary nodes, concerning for bertha metastases. For example, 1.3 cm perigastric node (14/47) compared to 1 cm on 01/21/2023. Others: Diffuse mild distention of the thoracic esophagus which shows mild mural thickening which may be inflammatory/infectious or reflux esophagitis and correlated clinically. Enlarged subareolar soft tissue/breast buds, likely due to gynecomastia. ABDOMEN AND PELVIS: Hepatobiliary: Again seen right renal upper pole mass indenting or involving the right posterior inferior hepatic surface. Indeterminate tiny irregular 0.5 cm right posterior hepatic hypodense lesion () this probably similar from prior CT, may be benign, however may be followed. No definite suspicious hepatic parenchymal lesion. No biliary dilatation. No cholecystitis. Spleen: Mild splenomegaly measuring 13.8 cm craniocaudally, with mild enlargement compared to 12.8 cm on 09/20/2022. Punctate calcific nodule/granuloma in the anterior spleen (). Pancreas: No mass or ductal dilatation. Adrenal Glands: Right adrenal is not seen separate from the right renal malignancy. Unremarkable left adrenal. Kidneys, Ureters, Bladder: The exophytic right renal upper pole malignancy measuring 13.3 x 9.4 cm () is similar or slightly enlarged 1.19 x 9.2 cm on 01/21/2023. Again seen tumor thrombus involving the main right renal vein (15/257, 260). There is also another new irregular tubular heterogenous enhancement extending from the right renal mass to the posterior portion of the inferior vena cava (13/253, 251, 236), likely tumor thrombus in the second or accessory right renal vein extending to the inferior vena cava. There is also contiguous extension/invasion of the superomedial portion of the mass versus tumor thrombus involving the lower retrohepatic inferior vena cava (15/192), with appearance similar from prior CT scan accounting for technical differences and phase of contrast. Again seen perinephric hyperemia with multiple tortuous surrounding vessels. Subcentimeter indeterminate left renal upper pole hypodensity may be benign/cyst and followed (). Underdistended urinary bladder limiting its evaluation. Gastrointestinal Tract: No intestinal obstruction. Colonic diverticulosis. Slow intestinal transit with fecalization of several distal small bowel. 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 Prostate is nonenlarged. Unremarkable seminal vesicles. Peritoneum/Retroperitoneum: No ascites. Lymph Nodes: Mild enlargement of the multiple small volume retroperitoneal nodes concerning for bertha metastases. For example, the 1.6 x 0.9 cm node () compared to 1.2 x 0.8 cm previously. MUSCULOSKELETAL: No suspicious skeletal lesion. Again seen 2.9 cm intramuscular lipoma or lipomatous lesion in the left paraspinal musculature of the back (15/41). Procedure Note Jose Funes MD - 03/25/2023 FULL RESULT: Examination: CT CHEST ABDOMEN PELVIS W WO CONTRAST on 03/25/2023 2:53PM. 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 Technique: CT CHEST ABDOMEN PELVIS W WO CONTRAST. Findings: CHEST: Lungs and Pleura: Mild interval enlargement of the bilateral lungmetastases. For example, 3 x 2.2 cm right upper lobe metastasis (16/54)compared to 2.4 x 2 cm, inventory representative 2.1 x 1.9 cm left upper lobemetastasis (16/32) compared to 1.9 x 1.7 cm on 01/21/2023. No pleuraleffusion. Cardiomediastinum: The heart is normal in size. No pericardial effusion. Lymph nodes: Mild interval enlargement of the several small volumemediastinal, left supraclavicular, pulmonary hilar and a tiny rightinternal mammary nodes, concerning for bertha metastases. For example, 1.3cm perigastric node (14/47) compared to 1 cm on 01/21/2023. Others: Diffuse mild distention of the thoracic esophagus which shows mild muralthickening which may be inflammatory/infectious or reflux esophagitis andcorrelated clinically. Enlarged subareolar soft tissue/breast buds, likely due to gynecomastia. ABDOMEN AND PELVIS: Hepatobiliary: Again seen right renal upper pole mass indenting orinvolving the right posterior inferior hepatic surface. Indeterminate tinyirregular 0.5 cm right posterior hepatic hypodense lesion (10/46) thisprobably similar from prior CT, may be benign, however may be followed. Nodefinite suspicious hepatic parenchymal lesion. No biliary dilatation. Nocholecystitis. Spleen: Mild splenomegaly measuring 13.8 cm craniocaudally, with mildenlargement compared to 12.8 cm on 09/20/2022. Punctate calcificnodule/granuloma in the anterior spleen (61). Pancreas: No mass or ductal dilatation. Adrenal Glands: Right adrenal is not seen separate from the right renalmalignancy. Unremarkable left adrenal. Kidneys, Ureters, Bladder: The exophytic right renal upper pole malignancymeasuring 13.3 x 9.4 cm () is similar or slightly enlarged 1.19 x 9.2cm on 01/21/2023. Again seen tumor thrombus involving the main right renalvein (15/257, 260). There is also another new irregular tubularheterogenous enhancement extending from the right renal mass to theposterior portion of the inferior vena cava (13/253, 251, 236), likelytumor thrombus in the second or accessory right renal vein extending tothe inferior vena cava. There is also contiguous extension/invasion of thesuperomedial portion of the mass versus tumor thrombus involving the lowerretrohepatic inferior vena cava (15/192), with appearance similar fromprior CT scan accounting for technical differences and phase of contrast.Again seen perinephric hyperemia with multiple tortuous surroundingvessels. Subcentimeter indeterminate left renal upper pole hypodensity may bebenign/cyst and followed (). Underdistended urinary bladder limitingits evaluation. Gastrointestinal Tract: No intestinal obstruction. Colonic diverticulosis.Slow intestinal transit with fecalization of several distal small bowel. 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 Prostate is nonenlarged.Unremarkable seminal vesicles. Peritoneum/Retroperitoneum: No ascites. Lymph Nodes: Mild enlargement of the multiple small volume retroperitonealnodes concerning for bertha metastases. For example, the 1.6 x 0.9 cm node() compared to 1.2 x 0.8 cm previously. MUSCULOSKELETAL: No suspicious skeletal lesion. Again seen 2.9 cm intramuscular lipoma orlipomatous lesion in the left paraspinal musculature of the back(). IMPRESSION: Mild interval enlargement of the bilateral pulmonary metastases from priorCT 01/21/2023. Mild interval enlargement of several small volume mediastinal, pulmonaryhilar, left supraclavicular, retroperitoneal and right internal mammarynodes compared to prior CT 01/21/2023, concerning for bertha metastases. The exophytic right renal upper pole malignancy is similar or slightlyenlarged from prior CT 01/21/2023 with redemonstrated tumor thrombiinvolving the main and accessory right renal veins and extending to theadjacent juxtarenal and retrohepatic inferior vena cava. ACTIONABLE ITEMS/RECOMMENDATIONS: Please see the impression. Anthony Bedoya MD IMG CT ORDERABLES * POC Creatinine (03/25/2023 1:28 PM CLINICAL PRODUCT SPECIALIST) Only the most recent of2 resultswithin the time period is included. POC Creatinine 0.9 0.6 - 1.3 mg/dL 03/25/2023 1:29 PM [facility] Comment:Medications, especia lly hydroxyurea or supplements, such as ascorbate, can interfere with test results causing a falsely and significantly higher result than expected. If a problem is suspected with a patient's result, a sample should be sent to the laboratory for confirmatory testing. POC eGFR 103 >=60 mL/min/1.7 3 sq. m 03/25/2023 1:29 PM [facility] Comment: The eGFRcr is calculated with the 2020 CKD-EPI creatinine equation using creatinine, patient's age, and sex for adults 18 years of age and older. Other factors, especially muscle mass, may affect accuracy and need to be considered. According to the Kidney Disease: Improving Global Outcomes (KDIGO) CKD Work Group 2012 Clinical Practice Guideline, chronic kidney disease (CKD) is defined as the abnormalities of kidney structure or function, present for more than 3 months, with implications for health. CKD should be classified by cause, GFR category, and albuminuria category. KDIGO guidelines provide the following GFR categories. Stage / Description / GFR mL/min/1.73 m2: G1* / Normal or high / >= 90 G2* / Mildly decreased / 60-89 G3a / Mildly to moderately decreased / 45-59 G3b / Moderately to severely decreased / 30-44 G4 / Severely decreased / 15-29 G5 / Kidney failure / <15 *In the absence of evidence of kidney damage, neither G1 nor G2 fulfill criteria for CKD. Blood 03/25/2023 1:28 PM CLINICAL PRODUCT SPECIALIST 03/25/2023 1:29 PM CLINICAL PRODUCT SPECIALIST [facility] - 03/25/2023 1:29 PM CLINICAL PRODUCT SPECIALIST Method description: The i-STAT is an analyzer used for in vitro quantification of various analytes in whole blood. The device uses a single disposable cartridge which contains microfabricated sensors, a calibration solution, fluidics system, and a waste chamber. Each test cartridge contains chemically sensitive biosensors on a silicon chip that are configured to perform specific tests. The microfabricated sensors measure analyte concentration by an electrochemical assay. Anthony Bedoya MD POCT ORDERABLES - DE VICE Performing Organization Address [facility]/ZIP Co de Phone Number [facility] [address], [facility] [address] [place] [address] * (ABNORMAL) Urinalysis Microscopic Exam (03/21/2023 4:58 PM CLINICAL PRODUCT SPECIALIST) Urine Mucous Not Seen Not Seen, Trace /HPF 03/21/2023 6:01 PM CLINICAL PRODUCT SPECIALIST [facility] Urine Bacteria Not Seen Not Seen /HPF 03/21/2023 6:01 PM CLINICAL PRODUCT SPECIALIST [facility] Urine Squamous Epithelial Cells Not Seen Not Seen, OCC, Rare /HPF 03/21/2023 6:01 PM CLINICAL PRODUCT SPECIALIST [facility] Urine Amorphous Crystal OCC(A) Not Seen /HPF 03/21/2023 6:01 PM CLINICAL PRODUCT SPECIALIST [facility] Urine WBC <1 <=2 /HPF 03/21/2023 6:01 PM CLINICAL PRODUCT SPECIALIST [facility] Urine RBC 5(H) <=2 /HPF 03/21/2023 6:01 PM CLINICAL PRODUCT SPECIALIST [facility] Urine Voided urine specimen / Unknown Non-blood Collection / Unknown 03/21/2023 4:58 PM CLINICAL PRODUCT SPECIALIST 03/21/2023 5:00 PM CLINICAL PRODUCT SPECIALIST Chary MARIA LAB BLOOD ORDERABL ES [facility] Unless otherwise noted, all lab tests performed by: Division of Pathology and Laboratory Medicine [address] [place] [id number] * (ABNORMAL) Urinalysis w/Microscopic if Indicated (03/21/2023 4:58 PM CLINICAL PRODUCT SPECIALIST) Urine Appearance Clear Clear 03/21/20 5:38 PM CLINICAL PRODUCT SPECIALIST [facility] Urine Color Straw Colorless, Straw, Yellow, Dark Yellow, Straw-Yellow 03/21/2023 5:38 PM CLINICAL PRODUCT SPECIALIST [facility] Urine Specific [place] 1.018 1.003 - 1.035 03/21/2023 5:38 PM CLINICAL PRODUCT SPECIALIST [facility] Urine pH 5.5 5.0 - 9.0 03/21/2023 5:38 PM CLINICAL PRODUCT SPECIALIST [facility] Urine Glucose Negative Negative mg/dL 03/21/2023 5:38 PM CLINICAL PRODUCT SPECIALIST [facility] Urine Ketones Negative Negative mg/dL 03/21/2023 5:38 PM CLINICAL PRODUCT SPECIALIST [facility] Urine Blood Small(A) Negative 03/21/2023 5:38 PM CLINICAL PRODUCT SPECIALIST [facility] Urine Protein Negative Negative mg/dL 03/21/2023 5:38 PM CLINICAL PRODUCT SPECIALIST [facility] Urine Bilirubin Negative Negative 5:38 PM CLINICAL PRODUCT SPECIALIST [facility] Urine Urobilinogen Negative Negative 03/21/2023 5:38 PM CLINICAL PRODUCT SPECIALIST [facility] Urine Nitrite Negative Negative 03/21/2023 5:38 PM CLINICAL PRODUCT SPECIALIST [facility] Urine Leukocyte Esterase Negative Negative 03/21/2023 5:38 PM CLINICAL PRODUCT SPECIALIST [facility] Urine Voided urine specimen / Unknown Non-blood Collection / Unknown 03/21/2023 4:58 PM CLINICAL PRODUCT SPECIALIST 03/21/2023 5:00 PM CLINICAL PRODUCT SPECIALIST Narrative [facility] - 03/21/2023 5:38 PM CLINICAL PRODUCT SPECIALIST Some reporting parameters within the Urinalysis test have changed due to the implementation of new instrumentation in the Main [place], allowing greater sensitivity of measurement. Urinalysis results reported by the [facility] using existing instrumentation, as well as Urinalysis testing performed manually or by back-up methodology at the main [place], will remain relatively unchanged. New reporting parameters and units will now be reported for all campuses. Chary MARIA URINE ORDERABLES [facility] Unless otherwise noted, all lab tests performed by: Division of Pathology and Laboratory Medicine [address] [place] [address] [place] [address] * (ABNORMAL) .CBC (03/21/2023 1:52 PM CLINICAL PRODUCT SPECIALIST) Only the most recent of2 resultswithin the time period is included. White Blood Cell 8.4 4.1 - 10.5 K/uL 03/21/2023 3:10 PM [facility] Red Blood Cell 8.03(H) 4.30 - 6.04 M/uL 03/21/2023 3:10 PM [facility] Hemoglobin 19.1(H) 13.3 - 17.4 g/dL 03/21/2023 3:10 PM [facility] Hematocrit 60.6(H) 39.5 - 51.8 % 03/21/2023 3:10 PM [facility] Mean Cell Volume 76(L) 82 - 99 fL 03/21/2023 3:10 PM [facility] Mean Cell Hemoglobin 23.8(L) 26.6 - 33.2 pg 03/21/2023 3:10 PM [facility] Mean Cell Hemoglobin Concentration 31.5 31.1 - 35.2 g/dL 03/21/2023 3:10 PM [facility] RDW-SD 49.1 37.5 - 49.7 fL 03/21/2023 3:10 PM [facility] Red Cell Diameter Width 20.7(H) 11.6 - 15.5 % 03/21/2023 3:10 PM [facility] Platelet 262 160 - 397 K/uL 03/21/2023 3:10 PM [facility] Mean Platelet Volume 9.2 9.1 - 12.6 fL 03/21/2023 3:10 PM [facility] INRBC 0.0 0.0 - 0.1 /100 WBC 03/21/2023 3:10 PM [facility] Comment: The INRBC (instrument NRBC) value reflects the enumeration of nucleated red blood cells contained in a 200uL sample of whole blood analyzed by the instrument. This value may differ from the NRBC value reported in a manual differential, which is based on a 100 cell differential. Neutrophil % 56.5 43.2 - 72.7 % 03/21/2023 3:10 PM [facility] Lymphocyte % 27.9 16.8 - 46.2 % 03/21/2023 3:10 PM [facility] Monocyte % 12.0 5.1 - 12.5 % 03/21/2023 3:10 PM CLINICAL PRODUCT SPECIALIST [facility] Eosinophil % 2.4 0.4 - 6.3 % 03/21/2023 3:10 PM CLINICAL PRODUCT SPECIALIST [facility] Basophil % 1.0 0.2 - 1.4 % 03/21/2023 3:10 PM CLINICAL PRODUCT SPECIALIST [facility] IGRE % 0.2 0.1 - 1.5 % 03/21/2023 3:10 PM CLINICAL PRODUCT SPECIALIST [facility] Comment:The IGRE% includes M etamyelocytes, Myelocytes and Promyelocytes. Neutrophil Abs 4.72 1.95 - 7.25 K/uL 03/21/2023 3:10 PM CLINICAL PRODUCT SPECIALIST [facility] Lymphocyte Abs 2.33 1.01 - 3.24 K/uL 03/21/2023 3:10 PM CLINICAL PRODUCT SPECIALIST [facility] Monocyte Abs 1.00(H) 0.24 - 0.85 K/uL 03/21/2023 3:10 PM CLINICAL PRODUCT SPECIALIST [facility] Eosinophil Abs 0.20 0.02 - 0.50 K/uL 03/21/2023 3:10 PM CLINICAL PRODUCT SPECIALIST [facility] Basophil Abs 0.08 0.02 - 0.09 K/uL 03/21/2023 3:10 PM CLINICAL PRODUCT SPECIALIST [facility] IG Abs 0.02 0.01 - 0.12 K/uL 03/21/2023 3:10 PM CLINICAL PRODUCT SPECIALIST [facility] Blood Peripheral blood specimen / Unknown Venipuncture / Unknown 03/21/2023 1:52 PM CLINICAL PRODUCT SPECIALIST 03/21/2023 1:53 PM CLINICAL PRODUCT SPECIALIST Chary MARIA LAB BLOOD ORDERABL ES [facility] Unless otherwise noted, all lab tests performed by: Division of Pathology and Laboratory Medicine [address] [place] [id number] * (ABNORMAL) Comprehensive Metabolic Panel (03/21/2023 1:52 PM CLINICAL PRODUCT SPECIALIST) Bilirubin Total 0.4 <=1.2 mg/dL 03/21/2023 3:06 PM CLINICAL PRODUCT SPECIALIST [facility] Comment: Indocyanine Green (ICG) may cause falsely elevated bilirubin results. Total and direct bilirubin must not be measured from samples containing indocyanine green. False elevation of total bilirubin can be seen in patients with IgG concentrations above 28 g/L. This result was previously suppressed from the chart. Bilirubin Direct <0.2 <=0.3 mg/dL 03/21/2023 3:06 PM [facility] Comment: Indocyanine Green (ICG) may cause falsely elevated bilirubin results. Total and direct bilirubin must not be measured from samples containing indocyanine green. This result was previously suppressed from the chart. Bilirubin Indirect 2022 3:06 PM [facility] Comment:Unable to calculate Indirect Bilirubin result due to some parameters are outside reportable range eGFR 80 >=60 mL/min/1. 73 sq. m 03/21/2023 3:06 PM [facility] Comment: The eGFRcr is calculated with the 2020 CKD-EPI creatinine equation using creatinine, patient's age, and sex for adults 18 years of age and older. Other factors, especially muscle mass, may affect accuracy and need to be considered. According to the Kidney Disease: Improving Global Outcomes (KDIGO) CKD Work Group 2012 Clinical Practice Guideline, chronic kidney disease (CKD) is defined as the abnormalities of kidney structure or function, present for more than 3 months, with implications for health. CKD should be classified by cause, GFR category, and albuminuria category. KDIGO guidelines provide the following GFR categories. Stage / Description / GFR mL/min/1.73 m2: G1* / Normal or high / >= 90 G2* / Mildly decreased / 60-89 G3a / Mildly to moderately decreased / 45-59 G3b / Moderately to severely decreased / 30-44 G4 / Severely decreased / 15-29 G5 / Kidney failure / <15 *In the absence of evidence of kidney damage, neither G1 nor G2 fulfill criteria for CKD. Tot Protein 7.7 6.4 - 8.3 gm/dL 03/21/2023 3:06 PM [facility] Comment:This result was prev iously suppressed from the chart. Calcium Level Total 9.3 8.2 - 10.2 mg/dL 03/21/2023 3:06 PM [facility] Comment:This result was prev iously suppressed from the chart. Alkaline Phosphatase 180(H) 40 - 129 U/L 03/21/2023 3:06 PM [facility] Comment:This result was prev iously suppressed from the chart. Albumin Level 3.3(L) 3.5 - 5.2 gm/dL 03/21/2023 3:06 PM [facility] Comment:This result was prev iously suppressed from the chart. AST 16 <=40 U/L 03/21/2023 3:06 PM [facility] Comment:This result was prev iously suppressed from the chart. ALT 15 <=41 U/L 03/21/2023 3:06 PM [facility] Comment:This result was prev iously suppressed from the chart. Sodium Level 135(L) 136 - 145 mmol/L 03/21/2023 3:06 PM [facility] Comment:This result was prev iously suppressed from the chart. Potassium Level 4.3 3.4 - 4.5 mmol/L 03/21/2023 3:06 PM [facility] Comment:This result was prev iously suppressed from the chart. Chloride 95(L) 98 - 107 mmol/L 03/21/2023 3:06 PM [facility] Comment:This result was prev iously suppressed from the chart. CO2 30(H) 22 - 29 mmol/L 03/21/2023 3:06 PM [facility] Comment:This result was prev iously suppressed from the chart. Anion Gap 10 4 - 14 mmol/L 03/21/2023 3:06 PM [facility] Comment:This result was prev iously suppressed from the chart. Creatinine 1.11 0.67 - 1.17 mg/dL 03/21/2023 3:06 PM [facility] Comment:This result was prev iously suppressed from the chart. BUN 18 6 - 23 mg/dL 03/21/2023 3:06 PM [facility] Comment:This result was prev iously suppressed from the chart. Glucose Level 121(H) 70 - 99 mg/dL 03/21/2023 3:06 PM [facility] Comment: Effective 11/30/15, the glucose reference intervals have been updated based on [place] [employer] guidelines (Standards of Medical Care in Diabetes 2016. Diabetes Care 2016; 39: S13-S22). Fasting blood glucose: Normal: 70-99 mg/dL Impaired fasting glucose (increased risk for diabetes or pre-diabetes): 100-125 mg/dL Diabetes mellitus: >/=126 mg/dL Random blood glucose: Normal: 70-199 mg/dL Note: Random glucose >100 mg/dL is associated with increased risk for diabetes. This result was previously suppressed from the chart. Blood Peripheral blood specimen / Unknown Venipuncture / Unknown 03/21/2023 1:52 PM CLINICAL PRODUCT SPECIALIST 03/21/2023 1:53 PM CLINICAL PRODUCT SPECIALIST Chary MARIA LAB BLOOD ORDERABL ES Performing Organization Address City/[facility] de Phone Number [facility] Unless otherwise noted, all lab tests performed by: Division of Pathology and Laboratory Medicine [address] [place] [id number] * (ABNORMAL) aPTT (03/21/2023 1:52 PM CLINICAL PRODUCT SPECIALIST) Only the most recent of2 resultswithin the time period is included. Activated PTT 35.6(H) 24.1 - 35.5 second(s) 03/21/2023 2:44 PM CLINICAL PRODUCT SPECIALIST [facility] Blood Peripheral blood specimen / Unknown Venipuncture / Unknown 03/21/2023 1:52 PM CLINICAL PRODUCT SPECIALIST 03/21/2023 1:53 PM CLINICAL PRODUCT SPECIALIST Chary MARIA LAB BLOOD ORDERABL ES Performing Organization Address City/[facility] Co de Phone Number [facility] Unless otherwise noted, all lab tests performed by: Division of Pathology and Laboratory Medicine [address] [place] [id number] * Prothrombin Time with INR (03/21/2023 1:52 PM CLINICAL PRODUCT SPECIALIST) Only the most recent of2 resultswithin the time period is included. Prothrombin Time 14.2 11.9 - 14.5 second(s) 03/21/2023 2:41 PM CLINICAL PRODUCT SPECIALIST [facility] International Normalization Ratio 1.10 0.87 - 1.12 03/21/2023 2:41 PM CLINICAL PRODUCT SPECIALIST [facility] Blood Peripheral blood specimen / Unknown Venipuncture / Unknown 03/21/2023 1:52 PM CLINICAL PRODUCT SPECIALIST 03/21/2023 1:53 PM CLINICAL PRODUCT SPECIALIST Chary MARIA LAB BLOOD ORDERABL ES [facility] Unless otherwise noted, all lab tests performed by: Division of Pathology and Laboratory Medicine [address] [place] [id number] * TSH (03/21/2023 1:52 PM CLINICAL PRODUCT SPECIALIST) Thyroid Stimulating Hormone 1.96 0.27 - 4.20 mcunit/mL 03/21/2023 3:06 PM CLINICAL PRODUCT SPECIALIST [facility] Blood Peripheral blood specimen / Unknown Venipuncture / Unknown 03/21/2023 1:52 PM CLINICAL PRODUCT SPECIALIST 03/21/2023 1:53 PM CLINICAL PRODUCT SPECIALIST Chary MARIA LAB BLOOD ORDERABL ES Performing Organization Address City/[facility]/ZIP Co de Phone Number [facility] Unless otherwise noted, all lab tests performed by: Division of Pathology and Laboratory Medicine [address] [place] [id number] * Free T4 (03/21/2023 1:52 PM CLINICAL PRODUCT SPECIALIST) T4 (Thyroxine) Free 1.61 0.93 - 1.70 ng/dL 03/21/2023 3:06 PM CLINICAL PRODUCT SPECIALIST [facility] Blood Peripheral blood specimen / Unknown Venipuncture / Unknown 03/21/2023 1:52 PM CLINICAL PRODUCT SPECIALIST 03/21/2023 1:53 PM CLINICAL PRODUCT SPECIALIST Chary MARIA LAB BLOOD ORDERABL ES [facility] Unless otherwise noted, all lab tests performed by: Division of Pathology and Laboratory Medicine [address] [place] [id number] * Phosphorus Level (03/21/2023 1:52 PM CLINICAL PRODUCT SPECIALIST) Phosphorus Level 3.8 2.5 - 4.5 mg/dL 03/21/2023 3:06 PM CLINICAL PRODUCT SPECIALIST [facility] Blood Peripheral blood specimen / Unknown Venipuncture / Unknown 03/21/2023 1:52 PM CLINICAL PRODUCT SPECIALIST 03/21/2023 1:53 PM CLINICAL PRODUCT SPECIALIST Chary MARIA LAB BLOOD ORDERABL ES Performing Organization Address [facility] de Phone Number [facility] Unless otherwise noted, all lab tests performed by: Division of Pathology and Laboratory Medicine [address] [place] [id number] * Magnesium Level (03/21/2023 1:52 PM CLINICAL PRODUCT SPECIALIST) Magnesium Level 2.2 1.6 - 2.6 mg/dL 03/21/2023 3:06 PM CLINICAL PRODUCT SPECIALIST [facility] Blood Peripheral blood specimen / Unknown Venipuncture / Unknown 03/21/2023 1:52 PM CLINICAL PRODUCT SPECIALIST 03/21/2023 1:53 PM CLINICAL PRODUCT SPECIALIST Chary MARIA LAB BLOOD ORDERABL ES Performing Organization Address [facility] de Phone Number [facility] Unless otherwise noted, all lab tests performed by: Division of Pathology and Laboratory Medicine [address] [place] [id number] * Lipase Level (03/21/2023 1:52 PM CLINICAL PRODUCT SPECIALIST) Lipase Level 13 13 - 60 U/L 03/21/2023 3:06 PM CLINICAL PRODUCT SPECIALIST [facility] Blood Peripheral blood specimen / Unknown Venipuncture / Unknown 03/21/2023 1:52 PM CLINICAL PRODUCT SPECIALIST 03/21/2023 1:53 PM CLINICAL PRODUCT SPECIALIST Narrative [facility] - 03/21/2023 3:06 PM CLINICAL PRODUCT SPECIALIST Reference range established based on adult population Chary MARIA LAB BLOOD ORDERABL ES Performing Organization Address City/[facility] Co de Phone Number [facility] Unless otherwise noted, all lab tests performed by: Division of Pathology and Laboratory Medicine [address] [place] [id number] * (ABNORMAL) LDH (03/21/2023 1:52 PM CLINICAL PRODUCT SPECIALIST) Only the most recent of2 resultswithin the time period is included. LDH 240(H) 135 - 225 U/L 03/21/2023 3:15 PM CLINICAL PRODUCT SPECIALIST [facility] Comment:Specimen is hemolyze d. Results may be falsely elevated. Repeat test if needed. Blood Peripheral blood specimen / Unknown Venipuncture / Unknown 03/21/2023 1:52 PM CLINICAL PRODUCT SPECIALIST 03/21/2023 1:53 PM CLINICAL PRODUCT SPECIALIST Narrative [facility] - 03/21/2023 3:15 PM CLINICAL PRODUCT SPECIALIST Results greater than 1651 U/L may not be reliable due to matrix effect with extended dilution as it exceeds the learning analyst's recommended limit. Caution should be exercised when interpreting such values and done in conjunction with clinical context. Chary MARIA LAB BLOOD ORDERABL ES [facility] Unless otherwise noted, all lab tests performed by: Division of Pathology and Laboratory Medicine [address] [place] [id number] * Cortisol, Total (03/21/2023 1:52 PM CLINICAL PRODUCT SPECIALIST) Pathologist [facility] Cortisol 8.37 mcg/dL 03/21/2023 3:0 6 PM CLINICAL PRODUCT SPECIALIST [facility] Blood Peripheral blood specimen / Unknown Venipuncture / Unknown 03/21/2023 1:52 PM CLINICAL PRODUCT SPECIALIST 03/21/2023 1:53 PM CLINICAL PRODUCT SPECIALIST Narrative [facility] - 03/21/2023 3:06 PM CLINICAL PRODUCT SPECIALIST Cortisol reference intervals are established for the morning hours from 6-10 am and afternoon hours 4-8 pm. Due to circadian rhythm of cortisol levels in serum and plasma, the sample collection time must be noted. Caution should be exercised when interpreting such values and done in conjunction with clinical context. Serum Cortisol Reference Ranges for >/= 21 years old: Morning (6-10 am): 4.82 - 19.5 mcg/dL Afternoon (4-8 pm): 2.47 - 11.9 mcg/dL Chary MARIA LAB BLOOD ORDERABL ES [facility] Unless otherwise noted, all lab tests performed by: Division of Pathology and Laboratory Medicine [address] [place] [id number] * Amylase Level (03/21/2023 1:52 PM CLINICAL PRODUCT SPECIALIST) Amylase Level 37 28 - 100 U/L 03/21/2023 3:06 PM CLINICAL PRODUCT SPECIALIST [facility] Blood Peripheral blood specimen / Unknown Venipuncture / Unknown 03/21/2023 1:52 PM CLINICAL PRODUCT SPECIALIST 03/21/2023 1:53 PM CLINICAL PRODUCT SPECIALIST Chary MARIA LAB BLOOD ORDERABL ES Performing Organization Address [facility] Co de Phone Number [facility] Unless otherwise noted, all lab tests performed by: Division of Pathology and Laboratory Medicine [address] [place] [id number] * NM Bone Scan Whole Body (02/06/2023 11:53 AM CDT) Anatomical Region Laterality Modality Whole Body Nuclear Medicine 02/06/2023 1:44 PM CDT Impressions 02/06/2023 1:46 PM CDT No scintigraphic evidence of active osseous metastases ACTIONABLE ITEMS/RECOMMENDATIONS: None. Narrative 02/06/2023 1:46 PM CDT FULL RESULT: Examination: Whole-Body Bone Scan, 02/06/2023 11:53 AM Clinical History: 53-year-old male with recently diagnosed metastatic renal cell carcinoma Indication: Staging/evaluation for osseous metastases Comparison: No prior bone scans are available for comparison at time dictation Technique: Following the intravenous administration of 20.3 mCi of technetium- 99m MDP, anterior and posterior delayed whole body planar images were acquired. Additional views of the upper head were obtained in anterior posterior planes with arms raised above Findings: No focal suspicious sites of activity within osseous structures. Bilateral kidneys are visualized with activity in the bladder; there appears to be subtle disruption of normal right renal morphology, compatible with mass seen on January 2023 CT. Procedure Note Brian Graham MD - 02/06/2023 FULL RESULT: Examination: Whole-Body Bone Scan, 02/06/2023 11:53 AM Clinical History: 53-year-old male with recently diagnosed metastaticrenal cell carcinoma Indication: Staging/evaluation for osseous metastases Comparison: No prior bone scans are available for comparison at timedictation Technique: Following the intravenous administration of 20.3 mCi oftechnetium-99m MDP, anterior and posterior delayed whole body planarimages were acquired. Additional views of the upper head were obtained inanterior posterior planes with arms raised above Findings: No focal suspicious sites of activity within osseous structures.Bilateral kidneys are visualized with activity in the bladder; thereappears to be subtle disruption of normal right renal morphology,compatible with mass seen on January [address] CT[address] IMPRESSION: No scintigraphic evidence of active osseous metastases ACTIONABLE ITEMS/RECOMMENDATIONS: None. Katiana Felton MD IMG NM ORDERABLES * IR CHEST XRAY 1 VIEW (2023 8:58 AM CDT) Only the most recent of4 resultswithin the time period is included. Anatomical Region Laterality Modality Chest Digital Radiogra phy Narrative 02/04/2023 1:32 PM CDT Date of Procedure: 01/31/23 Attending Physician: Donnell Us MD Shell [employer] Bonder: None Pre Procedure Diagnosis: Post Procedure Diagnosis: Unchanged Indication: Evaluate stability of post-biopsy pneumothorax. Title of Procedure: Follow-up Chest X-Ray. A single inspiratory chest radiograph was obtained and compared to the prior exam. It demonstrated decrease of the previously noted right pneumothorax. The remainder of the chest is stable. Disposition: Home Plan: No further follow-up with IR required. The patient was discharged home in stable condition. Impression: Marked improvement in right pneumothorax. Barbie MARIA IMG IR ORDERABLES * IR CT GUIDED BIOPSY LUNG/MEDIASTINAL (01/30/2023 9:43 AM CDT) Anatomical Region Laterality Modality Chest Computed Tomogra phy Narrative 2023 7:50 AM CDT Table formatting from the original result was not included. Date of Procedure: 01/30/23 Attending Physician: Meir London MD Shell Mold Bonder: None Pre Procedure Diagnosis: Multiple nodules of lung; Abnormal finding on diagnostic imaging of other abdominal region including retroperitoneum Post Procedure Diagnosis: Unchanged Indication: Evaluate for metastasis Protocol Number: N/A Title of Procedure: Percutaneous CT-Guided Biopsy Operative Findings: 1. Percutaneous image-guided biopsy of 2.6 cm right upper lobe lung lesion. 2. Pneumothorax noted on follow-up chest x-rays: Conservative management Consent: The procedure, risks, indications and alternatives were explained. All questions were answered and informed consent was obtained. I have reviewed the history and physical dictated by the mid-level practitioner/fellow. Sedation/Anesthesia: Moderate sedation for pain control and anxiety was administered by a dedicated nurse under my supervision. There was continuous monitoring of oxygen saturation, heart rate and intermittent monitoring of blood pressure during the procedure. Medication given was midazolam and fentanyl. I was present for the administration of the medications indicated above. Procedure Events Event Event Time Sedation Start 01/30/2023 9:07 AM Sedation End 01/30/2023 9:37 AM Procedure in Detail: A time out was performed prior to the start of the procedure and the correct patient, procedure, presence of consent, site, and side were confirmed with all members of the team. With the patient in the supine position, the skin overlying the area of interest was prepped and draped in the usual sterile fashion. Lidocaine 1% was used for local anesthesia. Using an anterior approach under CT image-guidance, a 19 gauge needle was advanced down to the lesion in the right lung. An image was obtained and placed into the medical record. Samples were obtained for evaluation. Sampling: Cytology: A 22 gauge needle was used to obtain sample(s) for cytologic assessment. Total number of samples: 2 Core Biopsy: A 20 gauge needle used to obtain samples for surgical pathology evaluation. Total number of samples: 4 Biosentry: N/A Post-biopsy radiographs: The initial follow-up chest radiograph demonstrates: No pneumothorax. A subsequent follow-up chest radiograph was obtained 3 hours after the initial and demonstrates: Small pneumothorax which was stable on a repeat xray in 1 hour. Specimens Disposition: Diagnostic Biopsy: The biopsy samples were submitted to pathology. Additional Comments: None Estimated Blood Loss: Minimal Immediate Complications: Pneumothorax Disposition: PACU Plan: No follow-up with Interventional Radiology required. Katiana Felton MD IM IR ORDERABLES * (ABNORMAL) Cytology Image-Guided FNA Interpretation (01/30/2023 9:21 AM CDT) Gross Description Specimens procured: 2 Diff Quik; 3 Pap Stain Slides 10 ml, slightly cloudy bloody fluid in RPMI 1 Cytospin Size: 2.6 cm 02/04/2023 8:47 AM CDT [facility] Major Classification MALIGNANT(A) 02/04/2023 8:47 AM CDT [facility] Diagnosis Lung, right upper lobe, fine needle aspiration: METASTATIC CARCINOMA, MORPHOLOGICALLY CONSISTENT WITH RENAL CELL CARCINOMA (see comment) 02/04/2023 8:47 AM CDT [facility] Comment Aspirate smears and cytospin preparation demonstrate cohesive groups of tumor cells with high [id number] asmic ratios, occasional prominent nuclear inclusions, and vacuolated cytoplasm. Tumor cells are arranged along a prominent network of vasculature. Please see this patient's concurrently acquired core needle biopsy ([id number]) for further evaluation. 02/04/2023 8:47 AM CDT [facility] Retained/Biomark er Testing SR: 6 S Biomarker Testing: MDL Cell Block: N/A MDL Pap: 1 S MDL DQ: 0 S FISH DQ: 0 S 02/04/2023 8:47 AM CDT [facility] Informational Points Some tests reported here may have been developed and performance characteristics determined by [facility] Pathology and Laboratory Medicine. These tests have not been specifically cleared or approved by the U.S. Food and Drug Administration. 02/04/2023 8:47 AM CDT [facility] Specimen obtained by fine needle aspiration procedure (specimen) (Lung, Right Upper Lobe) 01/30/2023 9:21 AM CDT 01/30/2023 9:30 AM CDT Katiana Felton MD LAB CYTOLOGY ORDERAB LES Performing Organization Address City/[facility]/ZIP Co de Phone Number [facility] [address] [place] [address], [place] * Pathology Biopsy Interpretation (01/30/2023 9:21 AM CDT) Submitted Clinical History Multiple nodules of lung [R91.8] Abnormal finding on diagnostic imaging of other abdominal region including retroperitoneum [R93.5] 02/01/2023 9:36 AM CDT [facility] Diagnosis Lung, right upper lobe, biopsy: METASTATIC RENAL CELL CARCINOMA, CLEAR CELL TYPE See comment. 02/01/2023 9:36 AM CDT [facility] Comment Immunohistochemical stains show tumor cells positive for keratin and PAX8, while negative for S-100, HMB45, CD34, and chromogranin. 02/01/2023 9:36 AM CDT [facility] Gross Description A: Lung, right upper lobe, : 5 cores of soft rosales tissue (0.1 x 0.1 cm to 0.6 x 0.1 cm), entirely submitted in A1. YS 02/01/2023 9:36 AM CDT [facility] Biomarker Block(s) A 02/01/2023 9:36 AM CDT [facility] Disclaimer "Some tests reported here may have been developed and performance characteristics determined by [facility] Pathology and Laboratory Medicine. These tests have not been specifically cleared or approved by the U.S. Food and Drug Administration. If applicable, controls were reviewed and showed appropriate reactivity." 02/01/2023 9:36 AM CDT [facility] Tissue specimen (specimen) (Lung, Right Upper Lobe) 01/30/2023 9:21 AM CDT 01/30/2023 11:11 AM CDT Katiana Felton MD LAB PATHOLOGY ORDERA BLES Performing Organization Address City/[facility]/ZIP Co de Phone Number [facility] [id number] [place] [address], [place] * .Serum Creatinine (01/29/2023 9:26 AM CDT) Creatinine 0.93 0.67 - 1.17 mg/dL [facility] Comment:Testing Performed at [facility] Military Technology Manager [facility], [address] [place] [address], [address], [place] [address] Blood 01/29/2023 9:26 AM CDT 01/29/2023 9:32 AM CDT Katiana Felton MD LAB BLOOD ORDERABLES Performing Organization Address [facility] Co de Phone Number [address] [place] [address] * Glomerular Filtration Rate (01/29/2023 9:26 AM CDT) eGFR 99 >=60 mL/min/1.7 3 sq. m [facility] Comment: The eGFRcr is calculated with the 2020 CKD-EPI creatinine equation using creatinine, patient's age, and sex for adults 18 years of age and older. Other factors, especially muscle mass, may affect accuracy and need to be considered. According to the Kidney Disease: Improving Global Outcomes (KDIGO) CKD Work Group 2012 Clinical Practice Guideline, chronic kidney disease (CKD) is defined as the abnormalities of kidney structure or function, present for more than 3 months, with implications for health. CKD should be classified by cause, GFR category, and albuminuria category. KDIGO guidelines provide the following GFR categories Stage Description GFR mL/min/1.73 m2 G1* Normal or high >= 90 G2* Mildly decreased 60-89 G3a Mildly to moderately decreased 45-59 G3b Moderately to severely decreased 30-44 G4 Severely decreased 15-29 G5 Kidney failure <15 *In the absence of evidence of kidney damage, neither G1 nor G2 fulfill criteria for CKD. Testing Performed at [facility] Military Technology Manager [facility], [address] [place] [address], [address], [place] [address] Blood 01/29/2023 9:26 AM CDT 01/29/2023 9:32 AM CDT Katiana Felton MD LAB BLOOD ORDERABLES Performing Organization Address City/[facility]/ZIP Co de Phone Number [address] [place] [address] * Fractionated Bilirubin (01/29/2023 9:26 AM CDT) [facility] Bili Total 0.5 <=1.2 mg/dL [facility] Comment: Indocyanine Green (ICG) may cause falsely elevated bilirubin results. Total and direct bilirubin must not be measured from samples containing indocyanine green. False elevation of total bilirubin can be seen in patients with IgG concentrations above 28 g/L. Testing Performed at [facility], [address] [place] [address], [address], [place] [address] Bili Direct <0.2 <=0.3 mg/dL [facility] Comment: Indocyanine Green (ICG) may cause falsely elevated bilirubin results. Total and direct bilirubin must not be measured from samples containing indocyanine green. Testing Performed at [facility], [address] [place] [address], [address], [place] [address] Bili Indirect See Note 0.0 - 0.9 mg/dL [facility] Comment: Unable to calculate Indirect Bilirubin result due to some parameters are outside reportable range Testing Performed at [facility], [address] [place] [address], [address], [place] [address] Blood 01/29/2023 9:26 AM CDT 01/29/2023 9:32 AM CDT Katiana Felton MD LAB BLOOD ORDERABLES [address] [place] [address] * AFP (01/29/2023 9:26 AM CDT) [facility] AFP <2.7 <=8.3 ng/mL [facility] Comment: Results greater than 45,875.00 ng/mL may not be reliable due to matrix effect with extended dilution as it exceeds the learning analyst's recommended limit. Caution should be exercised when interpreting such values and done in conjunction with clinical context. This test is measured by electrochemiluminescence immunoassay on Joao Everardo immunoassay analyzers. Results obtained in different methods are not interchangeable. Testing Performed at [facility], [address] [place] [address], [address], [place] [address] Blood 01/29/2023 9:26 AM CDT 01/29/2023 9:32 AM CDT Katiana Felton MD LAB BLOOD ORDERABLES Performing Organization Address City/[facility]/ZIP Co de Phone Number [address] [place] [address] * CA 19-9 (01/29/2023 9:26 AM CDT) Pathologist [facility] [place] 19-9 4.3 <=35.0 U/mL [facility] Comment: Results greater than 9500 U/mL may not be reliable due to matrix effect with extended dilution as it exceeds the learning analyst's recommended limit. Caution should be exercised when interpreting such values and done in conjunction with clinical context. This test is measured by electrochemiluminescence immunoassay on Joao Everardo immunoassay analyzers. Results obtained in different methods are not interchangeable. Testing Performed at [facility], [address] [place] [address], [address], [place] [address] Blood 01/29/2023 9:26 AM CDT 01/29/2023 9:32 AM CDT Katiana Felton MD LAB BLOOD ORDERABLES Performing Organization Address City/[facility]/ZIP Co de Phone Number [address] [place] [address] * (ABNORMAL) Differential (01/29/2023 9:26 AM CDT) Neutrophil % 60.8 43.2 - 72.7 % [facility] Comment:As part of Different ial performed at [facility], [address] [place] [address], [address], [place] [address] Lymphocyte % 23.9 16.8 - 46.2 % [facility] Monocyte % 12.0 5.1 - 12.5 % [facility] Eosinophil % 1.7 0.4 - 6.3 % [facility] CLINIC Basophil % 1.2 0.2 - 1.4 % [facility] IGRE % 0.4 0.1 - 1.5 % [facility] Comment: IGRE % count includes Metamyelocytes, Myelocytes, and Promyelocytes. As part of Differential performed at [facility], [address] [place] [address], [address], [place] [address] Neutrophil Abs 5.68 1.95 - 7.25 K/uL [facility] Lymphocyte Abs 2.23 1.01 - 3.24 K/uL [facility] Monocyte Abs 1.12(H) 0.24 - 0.85 K/uL [facility] Eosinophil Abs 0.16 0.02 - 0.50 K/uL [facility] Basophil Abs 0.11(H) 0.02 - 0.09 K/uL [facility] IG Abs 0.04 0.01 - 0.12 K/uL [facility] Blood 01/29/2023 9:26 AM CDT 01/29/2023 9:28 AM CDT Katiana Felton MD LAB BLOOD ORDERABLES [address] [place] [address] * BUN (01/29/2023 9:26 AM CDT) BUN 18 6 - 23 mg/dL [facility] Comment:Testing Performed at [facility], [address] [place] [address], [address], [place] [address] Blood 01/29/2023 9:26 AM CDT 01/29/2023 9:32 AM CDT Katiana Felton MD LAB BLOOD ORDERABLES [address] [place] [address] * ALT (01/29/2023 9:26 AM CDT) ALT 31 <=41 U/L [facility] Comment:Testing Performed at [facility] [employer] [facility], [address] [place] [address], [address], [place] [address] Blood 01/29/2023 9:26 AM CDT 01/29/2023 9:32 AM CDT Katiana Felton MD LAB BLOOD ORDERABLES Performing Organization Address [facility] Co de Phone Number [address] [place] [address] * Aspartate Aminotransferase (01/29/2023 9:26 AM CDT) AST 22 <=40 U/L [facility] Comment:Testing Performed at [facility] [employer] [facility]ld[facility], [address] [place] [address], [address], [place] [address] Blood 01/29/2023 9:26 AM CDT 01/29/2023 9:32 AM CDT Katiana Felton MD LAB BLOOD ORDERABLES Performing Organization Address [facility] de Phone Number [address] [place] [address] * (ABNORMAL) Total Protein (01/29/2023 9:26 AM CDT) Total Protein 8.5(H) 6.4 - 8.3 g/dL [facility] Comment:Testing Performed at [facility] [employer] [facility], [address] [place] [address], [address], [place] [address] Blood 01/29/2023 9:26 AM CDT 01/29/2023 9:32 AM CDT Katiana Felton MD LAB BLOOD ORDERABLES Performing Organization Address [facility] Co de Phone Number [address] [place] [address] * (ABNORMAL) Alkaline Phosphatase (01/29/2023 9:26 AM CDT) Alk Phos 219(H) 40 - 129 U/L [facility] Comment:Testing Performed at [facility] [employer] [facility] Bld[facility], [address] [place] [address], [address], [place] [address] Blood 01/29/2023 9:26 AM CDT 01/29/2023 9:32 AM CDT Narrative Authorizing Provider Result Nighat Felton MD LAB BLOOD ORDERABLES Performing Organization Address [facility] Co de Phone Number [address] [place] [address] * Glucose Level (01/29/2023 9:26 AM CDT) Glucose Level 90 70 - 99 mg/dL [facility] Comment: Effective 11/30/15, the glucose reference intervals have been updated based on [place] [employer] guidelines (Standards of Medical Care in Diabetes 2016. Diabetes Care 2016; 39: S13-S22). Fasting blood glucose: Normal: 70-99 mg/dL Impaired fasting glucose (increased risk for diabetes or pre-diabetes): 100- 125 mg/dL Diabetes mellitus: >/=126 mg/dL Random blood glucose: Normal: 70-199 mg/dL Note: Random glucose >100 mg/dL is associated with increased risk for diabetes Testing Performed at [facility], [address] [place] [address], [address], [place] [address] Blood 01/29/2023 9:26 AM CDT 01/29/2023 9:32 AM CDT Narrative Authorizing Provider Result Nighat Felton MD LAB BLOOD ORDERABLES Performing Organization Address [facility] Co de Phone Number [address] [place] [address] * CEA (01/29/2023 9:26 AM CDT) CEA 3.0 <=3.8 ng/mL [facility] Comment: Reference Ranges: Smoker: 0.0 - 5.5 Non-Smoker: 0.0 - 3.8 This test is measured by electrochemiluminescence immunoassay on Joao Everardo immunoassay analyzers. Results obtained in different methods are not interchangeable. Testing Performed at [facility], [address] [place] [address], [address], [place] [address] Blood 01/29/2023 9:26 AM CDT 01/29/2023 9:32 AM CDT Narrative Authorizing Provider Result Nighat Felton MD LAB BLOOD ORDERABLES Performing Organization Address [facility]/ZIP Co de Phone Number [address] [place] [address] * (ABNORMAL) Calcium Level (01/29/2023 9:26 AM CDT) Calcium Lvl 10.5(H) 8.4 - 10.2 mg/dL [facility] Comment:Testing Performed at [facility], [address] [place] [address], [address], [place] [address] Blood 01/29/2023 9:26 AM CDT 01/29/2023 9:32 AM CDT Narrative Authorizing Provider Result Nighat Felton MD LAB BLOOD ORDERABLES Performing Organization Address [facility] Co de Phone Number [address] [place] [address] * Albumin Level (01/29/2023 9:26 AM CDT) Albumin Lvl 3.8 3.5 - 5.2 gm/dL [facility] Comment:Testing Performed at [facility], [address] [place] [address], [address], [place] [address] Blood 01/29/2023 9:26 AM CDT 01/29/2023 9:32 AM CDT Narrative Authorizing Provider Result Nighat Felton MD LAB BLOOD ORDERABLES Performing Organization Address City/[facility] Co de Phone Number [address] [place] [address] * (ABNORMAL) Electrolyte Panel (01/29/2023 9:26 AM CDT) Sodium Lvl 138 136 - 145 mEq/L [facility] Comment:Testing Performed at [facility], [address] [place] [address], [address], [place] [address] Potassium Lvl 5.3(H) 3.5 - 5.1 mEq/L [facility] Comment:Testing Performed at [facility], [address], [address], [place] [address] Chloride 100 98 - 107 mEq/L [facility] Comment:Testing Performed at [facility] [employer] [facility] Bld[facility], [address], [address], [place] [address] CO2 31(H) 22 - 29 mEq/L [facility] Comment:Testing Performed at [facility] [employer] Manager dg, [address], [address], [place] [address] Anion Gap 7 4 - 14 mEq/L [facility] Comment:Testing Performed at [facility]ld[facility], [address], [address], [place] [address] Blood 01/29/2023 9:26 AM CDT 01/29/2023 9:32 AM CDT Katiana Felton MD LAB BLOOD ORDERABLES [facility] [address] [facility] [place] [address] * OSI CT Chest (01/01/2023 3:49 PM CDT) Narrative Systemgenerated, Documentation - 01/15/2023 3:49 PM CDT Study acquired at another institution. For comparison only. No [facility] originated interpretation requested or available. Katiana Felton MD IMG OUTSIDE IMAGE OR DERABLES after 04/14/2022 Care Teams Unit Reactor Operator Relationship Specialty Start Date End Date Edward Méndez MD [address] [place] [id number] PCP - External Primary Care Provider Family Practice 01/15/23 Katiana Felton MD [facility] [place] [address] PCP - General Internal Medicine 01/15/23 Anthony Bedoya MD [facility] [place] [address] Consulting Physician Genitourinary Oncology 03/21/23
[2023-04-14] MEDS ORDERED: MORPHINE 4 MG/ML SYR ONE ×3 (10:35→13:42)
[2023-04-14 11:00] LABS: Absolute Lymphocytes (CBC) 1.7 K/uL (0.7-4.9); Hematocrit 58.4 % (39.6-49.0); Lymphocytes % 17.3 % (15.3-44.8); MCV 72.7 fL (80-100); MPV 8.7 fL (7.6-11.3); Platelets 197 thou/uL (152-406); RBC Red Blood Cell Count 8.04 M/uL (4.33-5.43)
[2023-04-14 11:07] LABS: Urine Bacteria None Seen /HPF (<20); Urine RBC >50 /HPF (None Seen)
[2023-04-14 11:16] LABS: Albumin 2.7 g/dL (3.4-5.0); Protein, Total 8.4 g/dL (6.4-8.2)
--- NOTE | 2023-04-14 12:02 | RAD REPORT ---
EXAM DESCRIPTION: CTAbdomen Pelvis W Contrast - 04/14/2023 11:49 am CLINICAL HISTORY: Abdominal pain. hematuria, Hx renal CA COMPARISON: Chest Abd Pelvis Wo Con dated 03/01/2023 TECHNIQUE: Biphasic CT imaging of the abdomen and pelvis was performed with 100 ml non-ionic IV cont rast. All CT scans are performed using dose optimization technique as appropriate and may include automated exposure control or mA/KV adjustment according to patient size. FINDINGS: Multiple varying size lung masses are present in both lung bases.These have mildly increas ed in size since 03/01/2023 prior study. For example, lateral right middle lobe nodule previously greg sured 16 mm, currently 18 mm. Moderate bilateral gynecomastia noted. Diffuse fatty liver is noted. Very large irregular mass involving the superior right kidney again not ed measuring 13 x 8 cm. This mass appears essentially stable since comparative study. There is tumor thrombus extending into the inferior vena cava via the right renal vein. Enlarged lymphadenopathy als o seen the right para-aortic location. The spleen, pancreas, left kidney left adrenal gland are normal. Right adrenal again not well visuali zed due to distortion of normal anatomy. No bowel obstruction, free air, free fluid or abscess. The appendix is normal. No evidence of signi ficant lymphadenopathy. Small bilateral fat containing inguinal hernias. No lytic or blastic bone lesion. IMPRESSION: Very large mass involving the superior right kidney compatible with renal cell carcinoma . There is extension of tumor into the right renal vein and inferior vena cava. Multiple metastatic deposits identified in the lung bases, mildly larger than on the comparative stud y.
--- NOTE | 2023-04-14 12:09 | EDPHYS ---
Physician Documentation [facility] Name: Jamir Somers Age: 53 yrs Sex: Male : 1970 Arrival Date: 04/14/2023 Time: 09:26 Bed 3 Private MD: ED Physician Mayur Montgomery HPI: 04/14 10:14 This 53 yrs old Male presents to ER via Ambulatory with complaints of Pain All Over, ms3 Urinary Frequency, Blood in Urine. 10:14 53-year-old male with past medical history of renal cell carcinoma [place] [facility] [place] for hematuria and being unable to pee last night. Patient states he does have a kidney tumor and is being treated at [facility] at this time. Patient states he started immunotherapy 3 weeks ago. Patient states he is in severe pain due to not being able to urinate.. Historical: - Allergies: :53 No Known Allergies; iw - PMHx: :53 Renal cell carcinoa; iw - Immunization history:: Adult Immunizations unknown. - Social history:: Smoking status: Patient denies any tobacco usage or history of. ROS: 10:14 Constitutional: Negative for fever, and chills. Neck: Negative for injury, pain, and ms3 swelling, Cardiovascular: Negative for chest pain, and palpitations. Respiratory: Negative for shortness of breath, cough, wheezing, and pleuritic chest pain, Abdomen/GI: Negative for abdominal pain, nausea, vomiting, diarrhea, and constipation, 10:14 Skin: Negative for injury, rash, and discoloration, 10:14 : Positive for urinary frequency, small amounts, hematuria, 10:14 All other systems are negative, Exam: 10:14 Constitutional: This is a well developed, well nourished patient who is awake, alert, ms3 and in no acute distress. Head/Face: Normocephalic, atraumatic. Neck: Trachea midline, no cervical lymphadenopathy. Supple, full range of motion without nuchal rigidity, or vertebral point tenderness. No Meningismus. Chest/axilla: Normal chest wall appearance and motion. Nontender with no deformity. Cardiovascular: Regular rate and rhythm with a normal S1 and S2. No gallops, murmurs, or rubs. Normal PMI, no JVD. No pulse deficits. Respiratory: Lungs have equal breath sounds bilaterally, clear to auscultation and percussion. No rales, rhonchi or wheezes noted. No increased work of breathing, no retractions or nasal flaring. Skin: Warm, dry with normal turgor. Normal color with no rashes, no lesions, and no evidence of cellulitis. MS/ Extremity: Pulses equal, no cyanosis. Neurovascular intact. Full, normal range of motion. 10:14 Abdomen/GI: Inspection: abdomen appears normal, Bowel sounds: normal, Palpation: moderate abdominal tenderness, in the suprapubic area, Vital Signs: 09:50 BP 125 / 66; Pulse 97; Resp 16; Temp 97.2; Pulse Ox 98% on R/A; Weight 90.72 kg; Height iw 6 ft. 4 in. ; Pain 8/10; 10:08 BP 122 / 83; Pulse 80; Resp 17; Temp 97.5(O); Pulse Ox 99% on R/A; rs5 11:59 BP 117 / 77; Pulse 77; Resp 17; Pulse Ox 99% on R/A; rs5 13:00 BP 120 / 79; Pulse 78; Resp 17; Pulse Ox 99% on R/A; rs5 09:50 Body Mass Index 24.34 (90.72 kg, 193.04 cm) iw 09:50 Pain Scale: Adult iw MDM: 10:12 Patient medically screened. ms3 10:14 Differential diagnosis: nonspecific abdominal pain, UTI, urinary retention, Hematuria. ms3 12:18 Data reviewed: vital signs, nurses notes, lab test result(s), radiologic studies, and ms3 as a result, I will transfer patient. Consideration of Admission/Observation Will transfer to [facility] where patient is getting his Renal Cell Carcinoma treatment. I considered the following discharge prescriptions or medication management in the emergency department Medications were administered in the Emergency Department. See MAR. Historians other than the Patient: Spouse/Significant Other: Patient's . Counseling: I had a detailed discussion with the patient and/or guardian regarding the historical points, exam findings, and any diagnostic results supporting the discharge/admit diagnosis, lab results, radiology results, the need to transfer to another facility, [facility] does not immediately have the required specialist. ED course: Discussed case with Dr. Casey Buckley and accepts patient to [facility]. Discussed plan for transfer to [facility] with patient and his and they understand and agree with plan. All questions were answered. Patient removed Baird catheter after Baird catheter was placed secondary to pain. 04/14 10:13 Order name: CBC with Diff; Complete Time: 11:47 ms3 04/14 10:13 Order name: CMP; Complete Time: 11:47 ms3 04/14 11:07 Order name: Urine Microscopic Only; Complete Time: 11:47 EDMS 04/14 10:13 Order name: CT Abd/Pelvis - IV Contrast Only; Complete Time: 12:04 ms3 04/14 10:13 Order name: IV Saline Lock; Complete Time: 10:46 ms3 04/14 10:13 Order name: Labs collected and sent; Complete Time: 10:46 ms3 Administered Medications: 10:20 Drug: morphine IVP or IV 4 mg IVP once over 4 mins Route: IVP; Infused Over: 4 mins; rs5 Site: right forearm; 10:40 Follow up: Response: No adverse reaction; Pain is decreased rs5 11:05 Drug: morphine IVP or IV 4 mg IVP once over 4 mins Route: IVP; Infused Over: 4 mins; rs5 Site: right forearm; 11:25 Follow up: Response: No adverse reaction rs5 Disposition Summary: 04/14/23 12:08 Transfer Ordered Notes: Transfer Location: Other Acute Care Facility ms3 Reason: Higher level of care ms3 Condition: Stable ms3 Problem: new ms3 Symptoms: are unchanged ms3 Accepting Physician: Dr Buckley(04/14/23 13:43) rs5 Diagnosis - Hematuria, unspecified ms3 - Urinary retention ms3 - Renal Cell carcinoma ms3 Forms: - Medication Reconciliation Form ms3 - SBAR form ms3 Signatures: Dispatcher [employer] Skylar Gilliam, RN Mayur Aparicio DO DO ms3 Jorge L Corbin RN RN rs5 Corrections: (The following items were deleted from the chart) 11:08 10:14 Urinalysis+U.LAB.BRZ ordered. MARJORIE AMADOR 12:20 12:08 Dr amin ms3 13:43 12:20 Dr Ina fletcher3 rs5
--- NOTE | 2023-04-14 12:09 | ER ---
Nurse's Notes [facility] Name: Jamir Somers Age: 53 yrs Sex: Male : 1970 Arrival Date: 04/14/2023 Time: 09:26 Bed 3 Private MD: Diagnosis: Hematuria, unspecified;Urinary retention;Renal Cell carcinoma Presentation: 04/14 09:50 Chief complaint: Spouse and/or significant other states: he has stage 4 kidney cancer iw and a mass on his kidney, yesterday morning he started urinating blood , was timoteo blood all day, last night at 6 he stopped urinating , only urinating a small amount , and has pain all over , he had black stool this morning. Coronavirus screen: At this time, the client does not indicate any symptoms associated with coronavirus-19. Ebola Screen: Patient negative for fever greater than or equal to 101.5 degrees Fahrenheit, and additional compatible Ebola Virus Disease symptoms. Initial Sepsis Screen: Does the patient meet any 2 criteria? No. Patient's initial sepsis screen is negative. Does the patient have a suspected source of infection? No. Patient's initial sepsis screen is negative. Risk Assessment: Do you want to hurt yourself or someone else? Patient reports no desire to harm self or others. Onset of symptoms was April 13, 2023. 09:50 Method Of Arrival: Ambulatory iw 09:50 Acuity: KAELA 3 iw Historical: - Allergies: 09:52 No Known Allergies; iw - PMHx: 09:52 Renal cell carcinoa; iw - Immunization history:: Adult Immunizations unknown. - Social history:: Smoking status: Patient denies any tobacco usage or history of. Screenin:00 [facility] ED Fall Risk Assessment (Adult) History of falling in the last 3 months, rs5 including since admission No falls in past 3 months (0 pts) Confusion or Disorientation No (0 pts) Intoxicated or Sedated No (0 pts) Impaired Gait No (0 pts) Mobility Assist Device Used No (0 pt) Altered Elimination Yes (1 pt) Score/Fall Risk Level 0 - 2 = Low Risk Oriented to surroundings, Maintained a safe environment. Abuse screen: Denies threats or abuse. Nutritional screening: No deficits noted. Tuberculosis screening: No symptoms or risk factors identified. Assessment: 10:00 General: Appears distressed, uncomfortable, Behavior is cooperative. Pain: Complains of rs5 pain in head of penis Pain does not radiate. Pain currently is 4 out of 10 on a pain scale. Quality of pain is described as aching, pressure, Pain began gradually, Is continuous. Neuro: Level of Consciousness is awake, alert, obeys commands, Oriented to person, place, time, situation. Cardiovascular: Heart tones S1 S2 present Patient's skin is warm and dry. Rhythm is regular. Respiratory: Airway is patent Respiratory effort is even, unlabored, Respiratory pattern is regular, symmetrical, Breath sounds are clear bilaterally. GI: Abdomen is round non-distended, Bowel sounds present X 4 quads. Abd is soft and non tender X 4 quads. Reports bloody stool, Patient currently denies nausea. : Reports blood in urine, difficulty urinating, pt states "I peed about thirty minutes ago, it was only a little and there was blood in it". EENT: No signs and/or symptoms were reported regarding the EENT system. Derm: Skin is intact, Skin is pink, warm \\T\\ dry. Musculoskeletal: Range of motion: intact in all extremities. 10:00 Pain: Complains of pain in generalized pain Pain does not radiate. Pain currently is 4 rs5 out of 10 on a pain scale. Quality of pain is described as aching, Pain began 1 day ago. Is continuous. 10:20 Reassessment: To bedside for turner insertion per verbal orders, pt tolerated rs5 procedure well, 10 ml urine output, timoteo red blood, provider notified . 10:40 Reassessment: Patient denies pain at this time. Patient states feeling better. rs5 10:40 Reassessment: Pt states "this turner catheter is uncomfortable and I would like to have rs5 it taken out, right now" provider notified. Turner catheter removed. 10:50 Pain: Complains of pain in suprapubic area. rs5 10:50 Reassessment: Provider notified pt is experiencing pain. rs5 11:00 Reassessment: Transfer form signed by pt, report given to nurse from [facility]. rs5 11:25 Reassessment: Patient and/or family updated on plan of care and expected duration. Pain rs5 level reassessed. Patient is alert, oriented x 3, equal unlabored respirations, skin warm/dry/pink. Patient denies pain at this time. Patient states feeling better. 13:20 Reassessment: Patient and/or family updated on plan of care and expected duration. Pain rs5 level reassessed. Patient is alert, oriented x 3, equal unlabored respirations, skin warm/dry/pink. 13:30 Reassessment: No changes from previously documented assessment. rs5 Vital Signs: 09:50 BP 125 / 66; Pulse 97; Resp 16; Temp 97.2; Pulse Ox 98% on R/A; Weight 90.72 kg; Height iw 6 ft. 4 in. ; Pain 8/10; 10:08 BP 122 / 83; Pulse 80; Resp 17; Temp 97.5(O); Pulse Ox 99% on R/A; rs5 11:59 BP 117 / 77; Pulse 77; Resp 17; Pulse Ox 99% on R/A; rs5 13:00 BP 120 / 79; Pulse 78; Resp 17; Pulse Ox 99% on R/A; rs5 09:50 Body Mass Index 24.34 (90.72 kg, 193.04 cm) iw 09:50 Pain Scale: Adult iw ED Course: 09:31 Patient arrived in ED. im 09:34 Mayur Montgomery DO is Attending Physician. ms3 09:52 Triage completed. iw 10:00 Patient has correct armband on for positive identification. Fall risk band placed. rs5 Placed in gown. Bed in low position. Call light in reach. Side rails up X2. 10:03 Jorge L Corbin, RN is Primary Nurse. rs5 10:15 Inserted saline lock: 20 gauge in right forearm, using aseptic technique. Blood rs5 collected. 11:51 CT Abd/Pelvis - IV Contrast Only In Process Unspecified. EDMS 12:14 initiated a transfer with Naif from the [facility] transfer Center. eb 12:[address] Buckley the emergency room doctor agricultural equipment salesperson for [facility] with Dr. Montgomery for eb patient transfer consultation. 12:20 administrative approval given by Dr. Casey Buckley / patient has been accepted to [facility] ED/ report to be called to [phone]. 13:40 No provider procedures requiring assistance completed. rs5 13:40 Patient transferred, IV remains in place. rs5 Administered Medications: 10:20 Drug: morphine IVP or IV 4 mg IVP once over 4 mins Route: IVP; Infused Over: 4 mins; rs5 Site: right forearm; 10:40 Follow up: Response: No adverse reaction; Pain is decreased rs5 11:05 Drug: morphine IVP or IV 4 mg IVP once over 4 mins Route: IVP; Infused Over: 4 mins; rs5 Site: right forearm; 11:25 Follow up: Response: No adverse reaction rs5 Medication: 10:47 VIS not applicable for this client. rs5 Outcome: 12:08 ER care complete, transfer ordered by ms3 13:40 Transferred by ground EMS to [facility], Transfer form completed. rs5 13:40 Condition: stable 13:40 Discharge instructions given to patient, family, Instructed on the need for transfer, Demonstrated understanding of instructions, 13:43 Patient left the ED. rs5 Signatures: Dispatcher [employer] EDMS Skylar Dong RN RN iw Monet Eid Marcus, DO DO ms3 Jorge L Corbin RN RN rs5 Priscilla Laws Corrections: (The following items were deleted from the chart) 13:38 10:40 Pain: Complains of pain in suprapubic area rs5 rs5 13:43 13:30 Reassessment: Patient and/or family updated on plan of care and expected rs5 duration. Pain level reassessed. Patient is alert, oriented x 3, equal unlabored respirations, skin warm/dry/pink. rs5
[2023-04-14 14:06] VITALS: BP 125/66; TEMP 97.2; O2SAT 98
== END 2023-04-14 13:43 ==
LOC: ER 09:26
DX: R31.9 Hematuria, unspecified (principal); R33.9 Retention of urine, unspecified; C64.1 Malignant neoplasm of right kidney, except renal pelvis
CPT/HCPCS: 85025; 36415; 81015; 80053; 74177; 96374; 99285; Q9967

== ENCOUNTER → 2023-07-25 | Emergency (ER) | payer BC ==
[~2023-07-25] MED LIST: HYDROMORPHONE HCL 1 MG/ML INJ ONE; ONDANSETRON 4 MG/2 ML VIAL ONE
--- OUTSIDE RECORDS SUMMARY | 2023-07-25 07:31 | XMS REPORT | Clinical Summary ---
Author Name Unknown Organization [facility] Address [address] [place] [address] Care Team Providers Care Java Technical Manager Name Role Phone Edward Méndez MD Unavailable Katiana Felton MD Primary Care Provider [phone] Anthony Bedoya MD Unavailable Allergies No known active allergies Medications Medication Sig Dispensed Refills Start Date End Date Status omeprazole (PriLOSEC) 20 mg capsule Take 1 capsule (20 mg) by mouth. 0 Active aspirin (Bryce Low Dose Aspirin) 81 mg EC tabletIndications: Clear cell carcinoma of right kidney Take 1 tablet (81 mg) by mouth daily. 90 tablet 0 03/21/20 23 Active senna (SENOKOT) 8.6 mg tabletIndications: Slow transit constipation Take 2 tablets by mouth twice daily. 300 tablet 0 05/21/19 24 Active ondansetron (ZOFRAN-ODT) 8 mg disintegrating tabletIndications: Nausea and vomiting Dissolve 1 tablet (8 mg) on the tongue every 6 (six) hours as needed for nausea or vomiting. 90 tablet 0 06/05/19 24 Active levothyroxine (Synthroid) 100 mcg tabletIndications: Clear cell carcinoma of right kidney Take 1 tablet (100 mcg) by mouth daily. 30 tablet 3 06/18/19 24 Active naloxone (Narcan) 4 mg/actuation nasal sprayIndications:N eoplasm related pain (acute) (chronic) Use 1 dose into one nostril as needed for opioid overdose. Do not prime or test the inhaler prior to adminstration. Give another dose into the other nostril after 2 to 3 minutes if the patient does not respond or responds and then relapses into respiratory depression. 2 each 0 06/28/19 24 Active OLANZapine (ZyPREXA) 5 mg tabletIndications: Adjustment disorder with anxiety,Insomnia, not otherwise specified Take 1 tablet (5 mg) by mouth at bedtime. 30 tablet 0 06/28/19 24 Active morphine (MS CONTIN) 30 mg 12 hr tabletIndications: Neoplasm related pain (acute) (chronic),Clear cell carcinoma of right kidney Take 1 tablet (30 mg) by mouth every 12 (twelve) hours. 30 tablet 0 07/12/19 24 Active morphine (MSIR) 15 mg IR tabletIndications: Neoplasm related pain (acute) (chronic),Clear cell carcinoma of right kidney Take 1 tablet (15 mg) by mouth every 6 (six) hours as needed for moderate pain (max of 4 per day). 60 tablet 0 07/12/19 24 Active HYDROcodone-acetam inophen (Woodworth) 5 mg-325 mg per tabletIndications: Neoplasm related pain (acute) (chronic) Take 1 tablet by mouth every 8 (eight) hours as needed for moderate pain. 30 tablet 0 01/19/20 23 024 Discontinued HYDROcodone-acetam inophen (Woodworth) 10 mg-325 mg per tabletIndications: Neoplasm related pain (acute) (chronic) Take 1 tablet by mouth every 6 (six) hours as needed for moderate pain. 40 tablet 0 02/02/20 23 024 Discontinued HYDROcodone-acetam inophen (Woodworth) 10 mg-325 mg per tabletIndications: Neoplasm related pain (acute) (chronic) Take 1 tablet by mouth every 6 (six) hours as needed for moderate pain. 40 tablet 0 02/05/20 23 024 Discontinued(Di scontinued by another clinician) HYDROcodone-acetam inophen (Woodworth) 10 mg-325 mg per tabletIndications: Neoplasm related pain (acute) (chronic) Take 1 tablet by mouth every 6 (six) hours as needed for moderate pain. 40 tablet 0 02/06/20 23 023 Discontinued(Re order) oxyBUTYnin (Ditropan XL) 5 mg 24 hr tabletIndications: Frequency of micturition Take 1 tablet (5 mg) by mouth daily. 30 tablet 0 02/16/20 23 024 Discontinued HYDROcodone-acetam inophen (Woodworth) 10 mg-325 mg per tabletIndications: Neoplasm related pain (acute) (chronic) Take 1 tablet by mouth every 6 (six) hours as needed for moderate pain. 40 tablet 0 02/19/20 23 024 Discontinued morphine (MS Contin) 15 mg ER tabletIndications: Neoplasm related pain (acute) (chronic) Take 1 tablet (15 mg) by mouth every 12 (twelve) hours. 30 tablet 0 02/22/20 23 023 Discontinued(Re order) morphine (MSIR) 15 mg IR tabletIndications: Neoplasm related pain (acute) (chronic) Take 1 tablet (15 mg) by mouth every 6 (six) hours as needed for severe pain. 50 tablet 0 02/22/20 023 Discontinued(Re order) morphine (MSIR) 15 mg IR tabletIndications: Neoplasm related pain (acute) (chronic) Take 1 tablet (15 mg) by mouth every 6 (six) hours as needed for moderate pain. 60 tablet 0 03/06/20 023 Discontinued(Re order) morphine (MS Contin) 15 mg ER tabletIndications: Neoplasm related pain (acute) (chronic) Take 1 tablet (15 mg) by mouth every 12 (twelve) hours. 30 tablet 0 03/06/20 024 Discontinued morphine (MSIR) 15 mg IR tabletIndications: Neoplasm related pain (acute) (chronic) Take 1 tablet (15 mg) by mouth every 6 (six) hours as needed for moderate pain. 60 tablet 0 03/15/20 23 024 Discontinued morphine (MS Contin) 15 mg ER tabletIndications: Neoplasm related pain (acute) (chronic) Take 1 tablet (15 mg) by mouth every 12 (twelve) hours. 30 tablet 0 03/15/20 23 023 Discontinued(Re order) escitalopram (Lexapro) 10 mg tabletIndications: Clear cell carcinoma of right kidney,Secondary malignant neoplasm of bilateral lungs,Cancer associated pain,Anxiety, not otherwise specified Take 1 tablet (10 mg) by mouth every morning. 30 tablet 1 03/21/20 024 Discontinued(Ot her/Not Applicable) morphine (MS Contin) 15 mg ER tabletIndications: Neoplasm related pain (acute) (chronic) Take 1 tablet (15 mg) by mouth every 12 (twelve) hours. 30 tablet 0 04/02/20 024 Discontinued morphine (MSIR) 15 mg IR tabletIndications: Neoplasm related pain (acute) (chronic) Take 1 tablet (15 mg) by mouth every 6 (six) hours as needed for severe pain. 50 tablet 0 04/02/20 024 Discontinued ciprofloxacin HCl (Cipro) 500 mg tabletIndications: Urinary tract infection, not otherwise specified Take 1 tablet (500 mg) by mouth twice daily. 14 tablet 0 04/16/20 024 Discontinued hyoscyamine (LEVSIN/SL) 0.125 mg SL tabletIndications: Cancer associated pain Place 1 tablet (0.125 mg) under the tongue every 6 (six) hours as needed for cramping. 30 tablet 0 04/16/20 024 Discontinued lidocaine (GLYDO, UROJET) 2% mucosal jelly with applicatorIndicati ons:Hematuria,Canc er associated pain Insert into the urethra every 3 (three) hours as needed (penial pain). 1 applicator 0 04/16/20 024 Discontinued OLANZapine (ZyPREXA) 2.5 mg tabletIndications: Anxiety, not otherwise specified Take 1 tablet (2.5 mg) by mouth every 6 (six) hours as needed for anxiety. 30 tablet 0 04/16/20 024 Discontinued(Ot her/Not Applicable) morphine (MS Contin) 15 mg ER tabletIndications: Neoplasm related pain (acute) (chronic) Take 1 tablet (15 mg) by mouth every 12 (twelve) hours. 60 tablet 0 04/18/20 024 Discontinued(Re order) morphine (MSIR) 15 mg IR tabletIndications: Neoplasm related pain (acute) (chronic) Take 1 tablet (15 mg) by mouth every 6 (six) hours as needed for moderate pain. 120 tablet 0 04/18/20 024 Discontinued(Re order) levothyroxine (Synthroid) 50 mcg tabletIndications: Clear cell carcinoma of right kidney Take 1 tablet (50 mcg) by mouth daily. 30 tablet 11 05/14/19 24 024 Discontinued morphine (MS Contin) 15 mg ER tabletIndications: Neoplasm related pain (acute) (chronic) Take 1 tablet (15 mg) by mouth every 12 (twelve) hours. 4 tablet 0 05/14/19 24 024 Discontinued(Re order) morphine (MSIR) 15 mg IR tabletIndications: Neoplasm related pain (acute) (chronic) Take 1 tablet (15 mg) by mouth every 6 (six) hours as needed for moderate pain. 8 tablet 0 05/14/19 24 024 Discontinued(Re order) morphine (MS Contin) 15 mg ER tabletIndications: Neoplasm related pain (acute) (chronic) Take 1 tablet (15 mg) by mouth every 12 (twelve) hours. 4 tablet 0 05/14/19 24 024 Discontinued(Re order) morphine (MSIR) 15 mg IR tabletIndications: Neoplasm related pain (acute) (chronic) Take 1 tablet (15 mg) by mouth every 6 (six) hours as needed for moderate pain. 8 tablet 0 05/14/19 24 024 Discontinued(Re order) morphine (MS Contin) 15 mg ER tabletIndications: Neoplasm related pain (acute) (chronic) Take 1 tablet (15 mg) by mouth every 12 (twelve) hours. 14 tablet 0 05/15/19 24 024 Discontinued(Re order) morphine (MS Contin) 15 mg ER tabletIndications: Neoplasm related pain (acute) (chronic) Take 1 tablet (15 mg) by mouth every 12 (twelve) hours for 14 days. 28 tablet 0 05/21/19 24 024 Discontinued(Re order) morphine (MSIR) 15 mg IR tabletIndications: Neoplasm related pain (acute) (chronic) Take 1 tablet (15 mg) by mouth every 6 (six) hours as needed for moderate pain. 60 tablet 0 05/21/19 24 024 Discontinued(Re order) morphine (MS CONTIN) 30 mg 12 hr tabletIndications: Cancer associated pain,Clear cell carcinoma of kidney <Right side>,Secondary malignant neoplasm of bilateral lungs Take 1 tablet (30 mg) by mouth every 12 (twelve) hours. 60 tablet 0 06/04/19 24 024 Discontinued(Re order) morphine (MSIR) 15 mg IR tabletIndications: Cancer associated pain,Clear cell carcinoma of kidney <Right side>,Secondary malignant neoplasm of bilateral lungs Take 1 tablet (15 mg) by mouth every 6 (six) hours as needed for moderate pain. 90 tablet 0 06/04/19 24 024 Discontinued(Re order) levothyroxine (Synthroid) 100 mcg tabletIndications: Clear cell carcinoma of right kidney Take 0.5 tablets (50 mcg) by mouth daily. 30 tablet 3 06/18/19 24 024 Discontinued morphine (MS CONTIN) 30 mg 12 hr tabletIndications: Neoplasm related pain (acute) (chronic) Take 1 tablet (30 mg) by mouth every 12 (twelve) hours. 14 tablet 0 06/28/19 24 024 Discontinued(Re order) morphine (MSIR) 15 mg IR tabletIndications: Neoplasm related pain (acute) (chronic) Take 1 tablet (15 mg) by mouth every 6 (six) hours as needed for moderate pain (max of 4 per day). 28 tablet 0 06/28/19 24 024 Discontinued(Re order) morphine (MS CONTIN) 30 mg 12 hr tabletIndications: Neoplasm related pain (acute) (chronic) Take 1 tablet (30 mg) by mouth every 12 (twelve) hours. 8 tablet 0 07/05/19 24 024 Discontinued(Re order) morphine (MSIR) 15 mg IR tabletIndications: Neoplasm related pain (acute) (chronic) Take 1 tablet (15 mg) by mouth every 6 (six) hours as needed for moderate pain (max of 4 per day). 28 tablet 0 07/05/19 24 024 Discontinued(Re order) Active Problems Problem Noted Date Diagnosed Date Pain management education for family 05/15/2023 Polycythemia 04/15/2023 Pain in penis 04/15/2023 Cancer associated pain 04/15/2023 Anxiety 04/15/2023 Hypoxia 04/15/2023 History of drug abuse 04/15/2023 Hematuria 04/15/2023 Secondary malignant neoplasm of bilateral lungs 03/21/2023 Erythrocytosis 03/21/2023 Clear cell carcinoma of right kidney 03/20/2023 Encounters Date Type Department Care Team Description 07/12/2023 Travel 07/09/2023 1:30 PM MANAGER PERSONNEL SELECTION [facility] [address] [place] [address], 8th [place] [address] Chary Frias PA Clear cell carcinoma of right kidney (Primary Dx) 07/09/2023 10:30 AM MANAGER PERSONNEL SELECTION Office Visit [facility] - Oncology [address] [place] [address], 7th [place] [address] Anthony Bedoya MD Clear cell carcinoma of right kidney (Primary Dx); Secondary malignant neoplasm of bilateral lungs; Erythrocytosis 07/09/2023 Orders Only [facility] - Oncology [address] [place] [address], 7th [place] [address] Anthony Bedoya MD 07/09/2023 Travel 07/05/2023 11:39 AM MANAGER PERSONNEL SELECTION - 07/05/2023 11:59 PM MANAGER PERSONNEL SELECTION Hospital Encounter Main [facility] IMAGING [address] [facility], 3rd [place] [address] Chary Frias PA Clear cell carcinoma of right kidney; Secondary malignant neoplasm of bilateral lungs; Erythrocytosis Discharge Disposition: Home 07/05/2023 10:45 AM MANAGER PERSONNEL SELECTION - 07/05/2023 11:38 AM MANAGER PERSONNEL SELECTION Hospital Encounter Diagnostic [facility] Center [facility] [facility], [place] [address] Chary Frias PA Clear cell carcinoma of right kidney; Secondary malignant neoplasm of bilateral lungs; Erythrocytosis Discharge Disposition: Home 07/05/2023 Travel 06/28/2023 Orders Only [facility] - Oncology [address] [place] [address], 7th [place] [address] Chary Frias PA 06/28/2023 Travel 06/18/2023 2:45 PM MANAGER PERSONNEL SELECTION Infusion [facility] - [facility], Floor [address] [place] [address] Radha Elizalde APRN Lee, Sigourney M RN Clear cell carcinoma of right kidney (Primary Dx) 06/18/2023 1:30 PM MANAGER PERSONNEL SELECTION Office Visit [facility] - Oncology [address] [place] [address], 7th [place] [address] Anthony Bedoya MD Clear cell carcinoma of right kidney (Primary Dx); Secondary malignant neoplasm of bilateral lungs; Erythrocytosis 06/18/2023 11:45 AM MANAGER PERSONNEL SELECTION - 06/18/2023 11:59 PM MANAGER PERSONNEL SELECTION Hospital Encounter [facility] [address] [place] [address] Radha Elizalde APRN Clear cell carcinoma of right kidney Discharge Disposition: Home 06/18/2023 Travel 06/04/2023 Orders Only [facility] - Oncology [address] [place] [address], 7th [place] [address] Chary Frias PA 05/21/2023 Travel 05/14/2023 5:00 PM MANAGER PERSONNEL SELECTION [facility] Amb[facility] Treatment [place] - [facility] [address] [place] [address], 8th [place] [address] Chary Frias PA Mo, Jinxia, RN Clear cell carcinoma of right kidney (Primary Dx) 05/14/2023 4:00 PM MANAGER PERSONNEL SELECTION Office Visit [facility] - Oncology [address] [place] [address], 7th [place] [address] Anthnoy Bedoya MD Adriazola, Ana, APRN Clear cell carcinoma of right kidney (Primary Dx); Encounter for preprocedural examination; Neoplasm related pain (acute) (chronic); Polycythemia, secondary; Secondary malignant neoplasm of bilateral lungs; Polycythemia; Cancer associated pain; History of drug abuse; Hypothyroidism, not otherwise specified 05/14/2023 Orders Only [facility] - Oncology [address] [place] [address], 7th [place] [address] Anthony Bedoya MD 05/14/2023 Travel 05/13/2023 Orders Only [facility] - Oncology [address] [facility], 7th [place] [address] Chary Frias PA 05/10/2023 2:25 PM MANAGER PERSONNEL SELECTION Ancillary Procedure [facility] [address] [facility] [address] [place] [address] Chary Frias PA Clear cell carcinoma of right kidney; Secondary malignant neoplasm of bilateral lungs 05/10/2023 Documentation [facility] [address] [facility], 9th [place] [address] Radha Kennedy 05/10/2023 Travel 04/18/2023 Orders Only [facility] - Oncology [address] [facility], 7th [place] [address] Anthony Bedoya MD Neoplasm related pain (acute) (chronic) 04/18/2023 Documentation [facility] - Oncology [address] [facility], 7th [place] [address] Ernestina Engel, SUREKHA 04/18/2023 Telephone [facility] - Oncology [address] [facility], 7th [place] [address] Sindy Guy, SUREKHA 04/17/2023 Telephone [facility] [address] [place] [address], 7th [place] [address] Sydney Lao RN 04/17/2023 Telephone [facility] [address] [place] [address] Mando Gomez PA Discharge Call 04/16/2023 11:45 AM MANAGER PERSONNEL SELECTION [facility] [address] [facility], 8th [place] [address] Chary Frias PA Enojo, Eliseo M Jr., RN Clear cell carcinoma of right kidney (Primary Dx); Cancer associated pain 04/16/2023 9:30 AM MANAGER PERSONNEL SELECTION Office Visit [facility] - Oncology [address] [place] [address], 7th [place] [address] Anthony Bedoya MD Clear cell carcinoma of right kidney (Primary Dx); Secondary malignant neoplasm of bilateral lungs 04/16/2023 Orders Only [facility] - Oncology [address] [place] [address], 7th [place] [address] Alee Mazariegos, [facility] 04/16/2023 Orders Only [facility] - Oncology [address] [place] [address], [facility] [place] [address] Anthony Bedoya MD 04/16/2023 Travel 04/14/2023 8:00 PM MANAGER PERSONNEL SELECTION Ancillary Procedure [facility] [address] [place] [address] Anthony Bedoya MD 04/14/2023 2:38 PM MANAGER PERSONNEL SELECTION - 04/16/2023 10:43 AM MANAGER PERSONNEL SELECTION Emergency MAIN [address] [place] [address] Kathy Chávez MD Chaftari, Patrick, MD Viets, Jayne, MD Clear cell carcinoma of right kidney (Primary Dx); Cancer; Hypoxia; Hematuria; Cancer associated pain; Anxiety, not otherwise specified; Urinary tract infection, not otherwise specified Discharge Disposition: Home 04/14/2023 Travel 04/11/2023 12:45 PM MANAGER PERSONNEL SELECTION Ancillary Procedure [facility] [address] [address] Anthony Bedoya MD Clear cell carcinoma of right kidney 04/11/2023 Travel 04/02/2023 Orders Only [facility] - Oncology [address] [place] [address], [facility] [place] [address] Anthony Bedoya MD Neoplasm related pain (acute) (chronic) 04/02/2023 Orders Only [facility] - Oncology [address] [facility], 7th [place] [address] Chary Frias PA Cancer associated pain (Primary Dx); Clear cell carcinoma of right kidney 03/26/2023 Orders Only [facility] - Oncology [address] [facility], 7th [place] [address] Chary Frias PA Erythrocytosis (Primary Dx); Clear cell carcinoma of right kidney 03/25/2023 1:10 PM MANAGER PERSONNEL SELECTION Ancillary Procedure [facility] [address] [address] Anthony Bedoya MD Clear cell carcinoma of right kidney 03/25/2023 Orders Only [facility] - Oncology [address] [place] [address], 7th [place] [address] Kaylen Abebe, PharmD 03/25/2023 Travel 03/23/2023 9:30 AM MANAGER PERSONNEL SELECTION - 03/23/2023 11:59 PM MANAGER PERSONNEL SELECTION Hospital Encounter Ambulatory Treatment Center - Main Building [address] [facility], 2nd Floor, [place] [address] Anthony Bedoya MD Nelson, Teresa, RN Clear cell carcinoma of right kidney (Primary Dx) Discharge Disposition: Home 03/23/2023 Travel 03/22/2023 Documentation [facility] [address] [facility], 9th [place] [address] Radha Kennedy 03/22/2023 Documentation [facility]cology [address] [facility], 9th [place] [address] Radha Kennedy 03/22/2023 Orders Only [facility] - Oncology [address] [facility], 7th [place] [address] Kaylen Abebe, PharmD 03/21/2023 2:00 PM MANAGER PERSONNEL SELECTION Consult [facility] - Oncology [address] [place] [address], 7th [place] [address] Anthony Bedoya MD Clear cell carcinoma of right kidney (Primary Dx); Kidney, NOS cancer <Unspecified>; Erythrocytosis; Secondary malignant neoplasm of bilateral lungs; Cancer associated pain; Anxiety, not otherwise specified 03/21/2023 12:00 PM MANAGER PERSONNEL SELECTION - 03/21/2023 11:59 PM MANAGER PERSONNEL SELECTION Hospital Encounter [facility] [address] [place] [address] Chary Frias PA Clear cell carcinoma of right kidney; Erythrocytosis Discharge Disposition: Home 03/21/2023 Orders Only [facility] - Oncology [address] [place] [address], 7th [place] [address] Anthony Bedoya MD 03/21/2023 Travel 03/20/2023 Orders Only [facility] - Oncology [address] [place] [address], 7th [place] [address] Chary Frias PA Clear cell carcinoma of right kidney (Primary Dx); Erythrocytosis 03/15/2023 Orders Only [facility] [address] [place] [address], 9th [place] [address] Katiana Felton MD Neoplasm related pain (acute) (chronic) (Primary Dx) 03/06/2023 Orders Only [facility] [address] [place] [address], 9th [place] [address] Katiana Felton MD Neoplasm related pain (acute) (chronic) (Primary Dx) 02/21/2023 Orders Only [facility] [address] [place] [address], 9 [place] [address] Katiana Felton MD Neoplasm related pain (acute) (chronic) (Primary Dx) 02/20/2023 Refill [facility] [address] [place] [address], 9th [place] [address] Nicol Hodges, SUREKHA 02/18/2023 Refill [facility] [address] [place] [address], 9th [place] [address] Nciol Hodges, RN Neoplasm related pain (acute) (chronic) 02/15/2023 Orders Only [facility] [address] [place] [address], 9th [place] [address] Katiana Felton MD Frequency of micturition (Primary Dx) 02/11/2023 Telephone [facility] [address] [place] [address], 9th [place] [address] Suki Cruz, DRIVER SUPERVISOR 02/06/2023 10:30 AM CDT Ancillary Procedure Nuclear Medicine [address] [place] [address], 6th Floor, [place] [address] Katiana Felton MD 02/06/2023 8:00 AM CDT Ancillary Procedure Nuclear Medicine [address] [place] [address], 6th Floor, [place] [address] Katiana Felton MD Kidney, NOS cancer <Unspecified> 02/05/2023 Orders Only [facility] [address] [place] [address], 9th [place] [address] Katiana Felton MD Neoplasm related pain (acute) (chronic) (Primary Dx) 02/05/2023 Refill [facility] [address] [place] [address], 9th [place] [address] Nicol Hodges RN Neoplasm related pain (acute) (chronic) 02/04/2023 Orders Only [facility] [address] [place] [address], 9th [place] [address] Katiana Felton MD Neoplasm related pain (acute) (chronic) (Primary Dx) 02/04/2023 Refill [facility] Center [address] [facility] Main dg, 9th [place] [address] Nicol Hodges, RN Neoplasm related pain (acute) (chronic) 02/01/2023 Telephone Internal Medicine Center [facility]5 [facility] Main dg, 9th [place] [address] Katiana Felton MD 02/01/2023 Orders Only Internal Medicine Center [facility]5 [facility] Main dg, 9th [place] [address] Katiana Felton MD Kidney, NOS cancer <Unspecified> (Primary Dx) 2023 7:33 AM CDT - 2023 11:59 PM CDT Hospital Encounter Interventional Radiology [address] [facility], 4th [place] [address] Discharge Disposition: Home 2023 Travel 01/30/2023 1:28 PM CDT - 01/30/2023 11:59 PM CDT Hospital Encounter Interventional Radiology [address] [facility], 4th [place] [address] Pneumothorax Discharge Disposition: Home 01/30/2023 12:17 PM CDT - 01/30/2023 1:27 PM CDT Hospital Encounter Interventional Radiology [address] [facility], 4th [place] [address] Discharge Disposition: Home 01/30/2023 9:45 AM CDT - 01/30/2023 12:16 PM CDT Hospital Encounter Interventional Radiology [address] [facility], 4th [place] [address] Discharge Disposition: Home 01/30/2023 7:25 AM CDT - 01/30/2023 9:44 AM CDT Hospital Encounter Interventional Radiology [address] [facility], 4th [place] [address] Katiana Felton MD Shah, Matthieu Nguyen MD Multiple nodules of lung; Abnormal finding on diagnostic imaging of other abdominal region including retroperitoneum Discharge Disposition: Home 01/30/2023 Travel 01/29/2023 9:30 AM CDT - 01/29/2023 11:59 PM CDT Hospital Encounter Interventional Radiology [address] [place] [address], 4th [place] [address] Katiana Felton MD Patel, Rakhi J, PA Lung nodule (Primary Dx) Discharge Disposition: Home 01/29/2023 9:00 AM CDT - 01/29/2023 9:29 AM CDT Hospital Encounter [facility] [address] [place] [id number] Jovan Nava PA Multiple nodules of lung; Abnormal finding on diagnostic imaging of other abdominal region including retroperitoneum Discharge Disposition: Home 01/29/2023 Travel 01/23/2023 Documentation MDA TRANSL MOLEC Flora Cabrera 01/21/2023 1:20 PM CDT Ancillary Procedure [address] [address] Katiana Felton MD Multiple nodules of lung; Abnormal finding on diagnostic imaging of other abdominal region including retroperitoneum 01/21/2023 Education Interventional Radiology [address] [place] [address], 4th [place] [address] Allyssa Nesbitt MA 01/21/2023 Travel 01/18/2023 10:00 AM CDT Telemedicine Internal Medicine Center [address] [place] [address], 9th [place] [address] Katiana Felton MD Multiple nodules of lung (Primary Dx); Abnormal finding on diagnostic imaging of other abdominal region including retroperitoneum; Smoker; Neoplasm related pain (acute) (chronic) 01/18/2023 Orders Only Main Interventional Radiology [address] [place] [address], 3rd [place] [address] Jovan Nava PA 01/15/2023 8:00 PM CDT Ancillary Procedure Image Library [address] [place] [id number] Katiana Felton MD Cancer 01/15/2023 3:00 PM CDT NPR MDA PATIENT ACCESS 01/15/2023 Travel 01/15/2023 Telephone MDA PATIENT ACCESS Gilson Canales RN 01/15/2023 Telephone MDA PATIENT ACCESS Gilson Canales RN after 07/25/2022 Medical History Medical History Date Comments Tooth disorder 2022 Need deep, scali ng, and extraction Asbestosis 2010 At [facility] Genital warts 2014 Genital herpes simplex 1993 not treat ed per pt. Alcohol abuse 1984 Used drugs since 1984, including smoking marijuana, [...] Types Packs/Day Years Used Date Smoking Tobacco: Former Cigarettes 1 37 0 01/04/1986 - 01/30/2023 Smokeless Tobacco: Former Snuff Quit: 04/19/2017 Tobacco [...] Sign Reading Time Taken Comments Blood Pressure 126/75 07/12/2023 2:59 PM MANAGER PERSONNEL SELECTION Pulse 76 07/12/2023 2:59 PM MANAGER PERSONNEL SELECTION Temperature 37 C (98.6 F) 07/12/2023 2:59 PM MANAGER PERSONNEL SELECTION Respiratory Rate 18 07/12/2023 2:59 PM MANAGER PERSONNEL SELECTION Oxygen Saturation 95% 07/12/2023 2:59 PM MANAGER PERSONNEL SELECTION Inhaled Oxygen Concentration - - Weight 94 kg (207 lb 3.7 oz) 07/12/2023 2:56 PM MANAGER PERSONNEL SELECTION Height 193 cm (6' 3.98") 07/09/2023 10:56 AM MANAGER PERSONNEL SELECTION Body Mass Index 25.24 07/09/2023 10:56 AM MANAGER PERSONNEL SELECTION Plan of Treatment Upcoming Encounters Date Type Department Care Team Description 08/06/2023 9:30 AM CDT Appointment [facility] [address] [place] [address], [place] [address] Chary Frias PA [facility] [place] [address] 08/06/2023 11:00 AM CDT Office Visit Genitourinary Cancer Center - Oncology [address] [facility], 7th [place] [address] Anthony Bedoya MD [address] [place] [id number] 08/06/2023 1:45 PM CDT Infusion [facility] [address] [facility], Floor [address] [place] [address] Chary Frias PA [facility] [place] [address] Health Maintenance Due Date Last Done Comments COVID-19 Vaccine (#1) 02/01/1976 Influenza Vaccine 01/04/2023 Procedures Procedure Name Priority Date/Time Associated Diagnosis Comments TETRAHYDROCANNABINOL CONFIRMATION, UR Routine 07/12/2023 3:32 PM MANAGER PERSONNEL SELECTION Clear cell carcinoma of right kidney Medication monitoring OPIATES URINE Routine 07/12/2023 3:32 PM MANAGER PERSONNEL SELECTION Clear cell carcinoma of right kidney Medication monitoring CONTROLLED SUBSTANCE MONITORING PANEL, URINE Routine 07/12/2023 3:32 PM MANAGER PERSONNEL SELECTION Clear cell carcinoma of right kidney Medication monitoring CT CHEST ABDOMEN PELVIS W CONTRAST Routine 07/05/2023 1:34 PM MANAGER PERSONNEL SELECTION 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 TETRAHYDROCANNABINOL CONFIRMATION, UR Routine 07/05/2023 12:57 PM MANAGER PERSONNEL SELECTION Opioid use, not otherwise specified Pain management education for family OPIATES URINE Routine 07/05/2023 12:57 PM MANAGER PERSONNEL SELECTION Opioid use, not otherwise specified Pain management education for family CONTROLLED SUBSTANCE MONITORING PANEL, URINE Routine 07/05/2023 12:57 PM MANAGER PERSONNEL SELECTION Opioid use, not otherwise specified Pain management education for family .CBC Routine 07/05/2023 11:22 AM MANAGER PERSONNEL SELECTION 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 THYROID STIMULATING HORMONE Routine 07/05/2023 11:22 AM MANAGER PERSONNEL SELECTION 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 LIPASE LEVEL Routine 07/05/2023 11:22 AM MANAGER PERSONNEL SELECTION 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 PHOSPHORUS LEVEL Routine 07/05/2023 11:22 AM MANAGER PERSONNEL SELECTION 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 MAGNESIUM LEVEL Routine 07/05/2023 11:22 AM MANAGER PERSONNEL SELECTION 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 LACTATE DEHYDROGENASE Routine 07/05/2023 11:22 AM MANAGER PERSONNEL SELECTION 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 FREE THYROXINE Routine 07/05/2023 11:22 AM MANAGER PERSONNEL SELECTION 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 CORTISOL, TOTAL Routine 07/05/2023 11:22 AM MANAGER PERSONNEL SELECTION 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 COMPREHENSIVE METABOLIC PANEL Routine 07/05/2023 11:22 AM MANAGER PERSONNEL SELECTION 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 COMPLETE BLOOD COUNT W/ DIFFERENTIAL Routine 07/05/2023 11:22 AM MANAGER PERSONNEL SELECTION 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 AMYLASE LEVEL Routine 07/05/2023 11:22 AM MANAGER PERSONNEL SELECTION 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 TETRAHYDROCANNABINOL CONFIRMATION, UR Routine 06/28/2023 9:56 AM MANAGER PERSONNEL SELECTION Neoplasm related pain (acute) (chronic) OPIATES URINE Routine 06/28/2023 9:56 AM MANAGER PERSONNEL SELECTION Neoplasm related pain (acute) (chronic) CONTROLLED SUBSTANCE MONITORING PANEL, URINE Routine 06/28/2023 9:56 AM MANAGER PERSONNEL SELECTION Neoplasm related pain (acute) (chronic) .CBC Routine 06/18/2023 2:52 PM MANAGER PERSONNEL SELECTION Clear cell carcinoma of right kidney FREE THYROXINE Routine 06/18/2023 2:52 PM MANAGER PERSONNEL SELECTION Clear cell carcinoma of right kidney THYROID STIMULATING HORMONE Routine 06/18/2023 2:52 PM MANAGER PERSONNEL SELECTION Clear cell carcinoma of right kidney LIPASE LEVEL Routine 06/18/2023 2:52 PM MANAGER PERSONNEL SELECTION Clear cell carcinoma of right kidney AMYLASE LEVEL Routine 06/18/2023 2:52 PM MANAGER PERSONNEL SELECTION Clear cell carcinoma of right kidney LACTATE DEHYDROGENASE Routine 06/18/2023 2:52 PM MANAGER PERSONNEL SELECTION Clear cell carcinoma of right kidney MAGNESIUM LEVEL Routine 06/18/2023 2:52 PM MANAGER PERSONNEL SELECTION Clear cell carcinoma of right kidney PHOSPHORUS LEVEL Routine 06/18/2023 2:52 PM MANAGER PERSONNEL SELECTION Clear cell carcinoma of right kidney COMPREHENSIVE METABOLIC PANEL Routine 06/18/2023 2:52 PM MANAGER PERSONNEL SELECTION Clear cell carcinoma of right kidney COMPLETE BLOOD COUNT W/ DIFFERENTIAL Routine 06/18/2023 2:52 PM MANAGER PERSONNEL SELECTION Clear cell carcinoma of right kidney CORTISOL, TOTAL Routine 06/18/2023 2:52 PM MANAGER PERSONNEL SELECTION Clear cell carcinoma of right kidney TETRAHYDROCANNABINOL CONFIRMATION, UR Routine 05/21/2023 9:45 AM MANAGER PERSONNEL SELECTION Breakthrough cancer pain OPIATES URINE Routine 05/21/2023 9:45 AM MANAGER PERSONNEL SELECTION Breakthrough cancer pain CONTROLLED SUBSTANCE MONITORING PANEL, URINE Routine 05/21/2023 9:45 AM MANAGER PERSONNEL SELECTION Breakthrough cancer pain URINALYSIS MICROSCOPIC EXAM Routine 05/10/2023 3:37 PM MANAGER PERSONNEL SELECTION 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 URINALYSIS WITH MICROSCOPIC IF INDICATED Routine 05/10/2023 3:37 PM MANAGER PERSONNEL SELECTION 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 CT CHEST ABDOMEN PELVIS W CONTRAST Routine 05/10/2023 3:31 PM MANAGER PERSONNEL SELECTION 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 .CBC Routine 05/10/2023 1:05 PM MANAGER PERSONNEL SELECTION 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 THYROID STIMULATING HORMONE Routine 05/10/2023 1:05 PM MANAGER PERSONNEL SELECTION 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 LACTATE DEHYDROGENASE Routine 05/10/2023 1:05 PM MANAGER PERSONNEL SELECTION 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 FREE THYROXINE Routine 05/10/2023 1:05 PM MANAGER PERSONNEL SELECTION 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 MAGNESIUM LEVEL Routine 05/10/2023 1:05 PM MANAGER PERSONNEL SELECTION 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 COMPREHENSIVE METABOLIC PANEL Routine 05/10/2023 1:05 PM MANAGER PERSONNEL SELECTION 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 COMPLETE BLOOD COUNT W/ DIFFERENTIAL Routine 05/10/2023 1:05 PM MANAGER PERSONNEL SELECTION 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 LIPASE LEVEL Routine 05/10/2023 1:05 PM MANAGER PERSONNEL SELECTION Clear cell carcinoma of right kidney AMYLASE LEVEL Routine 05/10/2023 1:05 PM MANAGER PERSONNEL SELECTION Clear cell carcinoma of right kidney PHOSPHORUS LEVEL Routine 05/10/2023 1:05 PM MANAGER PERSONNEL SELECTION Clear cell carcinoma of right kidney CORTISOL, TOTAL Routine 05/10/2023 1:05 PM MANAGER PERSONNEL SELECTION Clear cell carcinoma of right kidney .CBC Routine 04/16/2023 7:21 AM MANAGER PERSONNEL SELECTION COMPLETE BLOOD COUNT W/ DIFFERENTIAL Routine 04/16/2023 7:21 AM MANAGER PERSONNEL SELECTION PHOSPHORUS LEVEL Routine 04/16/2023 7:21 AM MANAGER PERSONNEL SELECTION MAGNESIUM LEVEL Routine 04/16/2023 7:21 AM MANAGER PERSONNEL SELECTION BASIC METABOLIC PANEL, CALCIUM TOTAL Routine 04/16/2023 7:21 AM MANAGER PERSONNEL SELECTION LACTIC ACID, VENOUS STAT 04/15/2023 8 :16 PM MANAGER PERSONNEL SELECTION BLOOD CULTURE Routine 04/15/2023 4:23 PM MANAGER PERSONNEL SELECTION US RENAL STAT 04/15/2023 3:46 PM MANAGER PERSONNEL SELECTION XR ABDOMEN 1 VW PORTABLE STAT 023 10:15 AM MANAGER PERSONNEL SELECTION HC PROCALCITONIN (PCT) Add-On 3 2:35 AM MANAGER PERSONNEL SELECTION .CBC Routine 04/15/2023 2:35 AM MANAGER PERSONNEL SELECTION COMPLETE BLOOD COUNT W/ DIFFERENTIAL Routine 04/15/2023 2:35 AM MANAGER PERSONNEL SELECTION PHOSPHORUS LEVEL Routine 04/15/2023 2:35 AM MANAGER PERSONNEL SELECTION MAGNESIUM LEVEL Routine 04/15/2023 2:35 AM MANAGER PERSONNEL SELECTION BASIC METABOLIC PANEL, CALCIUM TOTAL Routine 04/15/2023 2:35 AM MANAGER PERSONNEL SELECTION CT HEAD WO CONTRAST STAT 04/15/2023 1 :56 AM MANAGER PERSONNEL SELECTION BENZODIAZEPINE CONFIRMATION URINE Routine 04/15/2023 1:14 AM MANAGER PERSONNEL SELECTION TETRAHYDROCANNABINOL CONFIRMATION, UR Routine 04/15/2023 1:14 AM MANAGER PERSONNEL SELECTION OPIATES URINE Routine 04/15/2023 1:14 AM MANAGER PERSONNEL SELECTION DRUG ABUSE SURVEY WITH CONFIRMATION, URINE STAT 04/15/2023 1:14 AM MANAGER PERSONNEL SELECTION US RENAL Routine 04/14/2023 11:41 PM MANAGER PERSONNEL SELECTION XR CHEST 1 VW Routine 04/14/2023 9:43 PM MANAGER PERSONNEL SELECTION URINALYSIS MICROSCOPIC EXAM Routine 04/14/2023 8:44 PM MANAGER PERSONNEL SELECTION URINALYSIS WITH MICROSCOPIC IF INDICATED Routine 04/14/2023 8:44 PM MANAGER PERSONNEL SELECTION URINE CULTURE Routine 04/14/2023 8:44 PM MANAGER PERSONNEL SELECTION OSI CT ABDOMEN AND PELVIS Routine 2022 5:51 PM MANAGER PERSONNEL SELECTION Cancer .CBC Routine 04/14/2023 5:19 PM MANAGER PERSONNEL SELECTION APTT Routine 04/14/2023 5:19 PM MANAGER PERSONNEL SELECTION PROTHROMBIN TIME Routine 04/14/2023 5:19 PM MANAGER PERSONNEL SELECTION PHOSPHORUS LEVEL Routine 04/14/2023 5:19 PM MANAGER PERSONNEL SELECTION MAGNESIUM LEVEL Routine 04/14/2023 5:19 PM MANAGER PERSONNEL SELECTION COMPREHENSIVE METABOLIC PANEL Routine 04/14/2023 5:19 PM MANAGER PERSONNEL SELECTION COMPLETE BLOOD COUNT W/ DIFFERENTIAL Routine 04/14/2023 5:19 PM MANAGER PERSONNEL SELECTION MRI BRAIN W WO CONTRAST Routine 04/11/20 2:47 PM MANAGER PERSONNEL SELECTION Clear cell carcinoma of right kidney CT CHEST ABDOMEN PELVIS W WO CONTRAST Routine 03/25/2023 2:53 PM MANAGER PERSONNEL SELECTION Clear cell carcinoma of right kidney POC CREATININE Routine 03/25/2023 1:28 PM MANAGER PERSONNEL SELECTION URINALYSIS MICROSCOPIC EXAM Routine 03/21/2023 4:58 PM MANAGER PERSONNEL SELECTION Clear cell carcinoma of right kidney Erythrocytosis URINALYSIS WITH MICROSCOPIC IF INDICATED Routine 03/21/2023 4:58 PM MANAGER PERSONNEL SELECTION Clear cell carcinoma of right kidney Erythrocytosis .CBC Routine 03/21/2023 1:52 PM MANAGER PERSONNEL SELECTION Clear cell carcinoma of right kidney Erythrocytosis LACTATE DEHYDROGENASE Routine 03/21/2023 1:52 PM MANAGER PERSONNEL SELECTION Clear cell carcinoma of right kidney Erythrocytosis PROTHROMBIN TIME Routine 03/21/2023 1:52 PM MANAGER PERSONNEL SELECTION Clear cell carcinoma of right kidney Erythrocytosis THYROID STIMULATING HORMONE Routine 03/21/2023 1:52 PM MANAGER PERSONNEL SELECTION Clear cell carcinoma of right kidney Erythrocytosis LIPASE LEVEL Routine 03/21/2023 1:52 PM MANAGER PERSONNEL SELECTION Clear cell carcinoma of right kidney Erythrocytosis CORTISOL, TOTAL Routine 03/21/2023 1:52 PM MANAGER PERSONNEL SELECTION Clear cell carcinoma of right kidney Erythrocytosis FREE THYROXINE Routine 03/21/2023 1:52 PM MANAGER PERSONNEL SELECTION Clear cell carcinoma of right kidney Erythrocytosis PHOSPHORUS LEVEL Routine 03/21/2023 1:52 PM MANAGER PERSONNEL SELECTION Clear cell carcinoma of right kidney Erythrocytosis MAGNESIUM LEVEL Routine 03/21/2023 1:52 PM MANAGER PERSONNEL SELECTION Clear cell carcinoma of right kidney Erythrocytosis COMPREHENSIVE METABOLIC PANEL Routine 03/21/2023 1:52 PM MANAGER PERSONNEL SELECTION Clear cell carcinoma of right kidney Erythrocytosis COMPLETE BLOOD COUNT W/ DIFFERENTIAL Routine 03/21/2023 1:52 PM MANAGER PERSONNEL SELECTION Clear cell carcinoma of right kidney Erythrocytosis APTT Routine 03/21/2023 1:52 PM MANAGER PERSONNEL SELECTION Clear cell carcinoma of right kidney Erythrocytosis AMYLASE LEVEL Routine 03/21/2023 1:52 PM MANAGER PERSONNEL SELECTION Clear cell carcinoma of right kidney Erythrocytosis [...] abdominal region including retroperitoneum ASPARTATE AMINOTRANSFERASE Routine 01/29 9:26 AM CDT Multiple nodules of lung Abnormal finding on diagnostic imaging of other abdominal region including retroperitoneum ALANINE AMINOTRANSFERASE Routine 9:26 AM CDT Multiple nodules of [...] abdominal region including retroperitoneum CARCINOEMBRYONIC ANTIGEN Routine 023 9:26 AM CDT Multiple nodules of lung Abnormal finding on diagnostic imaging of other abdominal region including retroperitoneum CARBOHYDRATE ANTIGEN 19-9 Routine 2022 9:26 AM CDT Multiple nodules of lung [...] Routine 01/01/2023 3:49 PM CDT Cancer after 07/25/2022 Results * (ABNORMAL) Controlled Substance Monitoring Panel, Urine (07/12/2023 3:32 PM MANAGER PERSONNEL SELECTION) Only the most recent of4 resultswithin the time period is included. Patients Current Medications Unknown 07/17/2023 1:43 PM CDT [facility] Comment: ADDITIONAL INFORMATION Accuracy and completeness of declared medications on reports solely dependent on information submitted by client. Urine Creatinine 95.9 mg/dL 07/17/19 24 1:43 PM CDT [facility] Urine Specific [place] 1.015 1:43 PM CDT [facility] Urine Ph 5.7 07/17/2023 1:43 PM CDT [facility] Urine Oxidants Negative Cutoff: 200 mg/L 07/17/2023 1:43 PM CDT [facility] Urine Nitrites DNR 07/17/2023 1:43 PM CDT [facility] Urine Comment Normal 07/17/2023 1:43 PM CDT [facility] U Barbiturates-Robinson Negative Cutoff: 200 ng/mL 07/17/2023 1:43 PM CDT [facility] U Cocaine Lvl-Robinson Negative Cutoff: 150 ng/mL 07/17/2023 1:43 PM CDT [facility] Comment: This cocaine immunoassay targets benzoylecgonine the primary metabolite of cocaine. U THC-Robinson Presumptive Positive(A) Cutoff: 50 ng/mL 07/17/2023 1:43 PM [facility] Comment: This immunoassay targets delta-9 tetrahydrocannabinol carboxylic acid (THC-COOH), a metabolite of delta-9 tetrahydrocannabinol the main psychoactive ingredient of marijuana. Drug confirmation to follow. Presumptive Positive means that the screening method is positive, but the test needs to be run by a confirmatory method before being finalized. ADDITIONAL INFORMATION This report is intended for use in clinical monitoring or management of patients. It is not intended for use in employment-related testing. Codeine Not Detected Cutoff: 25 ng/mL 07/17/2023 1:43 PM T [facility] Comment:Tylenol 3 Atyzaly-7-eiqp-glucuro nide Not Detected Cutoff: 100 ng/mL 07/17/2023 1:43 PM [facility] Comment:Metabolite of codein e Morphine Present(A) Cutoff: 25 ng/mL 07/17/2023 1:43 PM [facility] Comment: Ciera [place], [place] Contin; Also a minor metabolite (10%) of codeine and can be seen in low concentrations (<2,000 ng/mL) with poppy seed ingestion. Qacngksy-9-rzjd-glucur onide Present(A) Cutoff: 100 ng/mL 07/17/2023 1:43 PM T [facility] Comment:Metabolite of morphi ne 6-monoacetylmorphine Not Detected Cutoff: 25 ng/mL 07/17/2023 1:43 PM [facility] Comment:Metabolite of heroin Hydrocodone Not Detected Cutoff: 25 ng/mL 07/17/2023 1:43 PM [facility] Comment: Lortab, [place], Vicodin; Also a very minor metabolite of codeine and impurity (<1%) of oxycodone. Norhydrocodone Not Detected Cutoff: 25 ng/mL 07/17/2023 1:43 PM [facility] Comment:Metabolite of hydroc odone Dihydrocodeine Not Detected Cutoff: 25 ng/mL 07/17/2023 1:43 PM [facility] Comment:Metabolite of hydroc odone Hydromorphone Not Detected Cutoff: 25 ng/mL 07/17/2023 1:43 PM CDT [facility] Comment: Dilaudid, Exalgo; Also a metabolite of hydrocodone and a minor (<5%) metabolite of morphine. Tyidvzswpsdck-5-tbje-g lucuronide Present(A) Cutoff: 100 ng/mL 07/17/2023 1:43 PM T [facility] Comment:Metabolite of hydrom orphone Oxycodone Not Detected Cutoff: 25 ng/mL 07/17/2023 1:43 PM T [facility] Comment:Endocet, Percocet, O xycontin Noroxycodone Not Detected Cutoff: 25 ng/mL 07/17/2023 1:43 PM T [facility] Comment:Metabolite of oxycod one Oxymorphone Not Detected Cutoff: 25 ng/mL 07/17/2023 1:43 PM T [facility] Comment:Numorphan, Opana; Al so a metabolite of oxycodone. Tvraevbtlpd-5-hlnl-glu curonide Not Detected Cutoff: 100 ng/mL 07/17/2023 1:43 PM T [facility] Comment:Metabolite of oxymor phone and/or naloxone (nornaloxone) Noroxymorphone Not Detected Cutoff: 25 ng/mL 07/17/2023 1:43 PM [facility] Comment:Metabolite of oxymor phone and/or naloxone (nornaloxone) Fentanyl Not Detected Cutoff: 2 ng/mL 07/17/2023 1:43 PM T [facility] Comment:Actiq, Duragesic, Fe ntora Norfentanyl Not Detected Cutoff: 2 ng/mL 07/17/2023 1:43 PM T [facility] Comment:Metabolite of fentan yl Meperidine Not Detected Cutoff: 25 ng/mL 07/17/2023 1:43 PM T [facility] Comment:Demerol Normeperidine Not Detected Cutoff: 25 ng/mL 07/17/2023 1:43 PM T [facility] Comment:Metabolite of meperi dine Naloxone Not Detected Cutoff: 25 ng/mL 07/17/2023 1:43 PM T [facility] Comment:Narcan Zjxxchyx-2-sdno-glucur onide Not Detected Cutoff: 100 ng/mL 07/17/2023 1:43 PM CDT [facility] Comment:Metabolite of naloxo ne U Methadone Not Detected Cutoff: 25 ng/mL 07/17/2023 1:43 PM T [facility] Comment:Dolophine EDDP Not Detected Cutoff: 25 ng/mL 07/17/2023 1:43 PM T [facility] Comment:Metabolite of methad one Propoxyphene Not Detected Cutoff: 25 ng/mL 07/17/2023 1:43 PM CDT [facility] Comment:Darvon, Darvocet Norpropoxyphene Not Detected Cutoff: 25 ng/mL 07/17/2023 1:43 PM T [facility] Comment:Metabolite of propox yphene Tramadol Not Detected Cutoff: 25 ng/mL 07/17/2023 1:43 PM T [facility] Comment:Tradol, Ultram, Ultr acet O-desmethyltramadol Not Detected Cutoff: 25 ng/mL 07/17/2023 1:43 PM T [facility] Comment:Metabolite of tramad ol Tapentadol Not Detected Cutoff: 25 ng/mL 07/17/2023 1:43 PM CDT [facility] Comment:Nucynta N-desmethyltapentadol Not Detected Cutoff: 50 ng/mL 07/17/2023 1:43 PM T [facility] Comment:Metabolite of tapent adol Alsgdpnvrg-nbtj-ocyjwg onide Not Detected Cutoff: 100 ng/mL 07/17/2023 1:43 PM T [facility] Comment:Metabolite of tapent adol Buprenorphine Not Detected Cutoff: 5 ng/mL 07/17/2023 1:43 PM T [facility] Comment:Buprenex, Suboxone Norbuprenorphine Not Detected Cutoff: 5 ng/mL 07/17/2023 1:43 PM T [facility] Comment:Metabolite of bupren orphine Norbuprenorphine Glucuronide Not Detected Cutoff: 20 ng/mL 07/17/2023 1:43 PM T [facility] Comment:Metabolite of bupren orphine Opioid Interpretation SEE COMMENTS 0 07/17/2023 1:43 PM T [facility] Comment: Test detected the presence of both morphine and its metabolites (mbgvtujr-6-bpzh-glucuronide and rfjyhwfoxjoad-2-oyrb-glucuronide). Suspect use of morphine and/or hydromorphone within the past three days. Alternatively, these results could also reflect the use of hydromorphone within the past three days since trace amounts of morphine can also be found as an impurity in hydromorphone. ADDITIONAL INFORMATION This test was developed and its performance characteristics determined by [facility] in a manner consistent with CLIA requirements. This test has not been cleared or approved by the U.S. Food and Drug Administration. Alprazolam Urine Not Detected Cutoff: 10 ng/mL 07/17/2023 1:43 PM CDT [facility] Comment:Xanax Alpha-Hydroxyalprazola m Urine Not Detected Cutoff: 10 ng/mL 07/17/2023 1:43 PM CDT [facility] Comment:Metabolite of Alpraz olam Alpha-Hydroxyalprazola m Glucuronide Urine Not Detected Cutoff: 50 ng/mL 07/17/2023 1:43 PM CDT [facility] Comment:Metabolite of Alpraz olam Chlordiazepoxide Urine Not Detected Cutoff: 10 ng/mL 07/17/2023 1:43 PM T [facility] Comment:Librium Colbazam Urine Not Detected Cutoff: 10 ng/mL 07/17/2023 1:43 PM CDT [facility] Comment:Frisium, Onfi N-Desmethylclobazam Urine Not Detected Cutoff: 200 ng/mL 07/17/2023 1:43 PM CDT [facility] Comment:Metabolite of Clobaz am Clonazepam Urine Not Detected Cutoff: 10 ng/mL 07/17/2023 1:43 PM T [facility] Comment:Klonopin, Rivotril 7-Aminoclonazepam Urine Not Detected Cutoff: 10 ng/mL 07/17/2023 1:43 PM T [facility] Comment:Metabolite of Clonaz epam Diazepam Urine Not Detected Cutoff: 10 ng/mL 07/17/2023 1:43 PM T [facility] Comment:Valium Nordiazepam Urine Not Detected Cutoff: 10 ng/mL 07/17/2023 1:43 PM T [facility] Comment:Metabolite of Chlord iazepoxide, Diazepam, or Prazepam. Flunitrazepam Urine Not Detected Cutoff: 10 ng/mL 07/17/2023 1:43 PM T [facility] Comment:Rohypnol 7-Aminoflunitrazepam Urine Not Detected Cutoff: 10 ng/mL 07/17/2023 1:43 PM T [facility] Comment:Metabolite of Flunit razepam FlUrinerazepam Urine Not Detected Cutoff: 10 ng/mL 07/17/2023 1:43 PM T [facility] Comment:Dalmane 2-Hydroxy Ethyl Flurazepam Urine Not Detected Cutoff: 10 ng/mL 07/17/2023 1:43 PM T [facility] Comment:Metabolite of Fluraz epam Lorazepam Urine Not Detected Cutoff: 10 ng/mL 07/17/2023 1:43 PM T [facility] Comment:Ativan Lorazepam Glucuronide Urine Not Detected Cutoff: 50 ng/mL 07/17/2023 1:43 PM T [facility] Comment:Metabolite of Loraze chemo Midazolam Urine Not Detected Cutoff: 10 ng/mL 07/17/2023 1:43 PM [facility] Comment:Versed Alpha-Hydroxy Midazolam Urine Not Detected Cutoff: 10 ng/mL 07/17/2023 1:43 PM [facility] Comment:Metabolite of Midazo perla Oxazepam Urine Not Detected Cutoff: 10 ng/mL 07/17/2023 1:43 PM [facility] Comment: Serax; Also a metabolite of Chlordiazepoxide, Diazepam, or Temazepam. Oxazepam Glucuronide Urine Not Detected Cutoff: 50 ng/mL 07/17/2023 1:43 PM T [facility] Comment:Metabolite of Oxazep am Prazepam Urine Not Detected Cutoff: 10 ng/mL 07/17/2023 1:43 PM T [facility] Comment:Centrax Temazepam Urine Not Detected Cutoff: 10 ng/mL 07/17/2023 1:43 PM T [facility] Comment:Restoril; Also a met abolite of Diazepam. Temazepam Glucuronide Urine Not Detected Cutoff: 50 ng/mL 07/17/2023 1:43 PM CDT [facility] Comment:Metabolite of Temaze chemo Triazolam Urine Not Detected Cutoff: 10 ng/mL 07/17/2023 1:43 PM CDT [facility] Comment:Halcion Alpha-Hydroxy Triazolam Urine Not Detected Cutoff: 10 ng/mL 07/17/2023 1:43 PM CDT [facility] Comment:Metabolite of Triazo perla Zolpidem Urine Not Detected Cutoff: 10 ng/mL 07/17/2023 1:43 PM CDT [facility] Comment:Ambien Zolpidem Ukeuu-4-Rttkpzpfuy Acid Urine Not Detected Cutoff: 10 ng/mL 07/17/2023 1:43 PM CDT [facility] Comment:Metabolite of Zolpid em Benzodiazepine Interp Urine SEE COMMENTS 07/17/2023 1:43 PM CDT [facility] Comment: No benzodiazepines were detected. The absence of expected drug(s) and/or drug metabolite(s) may indicate non-compliance, altered pharmacokinetics, inappropriate timing of specimen collection relative to drug administration, diluted/adulterated urine, or limitations of testing. ADDITIONAL INFORMATION This test was developed and its performance characteristics determined by [facility] in a manner consistent with CLIA requirements. This test has not been cleared or approved by the U.S. Food and Drug Administration. Methamphetamine Not Detected Cutoff: 100 ng/mL 07/17/2023 1:43 PM CDT [facility] Comment:Desoxyn Amphetamine Not Detected Cutoff: 100 ng/mL 07/17/2023 1:43 PM CDT [facility] Comment: Dyanavel XR, Adzenys ER, Adderall, Vyvanse; Also a metabolite of methamphetamine MDMA Not Detected Cutoff: 100 ng/mL 07/17/2023 1:43 PM CDT [facility] MDEA Not Detected Cutoff: 100 ng/mL 07/17/2023 1:43 PM CDT [facility] MDA Not Detected Cutoff: 100 ng/mL 07/17/2023 1:43 PM T [facility] Comment:Also a metabolite of MDMA and/or MDEA Ephedrine Not Detected Cutoff: 100 ng/mL 07/17/2023 1:43 PM CDT [facility] Pseudoephedrine Not Detected Cutoff: 100 ng/mL 07/17/2023 1:43 PM T [facility] Comment:Sudafed Phentermine Not Detected Cutoff: 100 ng/mL 07/17/2023 1:43 PM CDT [facility] Comment:Adipex-P, Lomaira, Q symia Phencyclidine (PCP) Not Detected Cutoff: 20 ng/mL 07/17/2023 1:43 PM CDT [facility] Methylphenidate Not Detected Cutoff: 20 ng/mL 07/17/2023 1:43 PM T [facility] Comment:Ritalin, Concerta Ritalinic Acid Not Detected Cutoff: 100 ng/mL 07/17/2023 1:43 PM T [facility] Comment:Metabolite of methyl phenidate Stimulatn Interpretation SEE COMMENTS 07/17/2023 1:43 PM T [facility] Comment: No stimulants were detected. The absence of expected drug(s) and/or drug metabolite(s) may indicate non-compliance, altered pharmacokinetics, inappropriate timing of specimen collection relative to drug administration, diluted/adulterated urine, or limitations of testing. ADDITIONAL INFORMATION This test was developed and its performance characteristics determined by [facility] in a manner consistent with CLIA requirements. This test has not been cleared or approved by the U.S. Food and Drug Administration. Test Performed by: [facility] [address] Teletype Installer: Matty Quan M.D. Ph.D.; CLIA# [id number] Urine Voided urine specimen / Unknown Non-blood Collection / Unknown 07/12/2023 3:32 PM MANAGER PERSONNEL SELECTION 07/12/2023 3:58 PM MANAGER PERSONNEL SELECTION Greer Verdugo MD URINE ORDERABLES [facility] * Opiates, Quantitative, Urine (07/12/2023 3:32 PM MANAGER PERSONNEL SELECTION) Only the most recent of5 resultswithin the time period is included. [facility] U Codeine MS/ MS Negative Cutoff: 25 ng/mL 07/17/2023 12:33 PM T [facility] U Dihydrocodeine MS/MS Negative Cutoff: 25 ng/mL 07/17/2023 12:33 PM [facility] U Hydroco MS/MS Negative Cutoff: 25 ng/mL 07/17/2023 12:33 PM [facility] U Norhydrocodone MS/MS Negative Cutoff: 25 ng/mL 07/17/2023 12:33 PM [facility] U Hydromo MS/MS 134 Cutoff: 25 ng/mL 07/17/2023 12:33 PM [facility] U Oxyco MS/MS Negative Cutoff: 25 ng/mL 07/17/2023 12:33 PM [facility] U Noroxycodone MS/MS Negative Cutoff: 25 ng/mL 07/17/2023 12:33 PM [facility] U Oxymorphone MS/MS Negative Cutoff: 25 ng/mL 07/17/2023 12:33 PM [facility] U Noroxymorphone MS/MS Negative Cutoff: 25 ng/mL 07/17/2023 12:33 PM [facility] U Naloxone MS/MS Negative Cutoff: 25 ng/mL 07/17/2023 12:33 PM [facility] [place] [id number] Cutoff: 25 ng/mL 07/17/2023 12:33 PM [facility] Comment: If heroin use suspected, test ID [id number], 6-monoacetylmorphine (6-JUNITO) Confirmation, Urine, can be added at an additional charge. U Drug Intr-Robinson Positive. 024 12:33 PM [facility] Comment: ADDITIONAL INFORMATION This report is intended for use in clinical monitoring and management of patients. It is not intended for use in employment-related testing. This test was developed and its performance characteristics determined by [facility] in a manner consistent with CLIA requirements. This test has not been cleared or approved by the U.S. Food and Drug Administration. Test Performed by: [facility] [place] [address] Teletype Installer: Matty Quan M.D. Ph.D.; CLIA# [id number] Urine Voided urine specimen / Unknown Non-blood Collection / Unknown 07/12/2023 3:32 PM MANAGER PERSONNEL SELECTION 07/12/2023 3:58 PM MANAGER PERSONNEL SELECTION Greer Verdugo MD URINE ORDERABLES [facility] * Tetrahydocannabinol (THC), Quantitative, Urine (07/12/2023 3:32 PM MANAGER PERSONNEL SELECTION) Only the most recent of5 resultswithin the time period is included. Delta-8 Carboxy-THC by LC-MS/MS-M SEE COMMENTS Cutoff: 5 ng/mL 07/17/2023 11:31 AM [facility] Comment: Unknown interfering substance present; unable to obtain results. Delta-9 Carboxy-THC by LC-MS/MS-M 985 Cutoff: 5 ng/mL 07/17/2023 11:31 AM [facility] CARBOXY-THC INTERPRETATION Positive. 07/17/2023 11:31 AM [facility] Comment: ADDITIONAL INFORMATION This report is intended for use in clinical monitoring and management of patients. It is not intended for use in employment-related testing. This test was developed and its performance characteristics determined by [facility] in a manner consistent with CLIA requirements. This test has not been cleared or approved by the U.S. Food and Drug Administration. Test Performed by: [facility] - [address] [address] Teletype Installer: Matty Quan M.D. Ph.D.; CLIA# [id number] Urine Voided urine specimen / Unknown Non-blood Collection / Unknown 07/12/2023 3:32 PM MANAGER PERSONNEL SELECTION 07/12/2023 3:58 PM MANAGER PERSONNEL SELECTION Greer Verdugo MD URINE ORDERABLES [facility] * CT Chest Abdomen Pelvis with Contrast (07/05/2023 1:34 PM MANAGER PERSONNEL SELECTION) Only the most recent of2 resultswithin the time period is included. Anatomical Region Laterality Modality Abdomen, Pelvis, Chest Computed Tomography 07/05/2023 5:55 PM MANAGER PERSONNEL SELECTION Impressions 07/05/2023 10:16 PM MANAGER PERSONNEL SELECTION 1. 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 2. Right pararenal and retroperitoneal metastasis are stable to slightly increased. 3. Pulmonary metastasis are stable to marginally increased. 4. Stable mediastinal and hilar lymph nodes. ACTIONABLE ITEMS/RECOMMENDATIONS*: None. Narrative 07/05/2023 10:16 PM MANAGER PERSONNEL SELECTION FULL RESULT: Examination: CT CHEST ABDOMEN PELVIS W CONTRAST on 07/05/2023 1:34 PM. 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 Technique: CT CHEST ABDOMEN PELVIS W CONTRAST. Findings: CHEST FINDINGS: Lungs and Pleura: Pulmonary metastasis are stable to marginally increased, examples: * Left upper lobe, image 34 of series 301, measuring 2.2 cm, previously 2.1 cm. * Right upper lobe, image 54 of series 301, measuring 2.7 cm, unchanged. * Right lower lobe, image 68 of series 301, measuring 2.5 cm, previously 3.3 cm. * Right middle lobe, image 97 of series 301 measuring 2 cm, 1.9 cm. Cardiomediastinum: - Thyroid: Normal - Cardiovascular: Heart size is normal. - Esophagus: Small hiatal hernia is present. There is thickening of the esophagus may be due to reflux. Lymph nodes: Lymph nodes are stable in size, examples: * Subcarinal, image 68 of series 301, measuring 1.3 cm, unchanged. * Right hilar, image 72 of series 301, measuring 1 cm, unchanged. * Left hilar lymph node, image 74 of series 301, measuring 1.3 cm, unchanged. ABDOMEN AND PELVIS FINDINGS: Hepatobiliary: - Liver: No new liver lesions. - Biliary: No biliary dilatation. Gallbladder is normal. Spleen: Spleen measures 10.5 cm. Adrenal Glands: Left adrenal gland is normal. Right adrenal gland is inseparable from the adjacent renal mass. Pancreas: No ductal dilatation or mass. Kidneys, Ureters, and Bladder: Right upper pole mass measures 13 x 9.3 cm and is similar in size compared to the previous exam. Tumor within the right renal vein is increased measuring 1.9 cm, previously 1.4 cm on image 222 series 301. 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 Pararenal mass on image 290 of series 4 measures 4.6 cm, previously 4.4 cm. Retrocaval mass measures 3.3 cm, previously 3.3 cm, image 220 of series 301. Urinary bladder is normal. Pelvic Organs: Prostate is unchanged. Gastrointestinal Tract: Moderate amount retained stool. No bowel obstruction. Peritoneum/Retroperitoneum: No ascites. Lymph Nodes: See above section for retroperitoneal implants/lymph nodes. Other retroperitoneal lymph nodes are stable in size, examples: * Aortocaval, image 226 series 4 measuring 0.9 smears, unchanged. * Aortocaval lymph node, image 242 series 7 measuring 0.7 cm, unchanged. Vessels: See above section for renal vein and IVC thrombus. MUSCULOSKELETAL: No new osseous lesions. Left upper back intramuscular lipoma is stable. Procedure Note Mayur Gutierrez MD - 07/05/2023 FULL RESULT: Examination: CT CHEST ABDOMEN PELVIS W CONTRAST on 07/05/2023 1:34 PM. 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 Technique: CT CHEST ABDOMEN PELVIS W CONTRAST. Findings: CHEST FINDINGS: Lungs and Pleura: Pulmonary metastasis are stable to marginally increased,examples: * Left upper lobe, image 34 of series 301, measuring 2.2 cm, previously2.1 cm. * Right upper lobe, image 54 of series 301, measuring 2.7 cm,unchanged. * Right lower lobe, image 68 of series 301, measuring 2.5 cm, previously3.3 cm. * Right middle lobe, image 97 of series 301 measuring 2 cm, 1.9 cm. Cardiomediastinum: - Thyroid: Normal - Cardiovascular: Heart size is normal. - Esophagus: Small hiatal hernia is present. There is thickening of theesophagus may be due to reflux. Lymph nodes: Lymph nodes are stable in size, examples: * Subcarinal, image 68 of series 301, measuring 1.3 cm, unchanged. * Right hilar, image 72 of series 301, measuring 1 cm, unchanged. * Left hilar lymph node, image 74 of series 301, measuring 1.3 cm,unchanged. ABDOMEN AND PELVIS FINDINGS: Hepatobiliary: - Liver: No new liver lesions. - Biliary: No biliary dilatation. Gallbladder is normal. Spleen: Spleen measures 10.5 cm. Adrenal Glands: Left adrenal gland is normal. Right adrenal gland isinseparable from the adjacent renal mass. Pancreas: No ductal dilatation or mass. Kidneys, Ureters, and Bladder: Right upper pole mass measures 13 x 9.3 cmand is similar in size compared to the previous exam. Tumor within theright renal vein is increased measuring 1.9 cm, previously 1.4 cm on series 301. There is metastatic disease in the retrocaval region withextension into the IVC, image 221 series 301. Pararenal mass on image 290of series 4 measures 4.6 cm, previously 4.4 cm. Retrocaval mass measures3.3 cm, previously 3.3 cm, image 220 of series 301. Urinary bladder isnormal. Pelvic Organs: Prostate is unchanged. Gastrointestinal Tract: Moderate amount retained stool. No bowelobstruction. Peritoneum/Retroperitoneum: No ascites. Lymph Nodes: See above section for retroperitoneal implants/lymph nodes.Other retroperitoneal lymph nodes are stable in size, examples: * Aortocaval, image 226 series 4 measuring 0.9 smears, unchanged. * Aortocaval lymph node, image 242 series 7 measuring 0.7 cm,unchanged. Vessels: See above section for renal vein and IVC thrombus. MUSCULOSKELETAL: No new osseous lesions. Left upper back intramuscular lipoma is stable. IMPRESSION: 1. Right renal mass is similar in size with slight increase in renal veintumor thrombus. 2. Right pararenal and retroperitoneal metastasis are stable to slightlyincreased. 3. Pulmonary metastasis are stable to marginally increased. 4. Stable mediastinal and hilar lymph nodes. ACTIONABLE ITEMS/RECOMMENDATIONS*: None. Chary [facility] CT ORDERABLES * (ABNORMAL) .CBC (07/05/2023 11:22 AM [facility]) Only the most recent of8 resultswithin the time period is included. White Blood Cell 8.7 4.1 - 10.5 K/uL 07/05/2023 11:59 AM [facility] Red Blood Cell 8.80(H) 4.30 - 6.04 M/uL 07/05/2023 11:59 AM [facility] Hemoglobin 19.5(H) 13.3 - 17.4 g/dL 07/05/2023 11:59 AM [facility] Hematocrit 60.9(H) 39.5 - 51.8 % 07/05/2023 11:59 AM [facility] Mean Cell Volume 69(L) 82 - 99 fL 07/05/2023 11:59 AM [facility] Mean Cell Hemoglobin 22.2(L) 26.6 - 33.2 pg 07/05/2023 11:59 AM [facility] Mean Cell Hemoglobin Concentration 32.0 31.1 - 35.2 g/dL 07/05/2023 11:59 AM [facility] RDW-SD 52.2(H) 37.5 - 49.7 fL 07/05/2023 11:59 AM [facility] Red Cell Diameter Width 20.8(H) 11.6 - 15.5 % 07/05/2023 11:59 AM [facility] Platelet 400(H) 160 - 397 K/uL 07/05/2023 11:59 AM [facility] Mean Platelet Volume 9.8 9.1 - 12.6 fL 07/05/2023 11:59 AM [facility] INRBC 0.0 0.0 - 0.1 /100 WBC 07/05/2023 11:59 AM [facility] Comment: The INRBC (instrument NRBC) value reflects the enumeration of nucleated red blood cells contained in a 200uL sample of whole blood analyzed by the instrument. This value may differ from the NRBC value reported in a manual differential, which is based on a 100 cell differential. Neutrophil % 64.6 43.2 - 72.7 % 07/05/2023 11:59 AM [facility] Lymphocyte % 16.3(L) 16.8 - 46.2 % 07/05/2023 11:59 AM [facility] Monocyte % 10.3 5.1 - 12.5 % 07/05/2023 11:59 AM [facility] Eosinophil % 7.0(H) 0.4 - 6.3 % 07/05/2023 11:59 AM [facility] Basophil % 1.6(H) 0.2 - 1.4 % 07/05/2023 11:59 AM [facility] IGRE % 0.2 0.1 - 1.5 % 07/05/2023 11:59 AM [facility] Comment:The IGRE% includes M etamyelocytes, Myelocytes and Promyelocytes. Neutrophil Abs 5.60 1.95 - 7.25 K/uL 07/05/2023 11:59 AM [facility] Lymphocyte Abs 1.41 1.01 - 3.24 K/uL 07/05/2023 11:59 AM [facility] Monocyte Abs 0.89(H) 0.24 - 0.85 K/uL 07/05/2023 11:59 AM [facility] Eosinophil Abs 0.61(H) 0.02 - 0.50 K/uL 07/05/2023 11:59 AM [facility] Basophil Abs 0.14(H) 0.02 - 0.09 K/uL 07/05/2023 11:59 AM [facility] IG Abs 0.02 0.01 - 0.12 K/uL 07/05/2023 11:59 AM [facility] Blood Peripheral blood specimen / Unknown Venipuncture / Unknown 07/05/2023 11:22 AM MANAGER PERSONNEL SELECTION 07/05/2023 11:25 AM MANAGER PERSONNEL SELECTION Chary MARIA LAB BLOOD ORDERABL ES [facility] Unless otherwise noted, all lab tests performed by: Division of Pathology and Laboratory Medicine [facility] [place] [address] * (ABNORMAL) Comprehensive Metabolic Panel (07/05/2023 11:22 AM MANAGER PERSONNEL SELECTION) Only the most recent of5 resultswithin the time period is included. Bilirubin Total 0.5 0.0 - 1.2 mg/dL 07/05/2023 12:09 PM [facility] Comment:Indocyanine Green (I CG) may cause falsely elevated bilirubin results. Total and direct bilirubin must not be measured from samples containing indocyanine green. False elevation of total bilirubin can be seen in patients with IgG concentrations above 28 g/L. Bilirubin Direct 0.2 0.0 - 0.3 mg/dL 07/05/2023 12:09 PM [facility] Comment:Indocyanine Green (I CG) may cause falsely elevated bilirubin results. Total and direct bilirubin must not be measured from samples containing indocyanine green. Bilirubin Indirect 0.3 0.0 - 0.9 mg/dL 07/05/2023 12:09 PM [facility] eGFR 83 >=60 mL/min/1. 73 sq. m 07/05/2023 12:09 PM [facility] Comment: The eGFRcr is calculated with [...] G2 fulfill criteria for CKD. Tot Protein 9.1(H) 6.4 - 8.3 gm/dL 07/05/2023 12:09 PM [facility] Calcium Level Total 10.0 8.2 - 10.2 mg/dL 07/05/2023 12:09 PM [facility] Alkaline Phosphatase 179(H) 40 - 129 U/L 07/05/2023 12:09 PM [facility] Albumin Level 3.9 3.5 - 5.2 gm/dL 07/05/2023 12:09 PM [facility] AST 17 <=40 U/L 07/05/2023 12:09 PM [facility] ALT 13 <=41 U/L 07/05/2023 12:09 PM [facility] Sodium Level 134(L) 136 - 145 mmol/L 07/05/2023 12:09 PM [facility] Potassium Level 5.0(H) 3.4 - 4.5 mmol/L 07/05/2023 12:09 PM [facility] Chloride 97(L) 98 - 107 mmol/L 07/05/2023 12:09 PM [facility] CO2 31(H) 22 - 29 mmol/L 07/05/2023 12:09 PM [facility] Anion Gap 6 4 - 14 mmol/L 07/05/2023 12:09 PM [facility] Creatinine 1.07 0.67 - 1.17 mg/dL 07/05/2023 12:09 PM [facility] BUN 14 6 - 23 mg/dL 07/05/2023 12:09 PM [facility] Glucose Level 99 70 - 99 mg/dL 07/05/2023 12:09 PM [facility] Comment: Effective 11/30/15, the glucose reference intervals have been updated based on [place] [employer] guidelines (Standards of Medical Care in Diabetes 2016. Diabetes Care 2016; 39: S13-S22). Fasting blood glucose: Normal: 70-99 mg/dL Impaired fasting glucose (increased risk for diabetes or pre-diabetes): 100-125 mg/dL Diabetes mellitus: >/=126 mg/dL Random blood glucose: Normal: 70-199 mg/dL Note: Random glucose >100 mg/dL is associated with increased risk for diabetes. Blood Peripheral blood specimen / Unknown Venipuncture / Unknown 07/05/2023 11:22 AM MANAGER PERSONNEL SELECTION 07/05/2023 11:25 AM MANAGER PERSONNEL SELECTION Chary MARIA LAB BLOOD ORDERABL ES Performing Organization Address [facility] de Phone Number [facility] Unless otherwise noted, all lab tests performed by: Division of Pathology and Laboratory Medicine [address] [place] [id number] * (ABNORMAL) TSH (07/05/2023 11:22 AM MANAGER PERSONNEL SELECTION) Only the most recent of4 resultswithin the time period is included. Thyroid Stimulating Hormone 19.39(H) 0.27 - 4.20 mcunit/mL 07/05/2023 12:11 PM MANAGER PERSONNEL SELECTION [facility] Blood Peripheral blood specimen / Unknown Venipuncture / Unknown 07/05/2023 11:22 AM MANAGER PERSONNEL SELECTION 07/05/2023 11:25 AM MANAGER PERSONNEL SELECTION Chary [facility] LAB BLOOD ORDERABL ES Performing Organization Address [facility] Phone Number [facility] Unless otherwise noted, all lab tests performed by: Division of Pathology and Laboratory Medicine [address] [place] [address] [phone] * (ABNORMAL) Free T4 (07/05/2023 11:22 AM MANAGER PERSONNEL SELECTION) Only the most recent of4 resultswithin the time period is included. T4 (Thyroxine) Free 0.71(L) 0.93 - 1.70 ng/dL 07/05/2023 12:11 PM MANAGER PERSONNEL SELECTION [facility] Blood Peripheral blood specimen / Unknown Venipuncture / Unknown 07/05/2023 11:22 AM MANAGER PERSONNEL SELECTION 07/05/2023 11:25 AM MANAGER PERSONNEL SELECTION Chary MRAIA LAB BLOOD ORDERABL ES Performing Organization Address [facility]/ZIP Co de Phone Number [facility] Unless otherwise noted, all lab tests performed by: Division of Pathology and Laboratory Medicine [address] [place] [address] [id number] * Phosphorus Level (07/05/2023 11:22 AM MANAGER PERSONNEL SELECTION) Only the most recent of7 resultswithin the time period is included. Phosphorus Level 3.2 2.5 - 4.5 mg/dL 07/05/2023 12:09 PM MANAGER PERSONNEL SELECTION [facility] Blood Peripheral blood specimen / Unknown Venipuncture / Unknown 07/05/2023 11:22 AM MANAGER PERSONNEL SELECTION 07/05/2023 11:25 AM MANAGER PERSONNEL SELECTION Chary MARIA LAB BLOOD ORDERABL ES Performing Organization Address [facility] Co de Phone Number [facility] Unless otherwise noted, all lab tests performed by: Division of Pathology and Laboratory Medicine [address] [place] [address] [id number] * Magnesium Level (07/05/2023 11:22 AM MANAGER PERSONNEL SELECTION) Only the most recent of7 resultswithin the time period is included. Magnesium Level 2.3 1.6 - 2.6 mg/dL 07/05/2023 12:09 PM MANAGER PERSONNEL SELECTION [facility] Blood Peripheral blood specimen / Unknown Venipuncture / Unknown 07/05/2023 11:22 AM MANAGER PERSONNEL SELECTION 07/05/2023 11:25 AM MANAGER PERSONNEL SELECTION Chary MARIA LAB BLOOD ORDERABL ES Performing Organization Address City/[facility]/ZIP Co de Phone Number [facility] Unless otherwise noted, all lab tests performed by: Division of Pathology and Laboratory Medicine [address] [place] [address] [id number] * (ABNORMAL) Lipase Level (07/05/2023 11:22 AM MANAGER PERSONNEL SELECTION) Only the most recent of4 resultswithin the time period is included. Lipase Level 12(L) 13 - 60 U/L 07/05/2023 12:09 PM MANAGER PERSONNEL SELECTION [facility] Blood Peripheral blood specimen / Unknown Venipuncture / Unknown 07/05/2023 11:22 AM MANAGER PERSONNEL SELECTION 07/05/2023 11:25 AM MANAGER PERSONNEL SELECTION Narrative [facility] - 07/05/2023 12:09 PM MANAGER PERSONNEL SELECTION Reference range established based on adult population Chary MARIA LAB BLOOD ORDERABL ES Performing Organization Address City/[facility]/ZIP Co de Phone Number [facility] Unless otherwise noted, all lab tests performed by: Division of Pathology and Laboratory Medicine [address] [place] [address] 42706 * LDH (07/05/2023 11:22 AM MANAGER PERSONNEL SELECTION) Only the most recent of5 resultswithin the time period is included. LDH 168 135 - 225 U/L 07/05/2023 12:14 PM MANAGER PERSONNEL SELECTION [facility] Blood Peripheral blood specimen / Unknown Venipuncture / Unknown 07/05/2023 11:22 AM MANAGER PERSONNEL SELECTION 07/05/2023 11:25 AM MANAGER PERSONNEL SELECTION Narrative [facility] - 07/05/2023 12:14 PM MANAGER PERSONNEL SELECTION Results greater than 1651 U/L may not be reliable due to matrix effect with extended dilution as it exceeds the paralegal legal secretary's recommended limit. Caution should be exercised when interpreting such values and done in conjunction with clinical context. Chary MARIA LAB BLOOD ORDERABL ES Performing Organization Address City/[facility] Co de Phone Number [facility] Unless otherwise noted, all lab tests performed by: Division of Pathology and Laboratory Medicine [address] [place] [address] [id number] * Cortisol, Total (07/05/2023 11:22 AM MANAGER PERSONNEL SELECTION) Only the most recent of4 resultswithin the time period is included. Cortisol 20.70 mcg/dL 07/05/2023 12:11 PM MANAGER PERSONNEL SELECTION [facility] Blood Peripheral blood specimen / Unknown Venipuncture / Unknown 07/05/2023 11:22 AM MANAGER PERSONNEL SELECTION 07/05/2023 11:25 AM MANAGER PERSONNEL SELECTION Narrative [facility] - 07/05/2023 12:11 PM MANAGER PERSONNEL SELECTION Cortisol reference intervals are established for the [...] mcg/dL Chary MARIA LAB BLOOD ORDERABL ES Performing Organization Address City/[facility] Co de Phone Number [facility] Unless otherwise noted, all lab tests performed by: Division of Pathology and Laboratory Medicine [address] [place] [address] [id number] * Amylase Level (07/05/2023 11:22 AM MANAGER PERSONNEL SELECTION) Only the most recent of4 resultswithin the time period is included. Amylase Level 36 28 - 100 U/L 07/05/2023 12:09 PM MANAGER PERSONNEL SELECTION [facility] Blood Peripheral blood specimen / Unknown Venipuncture / Unknown 07/05/2023 11:22 AM MANAGER PERSONNEL SELECTION 07/05/2023 11:25 AM MANAGER PERSONNEL SELECTION Chary MARIA LAB BLOOD ORDERABL ES Performing Organization Address City/[facility] Co de Phone Number [facility] Unless otherwise noted, all lab tests performed by: Division of Pathology and Laboratory Medicine [address] [place] [address] [id number] * Urinalysis Microscopic Exam (05/10/2023 3:37 PM MANAGER PERSONNEL SELECTION) Only the most recent of3 resultswithin the time period is included. Urine WBC Rare None Seen, Rare, 0-2, <1 /HPF 05/10/2023 3:51 PM [facility] Urine RBC Rare None Seen, Rare, 0-2, <1 /HPF 05/10/2023 3:51 PM MANAGER PERSONNEL SELECTION [facility] Urine Mucous Not Seen Not Seen, Trace /HPF 05/10/2023 3:51 PM MANAGER PERSONNEL SELECTION [facility] Urine Bacteria Not Seen Not Seen /HPF 05/10/2023 3:51 PM MANAGER PERSONNEL SELECTION [facility] Urine Squamous Epithelial Cells Not Seen Not Seen, OCC, Rare /HPF 05/10/2023 3:51 PM [facility] Urine Voided urine specimen / Unknown Non-blood Collection / Unknown 05/10/2023 3:37 PM MANAGER PERSONNEL SELECTION 05/10/2023 3:37 PM MANAGER PERSONNEL SELECTION Chary MARIA LAB BLOOD ORDERABL ES [facility] [address], [facility] [address] [place] [address] * (ABNORMAL) Urinalysis w/Microscopic if Indicated (05/10/2023 3:37 PM MANAGER PERSONNEL SELECTION) Only the most recent of3 resultswithin the time period is included. Urine Appearance Clear Clear 05/10/19 3:51 PM [facility] Urine Color Yellow Colorless, Straw, Light Yellow, Yellow, Dark Yellow, Straw-Yellow 05/10/2023 3:51 PM [facility] Urine Specific [place] 1.015 1.003 - 1.035 05/10/2023 3:51 PM [facility] Urine pH 6.5 5.0 - 8.0 05/10/2023 3:51 PM [facility] Urine Glucose Negative Negative mg/dL 05/10/2023 3:51 PM [facility] Urine Ketones Negative Negative mg/dL 05/10/2023 3:51 PM [facility] Urine Blood Trace(A) Negative 05/10/2023 3:51 PM [facility] Urine Protein Negative Negative mg/dL 05/10/2023 3:51 PM [facility] Urine Bilirubin Negative Negative 3:51 PM [facility] Urine Urobilinogen Negative Negative 05/10/2023 3:51 PM [facility] Urine Nitrite Negative Negative 05/10/2023 3:51 PM [facility] Urine Leukocyte Esterase Negative Negative 05/10/2023 3:51 PM [facility] Urine Voided urine specimen / Unknown Non-blood Collection / Unknown 05/10/2023 3:37 PM MANAGER PERSONNEL SELECTION 05/10/2023 3:37 PM MANAGER PERSONNEL SELECTION Narrative [facility] - 05/10/2023 3:51 PM MANAGER PERSONNEL SELECTION Some reporting parameters within the Urinalysis test have changed due to the implementation of new instrumentation in the [facility] [place], allowing greater sensitivity of measurement. Urinalysis results reported by the [facility] using existing instrumentation, as well as Urinalysis testing performed manually or by back-up methodology at the [place], will remain relatively unchanged. New reporting parameters and units will now be reported for all campuses. Chary MARIA URINE ORDERABLES [facility] [address] [facility], [facility] [address] [place] [address] * Basic Metabolic Panel- Total Calcium (04/16/2023 7:21 AM MANAGER PERSONNEL SELECTION) Only the most recent of2 resultswithin the time period is included. eGFR 85 >=60 mL/min/1.7 3 sq. m 04/16/2023 8:14 AM MANAGER PERSONNEL SELECTION [facility] Comment: The eGFRcr is calculated with [...] G1 nor G2 fulfill criteria for CKD. Calcium Level Total 9.8 8.2 - 10.2 mg/dL 04/16/2023 8:14 AM MANAGER PERSONNEL SELECTION [facility] Comment:This result was prev iously suppressed from the chart. Sodium Level 137 136 - 145 mmol/L 04/16/2023 8:14 AM [facility] Comment:This result was prev iously suppressed from the chart. Potassium Level 4.5 3.4 - 4.5 mmol/L 04/16/2023 8:14 AM [facility] Comment:This result was prev iously suppressed from the chart. Chloride 103 98 - 107 mmol/L 04/16/2023 8:14 AM [facility] Comment:This result was prev iously suppressed from the chart. CO2 24 22 - 29 mmol/L 04/16/2023 8:14 AM [facility] Comment:This result was prev iously suppressed from the chart. Anion Gap 10 4 - 14 mmol/L 04/16/2023 8:14 AM [facility] Comment:This result was prev iously suppressed from the chart. Creatinine 1.05 0.67 - 1.17 mg/dL 04/16/2023 8:14 AM [facility] Comment:This result was prev iously suppressed from the chart. BUN 15 6 - 23 mg/dL 04/16/2023 8:14 AM [facility] Comment:This result was prev iously suppressed from the chart. Glucose Level 97 70 - 99 mg/dL 04/16/2023 8:14 AM [facility] Comment: Effective 11/30/15, the glucose reference intervals have been updated based on [place] [employer] guidelines (Standards of Medical Care [...] blood specimen / Unknown Venipuncture / Unknown 04/16/2023 7:21 AM MANAGER PERSONNEL SELECTION 04/16/2023 7:39 AM [facility] Imani Tipton APRN LAB BLOOD ORDERABL ES Performing Organization Address City/[facility]/ZIP Co de Phone Number [facility] Unless otherwise noted, all lab tests performed by: Division of Pathology and Laboratory Medicine [address] [place] [address] [id number] * Lactic Acid, Venous (04/15/2023 8:16 PM MANAGER PERSONNEL SELECTION) [facility] Venous Lactate 1.2 0.5 - 1.6 mmol/L 04/15/2023 8:34 PM MANAGER PERSONNEL SELECTION [facility] Oxygen FLOW Rate/ FiO2 0 % 04/15/2023 8:34 PM MANAGER PERSONNEL SELECTION [facility] O2 Therapy Room air 04/15/2023 8:34 PM MANAGER PERSONNEL SELECTION [facility] Blood Peripheral blood specimen / Unknown Venipuncture / Unknown 04/15/2023 8:16 PM MANAGER PERSONNEL SELECTION 04/15/2023 8:31 PM MANAGER PERSONNEL SELECTION Mecca Santoro APRN LAB BLOOD ORDERABLE S Performing Organization Address City/[facility]/ZIP Co de Phone Number [facility] Unless otherwise noted, all lab tests performed by: Division of Pathology and Laboratory Medicine [address] [place] [address] [id number] * Blood Culture (04/15/2023 4:23 PM MANAGER PERSONNEL SELECTION) [facility] Blood Culture No Growth. 04/20/2023 6:01 PM MANAGER PERSONNEL SELECTION [facility] Blood Peripheral blood specimen / Unknown Venipuncture / Unknown 04/15/2023 4:23 PM MANAGER PERSONNEL SELECTION 04/15/2023 4:35 PM MANAGER PERSONNEL SELECTION Narrative [facility] - 04/20/2023 6:01 PM MANAGER PERSONNEL SELECTION One or both culture bottles underfilled (<5 mL). This will result in decreased sensitivity in pathogen detection. Mecca Santoro APRN MICROBIOLOGY - GENE RAL ORDERABLES [facility] Unless otherwise noted, all lab tests performed by: Division of Pathology and Laboratory Medicine [address] [place] [address] [id number] * US RENAL (04/15/2023 3:46 PM MANAGER PERSONNEL SELECTION) Only the most recent of2 resultswithin the time period is included. Anatomical Region Laterality Modality Abdomen Ultrasound 04/15/2023 3:48 PM MANAGER PERSONNEL SELECTION Impressions 04/15/2023 3:54 PM MANAGER PERSONNEL SELECTION 1. Renal echogenicity, left kidney, at the upper limits of normal to borderline increased. Suspect evolving medical renal disease. 2 No hydronephrosis. 3. Large right renal mass better seen on the comparison CT study. ACTIONABLE ITEMS/RECOMMENDATIONS: None. Narrative 04/15/2023 3:54 PM MANAGER PERSONNEL SELECTION Examination: US RENAL on 04/15/2023 3:46 PM. Clinical History: Hypoxia. Indication: Decreased Urine Output. Comparison: Renal sonogram 04/14/2023; CT study of the abdomen and pelvis 04/14/2023 TECHNIQUE: The kidneys and bladder were evaluated with de jesus scale and color Doppler ultrasound. FINDINGS: The renal echogenicity of the left kidney is at the upper limits of normal to borderline increased. No hydronephrosis is present. The large right renal mass better seen on comparison CT study. No intraluminal filling defects are seen in the minimally distended urinary bladder. Procedure Note Owen Lee MD - 04/15/2023 Examination: US RENAL on 04/15/2023 3:46 PM. Clinical History: Hypoxia. Indication: Decreased Urine Output. Comparison: Renal sonogram 04/14/2023; CT study of the abdomen and [id number]/2023 TECHNIQUE: The kidneys and bladder were evaluated with de jesus scale andcolor Doppler ultrasound. FINDINGS: The renal echogenicity of the left kidney is at the upper limits of normalto borderline increased. No hydronephrosis is present. The large right renal mass better seen on comparison CT study. No intraluminal filling defects are seen in the minimally distendedurinary bladder. IMPRESSION: 1. Renal echogenicity, left kidney, at the upper limits of normal toborderline increased. Suspect evolving medical renal disease. 2 No hydronephrosis. 3. Large right renal mass better seen on the comparison CT study. ACTIONABLE ITEMS/RECOMMENDATIONS: None. Mecca Santoro APRN IMG US ORDERABLES * XR Abdomen 1 View Portable (04/15/2023 10:15 AM MANAGER PERSONNEL SELECTION) Anatomical Region Laterality Modality Abdomen Digital Radiogra phy 04/15/2023 10:2 9 AM MANAGER PERSONNEL SELECTION Impressions 04/15/2023 10:34 AM MANAGER PERSONNEL SELECTION 1. Nonspecific bowel gas pattern. Narrative 04/15/2023 10:34 AM MANAGER PERSONNEL SELECTION FULL RESULT: Examination: XR ABDOMEN 1 VW PORTABLE on 04/15/2023 10:15 AM Clinical History: Hypoxia Indication: Abdominal Pain Comparison: None. TECHNIQUE: XR ABDOMEN 1 VW PORTABLE FINDINGS: 2 AP portable supine views of the abdomen. Electrocardiogram leads overlie the patient. Right lung nodules are likely metastases. Air is noted in the nondilated stomach. Air centrally in the abdomen could be in the colon. Otherwise, paucity of bowel gas is a nonspecific pattern. Contrast is noted in the right kidney, collecting system and bladder. Procedure Note Monet Robles MD - 04/15/2023 FULL RESULT: Examination: XR ABDOMEN 1 VW PORTABLE on 04/15/2023 10:15 AM Clinical History: Hypoxia Indication: Abdominal Pain Comparison: None. TECHNIQUE: XR ABDOMEN 1 VW PORTABLE FINDINGS: 2 AP portable supine views of the abdomen. Electrocardiogram leads overliethe patient. Right lung nodules are likely metastases. Air is noted in thenondilated stomach. Air centrally in the abdomen could be in the colon.Otherwise, paucity of bowel gas is a nonspecific pattern. Contrast isnoted in the right kidney, collecting system and bladder. IMPRESSION: 1. Nonspecific bowel gas pattern. Mecca Santoro APRN IMG DIAGNOSTIC IMAG ING ORDERABLES * (ABNORMAL) Procalcitonin (04/15/2023 2:35 AM MANAGER PERSONNEL SELECTION) Procalcitonin 0.10(H) <=0.08 ng/mL 04/15/2023 3:13 PM MANAGER PERSONNEL SELECTION [facility] Blood Peripheral blood specimen / Unknown Venipuncture / Unknown 04/15/2023 2:35 AM MANAGER PERSONNEL SELECTION 04/15/2023 2:48 AM MANAGER PERSONNEL SELECTION Narrative [facility] - 04/15/2023 3:13 PM MANAGER PERSONNEL SELECTION Procalcitonin > 2.00 ng/mL: Procalcitonin levels above 2.00 ng/mL are highly suggestive of a high risk for systematic bacterial infection/ severe sepsis and/or septic shock. Procalcitonin < 0.50 ng/mL: Procalcitonin levels below 0.50 ng/mL are at low risk for progression to severe sepsis and/ or septic shock. Procalcitonin (ProCT) between 0.15 and 2.0 ng/mL do not exclude infection, because localized infections (without systemic signs) may be associated with such low levels. Results greater than 400 ng/mL may not be reliable due to the matrix effect with extended dilution as it exceeds the paralegal legal secretary's recommended limit. Caution should be exercised when interpreting such values and done in conjunction with clinical context. Mecca Santoro APRN LAB BLOOD ORDERABLE S [facility] Unless otherwise noted, all lab tests performed by: Division of Pathology and Laboratory Medicine [address] [place] [id number] * CT Head without Contrast (04/15/2023 1:56 AM MANAGER PERSONNEL SELECTION) Anatomical Region Laterality Modality Head Computed Tomogra phy 04/15/2023 2:26 AM MANAGER PERSONNEL SELECTION Impressions 04/15/2023 6:19 AM MANAGER PERSONNEL SELECTION 1. No acute intracranial abnormality. 2. No significant changes when compared to brain MRI on 04/11/2023 when accounting for differences in modality. ACTIONABLE ITEMS/RECOMMENDATIONS: None. I personally reviewed these image(s) along with the resident's/fellow's interpretations, certify that if a procedure was performed I was physically present, and agree with the final report. Narrative 04/15/2023 6:19 AM MANAGER PERSONNEL SELECTION FULL RESULT: Examination: CT HEAD WO CONTRAST on 04/15/2023 1:56 AM. CLINICAL HISTORY: Hypoxia INDICATION: Confusion COMPARISON: Brain MRI 04/11/2023. TECHNIQUE: CT head without IV contrast was performed. FINDINGS: Intracranial: There is no acute hemorrhage or large vascular territory infarct. There is no mass effect or midline shift. Mildly prominent sulci. Mild compensatory dilatation. No acute hydrocephalus. Bone: There are no suspicious lytic or sclerotic calvarial and skull base lesions. The mastoid air cells are clear. Pneumatization of the petrous apices, anatomic variant. Extracranial: The orbits are unremarkable. Nonobstructive mucosal thickening of the ethmoidal air cells. Procedure Note Kayleen Hernandez MD - 04/15/2023 FULL RESULT: Examination: CT HEAD WO CONTRAST on 04/15/2023 1:56 AM. CLINICAL HISTORY: Hypoxia INDICATION: Confusion COMPARISON: Brain MRI 04/11/2023. TECHNIQUE: CT head without IV contrast was performed. FINDINGS: Intracranial: There is no acute hemorrhage or large vascular territory infarct. There is no mass effect or midline shift. Mildly prominent sulci. Mild compensatory dilatation. No acutehydrocephalus. Bone: There are no suspicious lytic or sclerotic calvarial and skull baselesions. The mastoid air cells are clear. Pneumatization of the petrous apices, anatomic variant. Extracranial: The orbits are unremarkable. Nonobstructive mucosal thickening of the ethmoidal air cells. IMPRESSION: 1. No acute intracranial abnormality. 2. No significant changes when compared to brain MRI on 04/11/2023 whenaccounting for differences in modality. ACTIONABLE ITEMS/RECOMMENDATIONS: None. I personally reviewed these image(s) along with the resident's/fellow'sinterpretations, certify that if a procedure was performed I wasphysically present, and agree with the final report. Imani Abrahamaidanganesh DEBBIE IMG CT ORDERABLES * (ABNORMAL) Urine Drug Screen With Quantitative Confirmation (04/15/2023 1:14 AM MANAGER PERSONNEL SELECTION) [facility] U Alcohol-Robinson Negative Cutoff: 10 mg/dL 04/16/2023 1:17 PM [facility] [employer] [facility] U Amphetamines-Robinson Negative Cutoff: 500 ng/mL 04/16/2023 1:17 PM [facility] [employer] [facility] U Barbiturates-Robinson Negative Cutoff: 200 ng/mL 04/16/2023 1:17 PM [facility] U Benzo-Robinson Presumptive Positive(A) Cutoff: 100 ng/mL 04/16/2023 1:17 PM [facility] [employer] [facility] Comment: Drug confirmation to follow. Presumptive Positive means that the screening method is positive, but the test needs to be run by a confirmatory method before being finalized. U Cocaine Lvl-Robinson Negative Cutoff: 150 ng/mL 04/16/2023 1:17 PM [facility] Comment: This cocaine immunoassay targets benzoylecgonine the primary metabolite of cocaine. U Methadone-Robinson Negative Cutoff: 300 ng/mL 04/16/2023 1:17 PM [facility] U Opiates-Robinson Presumptive Positive(A) Cutoff: 300 ng/mL 04/16/2023 1:17 PM [facility] Comment: Drug confirmation to follow. Presumptive Positive means that the screening method is positive, but the test needs to be run by a confirmatory method before being finalized. U Phency-Robinson Negative Cutoff: 25 ng/mL 04/16/2023 1:17 PM [facility] U THC-Robinson Presumptive Positive(A) Cutoff: 50 ng/mL 04/16/2023 1:17 PM [facility] Comment: This immunoassay targets delta-9 tetrahydrocannabinol carboxylic acid (THC-COOH), a metabolite of delta-9 tetrahydrocannabinol the main psychoactive ingredient of marijuana. Drug confirmation to follow. Presumptive Positive means that the screening method is positive, but the test needs to be run by a confirmatory method before being finalized. ADDITIONAL INFORMATION This report is intended for use in clinical monitoring or management of patients. It is not intended for use in employment-related testing. This test has been modified from the paralegal legal secretary's instructions. Its performance characteristics were determined by [facility] in a manner consistent with CLIA requirements. This test has not been cleared or approved by the U.S. Food and Drug Administration. Test Performed by: [facility] - [address] [address] Teletype Installer: Matty Quan M.D. Ph.D.; CLIA# [id number] U Chain of Cust-Robinson DNR 04/05 1:17 PM [facility] Urine Voided urine specimen / Unknown Non-blood Collection / Unknown 04/15/2023 1:14 AM MANAGER PERSONNEL SELECTION 04/15/2023 2:03 AM MANAGER PERSONNEL SELECTION Imani Tipton APRN URINE ORDERABLES [facility] * Benzodiazepine Confirmation Urine (04/15/2023 1:14 AM MANAGER PERSONNEL SELECTION) Pathologist [facility] U Alprazolam by LC-MS/MS 72 Cutoff: 10 ng/mL 04/18/2023 12:51 PM MANAGER PERSONNEL SELECTION [facility] U Alpha-Hydroxyalprazo perla by LC-MS/MS 162 Cutoff: 10 ng/mL 04/18/2023 12:51 PM MANAGER PERSONNEL SELECTION [facility] U Chlordiazepoxide by LC-MS/MS Negative Cutoff: 10 ng/mL 04/18/2023 12:51 PM [facility] U Clonazepam by LC-MS/MS Negative Cutoff: 10 ng/mL 04/18/2023 12:51 PM [facility] U 7-aminoclonazepam by LC-MS/MS Negative Cutoff: 10 ng/mL 04/18/2023 12:51 PM [facility] U Diazepam by LC-MS/MS Negative Cutoff: 10 ng/mL 04/18/2023 12:51 PM [facility] U Nordiazepam by LC-MS/MS Negative Cutoff: 10 ng/mL 04/18/2023 12:51 PM [facility] U Midazolam by LC-MS/MS Negative Cutoff: 10 ng/mL 04/18/2023 12:51 PM [facility] U Alpha-Hydroxy Midazolam by LC-MS/MS Negative Cutoff: 10 ng/mL 04/18/2023 12:51 PM [facility] U Oxazepam by LC-MS/MS 48 Cutoff: 10 ng/mL 04/18/2023 12:51 PM [facility] U Temazepam by LC-MS/MS Negative Cutoff: 10 ng/mL 04/18/2023 12:51 PM [facility] U Clobazam by LC-MS/MS Negative Cutoff: 10 ng/mL 04/18/2023 12:51 PM [facility] U N-Desmethylclobazam by LC-MS/MS Negative Cutoff: 10 ng/mL 04/18/2023 12:51 PM [facility] U Flunitrazepam by LC-MS/MS Negative Cutoff: 10 ng/mL 04/18/2023 12:51 PM [facility] U 7-aminoflunitrazepam by LC-MS/MS Negative Cutoff: 10 ng/mL 04/18/2023 12:51 PM [facility] Comment: Testing performed at a x2 dilution; limit of quantitation is elevated. U Flurazepam by LC-MS/MS Negative Cutoff: 10 ng/mL 04/18/2023 12:51 PM [facility] U 2-Hydroxy Ethyl Flurazepam by LC-MS/MS Negative Cutoff: 10 ng/mL 04/18/2023 12:51 PM [facility] U Lorazepam by LC-MS/MS Negative Cutoff: 10 ng/mL 04/18/2023 12:51 PM [facility] U Prazepam by LC-MS/MS Negative Cutoff: 10 ng/mL 04/18/2023 12:51 PM [facility] U Triazolam by LC-MS/MS Negative Cutoff: 10 ng/mL 04/18/2023 12:51 PM [facility] U Alpha-Hydroxy Triazolam by LC-MS/MS Negative Cutoff: 10 ng/mL 04/18/2023 12:51 PM [facility] U Zolpidem by LC-MS/MS Negative Cutoff: 10 ng/mL 04/18/2023 12:51 PM [facility] U Zolpidem Fbyspb-6-Dqkwsdmcwp acid by LC-MS/MS Negative Cutoff: 10 ng/mL 04/18/2023 12:51 PM [facility] U Benzodiazepines Interpretation Positive. 04/18/2023 12:51 PM [facility] Comment: ADDITIONAL INFORMATION This report is intended for use in clinical monitoring and management of patients. It is not intended for use in employment-related testing. This test was developed and its performance characteristics determined by [facility] in a manner consistent with CLIA requirements. This test has not been cleared or approved by the U.S. Food and Drug Administration. Test Performed by: [facility] [address] [place] [address] Teletype Installer: Matty Quan M.D. Ph.D.; CLIA# [id number] Urine Voided urine specimen / Unknown Non-blood Collection / Unknown 04/15/2023 1:14 AM MANAGER PERSONNEL SELECTION 04/15/2023 2:03 AM MANAGER PERSONNEL SELECTION Imani Tipton APRN URINE ORDERABLES [facility] * X-ray Chest 1 View (04/14/2023 9:43 PM MANAGER PERSONNEL SELECTION) Anatomical Region Laterality Modality Chest Digital Radiogra phy 04/14/2023 10:0 5 PM MANAGER PERSONNEL SELECTION Impressions 04/14/2023 10:06 PM MANAGER PERSONNEL SELECTION Bilateral pulmonary metastasis.. ACTIONABLE ITEMS/RECOMMENDATIONS: None. Narrative 04/14/2023 10:06 PM MANAGER PERSONNEL SELECTION FULL RESULT: Examination: XR CHEST 1 VW on 04/14/2023 9:43 PM. Clinical History: Hypoxia Indication: Shortness of Breath Comparison: Chest x-ray dated 2023. Technique: Frontal radiograph of the chest Findings: Support Apparatus: None. Lungs/Pleura/Mediastinum: Pulmonary metastasis are once again noted. There are no pleural effusions. There is no pneumothorax. Cardiac silhouette is not enlarged. Procedure Note Edison Moscoso MD - 04/14/2023 FULL RESULT: Examination: XR CHEST 1 VW on 04/14/2023 9:43 PM. Clinical History: Hypoxia Indication: Shortness of Breath Comparison: Chest x-ray dated 2023. Technique: Frontal radiograph of the chest Findings: Support Apparatus: None. Lungs/Pleura/Mediastinum: Pulmonary metastasis are once again noted. There are no pleural effusions. There is no pneumothorax. Cardiac silhouette is not enlarged. IMPRESSION: Bilateral pulmonary metastasis.. ACTIONABLE ITEMS/RECOMMENDATIONS: None. Imani Tipton APRN IMG DIAGNOSTIC JOEY GING ORDERABLES * Urine Culture (04/14/2023 8:44 PM MANAGER PERSONNEL SELECTION) Urine Culture No Growth. 04/16/2023 10:32 AM MANAGER PERSONNEL SELECTION [facility] Urine (Urine Clean Catch) Non-blood Collection / Unknown 04/14/2023 8:44 PM MANAGER PERSONNEL SELECTION 04/14/2023 8:51 PM MANAGER PERSONNEL SELECTION Kathy Chávez MD MICROBIOLOGY - GENER AL ORDERABLES Performing Organization Address City/[facility]/ZIP Co de Phone Number [facility] Unless otherwise noted, all lab tests performed by: Division of Pathology and Laboratory Medicine [address] [place] [id number] * OSI CT Abdomen and Pelvis (04/14/2023 5:51 PM MANAGER PERSONNEL SELECTION) Narrative Systemgenerated, Documentation - 04/14/2023 5:51 PM MANAGER PERSONNEL SELECTION Study acquired at another institution. For comparison only. No [facility] interpretation requested or available. Anthony Bedoya MD IMG OUTSIDE IMAGE OR DERABLES * aPTT (04/14/2023 5:19 PM MANAGER PERSONNEL SELECTION) Only the most recent of3 resultswithin the time period is included. Pathologist [facility] Activated PTT 35.2 24.1 - 35.5 second(s) 04/14/2023 6:43 PM MANAGER PERSONNEL SELECTION [facility] Blood Peripheral blood specimen / Unknown Venipuncture / Unknown 04/14/2023 5:19 PM MANAGER PERSONNEL SELECTION 04/14/2023 5:30 PM MANAGER PERSONNEL SELECTION Kathy Cháevz MD LAB BLOOD ORDERABLES [facility] Unless otherwise noted, all lab tests performed by: Division of Pathology and Laboratory Medicine [address] [place] [id number] * (ABNORMAL) Prothrombin Time with INR (04/14/2023 5:19 PM MANAGER PERSONNEL SELECTION) Only the most recent of3 resultswithin the time period is included. Prothrombin Time 15.3(H) 11.9 - 14.5 second(s) 04/14/2023 6:43 PM MANAGER PERSONNEL SELECTION [facility] International Normalization Ratio 1.22(H) 0.87 - 1.12 04/14/2023 6:43 PM MANAGER PERSONNEL SELECTION [facility] Blood Peripheral blood specimen / Unknown Venipuncture / Unknown 04/14/2023 5:19 PM MANAGER PERSONNEL SELECTION 04/14/2023 5:30 PM MANAGER PERSONNEL SELECTION Kathy Chávez MD LAB BLOOD ORDERABLES [facility] Unless otherwise noted, all lab tests performed by: Division of Pathology and Laboratory Medicine [address] [place] [id number] * MRI Brain with and without Contrast (04/11/2023 2:47 PM MANAGER PERSONNEL SELECTION) Anatomical Region Laterality Modality Head Magnetic Resonan ce 04/12/2023 10:1 9 AM MANAGER PERSONNEL SELECTION Impressions 04/12/2023 12:13 PM MANAGER PERSONNEL SELECTION No acute intracranial abnormality. No intracranial metastasis. ACTIONABLE ITEMS/RECOMMENDATIONS: None. I personally reviewed these image(s) along with the resident's/fellow's interpretations, certify that if a procedure was performed I was physically present, and agree with the final report. Narrative 04/12/2023 12:13 PM MANAGER PERSONNEL SELECTION FULL RESULT: Examination: MRI BRAIN W WO [...] with and without Contrast (03/25/2023 2:53 PM MANAGER PERSONNEL SELECTION) Only the most recent of2 resultswithin the time period is included. Anatomical Region Laterality Modality Abdomen, Pelvis, Chest Computed Tomography 03/25/2023 3:14 PM MANAGER PERSONNEL SELECTION Impressions 03/25/2023 7:19 PM MANAGER PERSONNEL SELECTION Mild interval enlargement of the bilateral pulmonary [...] see the impression. Narrative 03/25/2023 7:19 PM MANAGER PERSONNEL SELECTION FULL RESULT: Examination: CT CHEST ABDOMEN PELVIS [...] (16/54) compared to 2.4 x 2 cm, quality control representative 2.1 x 1.9 cm left upper [...] cm right posterior hepatic hypodense lesion (10/46) this probably similar from prior CT, may be benign, however may be followed. No definite suspicious hepatic parenchymal lesion. No biliary dilatation. No cholecystitis. Spleen: Mild splenomegaly measuring 13.8 cm craniocaudally, with mild enlargement compared to 12.8 cm on 09/20/2022. Punctate calcific nodule/granuloma in the anterior spleen (/61). Pancreas: No mass or ductal dilatation. Adrenal [...] example, the 1.6 x 0.9 cm node (10/129) compared to 1.2 x 0.8 cm previously. MUSCULOSKELETAL: No suspicious skeletal lesion. Again seen 2.9 cm intramuscular lipoma or lipomatous lesion in the left paraspinal musculature of the back (). Procedure Note Jose Funes MD - 03/25/2023 [...] metastasis (16/54)compared to 2.4 x 2 cm, quality control representative 2.1 x 1.9 cm left upper [...] cm right posterior hepatic hypodense lesion () thisprobably similar from prior CT, may be benign, however may be followed. Nodefinite suspicious hepatic parenchymal lesion. No biliary dilatation. Nocholecystitis. Spleen: Mild splenomegaly measuring 13.8 cm craniocaudally, with mildenlargement compared to 12.8 cm on 09/20/2022. Punctate calcificnodule/granuloma in the anterior spleen (). Pancreas: No [...] For example, the 1.6 x 0.9 cm node(10/129) compared to 1.2 x 0.8 cm previously. MUSCULOSKELETAL: No suspicious skeletal lesion. Again seen 2.9 cm intramuscular lipoma orlipomatous lesion in the left paraspinal musculature of the back(15/). IMPRESSION: Mild interval enlargement of the bilateral [...] ORDERABLES * POC Creatinine (03/25/2023 1:28 PM MANAGER PERSONNEL SELECTION) Only the most recent of2 resultswithin the time period is included. POC Creatinine 0.9 0.6 - 1.3 mg/dL 03/25/2023 1:29 PM MANAGER PERSONNEL SELECTION [facility] Comment:Medications, especia lly hydroxyurea or supplements, such as ascorbate, can interfere with test results causing a falsely and significantly higher result than expected. If a problem is suspected with a patient's result, a sample should be sent to the laboratory for confirmatory testing. POC eGFR 103 >=60 mL/min/1.7 3 sq. m 03/25/2023 1:29 PM MANAGER PERSONNEL SELECTION [facility] Comment: The eGFRcr is calculated with the [...] criteria for CKD. Blood 03/25/2023 1:28 PM MANAGER PERSONNEL SELECTION 03/25/2023 1:29 PM MANAGER PERSONNEL SELECTION Narrative [facility] - 03/25/2023 1:29 PM MANAGER PERSONNEL SELECTION Method description: The i-STAT is an analyzer [...] Bedoya MD POCT ORDERABLES - DE VICE ORARUFINA GABBY KIM [facility] [address] [facility], [facility] [address] [place] [address] * NM Bone Scan Whole Body (02/06/2023 [...] Procedure: 01/31/23 Attending Physician: Donnell Us MD Charter Boat Operator: None Pre Procedure Diagnosis: Post Procedure Diagnosis: [...] Procedure: 01/30/23 Attending Physician: Meir London MD Charter Boat Operator: None Pre Procedure Diagnosis: Multiple nodules of [...] cohesive groups of tumor cells with high poogrco-ad-epoxyu asmic ratios, occasional prominent nuclear inclusions, and vacuolated cytoplasm. Tumor cells are arranged along a prominent network of vasculature. Please see this patient's concurrently acquired core needle biopsy ([id number]) for further evaluation. 02/04/2023 8:47 AM CDT [facility] Retained/Biomark er Testing SR: 6 S Biomarker Testing: MDNicole Cell Block: N/A MDL Pap: 1 S MDL DQ: 0 S FISH DQ: 0 S 02/04/2023 8:47 AM CDT [facility] Informational Points Some tests reported here may have been developed and performance characteristics determined by [facility] Pathology and Laboratory Medicine. These tests have not been specifically cleared or approved by the U.S. Food and Drug Administration. 02/04/2023 8:47 AM CDT [facility] Specimen obtained by fine needle aspiration procedure (specimen) (Lung, Right Upper Lobe) 01/30/2023 9:21 AM CDT 01/30/2023 9:30 AM CDT Katiana Felton MD LAB CYTOLOGY ORDERAB LES [facility] [place] [address], * Pathology Biopsy Interpretation (01/30/2023 9:21 AM CDT) Submitted Clinical History Multiple nodules of lung [R91.8] Abnormal finding on diagnostic imaging of other abdominal region including retroperitoneum [R93.5] 02/01/2023 9:36 AM CDT [facility] Diagnosis Lung, right upper lobe, biopsy: METASTATIC RENAL CELL CARCINOMA, CLEAR CELL TYPE See comment. 02/01/2023 9:36 AM CDT [facility] Comment Immunohistochemical stains show tumor cells positive for keratin and PAX8, while negative for S-100, HMB45, CD34, and chromogranin. 02/01/2023 9:36 AM CDT [facility] Gross Description A: Lung, right upper lobe, : 5 cores of soft rosales tissue (0.1 x 0.1 cm to 0.6 x 0.1 cm), entirely submitted in A1. YS 02/01/2023 9:36 AM CDT [facility] Biomarker Block(s) A 02/01/2023 9:36 AM CDT [facility] Disclaimer "Some tests reported here may have been developed and performance characteristics determined by [facility] Pathology and Laboratory Medicine. These tests have not been specifically cleared or approved by the U.S. Food and Drug Administration. If applicable, controls were reviewed and showed appropriate reactivity." 02/01/2023 9:36 AM CDT [facility] Tissue specimen (specimen) (Lung, Right Upper Lobe) 01/30/2023 9:21 AM CDT 01/30/2023 11:11 AM CDT Katiana Felton MD LAB PATHOLOGY ORDERA BLES [facility] [address] [place] [address], * .Serum Creatinine (01/29/2023 9:26 AM CDT) Creatinine 0.93 0.67 - 1.17 mg/dL [facility] Comment:Testing Performed at [facility] Lab It Sales Consultant [facility], [address], [address], [place] [address] Blood 01/29/2023 9:26 AM CDT 01/29/2023 9:32 AM CDT Katiana Felton MD LAB BLOOD ORDERABLES [facility] [address] [place] [address] * Glomerular Filtration Rate (01/29/2023 9:26 AM CDT) eGFR 99 >=60 mL/min/1.[address] [facility] Comment: The eGFRcr is calculated with [...] fulfill criteria for CKD. Testing Performed at [facility] Lab It Sales Consultant [facility], [address], [address], [place] [address] Blood 01/29/2023 9:26 AM CDT 01/29/2023 9:32 AM CDT Katiana Felton MD LAB BLOOD ORDERABLES Performing Organization Address [facility] Co de Phone Number [facility] [address] [place] [address]. [address] [place] [address] * Fractionated Bilirubin (01/29/2023 9:26 AM CDT) Pathologist [facility] Bili Total 0.5 <=1.2 mg/dL [facility] Comment: Indocyanine Green (ICG) may cause falsely elevated bilirubin results. Total and direct bilirubin must not be measured from samples containing indocyanine green. False elevation of total bilirubin can be seen in patients with IgG concentrations above 28 g/L. Testing Performed at [facility], [address] [place] [address], [address], [place] [address] Bili Direct <0.2 <=0.3 mg/dL [facility] Comment: Indocyanine Green (ICG) may cause falsely elevated bilirubin results. Total and direct bilirubin must not be measured from samples containing indocyanine green. Testing Performed at [facility], [address] [place] [address], [address], [place] [address] Bili Indirect See Note 0.0 - 0.9 mg/dL [facility] Comment: Unable to calculate Indirect Bilirubin result due to some parameters are outside reportable range Testing Performed at [facility], [address] [place] [address], [address], [place] [address] Blood 01/29/2023 9:26 AM CDT 01/29/2023 9:32 AM CDT Katiana Felton MD LAB BLOOD ORDERABLES Performing Organization Address City/[facility]/ZIP Co de Phone Number [facility] [address] [place] [address]. [address] [place] [address] * AFP (01/29/2023 9:26 AM CDT) [facility] AFP <2.7 <=8.3 ng/mL [facility] Comment: Results greater than 45,875.00 ng/mL may not be reliable due to matrix effect with extended dilution as it exceeds the paralegal legal secretary's recommended limit. Caution should be exercised when interpreting such values and done in conjunction with clinical context. This test is measured by electrochemiluminescence immunoassay on Joao Everardo immunoassay analyzers. Results obtained in different methods are not interchangeable. Testing Performed at [facility], [address] [place] [address], [address], [place] [address] Blood 01/29/2023 9:26 AM CDT 01/29/2023 9:32 AM CDT Katiana Felton MD LAB BLOOD ORDERABLES Performing Organization Address [facility]/[place] de Phone Number [address] [place] [address] * CA 19-9 (01/29/2023 9:26 AM CDT) Pathologist [facility] CA 19-9 4.3 <=35.0 U/mL [facility] Comment: Results greater than 9500 U/mL may not be reliable due to matrix effect with extended dilution as it exceeds the paralegal legal secretary's recommended limit. Caution should be exercised when interpreting such values and done in conjunction with clinical context. This test is measured by electrochemiluminescence immunoassay on Joao Everardo immunoassay analyzers. Results obtained in different methods are not interchangeable. Testing Performed at [facility], [address] [place] [address], [address], [place] [address] Blood 01/29/2023 9:26 AM CDT 01/29/2023 9:32 AM CDT Katiana Felton MD LAB BLOOD ORDERABLES Performing Organization Address [facility] Co de Phone Number [address] [place] [address] * (ABNORMAL) Differential (01/29/2023 9:26 AM CDT) Pathologist [facility] Neutrophil % 60.8 43.2 - 72.7 % [facility] Comment:As part of Different ial performed at [facility], [address] [place] [address], [address], [place] [address] Lymphocyte % 23.9 16.8 - 46.2 % [facility] Monocyte % 12.0 5.1 - 12.5 % [facility] Eosinophil % 1.7 0.4 - 6.3 % [facility] Basophil % 1.2 0.2 - 1.4 % [facility] IGRE % 0.4 0.1 - 1.5 % [facility] Comment: IGRE % count includes Metamyelocytes, Myelocytes, and Promyelocytes. As part of Differential performed at [facility], [address] [place] [address], [address], [place] [address] Neutrophil Abs 5.68 1.95 - 7.25 K/uL [facility] Lymphocyte Abs 2.23 1.01 - 3.24 K/uL [facility] Monocyte Abs 1.12(H) 0.24 - 0.85 K/uL [facility] Eosinophil Abs 0.16 0.02 - 0.50 K/uL [facility] Basophil Abs 0.11(H) 0.02 - 0.09 K/uL [facility] IG Abs 0.04 0.01 - 0.12 K/uL [facility] Blood 01/29/2023 9:26 AM CDT 01/29/2023 9:28 AM CDT Katiana Felton MD LAB BLOOD ORDERABLES [address] [place] [address] * BUN (01/29/2023 9:26 AM CDT) BUN 18 6 - 23 mg/dL [facility] Comment:Testing Performed at [facility], [address] [place] [address], [address], [place] [address] Blood 01/29/2023 9:26 AM CDT 01/29/2023 9:32 AM CDT Katiana Felton MD LAB BLOOD ORDERABLES [address] [place] [address] * ALT (01/29/2023 9:26 AM CDT) ALT 31 <=41 U/L [facility] Comment:Testing Performed at [facility] Lab It Sales Consultant [facility], [address] [place] [address], [address], [place] [address] Blood 01/29/2023 9:26 AM CDT 01/29/2023 9:32 AM CDT Katiana Felton MD LAB BLOOD ORDERABLES [address] [place] [address] * Aspartate Aminotransferase (01/29/2023 9:26 AM CDT) AST 22 <=40 U/L [facility] Comment:Testing Performed at [facility] Lab It Sales Consultant [facility], [address] [place] [address], [address], [place] [address] Blood 01/29/2023 9:26 AM CDT 01/29/2023 9:32 AM CDT Katiana Felton MD LAB BLOOD ORDERABLES Performing Organization Address City/[facility]/ZIP Co de Phone Number [address] [place] [address] * (ABNORMAL) Total Protein (01/29/2023 9:26 AM CDT) [facility] Total Protein 8.5(H) 6.4 - 8.3 g/dL [facility] Comment:Testing Performed at [facility] It Sales Consultant [facility], [address] [place] [address], [address], [place] [address] Blood 01/29/2023 9:26 AM CDT 01/29/2023 9:32 AM CDT Katiana Felton MD LAB BLOOD ORDERABLES [facility] [address] [place] [address]. [address] [place] [address] * (ABNORMAL) Alkaline Phosphatase (01/29/2023 9:26 AM CDT) Alk Phos 219(H) 40 - 129 U/L [facility] Comment:Testing Performed at [facility] It Sales Consultant [facility], [address] [place] [address], [address], [place] [address] Blood 01/29/2023 9:26 AM CDT 01/29/2023 9:32 AM CDT Katiana Felton MD LAB BLOOD ORDERABLES Performing Organization Address City/[facility]/ZIP Co de Phone Number [address] [place] [address] * Glucose Level (01/29/2023 9:26 AM CDT) [facility] Glucose Level 90 70 - 99 mg/dL [facility] Comment: Effective 11/30/15, the glucose reference intervals have been updated based on [place] [employer] guidelines (Standards of Medical Care in Diabetes 2016. Diabetes Care 2016; 39: S13-S22). Fasting blood glucose: Normal: 70-99 mg/dL Impaired fasting glucose (increased risk for diabetes or pre-diabetes): 100- 125 mg/dL Diabetes mellitus: >/=126 mg/dL Random blood glucose: Normal: 70-199 mg/dL Note: Random glucose >100 mg/dL is associated with increased risk for diabetes Testing Performed at [facility] It Sales Consultant [facility], [address] [place] [address], [address], [place] [address] Blood 01/29/2023 9:26 AM CDT 01/29/2023 9:32 AM CDT Katiana Felton MD LAB BLOOD ORDERABLES Performing Organization Address City/[facility]/ZIP Co de Phone Number [address] [place] [address] * CEA (01/29/2023 9:26 AM CDT) [facility] CEA 3.0 <=3.8 ng/mL [facility] Comment: Reference Ranges: Smoker: 0.0 - 5.5 Non-Smoker: 0.0 - 3.8 This test is measured by electrochemiluminescence immunoassay on Joao [employer] immunoassay analyzers. Results obtained in different methods are not interchangeable. Testing Performed at [facility] Lab It Sales Consultant [facility], [address], [address], [place] [address] Blood 01/29/2023 9:26 AM CDT 01/29/2023 9:32 AM CDT Katiana Felton MD LAB BLOOD ORDERABLES [address] [place] [address] * (ABNORMAL) Calcium Level (01/29/2023 9:26 AM CDT) Calcium Lvl 10.5(H) 8.4 - 10.2 mg/dL [facility] Comment:Testing Performed at [facility] It Sales Consultant [facility], [address] [place] [address], [address], [place] [address] Blood 01/29/2023 9:26 AM CDT 01/29/2023 9:32 AM CDT Katiana Felton MD LAB BLOOD ORDERABLES Performing Organization Address City/[facility] Co de Phone Number [address] [place] [address] * Albumin Level (01/29/2023 9:26 AM CDT) Albumin Lvl 3.8 3.5 - 5.2 gm/dL [facility] Comment:Testing Performed at [facility] It Sales Consultant [facility], [address] [place] [address], [address], [place] [address] Blood 01/29/2023 9:26 AM CDT 01/29/2023 9:32 AM CDT Katiana Felton MD LAB BLOOD ORDERABLES [facility] [address] [place] [address]. [address] [place] [address] * (ABNORMAL) Electrolyte Panel (01/29/2023 9:26 AM CDT) Sodium Lvl 138 136 - 145 mEq/L [facility] Comment:Testing Performed at [facility] Lab It Sales Consult[facility], [address], [address], [place] [address] Potassium Lvl 5.3(H) 3.5 - 5.1 mEq/L [facility] Comment:Testing Performed at [facility] Lab It Sales Consult[employer] [facility], [address], [address], [place] [address] Chloride 100 98 - 107 mEq/L [facility] Comment:Testing Performed at [facility] Lab It Sales Consult[employer] [facility], [address], [address], [place] [address] CO2 31(H) 22 - 29 mEq/L [facility] Comment:Testing Performed at [facility] Lab It Sales Consultant [facility], [address], [address], [place] [address] Anion Gap 7 4 - 14 mEq/L [facility] Comment:Testing Performed at [facility] Lab [employer] [facility], [address], [address], [place] [address] Blood 01/29/2023 9:26 AM CDT 01/29/2023 9:32 AM CDT Katiana Felton MD LAB BLOOD ORDERABLES [facility] [address] [place] [address] * OSI CT Chest (01/01/2023 3:49 PM CDT) Narrative Systemgenerated, Documentation - 01/15/2023 3:49 PM CDT Study acquired at another institution. For comparison only. No Matt originated interpretation requested or available. Katiana Felton MD IMG OUTSIDE IMAGE OR DERABLES after 07/25/2022 Advance Directives Latest Code Status on File Code Status Date Activated Date Inactivated Comments Full Code 04/14/2023 9:11 PM 04/16/2023 12:43 PM Care Teams Java Technical Manager Relationship Specialty Start Date End Date Edward Méndez MD [address] [place] [address] [id number] PCP - External Primary Care Provider Family Practice 01/15/23 Katiana Felton MD [address] [place] [id number] PCP - General Internal Medicine 01/15/23 Anthony Bedoya MD [address] [place] [id number] Consulting Physician Genitourinary Oncology 03/21/23
[2023-07-25 08:03] LABS: Absolute Basophils 0.1 K/uL (0-0.5); Absolute Eosinophils 0.1 K/uL (0-0.5); Absolute Lymphocytes (CBC) 1.4 K/uL (0.7-4.9); Absolute Monocytes 0.9 K/uL (0.1-1.3); Absolute Neutrophil 8.7 K/uL (1.8-8.0); Basophils % 0.6 % (0-1.3); Hematocrit 54.4 % (39.6-49.0); Hemoglobin 17.3 g/dL (13.6-17.9); Lymphocytes % 12.4 % (15.3-44.8); MCHC 31.9 g/dL (32.0-36.0); MCV 68.9 fL (80-100); MPV 8.7 fL (7.6-11.3); Monocytes % 7.9 % (3.3-12.3); Neutrophils % 78.1 % (41.7-73.7); Nucleated Red Blood Cells % 0.1 % (0-0); Platelets 306 thou/uL (152-406); RBC Red Blood Cell Count 7.89 M/uL (4.33-5.43); Red Cell Distribution Width 21.9 % (12.1-15.2)
[2023-07-25 08:05] LABS: PT Prothrombin Time 15.3 SECONDS (9.5-12.5); PTT, Activated Partial Thromb 41.1 SECONDS (24.3-36.9); Protime INR 1.4
[2023-07-25 08:24] LABS: ALT/SGPT 15 U/L (16-61); AST/SGOT 15 U/L (15-37); Albumin/Globulin Ratio 0.5 (1.1-1.8); Alkaline Phosphatase 157 U/L (45-117); BUN Blood Urea Nitrogen 16 mg/dL (7-18); Bicarbonate 21 mEq/L (21-32); Bilirubin Direct 0.2 mg/dL (0-0.2); Bilirubin Indirect, Calculated 0.5 mg/dL (0.2-0.8); Bilirubin Total 0.7 mg/dL (0.2-1.0); Globulin 5.7 g/dL (2.3-3.5); Glomerular Filtration Rate 78 ml/min (=/>90); Glucose Level 138 mg/dL (74-106); Magnesium 2.2 mg/dL (1.6-2.4); NT PRO-BNP 89 pg/mL (<125); Protein, Total 8.7 g/dL (6.4-8.2); Sodium Level 135 mEq/L (136-145)
[2023-07-25 08:33] LABS: Troponin High Sensitivity < 3.0 pg/mL (<58.9)
--- NOTE | 2023-07-25 08:57 | RAD REPORT ---
EXAM DESCRIPTION: CT - Chest For Pe Angio - 07/25/2023 8:47 am CLINICAL HISTORY: Cancer pt on immunotherapy;Chest pain COMPARISON: Chest Abd Pelvis Wo Con dated 03/01/2023; Chest For Pe Angio dated 02/18/2023; Abdomen Pelvis W Contrast dated 04/14/2023 TECHNIQUE: Dynamically enhanced axial 3 mm thick images of the chest were obtained during administra tion of <100> mL Isovue 370 IV contrast. Coronal and oblique reconstruction images were generated and reviewed. Exam utilizes a protocol for optimal evaluation of pulmonary arterial tree. Maximum intensity projections 3D imaging was utilized All CT scans are performed using dose optimization technique as appropriate and may include automated exposure control or mA/KV adjustment according to patient size. FINDINGS: Chest Wall: No suspicious thyroid nodules or pathologic lymphadenopathy. Gynecomastia Lungs: Bilateral pulmonary nodules demonstrating some interval enlargement compared with 03/01/2023. For example, a nodule in the right lower lobe measures 3.2 cm, previously 2.9 cm. A left upper lobe n odule measures 2.2 cm, previously 1.7 cm. No definite new nodules are identified though some more pre viously punctate and are now better seen. Pleura: No significant effusions or pneumothorax. Mediastinum/mark: No pathologic lymphadenopathy. Pulmonary arteries/Aorta: No filling defect identified. No aortic aneurysm. Heart: No significant pericardial effusion. Normal heart size. Upper abdomen: Partially imaged large right renal mass. Bones: No acute abnormality. IMPRESSION: Negative for pulmonary embolism or acute findings in the chest. Progression of metastati c disease with enlarging pulmonary nodules.
--- NOTE | 2023-07-25 09:10 | ER ---
Nurse's Notes [facility] Name: Jamir Somers Age: 53 yrs Sex: Male : 1970 Arrival Date: 07/25/2023 Time: 07:25 Bed 20 Private MD: Diagnosis: Chest pain, cancer pain Presentation: 07/24 07:35 Chief complaint: Patient states: hx of renal cell carcinoma stage 4, mets to lungs and iw lymph nodes, is having pain all over, burning pain to back and aching in chest. Coronavirus screen: At this time, the client does not indicate any symptoms associated with coronavirus-19. Ebola Screen: No symptoms or risks identified at this time. Initial Sepsis Screen: Does the patient meet any 2 criteria? No. Patient's initial sepsis screen is negative. Does the patient have a suspected source of infection? No. Patient's initial sepsis screen is negative. Risk Assessment: Do you want to hurt yourself or someone else? Patient reports no desire to harm self or others. Onset of symptoms was July 25, 2023. 07:35 Method Of Arrival: Ambulatory iw 07:35 Acuity: KAELA 3 iw Historical: - Allergies: 07:37 No Known Allergies; iw - PMHx: 07:37 Renal cell carcinoa; iw - Immunization history:: Adult Immunizations up to date. - Social history:: Smoking status: . Screenin:[facility] ED Fall Risk Assessment (Adult) Score/Fall Risk Level 0 - 2 = Low Risk. Abuse iw screen: Denies threats or abuse. Denies injuries from another. Nutritional screening: No deficits noted. Tuberculosis screening: No symptoms or risk factors identified. Assessment: 07:51 General: Appears comfortable, Behavior is calm, cooperative. Pain: Complains of pain in iw back and chest. Neuro: Level of Consciousness is awake, alert, obeys commands, Oriented to person, place, time, situation, Moves all extremities. Full function. Cardiovascular: Patient's skin is warm and dry. Respiratory: Respiratory effort is even, unlabored, Respiratory pattern is regular, symmetrical. GI: Abdomen is flat, non-distended. Derm: Skin is healthy with good turgor. Musculoskeletal: Range of motion: intact in all extremities. 08:40 Reassessment: Patient appears in no apparent distress at this time. pt requesting more iw pain medication. 09:15 Reassessment: DC ON HOLD FOR FAMILY TRANSPORT. bp 10:05 Reassessment: Patient appears in no apparent distress at this time. Patient and/or iw family updated on plan of care and expected duration. Pain level reassessed. Patient is alert, oriented x 3, equal unlabored respirations, skin warm/dry/pink. Vital Signs: 07:35 BP 115 / 84; Pulse 87; Resp 18; Temp 97.9; Pulse Ox 97% on R/A; Pain 10/10; iw 08:14 BP 140 / 76; Pulse 77; Resp 14; Pulse Ox 96% on R/A; iw 09:20 BP 119 / 88; Pulse 75; Resp 16; Pulse Ox 97% on R/A; iw 10:10 BP 110 / 94; Pulse 79; Resp 16; Temp 97.5; Pulse Ox 96% on R/A; Pain 3/10; iw 07:35 Pain Scale: Adult iw 10:10 Pain Scale: Adult iw ED Course: 07:26 Patient arrived in ED. im 07:28 Palomo Vieira MD is Attending Physician. sp3 07:35 Skylar Dong, SUREKHA is Primary Nurse. iw 07:37 Triage completed. iw 07:37 Arm band placed on. iw 07:37 Patient has correct armband on for positive identification. iw 07:50 Client placed on continuous cardiac and pulse oximetry monitoring. NIBP monitoring iw applied. home agent on. 07:51 Initial lab(s) drawn, by me, sent to lab. Inserted saline lock: 22 gauge in right iw forearm, using aseptic technique. Blood collected. 08:00 Patient requests liquids. iw 08:23 No provider procedures requiring assistance completed. Oxygen administration via nasal iw cannula \T\ 2L/min. 08:49 CT Chest For PE Angio In Process Unspecified. EDMS 10:10 IV discontinued, intact, bleeding controlled, No redness/swelling at site. Pressure iw dressing applied. 10:11 Provided Education on: d/c instructions. iw Administered Medications: 08:10 Drug: HYDROmorphone IVP 1 mg IVP once Route: IVP; Site: right forearm; iw 08:10 Drug: Ondansetron IVP 4 mg IVP once; over 2 minutes Route: IVP; Site: right forearm; iw 08:55 Drug: HYDROmorphone IVP 1 mg IVP once Route: IVP; Site: right forearm; bp 09:50 Drug: HYDROmorphone IVP 1 mg IVP once Route: IVP; Site: right forearm; iw Medication: 10:11 VIS not applicable for this client. iw Outcome: : Discharge ordered by sp3 10:11 Discharged to home via wheelchair, with family, iw 10:11 Condition: good 10:11 Discharge instructions given to patient, family, Instructed on discharge instructions, follow up and referral plans. Demonstrated understanding of instructions, follow-up care, 10:11 Patient left the ED. iw Signatures: Dispatcher [employer] EDSkylar Aguilar RN RN iw Carrillo Nicole RN RN bp Patel, Setul, MD MD sp3 Priscilla Laws im Corrections: (The following items were deleted from the chart) 08:10 07:35 BP 115 / 84; Pulse 87bpm; Resp 18bpm; Pulse Ox 97% RA; Temp 97.9F; iw iw 08:26 08:14 BP 140 / 76; Pulse 77bpm; Resp 14bpm; Pulse Ox 96% RA; iw iw
--- NOTE | 2023-07-25 09:10 | EDPHYS ---
Physician Documentation [facility] Name: Jamir Somers Age: 53 yrs Sex: Male : 1970 Arrival Date: 07/25/2023 Time: 07:25 Bed 20 Private MD: ED Physician Palomo Vieira HPI: 07/24 07:40 This 53 yrs old Male presents to ER via Ambulatory with complaints of Pain All Over. 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 Patient is also on immunotherapy. He sees supportive care at [facility]. He denies headache, facial pain, neck pain, shortness of breath, syncope, near syncope, abdominal pain, nausea, vomiting, diarrhea, rash, focal weakness, or any other signs or symptoms on ROS at this time.. Historical: - Allergies: 07:37 No Known Allergies; iw - PMHx: 07:37 Renal cell carcinoa; iw - Immunization history:: Adult Immunizations up to date. - Social history:: Smoking status: . ROS: 07:43 Constitutional: Negative for fever, chills, and weight loss, Eyes: Negative for injury, sp3 pain, redness, and discharge, Neck: Negative for injury, pain, and swelling, Respiratory: Negative for shortness of breath, cough, wheezing, and pleuritic chest pain, Abdomen/GI: Negative for abdominal pain, nausea, vomiting, diarrhea, and constipation, MS/Extremity: Negative for injury and deformity, Skin: Negative for injury, rash, and discoloration, Neuro: Negative for headache, weakness, numbness, tingling, and seizure, Psych: Negative for depression, anxiety, suicide ideation, homicidal ideation, and hallucinations, Allergy/Immunology: Negative for hives, rash, and allergies, Endocrine: Negative for neck swelling, polydipsia, polyuria, polyphagia, and marked weight changes, Hematologic/Lymphatic: Negative for swollen nodes, abnormal bleeding, and unusual bruising, 07:43 All other systems are negative, Exam: 07:43 Constitutional: This is a well developed, well nourished patient who is awake, alert, sp3 and in no acute distress. Head/Face: Normocephalic, atraumatic. Eyes: Pupils equal round and reactive to light, extra-ocular motions intact. Lids and lashes normal. Conjunctiva and sclera are non-icteric and not injected. Cornea within normal limits. Periorbital areas with no swelling, redness, or edema. Neck: Trachea midline, no thyromegaly or masses palpated, and no cervical lymphadenopathy. Supple, full range of motion without nuchal rigidity, or vertebral point tenderness. No Meningismus. Chest/axilla: Normal chest wall appearance and motion. Nontender with no deformity. No lesions are appreciated. Cardiovascular: Regular rate and rhythm with a normal S1 and S2. No gallops, murmurs, or rubs. Normal PMI, no JVD. No pulse deficits. Respiratory: Lungs have equal breath sounds bilaterally, clear to auscultation and percussion. No rales, rhonchi or wheezes noted. No increased work of breathing, no retractions or nasal flaring. Abdomen/GI: Soft, non-tender, with normal bowel sounds. No distension or tympany. No guarding or rebound. No evidence of tenderness throughout. Back: No spinal tenderness. No costovertebral tenderness. Full range of motion. Skin: Warm, dry with normal turgor. Normal color with no rashes, no lesions, and no evidence of cellulitis. MS/ Extremity: Pulses equal, no cyanosis. Neurovascular intact. Full, normal range of motion. Neuro: Awake and alert, GCS 15, oriented to person, place, time, and situation. Cranial nerves II-XII grossly intact. Motor strength 5/5 in all extremities. Sensory grossly intact. Cerebellar exam normal. Normal gait. Psych: Awake, alert, with orientation to person, place and time. Behavior, mood, and affect are within normal limits. 08:41 ECG was reviewed by the Attending Physician. EKG demonstrates normal sinus rhythm at 80 sp3 bpm with normal intervals, slightly leftward axis and nonspecific ST/T changes diffusely without signs of ischemic changes. Vital Signs: 07:35 BP 115 / 84; Pulse 87; Resp 18; Temp 97.9; Pulse Ox 97% on R/A; Pain 10/10; iw 08:14 BP 140 / 76; Pulse 77; Resp 14; Pulse Ox 96% on R/A; iw 09:20 BP 119 / 88; Pulse 75; Resp 16; Pulse Ox 97% on R/A; iw 10:10 BP 110 / 94; Pulse 79; Resp 16; Temp 97.5; Pulse Ox 96% on R/A; Pain 3/10; iw 07:35 Pain Scale: Adult iw 10:10 Pain Scale: Adult iw MDM: 07:32 Patient medically screened. sp3 07:44 Data reviewed: vital signs, nurses notes, old medical records, lab test result(s), EKG, sp3 radiologic studies. ED course: 53-year-old male with history of renal cell carcinoma stage IV now with body wide pain who is on immunotherapy. Differential diagnosis includes pulmonary embolism, sepsis, cancer pain, ACS, pneumonia, immunotherapy based inflammation, among others. Workup will include laboratory values, CT scan of the chest PE protocol, EKG and supportive care with pain medications. Vital signs are currently normal. Disposition pending workup and patient course with possible admission or transfer depending on pathology found.. 09:09 ED course: Patient is somewhat improved with pain medication. There is no pneumonitis sp3 or other immunotherapy induced side effects noted. Blood work is normal. Patient is mildly anemic but this is his baseline. I have advised patient to go to [facility] and seek supportive care consultation for further management of his pain medication. No further intervention indicated in the ER and we will safely discharge patient home at this time.. 07/24 07:38 Order name: Basic Metabolic Panel; Complete Time: 08:55 sp3 07/24 07:38 Order name: CBC with Diff; Complete Time: 09:37 sp3 07/24 07:38 Order name: LFT's; Complete Time: 08:55 sp3 07/24 07:38 Order name: Magnesium; Complete Time: 08:55 sp3 07/24 07:38 Order name: NT PRO-BNP; Complete Time: 08:55 sp3 07/24 07:38 Order name: PT-INR; Complete Time: 08:55 sp3 07/24 07:38 Order name: Troponin HS; Complete Time: 08:55 sp3 07/24 07:38 Order name: Ptt, Activated; Complete Time: 08:55 sp3 07/24 08:10 Order name: CBC Smear Scan; Complete Time: 09:37 EDMS 07/24 07:38 Order name: CT Chest For PE Angio; Complete Time: 08:59 sp3 07/24 07:38 Order name: EKG; Complete Time: 07:39 sp3 07/24 07:38 Order name: Cardiac monitoring; Complete Time: 08:16 sp3 07/24 07:38 Order name: EKG - Nurse/Tech; Complete Time: 08:02 sp3 07/24 07:38 Order name: IV Saline Lock; Complete Time: 07:50 sp3 07/24 07:38 Order name: Labs collected and sent; Complete Time: 07:50 sp3 07/24 07:38 Order name: O2 Per Protocol; Complete Time: 07:50 sp3 07/24 07:38 Order name: O2 Sat Monitoring; Complete Time: 07:50 sp3 Administered Medications: 08:10 Drug: HYDROmorphone IVP 1 mg IVP once Route: IVP; Site: right forearm; iw 08:10 Drug: Ondansetron IVP 4 mg IVP once; over 2 minutes Route: IVP; Site: right forearm; iw 08:55 Drug: HYDROmorphone IVP 1 mg IVP once Route: IVP; Site: right forearm; bp 09:50 Drug: HYDROmorphone IVP 1 mg IVP once Route: IVP; Site: right forearm; iw Disposition Summary: 07/25/23 09:09 Discharge Ordered Notes: Location: Home sp3 Condition: Stable sp3 Diagnosis - Chest pain, cancer pain sp3 Followup: sp3 - With: Private Physician - When: Upon discharge from the Emergency Department - Reason: Continuance of care Discharge Instructions: - Discharge Summary Sheet sp3 - Managing Cancer Pain sp3 Forms: - Medication Reconciliation Form sp3 - Thank You Letter sp3 - Antibiotic Education sp3 - Prescription Opioid Use sp3 - Patient Portal Instructions sp3 - Leadership Thank You Letter sp3 Signatures: Dispatcher [employer] Skylar Gilliam RN RN iw Peltier, Brian, RN RN bp Patel, Setul, MD MD sp3
[2023-07-25 09:26] LABS: Platelet Estimate ADEQ; White Blood Cell Scan OK (OK)
[2023-07-25 09:27] LABS: Anisocytosis 1+; Blood Morphology Comment NOTED (NOT SEEN)
[2023-07-25 10:29] VITALS: BP 110/94; TEMP 97.5; O2SAT 96
--- NOTE | 2023-07-29 14:33 | EKG ---
Test Date: 2023-07-25 Test Time: 07:00:27 [employer] Supervisor: BP MEASUREMENT RESULTS: Intervals: Rate: 80 AR: 178 QRSD: 98 QT: 374 QTc: 431 Gerlaw: P: 65 AR: 178 QRS: -53 T: 43 INTERPRETIVE STATEMENTS: Normal sinus rhythm Left anterior fascicular block Abnormal ECG Compared to ECG 03/01/2023 16:02:23 Left anterior fascicular block now present Left-axis deviation no longer present Electronically Signed On 07-29-23 14:18:40 CDT by Jose Rasmussen
== END ==
LOC: ER 07:25
DX: G89.3 Neoplasm related pain (acute) (chronic) (principal); C64.9 Malignant neoplasm of unspecified kidney, except renal pelvis; C78.00 Secondary malignant neoplasm of unspecified lung; C77.9 Secondary and unspecified malignant neoplasm of lymph node, unspecified
CPT/HCPCS: 93005; 85025; 80048; 36415; 83735; 85610; 80076; 85730; 84484; 83880; 71275; 96375; 96374; 99285; Q9967; J1170 ×3; J2405